=== PATIENT | male | born 1940 | race Caucasian/White ===

== ENCOUNTER 2019-08-03 12:27 | Inpatient (IN) | payer MEDICARE ==
[2019-08-03] MEDS ORDERED: NITROGLYCERIN OINT 1 INCH/GM PACKET TOPICAL STA (12:57)
[2019-08-03] MEDS ORDERED: ASPIRIN 81 MG PO STA (12:57)
--- NOTE | 2019-08-03 13:02 | ED ---
General Adult HPI - General Chief complaint: Chest Pain Stated complaint: Chest pain, SOB Time Seen by Provider: 08/03/19 12:35 Source: patient, RN notes reviewed Mode of arrival: ambulatory Limitations: no limitations - History of Present Illness Initial comments: This is a 79-year-old male who presents emergency Department complaining of on and off chest pain for about 2 weeks patient states she exerts himself he becomes very short of breath and starts having chest pain. Patient states when he relaxes the pain does seem to subside. Patient states she has had multiple stents in the past does have high blood pressure high cholesterol. Patient s owen currently is not having chest pain but anytime he exerts himself he has chest pain shortness of breath. Patient denies any fever chills. Patient denies any radiation of the pain. Patient denies any diaphoretic episodes. Patient denies nausea. Patient denies abdominal pain. Patient denies headache patient denies numbness weakness. Patient denies any lightheadedness dizziness or near syncopal episode. Patient denies any calf pain. - Related Data Home Medications Medication Instructions Recorded Confirmed Isosorbide Mononitrate ER [Imdur] 30 mg PO DAILY 09/16/14 08/03/19 amLODIPine BESYLATE [Norvasc] 5 mg PO DAILY 09/16/14 08/03/19 Aspirin EC [Ecotrin Low Dose] 81 mg PO DAILY 08/03/19 08/03/19 Fluticasone Nasal [place] [Flonase 2 spr EA NOSTRIL TID 08/03/19 08/03/19 Nasal [place]] Ibuprofen [Motrin Ib] 400 mg PO TID 08/03/19 08/03/19 diphenhydrAMINE [Benadryl] 25 mg PO HS PRN 08/03/19 08/03/19 diphenhydrAMINE [Benadryl] 50 mg PO BID@0800,1200 08/03/19 08/03/19 Allergies Allergy/AdvReac Type Severity Reaction Status Date / Time Sulfa (Sulfonamide Allergy Unknown Verified 08/03/19 12:48 Antibiotics) Childhood Review of Systems ROS Statement: Those systems with pertinent positive or pertinent negative responses have been documented in the HPI. ROS Other: All systems not noted in ROS Statement are negative. Past Medical History Past Medical History: Coronary Artery Disease (CAD), Hypertension, Myocardial Infarction (NE), Renal Disease Additional Past Medical History / Comment(s): NE History of Any Multi-Drug Resistant Organisms: None Reported Past Surgical History: Appendectomy, Heart Catheterization With Stent, Hernia Repair Additional Past Surgical History / Comment(s): heart stents x2, left kidney removed, nasal, right finger, cataracts, Past Psychological History: No Psychological Hx Reported Smoking Status: Never smoker Past Alcohol Use History: Occasional Past Drug Use History: None Reported General Exam - General Exam Comments Initial Comments: GENERAL: Patient is well-developed and well-nourished. Patient is nontoxic and well- hydrated and is in mild distress. ENT: Neck is soft and supple. No significant lymphadenopathy is noted. Oropharynx is clear. Moist mucous membranes. Neck has full range of motion without eliciting any pain. EYES: The sclera were anicteric and conjunctiva were pink and moist. Extraocular movements were intact and pupils were equal round and reactive to light. Eyelids were unremarkable. PULMONARY: Unlabored respirations. Good breath sounds bilaterally. No audible rales rhonchi or wheezing was noted. CARDIOVASCULAR: There is a regular rate and rhythm without any murmurs gallops or rubs. ABDOMEN: Soft and nontender with normal bowel sounds. SKIN: Skin is clear with no lesions or rashes and otherwise unremarkable. NEUROLOGIC: Patient is alert and oriented x3. Cranial nerves II through XII are grossly intact. Motor and sensory are also intact. Normal speech, volume and content. Symmetrical smile. MUSCULOSKELETAL: Normal extremities with adequate strength and full range of motion. 1+ bilaterally LYMPHATICS: No significant lymphadenopathy is noted PSYCHIATRIC: Normal psychiatric evaluation. Limitations: no limitations Course Vital Signs 08/03/19 08/03/19 08/03/19 12:33 13:05 13:07 Temperature 97.6 F Pulse Rate 88 72 Pulse Rate [ 72 Bilateral Faith Doctor ] Respiratory 18 18 Rate Blood Pressure 139/70 136/72 O2 Sat by Pulse 95 Oximetry Medical Decision Making - Medical Decision Making EKG shows a sinus rhythm with many PVCs at a rate of 94 bpm CA interval is 214 QRS is 92 QT interval 396 QTC is 495. Patient's EKG does show some inverted T waves in precordial leads V5 and V6. Repeat EKG was done because the patient was experiencing some more chest pain. EKG shows a sinus rhythm with first-degree block at a rate of 84 bpm with a CA interval of 22 QRS is 94 QT interval 14 QTC is 493. Patient also has multiple PVCs. I started the patient on heparin. Patient more chest pains I gave him a nitroglycerin sublingual took the pain away but pain reoccurred shortly thereafter. Patient received another nitroglycerin and then I placed him on a nitroglycerin drip. I spoke with Dr. Kody Gates wanted the patient on heparin and nitroglycerin drip and I indicated to him I thought this patient was someone that needs to be seen as soon as possible. Chest x-ray shows pulmonary venous congestion. Started the patient on Lasix. Patient was feeling better with a nitro drip but still had slight pain. I spoke with Dr. Carrera agreed to admit the patient admitted the patient and formally consulted cardiology - Lab Data Result diagrams: 08/03/19 13:05 08/03/19 13:05 Lab Results 08/03/19 08/03/19 08/03/19 Range/Units 13:05 13:05 13:05 WBC 7.6 (3.8-10.6) k/uL RBC 4.06 L (4.30-5.90) m/uL Hgb 13.4 (13.0-17.5) gm/dL Hct 41.5 (39.0-53.0) % MCV 102.1 H (80.0-100.0) fL MCH 33.1 (25.0-35.0) pg MCHC 32.4 (31.0-37.0) g/dL RDW 12.4 (11.5-15.5) % Plt Count 262 (150-450) k/uL Neutrophils % 63 % Lymphocytes % 19 % Monocytes % 6 % Eosinophils % 8 % Basophils % 1 % Neutrophils # 4.8 (1.3-7.7) k/uL Lymphocytes # 1.5 (1.0-4.8) k/uL Monocytes # 0.4 (0-1.0) k/uL Eosinophils # 0.6 (0-0.7) k/uL Basophils # 0.1 (0-0.2) k/uL PT 9.8 (9.0-12.0) sec INR 0.9 (<1.2) APTT 23.5 (22.0-30.0) sec Sodium 137 (137-145) mmol/L Potassium 4.4 (3.5-5.1) mmol/L Chloride 105 (98-107) mmol/L Carbon Dioxide 22 (22-30) mmol/L Anion Gap 10 mmol/L BUN 30 H (9-20) mg/dL Creatinine 0.75 (0.66-1.25) mg/dL Est GFR (CKD-EPI)AfAm >90 (>60 ml/min/1.73 sqM) Est GFR (CKD-EPI)NonAf 88 (>60 ml/min/1.73 sqM) Glucose 114 H (74-99) mg/dL Calcium 9.2 (8.4-10.2) mg/dL Magnesium 1.8 (1.6-2.3) mg/dL Total Bilirubin 0.7 (0.2-1.3) mg/dL AST 31 (17-59) U/L ALT 33 (21-72) U/L Alkaline Phosphatase 76 (38-126) U/L Troponin I (0.000-0.034) ng/mL Total Protein 6.1 L (6.3-8.2) g/dL Albumin 3.4 L (3.5-5.0) g/dL 08/03/19 Range/Units 13:05 WBC (3.8-10.6) k/uL RBC (4.30-5.90) m/uL Hgb (13.0-17.5) gm/dL Hct (39.0-53.0) % MCV (80.0-100.0) fL MCH (25.0-35.0) pg MCHC (31.0-37.0) g/dL RDW (11.5-15.5) % Plt Count (150-450) k/uL Neutrophils % % Lymphocytes % % Monocytes % % Eosinophils % % Basophils % % Neutrophils # (1.3-7.7) k/uL Lymphocytes # (1.0-4.8) k/uL Monocytes # (0-1.0) k/uL Eosinophils # (0-0.7) k/uL Basophils # (0-0.2) k/uL PT (9.0-12.0) sec INR (<1.2) APTT (22.0-30.0) sec Sodium (137-145) mmol/L Potassium (3.5-5.1) mmol/L Chloride (98-107) mmol/L Carbon Dioxide (22-30) mmol/L Anion Gap mmol/L BUN (9-20) mg/dL Creatinine (0.66-1.25) mg/dL Est GFR (CKD-EPI)AfAm (>60 ml/min/1.73 sqM) Est GFR (CKD-EPI)NonAf (>60 ml/min/1.73 sqM) Glucose (74-99) mg/dL Calcium (8.4-10.2) mg/dL Magnesium (1.6-2.3) mg/dL Total Bilirubin (0.2-1.3) mg/dL AST (17-59) U/L ALT (21-72) U/L Alkaline Phosphatase (38-126) U/L Troponin I 0.048 H* (0.000-0.034) ng/mL Total Protein (6.3-8.2) g/dL Albumin (3.5-5.0) g/dL Critical Care Time Critical Care Time: Yes Total Critical Care Time: 35 Disposition Clinical Impression: Unstable angina pectoris, Acute pulmonary edema Disposition: ADMITTED IP TO THIS HOSP Referrals: Bruce Unger DO [Primary Care Provider] - 1-2 days Time of Disposition: 15:27
[2019-08-03 13:22] LABS: Basophils # (A) 0.1 k/uL (0-0.2); Basophils % (A) 1 %; Eosinophils # (A) 0.6 k/uL (0-0.7); Eosinophils % (A) 8 %; HCT 41.5 % (39.0-53.0); HGB 13.4 gm/dL (13.0-17.5); Lymphocytes # (A) 1.5 k/uL (1.0-4.8); Lymphocytes % (A) 19 %; MCH 33.1 pg (25.0-35.0); MCHC 32.4 g/dL (31.0-37.0); MCV 102.1 fL (80.0-100.0); Mean Platelet Volume 7.8; Monocytes # (A) 0.4 k/uL (0-1.0); Monocytes % (A) 6 %; Neutrophils # (A) 4.8 k/uL (1.3-7.7); Neutrophils % (A) 63 %; Platelet Count 262 k/uL (150-450); RBC 4.06 m/uL (4.30-5.90); RDW 12.4 % (11.5-15.5); WBC 7.6 k/uL (3.8-10.6)
[2019-08-03 13:23] LABS: ALT 33 U/L (21-72); AST 31 U/L (17-59); African American GFR (CKD) >90 (>60 ml/min/1.73 sqM); Albumin 3.4 g/dL (3.5-5.0); Alkaline Phosphatase 76 U/L (38-126); Anion Gap 10 mmol/L; Blood Urea Nitrogen 30 mg/dL (9-20); Calcium 9.2 mg/dL (8.4-10.2); Carbon Dioxide 22 mmol/L (22-30); Chloride 105 mmol/L (98-107); Glucose 114 mg/dL (74-99); Magnesium 1.8 mg/dL (1.6-2.3); Potassium 4.4 mmol/L (3.5-5.1); Sodium 137 mmol/L (137-145); Total Bilirubin 0.7 mg/dL (0.2-1.3); Total Protein 6.1 g/dL (6.3-8.2)
[2019-08-03 13:25] LABS: INR 0.9 (<1.2); Partial Thromboplastin Time 23.5 sec (22.0-30.0); Prothrombin Time 9.8 sec (9.0-12.0)
--- NOTE | 2019-08-03 13:37 | XR ---
EXAMINATION TYPE: XR chest 2V DATE OF EXAM: 08/03/2019 COMPARISON: NONE HISTORY: Shortness of breath TECHNIQUE: Frontal and lateral views of the chest are obtained. FINDINGS: Scattered senescent parenchymal changes noted. Hyperinflation compatible with COPD. Patchy basilar infiltrates with small effusions and pulmonary venous congestion as well as cardiomega ly may reflect atypical presentation of congestive failure. Correlate clinically Mediastinal structures are stable and grossly unremarkable. No evidence for hilar prominence. Degenerative changes dorsal spine. IMPRESSION: 1. Patchy basilar infiltrates with small effusions and pulmonary venous congestion as well as cardiom egaly may reflect atypical presentation of congestive failure. Correlate clinically
[2019-08-03] MEDS: NITROGLYCERIN SL TABS 0.4 MG TAB SUBLINGUAL PRN ×2 (14:01→14:20)
[2019-08-03] MEDS ORDERED: HEPARIN SODIUM,PORCINE 5,000 UNIT/ML 1 ML VIAL IV ONE (14:19)
[2019-08-03] MEDS ORDERED: NITROGLYCERIN-D5W PMX 50 MG in DEXTROSE/WATER 1 250ML.BAG IV ONE (14:23)
[2019-08-03] MEDS ORDERED: HEPARIN SOD,PORK IN 0.45% NACL 25,000 UNIT in 0.45% NACL 1 250ML.BAG IV SCH (14:30)
[2019-08-03] MEDS ORDERED: HYDROmorphone 0.5 MG/0.5 ML SYRINGE IVP STA (14:52)
[2019-08-03] MEDS ORDERED: NITROGLYCERIN SL TABS 0.4 MG TAB SUBLINGUAL PRN (15:28)
[2019-08-03] MEDS ORDERED: FUROSEMIDE 10 MG/ML 2 ML VIAL IV STA (15:29)
[2019-08-03] MEDS ORDERED: MAGNESIUM SULFATE-D5W PMX 1 GM in DEXTROSE/WATER 1 100ML.BAG IVPB ONE (16:54)
[2019-08-03] MEDS ORDERED: NITROGLYCERIN OINT 1 INCH/GM PACKET TOPICAL SCH (18:00)
[2019-08-03] MEDS: FUROSEMIDE 10 MG/ML 2 ML VIAL IV SCH (20:02)
[2019-08-03] MEDS: METOPROLOL TARTRATE 12.5 MG TAB PO SCH (20:52)
[2019-08-03] MEDS: ATORVASTATIN 40 MG TAB PO SCH (20:52)
--- NOTE | 2019-08-03 23:03 | CONS ---
CONSULTATION DATE OF SERVICE: 08/03/2019 Grey Rendon is a 79-year-old gentleman who was brought into the emergency room by his sister and his niece. This gentleman has history of known CAD, hypertension and hypercholesterolemia. He underwent stenting performed of one of his coronary arteries several years ago, probably more than 10 years, but has not followed up with his equipment validation specialist. He sees his primary care physician, Dr. Quintanilla. He came in because of about one week's history of chest tightness, pressure and shortness of breath. He describes his chest tightness on the right side of the chest that sometimes radiates across to the left side. It happens randomly, sometimes with activity, but there is a progressive increase in frequency of these episodes. He also has shortness of breath with activity. At the time of my evaluation he is pain-free. Apparently he received some sublingual nitroglycerin and obtained relief. I advised that we heparinize him and also place him on a nitroglycerin drip, and with this he seems quite comfortable. EKG revealed sinus mechanism with isolated PVCs and some of them in the form of repeated beats up to 3 beats in a row of PVCs. There are no acute changes on the EKG, but troponin initial value is 0.048, in the borderline range. At the time of my evaluation he is virtually asymptomatic, resting without any symptoms. PAST MEDICAL HISTORY: 1. CAD with stenting. Details unavailable. More than 10 years ago per patient and his sister. 2. He also underwent left nephrectomy performed when he was 14 years of age for a nonfunctioning kidney. Details are unclear. 3. He also had a previous appendectomy and hernia repair. ALLERGIES: SULFA. MEDICATIONS: Medications at home include: 1. Benadryl. 2. Imdur 30 mg daily. 3. Amlodipine 5 mg daily. 4. Aspirin 81 mg daily. 5. Nasal spray. 6. Motrin p.r.n. PHYSICAL EXAMINATION: Blood pressure is 128/70. Pulse rate is about 70 per minute, regular. HEENT unremarkable. Fundus was not examined by me. Neck is supple. There is no JVD. I do not hear a carotid bruit. Heart exam reveals S1, S2 heard normally. There are no significant murmurs. Lungs reveal decent air entry in bilateral lung mcclure. Abdomen is soft, nontender. Lower extremities reveal palpable pulses. No edema. Central nervous system is normal. EKG revealed sinus mechanism with isolated PVCs, LVH by voltage criteria, nonspecific ST and T-wave changes. Laboratory data reveal that his hemoglobin is normal. Platelet count is normal. Renal function is normal. Troponin is 0.048, and this is the first value. IMPRESSION: 1. Probable unstable angina. 2. Hypertension. 3. Hyperlipidemia. 4. History of previous percutaneous coronary intervention more than 10 years ago per patient; details unavailable at this time. RECOMMENDATIONS: This patient is not a smoker but has history of known coronary artery disease, hypertension, hyperlipidemia; has not seen a equipment validation specialist. His symptoms raise the possibility of angina. He is pain-free now on heparin and nitroglycerin drips. I am recommending that we place him on a small dose of metoprolol, supplement magnesium, which is at the low end of normal, obtain serial troponins and echocardiogram in the morning and continue his heparin and nitroglycerin drip. If he has more symptoms, I will perform coronary angiography first thing tomorrow morning. The rationale, risks, benefits and options were explained to the patient's sister and niece. They understand all details and wish to proceed. MMODL / IJN: [id number] /
[2019-08-04] MEDS: IBUPROFEN 400 MG TAB PO SCH ×2 (00:42→08:09)
[2019-08-04] MEDS: FLUTICASONE 50MCG/SPRAY NASAL 16GM EA NOSTRIL SCH ×4 (00:42→20:12)
[2019-08-04] MEDS: FUROSEMIDE 10 MG/ML 2 ML VIAL IV SCH ×2 (01:07→12:36)
[2019-08-04] MEDS: amLODIPine 5 MG TAB PO SCH (05:41)
[2019-08-04] MEDS: METOPROLOL TARTRATE 12.5 MG TAB PO SCH (05:41)
[2019-08-04] MEDS: ASPIRIN 81 MG PO SCH (05:42)
[2019-08-04] MEDS: ISOSORBIDE MONONITRATE ER 30 MG TAB.ER.24H PO SCH (05:42)
[2019-08-04 07:01] LABS: Cholesterol 151 mg/dL (<200); HDL Cholesterol 41 mg/dL (40-60); LDL Cholesterol,Calculated 97 mg/dL (0-99); Triglycerides 65 mg/dL (<150)
[2019-08-04] MEDS ORDERED: ATORVASTATIN 80 MG TAB PO STA (08:03)
[2019-08-04 08:49] LABS: Basophils # (A) 0.1 k/uL (0-0.2); Basophils % (A) 1 %; Eosinophils # (A) 0.5 k/uL (0-0.7); Eosinophils % (A) 7 %; HCT 40.7 % (39.0-53.0); HGB 13.4 gm/dL (13.0-17.5); Lymphocytes # (A) 1.3 k/uL (1.0-4.8); Lymphocytes % (A) 18 %; MCH 34.1 pg (25.0-35.0); MCHC 32.9 g/dL (31.0-37.0); MCV 103.6 fL (80.0-100.0); Macrocytosis Slight; Mean Platelet Volume 9.2; Monocytes # (A) 0.5 k/uL (0-1.0); Monocytes % (A) 7 %; Neutrophils # (A) 4.8 k/uL (1.3-7.7); Neutrophils % (A) 65 %; Platelet Count 263 k/uL (150-450); RBC 3.93 m/uL (4.30-5.90); RDW 12.4 % (11.5-15.5); WBC 7.4 k/uL (3.8-10.6)
[2019-08-04 08:55] LABS: African American GFR (CKD) >90 (>60 ml/min/1.73 sqM); Anion Gap 9 mmol/L; Blood Urea Nitrogen 22 mg/dL (9-20); Calcium 8.7 mg/dL (8.4-10.2); Carbon Dioxide 23 mmol/L (22-30); Chloride 104 mmol/L (98-107); Glucose 109 mg/dL (74-99); Potassium 4.3 mmol/L (3.5-5.1); Sodium 136 mmol/L (137-145)
[2019-08-04] MEDS ORDERED: NON FORMULARY DRUG (Aspirin Ec 81 MG) PO SCH (09:00)
[2019-08-04] MEDS ORDERED: ASPIRIN 325 MG TAB PO SCH (09:00)
--- NOTE | 2019-08-04 09:23 | US ---
EXAMINATION TYPE: US abdomen complete DATE OF EXAM: 08/04/2019 COMPARISON: US 09/06/2014 of the gallbladder CLINICAL HISTORY: abdominal pain. shortness of breath EXAM MEASUREMENTS: Liver Length: 10.8 cm Gallbladder Wall: 0.2 cm CBD: 0.2 cm Spleen: 6.2 cm Right Kidney: 11.0 x 4.9 x 6.3 cm Left Kidney: Surgically absent Patient states left kidney surgically absent. Technically difficult study due to being performed port ably and patient being very short of breath. Pancreas: not well seen due to overlying bowel gas Liver: wnl Gallbladder: No stones seen Evidence for sonographic Soares's sign: No CBD: wnl Spleen: wnl Right Kidney: wnl Left Kidney: Surgically absent per patient Upper IVC: wnl Abd Aorta: calcified Incidental note is made of bilateral pleural effusion. The liver is homogenous. The intrahepatic portion of the IVC and proximal abdominal aorta are within normal limits. There is no evidence of cholelithiasis. Common bile duct is unremarkable. The visu alized portions of the pancreas are homogenous. The spleen is unremarkable. Right kidney is free of hydronephrosis. Left kidney is surgically absent. IMPRESSION: 1. Incidentally noted partially visualized pleural effusions, visualized portions appear small. 2. The previously seen borderline gallbladder wall thickening and 2014 does not persist on today's ex am. No sonographic evidence of acute cholecystitis nor cholelithiasis. 3. Limited views of the left renal fossa in the nephrectomy bed. There is also limited evaluation of the pancreas. 4. Incidentally noted atherosclerosis of the abdominal aorta.
[2019-08-04] MEDS ORDERED: VERAPAMIL 2.5 MG/ML 2 ML AMP ONE (09:55)
[2019-08-04] MEDS ORDERED: LIDOCAINE 1% INJ 10MG/ML (20 ML MDV) ONE (09:56)
[2019-08-04] MEDS ORDERED: IV FLUID CONTINUATION 400 ML IV ONE (10:47)
[2019-08-04] MEDS ORDERED: MIDAZOLAM PF (FBP) 2 MG/2 ML VIAL IV ONE (10:47)
[2019-08-04] MEDS ORDERED: LIDOCAINE 1% INJ 10MG/ML (20 ML MDV) SQ ONE (10:50)
[2019-08-04] MEDS ORDERED: FUROSEMIDE 10 MG/ML 4 ML VIAL ONE (10:53)
[2019-08-04] MEDS ORDERED: FUROSEMIDE 10 MG/ML 4 ML VIAL IV ONE (10:55)
[2019-08-04] MEDS ORDERED: IOPAMIDOL-370 100ML BTL INJ ONE (11:21)
--- NOTE | 2019-08-04 11:42 | ECHOF ---
Referral Reason:chest pain and elevated troponin MEASUREMENTS -------- HEIGHT: 157.5 cm WEIGHT: 69.4 kg BP: 120/76 RVIDd: 3.6 cm (< 3.3) IVSd: 0.9 cm (0.6 - 1.1) LVIDd: 4.8 cm (3.9 - 5.3) LVPWd: 1.5 cm (0.6 - 1.1) IVSs: 1.3 cm LVIDs: 3.6 cm LVPWs: 1.1 cm LA Diam: 4.5 cm (2.7 - 3.8) LAESV Index (A-L): 35.97 ml/m Ao Diam: 3.1 cm (2.0 - 3.7) AV Cusp: 1.2 cm (1.5 - 2.6) LA Diam: 4.1 cm (2.7 - 3.8) MV EXCURSION: 22.213 mm (> 18.000) MV EF SLOPE: 171 mm/s (70 - 150) EPSS: 0.8 cm MV E Rubin: 0.53 m/s MV DecT: 167 ms MV A Rubin: 0.43 m/s MV E/A Ratio: 1.22 AR PHT: 571 ms RAP: 5.00 mmHg RVSP: 55.96 mmHg TAPSE: 20.39 mm FINDINGS -------- Sinus rhythm. This was a techncally difficult study with suboptimal views, , Lumason utilized for enhancement of im ages. There is moderate concentric left ventricular hypertrophy. Overall left ventricular systolic functi on is moderate-severely impaired with, an EF between 30 - 35 %. Increased Lap Grade II Diastolic Dy sfunction. Apical anterior LV wall motion is hypokinetic. Apical inferior LV wall motion is hypo kinetic. Lateral hypokinesis [place] Hypokinesis. The right ventricle is normal in size. The left atrium is moderately dilated. LA is severely dilated >40 ml/m2 The right atrial size is normal. 5.0mg OF Lumason UTLIZED: 2 OR MORE WALL SEGMENTS NOT VISUALIZED. There is mild aortic valve sclerosis. There is mild aortic regurgitation. Mild mitral annular calcification present. Mild mitral regurgitation is present. Moderate tricuspid regurgitation present. There is moderate pulmonary hypertension. The right halina tricular systolic pressure, as measured by Doppler, is 55.96mmHg. Trace/mild (physiologic) pulmonic regurgitation. The aortic root size is normal. There is no pericardial effusion. CONCLUSIONS -------- 1. Sinus rhythm. 2. This was a techncally difficult study with suboptimal views, , Lumason utilized for enhancement of images. 3. There is moderate concentric left ventricular hypertrophy. 4. Overall left ventricular systolic function is moderate-severely impaired with, an EF between 30 - 35 %. 5. Increased Lap Grade II Diastolic Dysfunction. 6. Apical anterior LV wall motion is hypokinetic. 7. Apical inferior LV wall motion is hypokinetic. 8. Lateral hypokinesis 9. [place] Hypokinesis. 10. The right ventricle is normal in size. 11. The left atrium is moderately dilated. 12. LA is severely dilated >40 ml/m2 13. The right atrial size is normal. 14. 5.0mg OF Lumason UTLIZED: 2 OR MORE WALL SEGMENTS NOT VISUALIZED. 15. There is mild aortic valve sclerosis. 16. There is mild aortic regurgitation. 17. Mild mitral annular calcification present. 18. Mild mitral regurgitation is present. 19. Moderate tricuspid regurgitation present. 20. There is moderate pulmonary hypertension. 21. The right ventricular systolic pressure, as measured by Doppler, is 55.96mmHg. 22. Trace/mild (physiologic) pulmonic regurgitation. 23. The aortic root size is normal. 24. There is no pericardial effusion. CLAIMS ATTORNEY: Claudia Garcia RDCS
[2019-08-04] MEDS ORDERED: SODIUM CHLORIDE 0.9% 1,000 ML IV SCH (11:45)
--- NOTE | 2019-08-04 12:02 | CC ---
CARDIAC CATHETERIZATION REPORT DATE OF SERVICE: 08/04/2019 PROCEDURE: Left heart catheterization and coronary angiography. PERFORMED BY: Dr. Shashank Gates. SEDATION: Moderate conscious sedation time was 29 minutes. Patient was administered Versed. His oxygen saturation, hemodynamics and EKG were monitored closely. CLINICAL INFORMATION: Mr. Grey Rendon is 79-year-old gentleman with a history of hypertension who came to the hospital yesterday with 1 week's worth of chest pain on and off and had a mild troponin elevation without clear-cut EKG changes other than PVCs. He was advised cardiac catheterization given his presentation. In October 2005, he underwent stenting of proximal LAD and in November 2005 he underwent stenting of mid LAD. In view of his known previous PCI and with his presentation, he was advised cardiac cath after due discussion. Risks, benefits, options and rationale were explained to the patient and family members. PROCEDURE NOTE: Under local anesthesia and strict aseptic precautions, a 6-[place] introducer was placed in the right femoral artery. Using standard Ramon catheters. I performed coronary angiography and a pigtail catheter was used to check LV pressure but LV gram was not performed. The sheath was taken out and Angio-Seal device used to secure hemostasis. He was sent to the room in stable condition. CARDIAC CATHETERIZATION FINDINGS: Left vent end-diastolic pressure was about 20 mmHg without any gradient across the aortic valve. CORONARY ANGIOGRAPHY FINDINGS: RIGHT CORONARY ARTERY: This is a very dominant vessel, is heavily calcified. Has no significant CAD and distally it divides into 3 different branches and supplies a fair amount of myocardium. There is a moderate to heavy calcification but no significant obstructive disease in the dominant RCA. LEFT MAIN CORONARY ARTERY: Short, patent, disease-free vessel that bifurcates into LAD and circumflex. LEFT ANTERIOR DESCENDING CORONARY ARTERY: Good caliber vessel, extends along the anterior wall at the site of previous stenting. There is no significant disease. From the stented segment, there is a small jailed diagonal branch that seems to fill slowly. The stent itself is widely patent with no more than 30% narrowing. The mid LAD stent is also widely patent and the diagonal branch that comes off at the edges sent to the stent is widely patent with good flow with about 30% narrowing. The entire LAD has no significant disease. There is a small jailed diagonal branch that seems to fill slowly coming from the proximal LAD stent. There is another proximal diagonal branch that is free of significant disease, supplies a fair amount of myocardium. LEFT POSTERIOR CIRCUMFLEX CORONARY ARTERY: A nondominant vessel, gives off 2 small obtuse marginal branches and then runs in the AV groove. The second obtuse marginal is of good caliber and distribution. There is no significant disease involving the circumflex system. LEFT VENTRICULOGRAM: This was not performed. FINAL IMPRESSION: This patient has a widely patent mid LAD stent as well as proximal LAD stent. There is a small subtotal diagonal that is jailed coming off from the stent. He has no significant disease in the circumflex or the dominant RCA, but RCA is heavily calcified. Filling pressures are elevated. There is no obstructive CAD of significance on this patient. However, echo picture suggests takotsubo-type picture. RECOMMENDATION: Findings were discussed with the patient and his sister. I will recommend that we continue current medications and because of ventricular ectopy and decreased LV function, I will add amiodarone to his regimen. Discussed my thoughts in detail with the patient and family and he was sent to the room in a stable condition. MMODL / IJN: [id number] /
[2019-08-04] MEDS ORDERED: AMIODARONE 200 MG TAB PO STA (13:09)
[2019-08-04] MEDS ORDERED: METOPROLOL TARTRATE 12.5 MG TAB PO STA (13:09)
[2019-08-04] MEDS ORDERED: CALCIUM CARBONATE 500 MG CHEWABLE PO PRN (14:58)
[2019-08-04] MEDS: CALCIUM CARBONATE 500 MG CHEWABLE PO SCH (17:00)
[2019-08-04] MEDS: ATORVASTATIN 40 MG TAB PO SCH (20:11)
[2019-08-04] MEDS: FUROSEMIDE 10 MG/ML 4 ML VIAL IV SCH (20:11)
[2019-08-04] MEDS: AMIODARONE 200 MG TAB PO SCH (20:11)
[2019-08-04] MEDS: METOPROLOL TARTRATE 25 MG TAB PO SCH (20:12)
[2019-08-04] MEDS ORDERED: LOSARTAN 25 MG TAB PO SCH (21:00)
--- NOTE | 2019-08-04 22:06 | P.HPIM ---
History of Present Illness H&P Date: 08/04/19 Chief Complaint: Chest pain History of presenting complaint: This is a pleasant 79-year-old patient of Dr. Bruce Quintanilla. Chronic stable medical conditions include hypertension, left nephrectomy, arthritis. Patient presents with left-sided chest pressure also be across the chest present for several hours and every over the night. No perspiration. Mild shortness of breath. No dizziness no lightheadedness. Patient has known coronary artery disease with prior stent. Patient admitted with diagnosis of unstable angina. Patient never troponin of 0.048 and 0.057. 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 JOSE JUAN Gates. More details and's notes. It was decided to manage the patient medically. Earlier patient 2-D echocardiogram showing EF of 30-35% and he had wall motion abnormalities. Postprocedure patient symptom-free. Review of systems: GEN.: Tired EYES: None HEENT: None NECK: None RESPIRATORY: None CARDIOVASCULAR: 's above GASTROINTESTINAL: None GENITOURINARY: None MUSCULOSKELETAL: Joint pain LYMPHATICS: None HEMATOLOGICAL: None PSYCHIATRY: None NEUROLOGICAL: None Past medical history: Coronary artery disease with stent, hypertension, left nephrectomy, Social history: Does not smoke. Alcohol occasionally. Lives alone. 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 Family history: Reviewed, noncontributory to presentation Physical examination: VITAL SIGNS: 97.6, 88, 18, 139/70, 95% room air GENERAL: BMI 20.6, laying in bed awake. EYES: Pupils equal. Conjunctiva normal. HEENT: External appearance of nose and ears normal, oral cavity grossly normal. NECK: JVD not raised; masses not palpable. HEART: First and second heart sounds are normal; no edema. LUNGS: Respiratory rate normal; clear to auscultation. ABDOMEN: Soft, nontender, liver spleen not palpable, no masses palpable. PSYCH: Alert and oriented x3; mood and affect normal. NEUROLOGICAL: Cranial nerves grossly intact; no facial asymmetry, power and sensation grossly intact. LYMPHATICS: No lymph nodes palpable in the axilla and neck INVESTIGATIONS, reviewed in the clinical context: Chest x-ray film personally reviewed by me-shows venous prominence and possible right pleural effusion EKG tracing personally reviewed by me-multiple PVCs some T-wave changes, sinus rhythm 2-D echo-moderate concentric left medical hypertrophy, EF 30-35%, multiple wall motion abnormality, Cardiac cath results and Dr. 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 Current medications include amiodarone, Norvasc, aspirin, Lipitor, IV Lasix, Imdur, Cozaar, beta redd. Care was discussed with the patient. Questions were answered. Seen by Dr. JOSE JUAN Gates from cardiology. Past Medical History Past Medical History: Coronary Artery Disease (CAD), Hypertension, Renal Disease Additional Past Medical History / Comment(s): PR History of Any Multi-Drug Resistant Organisms: None Reported Past Surgical History: Appendectomy, Heart Catheterization With Stent, Hernia Repair Additional Past Surgical History / Comment(s): heart stents x2, left kidney removed, nasal, right finger, cataracts, Date of Last Stent Placement:: unknown Past Psychological History: No Psychological Hx Reported Smoking Status: Never smoker Past Alcohol Use History: Occasional Past Drug Use History: None Reported - Past Family History Father History Unknown: Yes Mother History Unknown: Yes Medications and Allergies Home Medications Medication Instructions Recorded Confirmed Type Isosorbide Mononitrate ER [Imdur] 30 mg PO DAILY 09/16/14 08/03/19 History amLODIPine BESYLATE [Norvasc] 5 mg PO DAILY 09/16/14 08/03/19 History Aspirin EC [Ecotrin Low Dose] 81 mg PO DAILY 08/03/19 08/03/19 History Fluticasone Nasal [place] [Flonase 2 spr EA NOSTRIL TID 08/03/19 08/03/19 History Nasal [place]] Ibuprofen [Motrin Ib] 400 mg PO TID 08/03/19 08/03/19 History diphenhydrAMINE [Benadryl] 25 mg PO HS PRN 08/03/19 08/03/19 History diphenhydrAMINE [Benadryl] 50 mg PO BID@0800,1200 08/03/19 08/03/19 History Allergies Allergy/AdvReac Type Severity Reaction Status Date / Time Sulfa (Sulfonamide Allergy Unknown Verified 08/03/19 12:48 Antibiotics) Childhood Physical Exam Vitals: Vital Signs Temp Pulse Pulse Pulse Pulse Resp BP 08/04/19 08:00 97.5 F L 78 14 08/04/19 03:00 98 F 60 18 08/04/19 00:16 97.9 F 57 L 16 08/03/19 21:46 97.7 F 52 L 18 08/03/19 21:32 97.9 F 52 L 18 08/03/19 17:58 08/03/19 17:48 73 77 18 08/03/19 16:44 84 18 122/96 08/03/19 16:10 126/73 08/03/19 16:00 83 125/77 08/03/19 15:50 76 125/77 08/03/19 15:40 76 107/89 08/03/19 15:30 79 116/70 08/03/19 15:20 84 116/70 08/03/19 15:10 89 79/69 08/03/19 15:00 85 147/65 08/03/19 14:50 118/93 08/03/19 14:40 76 118/93 08/03/19 14:30 82 118/93 08/03/19 14:20 100 118/86 08/03/19 14:10 90 118/86 08/03/19 14:00 80 118/86 08/03/19 13:50 87 118/86 08/03/19 13:40 87 136/72 08/03/19 13:30 136/72 08/03/19 13:20 136/72 08/03/19 13:10 136/72 08/03/19 13:07 72 18 136/72 08/03/19 13:05 72 08/03/19 13:01 136/72 08/03/19 12:33 97.6 F 88 18 139/70 BP Pulse Ox 08/04/19 08:00 116/61 94 L 08/04/19 03:00 120/76 95 08/04/19 00:16 122/78 94 L 08/03/19 21:46 121/76 08/03/19 21:32 121/76 92 L 08/03/19 17:58 92 L 08/03/19 17:48 113/61 94 L 08/03/19 16:44 95 08/03/19 16:10 08/03/19 16:00 08/03/19 15:50 08/03/19 15:40 08/03/19 15:30 08/03/19 15:20 08/03/19 15:10 08/03/19 15:00 08/03/19 14:50 08/03/19 14:40 08/03/19 14:30 08/03/19 14:20 08/03/19 14:10 08/03/19 14:00 08/03/19 13:50 08/03/19 13:40 08/03/19 13:30 08/03/19 13:20 08/03/19 13:10 08/03/19 13:07 08/03/19 13:05 08/03/19 13:01 08/03/19 12:33 95 Intake and Output 08/03/19 08/04/19 08/04/19 22:59 06:59 14:59 Intake Total 546.88 83.331 Output Total 450 1000 Balance 96.88 -916.669 Intake: IV 546.88 0.9NS @50 mls/hour 400 Heparin Sod,Pork in 0.45% 66.88 NaCl 25,000 unit In 0.45 % NaCl 1 250ml.bag @ 12 UNITS/KG/HR 8.361 mls/hr IV .Q24H [facility] Rx#: [id number] Nitroglycerin-D5w Pmx 50 80 mg In Dextrose/Water 1 250ml.bag @ 10 MCG/MIN 3 mls/hr IV .Q24H ONE Rx#: [id number] Intake, IV Titration 83.331 Amount Heparin Sod,Pork in 0.45% 83.331 NaCl 25,000 unit In 0.45 % NaCl 1 250ml.bag @ 12 UNITS/KG/HR 8.361 mls/hr IV .Q24H [facility] Rx#: [id number] Output: Urine 450 1000 Other: Voiding Method Urinal Urinal # Voids 2 Weight 66.9 kg Results CBC & Chem 7: 08/04/19 06:20 08/04/19 06:20 Labs: Abnormal Lab Results - Last 24 Hours (Table) 08/03/19 08/03/19 08/03/19 Range/Units 13:05 13:05 13:05 RBC 4.06 L (4.30-5.90) m/uL MCV 102.1 H (80.0-100.0) fL APTT (22.0-30.0) sec Sodium (137-145) mmol/L BUN 30 H (9-20) mg/dL Glucose 114 H (74-99) mg/dL Troponin I 0.048 H* (0.000-0.034) ng/mL Total Protein 6.1 L (6.3-8.2) g/dL Albumin 3.4 L (3.5-5.0) g/dL 08/03/19 08/03/19 08/04/19 Range/Units 19:49 23:07 06:20 RBC 3.93 L (4.30-5.90) m/uL MCV 103.6 H (80.0-100.0) fL APTT 40.1 H (22.0-30.0) sec Sodium (137-145) mmol/L BUN (9-20) mg/dL Glucose (74-99) mg/dL Troponin I 0.057 H* (0.000-0.034) ng/mL Total Protein (6.3-8.2) g/dL Albumin (3.5-5.0) g/dL 08/04/19 08/04/19 08/04/19 Range/Units 06:20 06:22 06:22 RBC (4.30-5.90) m/uL MCV (80.0-100.0) fL APTT 52.8 H (22.0-30.0) sec Sodium 136 L (137-145) mmol/L BUN 22 H (9-20) mg/dL Glucose 109 H (74-99) mg/dL Troponin I 0.044 H* (0.000-0.034) ng/mL Total Protein (6.3-8.2) g/dL Albumin (3.5-5.0) g/dL Thrombosis Risk Factor Assmnt - Choose All That Apply Each Risk Factor Represents 3 Points: Age 75 years or older Thrombosis Risk Factor Assessment Total Risk Factor Score: 3 Thrombosis Risk Factor Assessment Level: Moderate Risk
[2019-08-04] MEDS: NITROGLYCERIN SL TABS 0.4 MG TAB SUBLINGUAL PRN (23:40)
[2019-08-05 01:04] LABS: Magnesium 1.7 mg/dL (1.6-2.3)
[2019-08-05] MEDS: CALCIUM CARBONATE 500 MG CHEWABLE PO SCH ×3 (06:14→16:30)
[2019-08-05 07:36] LABS: HCT 44.1 % (39.0-53.0); HGB 14.8 gm/dL (13.0-17.5); MCH 34.1 pg (25.0-35.0); MCHC 33.5 g/dL (31.0-37.0); MCV 101.5 fL (80.0-100.0); Mean Platelet Volume 7.4; Platelet Count 295 k/uL (150-450); RBC 4.34 m/uL (4.30-5.90); RDW 12.1 % (11.5-15.5); WBC 9.5 k/uL (3.8-10.6)
[2019-08-05 07:54] LABS: African American GFR (CKD) >90 (>60 ml/min/1.73 sqM); Anion Gap 9 mmol/L; Blood Urea Nitrogen 20 mg/dL (9-20); Calcium 9.1 mg/dL (8.4-10.2); Carbon Dioxide 24 mmol/L (22-30); Chloride 100 mmol/L (98-107); Glucose 101 mg/dL (74-99); Potassium 4.3 mmol/L (3.5-5.1); Sodium 133 mmol/L (137-145)
[2019-08-05] MEDS: FLUTICASONE 50MCG/SPRAY NASAL 16GM EA NOSTRIL SCH ×3 (09:05→22:19)
[2019-08-05] MEDS: amLODIPine 5 MG TAB PO SCH (09:05)
[2019-08-05] MEDS: ASPIRIN 81 MG PO SCH (09:05)
[2019-08-05] MEDS: AMIODARONE 200 MG TAB PO SCH ×2 (09:05→20:03)
[2019-08-05] MEDS: METOPROLOL TARTRATE 25 MG TAB PO SCH ×2 (09:06→20:03)
[2019-08-05] MEDS: ISOSORBIDE MONONITRATE ER 30 MG TAB.ER.24H PO SCH (09:06)
[2019-08-05] MEDS: FUROSEMIDE 10 MG/ML 4 ML VIAL IV SCH ×2 (09:06→20:03)
[2019-08-05 15:20] VITALS: BMI 19.8
[2019-08-05] MEDS: ATORVASTATIN 40 MG TAB PO SCH (20:03)
[2019-08-05 21:31] LABS: Magnesium 1.7 mg/dL (1.6-2.3); Potassium 4.2 mmol/L (3.5-5.1)
--- NOTE | 2019-08-05 22:20 | CONS ---
CONSULTATION Mr. Rendon is a gentleman who I saw yesterday with elevated troponin, has a Takotsubo type picture. He is doing well. His blood pressure control is optimal. I am recommending we discontinue amlodipine and losartan and increase it to 50 mg daily. Vital signs stable. No JVD. S1-S2 heard normally. Short systolic murmur noted. Lungs are clear. Abdomen and lower extremity exam unchanged. Right groin is clean and dry with a good pulse. MMODL / IJN: [id number] /
--- NOTE | 2019-08-05 22:29 | P.PN ---
Progress Note - Text Progress Note Date: 08/05/19 Interval history: This is a pleasant 79-year-old patient of Dr. Bruce Quintanilla. Chronic stable me dical conditions include hypertension, left nephrectomy, arthritis. Patient presents with left-sided chest pressure also be across the chest present for several hours and every over the night. No perspiration. Mild shortness of breath. No dizziness no lightheadedness. Patient has known coronary artery disease with prior stent. Patient admitted with diagnosis of unstable angina. Patient never troponin of 0.048 and 0.057. 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 JOSE JUAN Gates. More details and's notes. It was decided to manage the patient medically. Earlier patient 2-D echocardiogram showing EF of 30-35% and he had wall motion abnormalities. Postprocedure patient symptom-free. Today-laying in bed. No chest pain. Breathing stable. Up to the bathroom. Review of systems: Was done for constitutional, cardiovascular, GI, pulmonary. relevant finding as above Active Medications Amiodarone HCl (Cordarone) 200 mg PO BID [facility] Last Admin: 08/05/19 20:03 Dose: 200 mg Documented by: Aspirin (Aspirin) 81 mg PO DAILY [facility] Last Admin: 08/05/19 09:05 Dose: 81 mg Documented by: Atorvastatin Calcium (Lipitor) 40 mg PO HS [facility] Last Admin: 08/05/19 20:03 Dose: 40 mg Documented by: Calcium Carbonate/Glycine (Tums) 500 mg PO 0630,1200,1730 [facility] Last Admin: 08/05/19 16:30 Dose: 500 mg Documented by: Fluticasone Propionate (Flonase Nasal [place]) 2 spray EA NOSTRIL TID [facility] Last Admin: 08/05/19 22:19 Dose: Not Given Documented by: Furosemide (Lasix) 40 mg IV Q12HR [facility] Last Admin: 08/05/19 20:03 Dose: 40 mg Documented by: Magnesium Sulfate/Dextrose 1 (gm/ IV Solution) 100 mls @ 100 mls/hr IVPB ONCE ONE Stop: 08/05/19 23:29 Isosorbide Mononitrate (Imdur) 30 mg PO DAILY [facility] Last Admin: 08/05/19 09:06 Dose: 30 mg Documented by: Losartan Potassium (Cozaar) 50 mg PO DAILY [facility] Metoprolol Tartrate (Lopressor) 25 mg PO BID [facility] Last Admin: 08/05/19 20:03 Dose: 25 mg Documented by: Nitroglycerin (Nitrostat) 0.4 mg SUBLINGUAL ONCE PRN PRN Reason: Chest Pain Last Admin: 08/04/19 23:40 Dose: 0.4 mg Documented by: Nitroglycerin (Nitrostat) 0.4 mg SUBLINGUAL Q5M PRN PRN Reason: Chest Pain Physical examination: VITAL SIGNS: 97.9, 90, 16, 151/79, 96% 4 L, GENERAL: Laying in bed comfortable EYES: Pupils equal. Conjunctiva normal. HEENT: External appearance of nose and ears normal, oral cavity grossly normal. NECK: JVD not raised; masses not palpable. HEART: First and second heart sounds are normal; no edema. LUNGS: Respiratory rate normal; clear to auscultation. ABDOMEN: Soft, nontender, liver spleen not palpable, no masses palpable. PSYCH: Alert and oriented x3; mood and affect normal. INVESTIGATIONS, reviewed in the clinical context: White count 9.5 hemoglobin 14.8 potassium 4.3 creatinine 0.75 Previous testing: Chest x-ray film personally reviewed by me-shows venous prominence and possible right pleural effusion EKG tracing personally reviewed by me-multiple PVCs some T-wave changes, sinus rhythm 2-D echo-moderate concentric left medical hypertrophy, EF 30-35%, multiple wall motion abnormality, Cardiac cath results and Dr. 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 Remains on IV Lasix. Electrolytes in the a.m. Check labs in the morning.
[2019-08-05] MEDS ORDERED: MAGNESIUM SULFATE-D5W PMX 1 GM in DEXTROSE/WATER 1 100ML.BAG IVPB ONE (22:30)
[2019-08-06 06:30] LABS: African American GFR (CKD) >90 (>60 ml/min/1.73 sqM); Anion Gap 8 mmol/L; Blood Urea Nitrogen 26 mg/dL (9-20); Calcium 9.3 mg/dL (8.4-10.2); Carbon Dioxide 28 mmol/L (22-30); Chloride 99 mmol/L (98-107); Glucose 106 mg/dL (74-99); Potassium 4.2 mmol/L (3.5-5.1); Sodium 135 mmol/L (137-145)
[2019-08-06] MEDS: CALCIUM CARBONATE 500 MG CHEWABLE PO SCH ×3 (06:39→18:21)
[2019-08-06] MEDS: ISOSORBIDE MONONITRATE ER 30 MG TAB.ER.24H PO SCH (08:19)
[2019-08-06] MEDS: METOPROLOL TARTRATE 25 MG TAB PO SCH ×2 (08:19→21:21)
[2019-08-06] MEDS: LOSARTAN 50 MG TAB PO SCH (08:19)
[2019-08-06] MEDS: FUROSEMIDE 10 MG/ML 4 ML VIAL IV SCH (08:19)
[2019-08-06] MEDS: ASPIRIN 81 MG PO SCH (08:19)
[2019-08-06] MEDS: AMIODARONE 200 MG TAB PO SCH ×2 (08:20→21:21)
[2019-08-06] MEDS: FLUTICASONE 50MCG/SPRAY NASAL 16GM EA NOSTRIL SCH ×3 (08:20→21:22)
--- NOTE | 2019-08-06 13:23 | PN ---
PROGRESS NOTE Grey Rendon is a gentleman who I felt came into the hospital with chest pain had a troponin elevation. Clinical picture was that of takotsubo. Cardiac cath did not reveal any significant obstructive CAD. Possibility of recanalized LAD cannot be excluded. However, he is comfortable, resting. No further chest pain and heart failure symptoms have also resolved. He is on a good combination of medications. He had some hypomagnesemia. This was addressed yesterday. I am recommending that we continue current medications, increase activity, perform a repeat echo on Thursday and possibly discharge him at that time. We will increase activity, same medical regimen. Vitals are stable. JVD is 1 cm. No carotid bruit. S1, S2 heard normally. No significant murmurs. Lungs are clear. Abdomen and lower extremity exam unchanged. Plan is to continue current medications, increase activity. Echo and discharge on Thursday. Hopefully, there will be improvement in LV function since I am suspecting this may be a takotsubo, although it will be too early to expect improvement. Discussed my thoughts in detail with the patient. MMODL / IJN: [id number] /
--- NOTE | 2019-08-06 16:42 | P.PN ---
Progress Note - Text Progress Note Date: 08/06/19 Interval history: This is a pleasant 79-year-old patient of Dr. Bruce Quintanilla. Chronic stable me dical conditions include hypertension, left nephrectomy, arthritis. Patient presents with left-sided chest pressure also be across the chest present for several hours and every over the night. No perspiration. Mild shortness of breath. No dizziness no lightheadedness. Patient has known coronary artery disease with prior stent. Patient admitted with diagnosis of unstable angina. Patient never troponin of 0.048 and 0.057. 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 JOSE JUAN Gates. More details and's notes. It was decided to manage the patient medically. Earlier patient 2-D echocardiogram showing EF of 30-35% and he had wall motion abnormalities. Postprocedure patient symptom-free. Today-laying in bed. Awake. Did tolerate his diet. No chest pain no shortness of breath. Review of systems: Was done for constitutional, cardiovascular, GI, pulmonary. relevant finding as above Active Medications Amiodarone HCl (Cordarone) 200 mg PO BID [facility] Last Admin: 08/06/19 08:20 Dose: 200 mg Documented by: Aspirin (Aspirin) 81 mg PO DAILY [facility] Last Admin: 08/06/19 08:19 Dose: 81 mg Documented by: Atorvastatin Calcium (Lipitor) 40 mg PO HS [facility] Last Admin: 08/05/19 20:03 Dose: 40 mg Documented by: Calcium Carbonate/Glycine (Tums) 500 mg PO 0630,1200,1730 [facility] Last Admin: 08/06/19 12:22 Dose: 500 mg Documented by: Fluticasone Propionate (Flonase Nasal [place]) 2 spray EA NOSTRIL TID [facility] Last Admin: 08/06/19 08:20 Dose: Not Given Documented by: Furosemide (Lasix) 40 mg IV Q12HR [facility] Last Admin: 08/06/19 08:19 Dose: 40 mg Documented by: Isosorbide Mononitrate (Imdur) 30 mg PO DAILY [facility] Last Admin: 08/06/19 08:19 Dose: 30 mg Documented by: Losartan Potassium (Cozaar) 50 mg PO DAILY [facility] Last Admin: 08/06/19 08:19 Dose: 50 mg Documented by: Metoprolol Tartrate (Lopressor) 25 mg PO BID [facility] Last Admin: 08/06/19 08:19 Dose: 25 mg Documented by: Nitroglycerin (Nitrostat) 0.4 mg SUBLINGUAL ONCE PRN PRN Reason: Chest Pain Last Admin: 08/04/19 23:40 Dose: 0.4 mg Documented by: Nitroglycerin (Nitrostat) 0.4 mg SUBLINGUAL Q5M PRN PRN Reason: Chest Pain Physical examination: VITAL SIGNS: 97.8, 84, 16, 11 3/53, 97% room air GENERAL: Laying in bed comfortable EYES: Pupils equal. Conjunctiva normal. HEENT: External appearance of nose and ears normal, oral cavity grossly normal. NECK: JVD not raised; masses not palpable. HEART: First and second heart sounds are normal; no edema. LUNGS: Respiratory rate normal; clear to auscultation. ABDOMEN: Soft, nontender, liver spleen not palpable, no masses palpable. PSYCH: Alert and oriented x3; mood and affect normal. INVESTIGATIONS, reviewed in the clinical context: Potassium 4.2 creatinine 0.85 Previous testing: Chest x-ray film personally reviewed by me-shows venous prominence and possible right pleural effusion EKG tracing personally reviewed by me-multiple PVCs some T-wave changes, sinus rhythm 2-D echo-moderate concentric left medical hypertrophy, EF 30-35%, multiple wall motion abnormality, Cardiac cath results and Dr. 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 JOSE JUAN Gates from cardiogenic. Will be switched from IV Lasix to by mouth Lasix. He wishes to the patient through the weekend and see how he does. Patient encouraged to ambulate..
[2019-08-06] MEDS: ATORVASTATIN 40 MG TAB PO SCH (21:21)
[2019-08-07 05:55] LABS: African American GFR (CKD) >90 (>60 ml/min/1.73 sqM); Anion Gap 7 mmol/L; Blood Urea Nitrogen 40 mg/dL (9-20); Calcium 9.4 mg/dL (8.4-10.2); Carbon Dioxide 29 mmol/L (22-30); Chloride 100 mmol/L (98-107); Glucose 95 mg/dL (74-99); Potassium 4.5 mmol/L (3.5-5.1); Sodium 136 mmol/L (137-145)
[2019-08-07] MEDS: CALCIUM CARBONATE 500 MG CHEWABLE PO SCH ×3 (06:15→17:10)
[2019-08-07] MEDS: ISOSORBIDE MONONITRATE ER 30 MG TAB.ER.24H PO SCH (08:35)
[2019-08-07] MEDS: LOSARTAN 50 MG TAB PO SCH (08:35)
[2019-08-07] MEDS: AMIODARONE 200 MG TAB PO SCH ×2 (08:36→20:10)
[2019-08-07] MEDS: FLUTICASONE 50MCG/SPRAY NASAL 16GM EA NOSTRIL SCH ×3 (08:36→20:17)
[2019-08-07] MEDS: METOPROLOL TARTRATE 25 MG TAB PO SCH ×2 (08:36→20:10)
[2019-08-07] MEDS: FUROSEMIDE 40 MG TAB PO SCH (08:36)
[2019-08-07] MEDS: ASPIRIN 81 MG PO SCH (08:36)
[2019-08-07] MEDS: LORATADINE-PSEUDOEPH 5-120 MG 1 EACH TAB.ER.12H PO SCH ×2 (17:10→20:10)
[2019-08-07] MEDS: ATORVASTATIN 40 MG TAB PO SCH (20:10)
--- NOTE | 2019-08-07 20:17 | P.PN ---
Progress Note - Text Progress Note Date: 08/07/19 Interval history: This is a pleasant 79-year-old patient of Dr. Bruce Quintanilla. Chronic stable me dical conditions include hypertension, left nephrectomy, arthritis. Patient presents with left-sided chest pressure also be across the chest present for several hours and every over the night. No perspiration. Mild shortness of breath. No dizziness no lightheadedness. Patient has known coronary artery disease with prior stent. Patient admitted with diagnosis of unstable angina. Patient never troponin of 0.048 and 0.057. 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 JOSE JUAN Gates. More details and his notes. It was decided to manage patient medically. Earlier patient 2-D echocardiogram showing EF of 30-35% and he had wall motion abnormalities. Postprocedure patient symptom-free. Today-sitting up in a chair. Breathing stable. No chest pain. Has a runny nose for last few days.. . Review of systems: Was done for constitutional, cardiovascular, GI, pulmonary. relevant finding as above Active Medications Amiodarone HCl (Cordarone) 200 mg PO BID [facility] Last Admin: 08/07/19 20:10 Dose: 200 mg Documented by: Aspirin (Aspirin) 81 mg PO DAILY [facility] Last Admin: 08/07/19 08:36 Dose: 81 mg Documented by: Atorvastatin Calcium (Lipitor) 40 mg PO HS [facility] Last Admin: 08/07/19 20:10 Dose: 40 mg Documented by: Calcium Carbonate/Glycine (Tums) 500 mg PO 0630,1200,1730 [facility] Last Admin: 08/07/19 17:10 Dose: 500 mg Documented by: Fluticasone Propionate (Flonase Nasal [place]) 2 spray EA NOSTRIL TID [facility] Last Admin: 08/07/19 17:12 Dose: Not Given Documented by: Furosemide (Lasix) 40 mg PO DAILY [facility] Last Admin: 08/07/19 08:36 Dose: 40 mg Documented by: Isosorbide Mononitrate (Imdur) 30 mg PO DAILY [facility] Last Admin: 08/07/19 08:35 Dose: 30 mg Documented by: Loratadine/Pseudoephedrine Sulfate (Claritin-D 12 Hr) 1 each PO Q12HR [facility] Last Admin: 08/07/19 20:10 Dose: 1 each Documented by: Losartan Potassium (Cozaar) 50 mg PO DAILY [facility] Last Admin: 10/06/19 08:35 Dose: 50 mg Documented by: Metoprolol Tartrate (Lopressor) 25 mg PO BID [facility] Last Admin: 08/07/19 20:10 Dose: 25 mg Documented by: Nitroglycerin (Nitrostat) 0.4 mg SUBLINGUAL ONCE PRN PRN Reason: Chest Pain Last Admin: 08/04/19 23:40 Dose: 0.4 mg Documented by: Nitroglycerin (Nitrostat) 0.4 mg SUBLINGUAL Q5M PRN PRN Reason: Chest Pain Physical examination: VITAL SIGNS: 98.2, 64, 16, 109/58, 98% room air GENERAL: Sitting over a chair comfortable EYES: Pupils equal. Conjunctiva normal. HEENT: External appearance of nose and ears normal, oral cavity grossly normal. NECK: JVD not raised; masses not palpable. HEART: First and second heart sounds are normal; no edema. LUNGS: Respiratory rate normal; clear to auscultation. ABDOMEN: Soft, nontender, liver spleen not palpable, no masses palpable. PSYCH: Alert and oriented x3; mood and affect normal. INVESTIGATIONS, reviewed in the clinical context: Potassium 4.5 creatinine 0.93 Previous testing: Chest x-ray film personally reviewed by me-shows venous prominence and possible right pleural effusion EKG tracing personally reviewed by me-multiple PVCs some T-wave changes, sinus rhythm 2-D echo-moderate concentric left medical hypertrophy, EF 30-35%, multiple wall motion abnormality, Cardiac cath results and Dr. 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 Feeling better. Had some antihistaminic. We'll repeat 2-D echocardiogram tomorrow.
[2019-08-08] MEDS: CALCIUM CARBONATE 500 MG CHEWABLE PO SCH ×3 (06:32→17:24)
[2019-08-08 06:44] LABS: Calcium 9.5 mg/dL (8.4-10.2); Potassium 4.4 mmol/L (3.5-5.1)
[2019-08-08] MEDS: ISOSORBIDE MONONITRATE ER 30 MG TAB.ER.24H PO SCH (08:57)
[2019-08-08] MEDS: ASPIRIN 81 MG PO SCH (08:57)
[2019-08-08] MEDS: AMIODARONE 200 MG TAB PO SCH ×2 (08:57→22:18)
[2019-08-08] MEDS: LORATADINE-PSEUDOEPH 5-120 MG 1 EACH TAB.ER.12H PO SCH ×2 (08:57→22:19)
[2019-08-08] MEDS: LOSARTAN 50 MG TAB PO SCH (08:57)
[2019-08-08] MEDS: FUROSEMIDE 40 MG TAB PO SCH (08:57)
[2019-08-08] MEDS: METOPROLOL TARTRATE 25 MG TAB PO SCH ×2 (08:57→22:18)
[2019-08-08] MEDS: FLUTICASONE 50MCG/SPRAY NASAL 16GM EA NOSTRIL SCH ×3 (10:17→22:18)
[2019-08-08] MEDS: NITROGLYCERIN SL TABS 0.4 MG TAB SUBLINGUAL PRN (10:18)
--- NOTE | 2019-08-08 10:32 | ECHOF ---
Referral Reason:LV function MEASUREMENTS -------- HEIGHT: 182.9 cm WEIGHT: 65.8 kg BP: IVSd: 1.3 cm (0.6 - 1.1) LVIDd: 3.7 cm (3.9 - 5.3) LVPWd: 1.6 cm (0.6 - 1.1) IVSs: 1.6 cm LVIDs: 3.3 cm LVPWs: 1.5 cm MV E Rubin: 0.79 m/s MV DecT: 218 ms MV A Rubin: 0.77 m/s MV E/A Ratio: 1.03 AR PHT: 699 ms RAP: 5.00 mmHg RVSP: 11.66 mmHg TAPSE: 20.48 mm FINDINGS -------- Sinus rhythm with extra systolic beats. Limited Study There is moderate concentric left ventricular hypertrophy. Overall left ventricular systolic functi on is moderately impaired with, an EF between 35 - 40 %. Basal Segment Dany only. The thrombus is located in the apical portion of the left ventricle. CONCLUSIONS -------- 1. Sinus rhythm with extra systolic beats. 2. Limited Study 3. There is moderate concentric left ventricular hypertrophy. 4. Basal Segment Dany only. 5. The thrombus is located in the apical portion of the left ventricle. TRANSMISSION AND PROTECTION ENGINEER: Zoë Lieberman RDCS
[2019-08-08] MEDS ORDERED: ACETAMINOPHEN TAB 500 MG TAB PO PRN (10:47)
[2019-08-08] MEDS ORDERED: DICYCLOMINE 10 MG CAP PO STA (10:47)
[2019-08-08] MEDS ORDERED: HEPARIN SODIUM,PORCINE 5,000 UNIT/ML 1 ML VIAL IV ONE (11:15)
[2019-08-08] MEDS ORDERED: HEPARIN SODIUM,PORCINE 5,000 UNIT/ML 1 ML VIAL IV PRN (11:15)
[2019-08-08] MEDS ORDERED: HEPARIN SOD,PORK IN 0.45% NACL 25,000 UNIT in 0.45% NACL 1 250ML.BAG IV SCH (11:15)
[2019-08-08 12:01] LABS: INR 0.9 (<1.2); Partial Thromboplastin Time 22.7 sec (22.0-30.0); Prothrombin Time 10.2 sec (9.0-12.0)
--- NOTE | 2019-08-08 12:15 | P.PN ---
Subjective Progress Note Date: 08/08/19 This is a 79-year-old gentleman who presented to the hospital with symptoms of chest discomfort, he has a known history of coronary artery disease, hypertension, prior history of left nephrectomy, hyperlipidemia, he underwent stenting several years ago. Patient was taken to the cardiac catheterization lab which revealed a patent mid LAD stent as well as proximal LAD stent. There is a small subtotal diagonal that is jailed coming off the stent, no significant disease in the circumflex or dominant RCA but the RCA is heavily calcified. Echo was felt to suggest a stress cardiomyopathy and patient has been treated with medical therapy. Patient had a repeat echocardiogram with Doppler study performed today which continued to reveal a poor LV function with evidence of a thrombus located in the apical portion of the left ventricle. The patient did complain of an episode of chest discomfort this morning, he states that the pain was worse with taking a deep breath. Because of the new thrombus noted in the apex, patient has been advised to stay in the hospital for 24 more hours and to be initiated on IV heparin. We will check to see if he has coverage for Eliquis if so this will be initiated on 5 mg twice a day. If the patient does not have coverage we will start him on Coumadin tomorrow. Objective - Vital Signs Vital signs: Vital Signs Temp 97.4 F L 08/08/19 08:30 Pulse 67 08/08/19 08:30 Resp 18 08/08/19 08:30 BP 128/82 08/08/19 08:30 Pulse Ox 98 08/08/19 08:30 Intake & Output 08/07/19 08/08/19 08/08/19 18:59 06:59 18:59 Intake Total 1680 30 370 Output Total 100 650 Balance 1680 -70 -280 Weight 64.6 kg 65.9 kg Intake: IV 30 10 Invasive Line 1 30 10 Oral 1680 360 Output: Urine 100 650 Other: Voiding Method Urinal Urinal # Voids 2 1 # Bowel Movements 1 - Exam PHYSICAL EXAMINATION: GENERAL: 79-year-old gentleman in no acute distress at the time of my examination HEENT: Head is atraumatic, normocephalic. Pupils equal, round. Sclera anicteric. Conjunctiva are clear. Mucous membranes of the mouth are moist. Neck is supple. There is no elevated jugular venous pressure. No carotid bruit is heard. HEART EXAMINATION: Heart S1, S2 normal. No murmur or gallop heard. CHEST EXAMINATION: Lungs are clear to auscultation and precussion. No chest wall tenderness is noted on palpation or with deep breathing. ABDOMEN: Soft, nontender. Bowel sounds are heard. No organomegaly noted. EXTREMITIES: 2+ peripheral pulses with no evidence of peripheral edema and no calf tenderness noted. NEUROLOGIC patient is awake, alert and oriented 3 . . - Labs CBC & Chem 7: 08/05/19 06:20 08/08/19 06:04 Labs: Abnormal Lab Results - Last 24 Hours (Table) 08/08/19 Range/Units 06:04 Sodium 136 L (137-145) mmol/L BUN 43 H (9-20) mg/dL Glucose 100 H (74-99) mg/dL Assessment and Plan Plan: Assessment and plan #1 chest pain with abnormality in troponin, cardiac catheterization revealed a patent prior stented segment in the LAD, clinical picture suggestive of possible stress cardiomyopathy. Echo cardiac gram with Doppler study was repeated today, continues to show reduced LV function, also shows evidence of a thrombus in the apex. Patient has been initiated on IV heparin. #2 known history of coronary artery disease with prior stent placement #3 hypertension #4 hyperlipidemia #5 history of prior nephrectomy Plan Patient will be initiated on IV heparin today, we will check to see if he has coverage for Eliquis, if the patient has coverage we will initiate Eliquis 5 mg one tablet by mouth twice a day from tomorrow. If he does not of coverage we will start the patient on Coumadin from tomorrow. DNP note has been reviewed, I agree with a documented findings and plan of care. Patient was seen and examined.
[2019-08-08] MEDS: HEPARIN SOD,PORK IN 0.45% NACL 25,000 UNIT in 0.45% NACL 1 250ML.BAG IV SCH (12:47)
--- NOTE | 2019-08-08 19:54 | P.PN ---
Progress Note - Text Progress Note Date: 08/08/19 Interval history: This is a pleasant 79-year-old patient of Dr. Bruce Quintanilla. Chronic stable me dical conditions include hypertension, left nephrectomy, arthritis. Patient presents with left-sided chest pressure also be across the chest present for several hours and every over the night. No perspiration. Mild shortness of breath. No dizziness no lightheadedness. Patient has known coronary artery disease with prior stent. Patient admitted with diagnosis of unstable angina. Patient never troponin of 0.048 and 0.057. Patient had cardiac laboratory associate by Dr. JOSE JUAN Gates. More details and his notes. It was decided to manage patient medically. Earlier patient 2-D echocardiogram showing EF of 30-35% and he had wall motion abnormalities. Postprocedure patient symptom-free. Today- . Repeat 2-D echo shows apical thrombus. EF 35-40%. Started on IV heparin. Looking for coverage for eliquis. No new symptoms. Review of systems: Was done for constitutional, cardiovascular, GI, pulmonary. relevant finding as above Active Medications Acetaminophen (Tylenol Tab) 1,000 mg PO Q6HR PRN PRN Reason: Fever and/ or Pain Last Admin: 08/08/19 11:37 Dose: 1,000 mg Documented by: Amiodarone HCl (Cordarone) 200 mg PO BID [facility] Last Admin: 08/08/19 08:57 Dose: 200 mg Documented by: Aspirin (Aspirin) 81 mg PO DAILY [facility] Last Admin: 08/08/19 08:57 Dose: 81 mg Documented by: Atorvastatin Calcium (Lipitor) 40 mg PO HS [facility] Last Admin: 08/07/19 20:10 Dose: 40 mg Documented by: Calcium Carbonate/Glycine (Tums) 500 mg PO 0630,1200,1730 [facility] Last Admin: 08/08/19 17:24 Dose: 500 mg Documented by: Fluticasone Propionate (Flonase Nasal [place]) 2 spray EA NOSTRIL TID [facility] Last Admin: 08/08/19 15:27 Dose: 2 spray Documented by: Furosemide (Lasix) 40 mg PO DAILY [facility] Last Admin: 08/08/19 08:57 Dose: 40 mg Documented by: Heparin Sodium (Porcine) (Heparin) 0 unit IV PER PROTOCOL PRN; Protocol PRN Reason: Low PTT Heparin Sodium/Sodium Chloride (25,000 unit/ Sodium Chloride) 250 mls @ 7.908 mls/hr IV .Q24H [facility]; Protocol Last Admin: 08/08/19 12:47 Dose: 12 units/kg/hr, 7.908 mls/hr Documented by: Isosorbide Mononitrate (Imdur) 30 mg PO DAILY [facility] Last Admin: 08/08/19 08:57 Dose: 30 mg Documented by: Loratadine/Pseudoephedrine Sulfate (Claritin-D 12 Hr) 1 each PO Q12HR [facility] Last Admin: 08/08/19 08:57 Dose: 1 each Documented by: Losartan Potassium (Cozaar) 50 mg PO DAILY [facility] Last Admin: 08/08/19 08:57 Dose: 50 mg Documented by: Metoprolol Tartrate (Lopressor) 25 mg PO BID [facility] Last Admin: 08/08/19 08:57 Dose: 25 mg Documented by: Nitroglycerin (Nitrostat) 0.4 mg SUBLINGUAL ONCE PRN PRN Reason: Chest Pain Last Admin: 08/08/19 10:18 Dose: 0.4 mg Documented by: Nitroglycerin (Nitrostat) 0.4 mg SUBLINGUAL Q5M PRN PRN Reason: Chest Pain Physical examination: VITAL SIGNS: 97.4, 61, 18, 88/51, 97% room air GENERAL: Sitting up, comfortable EYES: Pupils equal. Conjunctiva normal. HEENT: External appearance of nose and ears normal, oral cavity grossly normal. NECK: JVD not raised; masses not palpable. HEART: First and second heart sounds are normal; no edema. LUNGS: Respiratory rate normal; clear to auscultation. ABDOMEN: Soft, nontender, liver spleen not palpable, no masses palpable. PSYCH: Alert and oriented x3; mood and affect normal. INVESTIGATIONS, reviewed in the clinical context: Potassium 4.5 creatinine 0.93 Limited 2-D echo shows EF of 30-35% and apical thrombus Previous testing: Chest x-ray film personally reviewed by me-shows venous prominence and possible right pleural effusion EKG tracing personally reviewed by me-multiple PVCs some T-wave changes, sinus rhythm 2-D echo-moderate concentric left medical hypertrophy, EF 30-35%, multiple wall motion abnormality, Cardiac cath results and Dr. 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 Eliquis coverages be looked into. Other medications to continue.
[2019-08-08] MEDS: ATORVASTATIN 40 MG TAB PO SCH (22:18)
[2019-08-09 03:28] LABS: HCT 39.6 % (39.0-53.0); HGB 12.7 gm/dL (13.0-17.5); MCH 33.7 pg (25.0-35.0); MCHC 32.1 g/dL (31.0-37.0); MCV 105.1 fL (80.0-100.0); Macrocytosis Slight; Mean Platelet Volume 8.2; Platelet Count 229 k/uL (150-450); RBC 3.76 m/uL (4.30-5.90); WBC 7.6 k/uL (3.8-10.6)
[2019-08-09 04:46] LABS: Band Neutrophils % 5 %; Eosinophils # (M) 0.76 k/uL (0-0.7); Lymphocytes # (M) 1.44 k/uL (1.0-4.8); Monocytes # (M) 0.76 k/uL (0-1.0); Neutrophils % (M) 56 %; Nucleated Red Blood Cells 0 /100 WBC (0-0); Total Cells Counted 100
[2019-08-09 04:47] LABS: Anisocytosis (M) Present; Large Platelets Present
[2019-08-09 04:48] LABS: Poikilocytosis (M) Present
[2019-08-09 06:00] VITALS: TEMP 97.4
[2019-08-09] MEDS: CALCIUM CARBONATE 500 MG CHEWABLE PO SCH ×2 (06:57→11:26)
[2019-08-09] MEDS: LORATADINE-PSEUDOEPH 5-120 MG 1 EACH TAB.ER.12H PO SCH (08:48)
[2019-08-09] MEDS: LOSARTAN 50 MG TAB PO SCH (08:48)
[2019-08-09] MEDS: ASPIRIN 81 MG PO SCH (08:48)
[2019-08-09] MEDS: ISOSORBIDE MONONITRATE ER 30 MG TAB.ER.24H PO SCH (08:48)
[2019-08-09] MEDS: METOPROLOL TARTRATE 25 MG TAB PO SCH (08:48)
[2019-08-09] MEDS: FUROSEMIDE 40 MG TAB PO SCH (08:49)
[2019-08-09] MEDS: FLUTICASONE 50MCG/SPRAY NASAL 16GM EA NOSTRIL SCH (08:49)
[2019-08-09] MEDS: AMIODARONE 200 MG TAB PO SCH (08:49)
[2019-08-09] MEDS: HEPARIN SOD,PORK IN 0.45% NACL 25,000 UNIT in 0.45% NACL 1 250ML.BAG IV SCH (11:20)
[2019-08-09 11:21] VITALS: BP 106/57; PULSE 56; RESP 17
[2019-08-09] MEDS ORDERED: APIXABAN 5 MG TAB PO SCH (11:30)
--- NOTE | 2019-08-09 12:35 | PN ---
PROGRESS NOTE This gentleman was found to have a left ventricular thrombus. He is on heparin now. I am recommending anticoagulation as soon as we get the insurance approval. Once he is anticoagulated, he can be discharged and I will see him in the office in 2 weeks. Vitals are stable. No JVD. S1, S2 heard normally. Short systolic murmur noted. Lungs are clear. Abdomen and lower extremity exam otherwise are unchanged. MMODL / IJN: [id number] /
--- NOTE | 2019-08-09 13:09 | CDI ---
Documentation Clarification Form Date: 08/09/2019 12:23:09 PM From: Ines Toney RN, CCDS Admit Date: 08/03/2019 3:28:00 PM Patient Name: Grey Rendon Visit Number: [id number] Discharge Date: ATTENTION: The Clinical Documentation Specialists (CDI) and [facility] Coding Staff appreciate your assistance in clarifying documentation. Please respond to the clarification below the line at the bottom and electronically sign. The CDI & [facility] Coding staff will review the response and follow-up if needed. Please note: Queries are made part of the Legal Health Record. If you have any questions, please contact the author of this message via ITS. Dr. Radames Gates Evidence of a thrombus in the apex is documented in the progress note on 08/08/19 and further clarification is needed. Patients Admitting Diagnosis: Unstable angina in a patient with CAD, possible tako-pseubo syndrome Post-Operative Diagnosis: Same Procedure performed: Left Heart Catherization History/Risk Factors: Coronary artery disease with prior stent, Hypertension Clinical Indicators: 79-year-old male who present with left-sided chest pressure. Mild shortness of breath. His troponin 0.048, 0.057 08/04/19 ECHO: Overall left ventricular systolic function is moderate-severely impaired with, an EF between 30-35 % Apical anterior LV wall motion is hypokinetic, Apical inferior LV wall motion is hypokinetic 08/04/19 Cardiac Catherization Impression: widely patent mid LAD stent as well as proximal LAD stent. There is a small subtotal diagonal that is jailed coming off from the stent. He has no significant disease in the circumflex or the dominant RCA, but RCA is heavily calcified. There is no obstructive CAD. However, echo picture suggests tako-pseubo--type picture. ECHO; Overall left ventricuilar systolic function is moderately impaired with, an EF between 35-40 % Basal segment christopher only. The thrombus is located in the apical portion of the left ventricle. The patient did complain of an episode of chest discomfort, worse with taking deep breath. Treatment: Heparin drip (now Eliquis PO BID) Amiodarone PO Lopressor PO BID Cozaar PO In order to accurately reflect this patients severity of illness, please clarify if the post-operative diagnosis Apical Thrombus is: An expected post-procedural or post-surgical condition (please further specify) An unexpected post-procedural or post-surgical condition, related to the patients underlying medical comorbidities Other, please specify cause if known Unable to determine (Last Revision: January 2019) Pt has an apical probable thrombus related to underlying Cardiac condition of Apiacal akinesia probable Takasubo in light of no significant obstructive CAD.This is in no way procedure related. JAMIED
--- NOTE | 2019-08-10 22:51 | P.DS ---
Providers Date of admission: 08/03/19 15:28 Expected date of discharge: 08/09/19 Attending physician: Carlos Enrique Carrera Consults: 08/03/19 15:28 Consult Physician Urgent Consulting Provider: [facility] Consult Reason/Comments: Unstable angina Do you want consulting provider notified?: Already Contacted Primary care physician: Bruce Unger [place] [facility] Course: Hospital course: This is a pleasant 79-year-old patient of Dr. Bruce Quintanilla. Chronic stable medical conditions include hypertension, left nephrectomy, arthritis. Patient presents with left-sided chest pressure also be across the chest present for several hours and every over the night. No perspiration. Mild shortness of breath. No dizziness no lightheadedness. Patient has known coronary artery disease with prior stent. Patient admitted with diagnosis of unstable angina. troponin of 0.048 and 0.057. Patient had cardiac lab[facility] by Dr. JOSE JUAN Gates. Significant disease was found. But nothing was amenable to stenting. It was decided to manage patient medically. Earlier patient 2-D echocardiogram showing EF of 30-35% and he had wall motion abnormalities. Postprocedure patient symptom-free. Repeat 2-D echo shows apical thrombus. EF 35-40%. Started on IV heparin. Eliquis added. Patient doing well by the time of discharge. Asymptomatic. Cleared by cardiology Consultation: Dr. JOSE JUAN Gates from cardiology Physical examination: VITAL SIGNS: 97.4, 62, 17, 11 1/66, 97% room air GENERAL: Sitting up, comfortable EYES: Pupils equal. Conjunctiva normal. HEENT: External appearance of nose and ears normal, oral cavity grossly normal. NECK: JVD not raised; masses not palpable. HEART: First and second heart sounds are normal; no edema. LUNGS: Respiratory rate normal; clear to auscultation. ABDOMEN: Soft, nontender, liver spleen not palpable, no masses palpable. PSYCH: Alert and oriented x3; mood and affect normal. INVESTIGATIONS, reviewed in the clinical context: Potassium 4.5 creatinine 0.93 Limited 2-D echo shows EF of 30-35% and apical thrombus Previous testing: Chest x-ray film personally reviewed by me-shows venous prominence and possible right pleural effusion EKG tracing personally reviewed by me-multiple PVCs some T-wave changes, sinus rhythm 2-D echo-moderate concentric left medical hypertrophy, EF 30-35%, multiple wall motion abnormality, Cardiac cath results and Dr. JOSE JUAN Gates's notes ProBNP 9060 Creatinine 0.75 potassium 4.4 Troponin I 0.048, 0.057, 0.044 LDL 97 Discharge diagnosis: -Unstable angina in a patient known coronary artery disease -Cardiac left ventricle apical thrombus -Coronary artery disease with prior stent -Essential hypertension -Left nephrectomy -acute congestive heart failure exacerbation from systolic dysfunction EF 30- 35%, from ischemic cardiomyopathy improved -IV heparin monitoring Disposition: Home Patient Condition at Discharge: Stable Plan - Discharge Summary Discharge Rx Participant: No New Discharge Prescriptions: New Amiodarone [Cordarone] 200 mg PO BID #60 tab Losartan [Cozaar] 50 mg PO DAILY #30 tab Apixaban [Eliquis] 5 mg PO BID #60 tab Furosemide [Lasix] 40 mg PO DAILY #30 tab Atorvastatin [Lipitor] 40 mg PO HS #30 tab Metoprolol Tartrate [Lopressor] 25 mg PO BID #60 tab Melatonin 3 mg PO HS PRN #30 tablet PRN Reason: Insomnia Nitroglycerin Sl Tabs [Nitrostat] 0.4 mg SUBLINGUAL Q5M PRN #25 tab PRN Reason: Chest Pain Acetaminophen Tab [Tylenol] 500 mg PO Q6HR PRN tab PRN Reason: Fever And/ Or Pain Continue Isosorbide Mononitrate ER [Imdur] 30 mg PO DAILY Fluticasone Nasal [place] [Flonase Nasal [place]] 2 spr EA NOSTRIL TID Aspirin EC [Ecotrin Low Dose] 81 mg PO DAILY Discontinued amLODIPine BESYLATE [Norvasc] 5 mg PO DAILY diphenhydrAMINE [Benadryl] 25 mg PO HS PRN PRN Reason: Allergy Symptoms diphenhydrAMINE [Benadryl] 50 mg PO BID@0800,1200 Ibuprofen [Motrin Ib] 400 mg PO TID Discharge Medication List Isosorbide Mononitrate ER [Imdur] 30 mg PO DAILY 09/16/14 [History] Aspirin EC [Ecotrin Low Dose] 81 mg PO DAILY 08/03/19 [History] Fluticasone Nasal [place] [Flonase Nasal [place]] 2 spr EA NOSTRIL TID 08/03/19 [History] Acetaminophen Tab [Tylenol] 500 mg PO Q6HR PRN tab 08/09/19 [Rx] Amiodarone [Cordarone] 200 mg PO BID #60 tab 08/09/19 [Rx] Apixaban [Eliquis] 5 mg PO BID #60 tab 08/09/19 [Rx] Atorvastatin [Lipitor] 40 mg PO HS #30 tab 08/09/19 [Rx] Furosemide [Lasix] 40 mg PO DAILY #30 tab 08/09/19 [Rx] Losartan [Cozaar] 50 mg PO DAILY #30 tab 08/09/19 [Rx] Melatonin 3 mg PO HS PRN #30 tablet 08/09/19 [Rx] Metoprolol Tartrate [Lopressor] 25 mg PO BID #60 tab 08/09/19 [Rx] Nitroglycerin Sl Tabs [Nitrostat] 0.4 mg SUBLINGUAL Q5M PRN #25 tab 08/09/19 [Rx] Follow up Appointment(s)/Referral(s): Radames Gates MD [STAFF PHYSICIAN] - 1 Week ([employer]. Office will call with a follow up appointment.) Bruce Unger DO [Primary Care Provider] - 08/16/19 10:30 am Patient Instructions/Handouts: *Sur[facility] - After Heart Catheterization - Participant Administrator Instructions, Chest Pain (DC), Heart Healthy Diet (DC), Safe Use of Anticoagulants (DC) Activity/Diet/Wound Care/Special Instructions: Eliquis filled at [facility] with free coupon - you hae $150 left on your drug deductible, after you pay this amount next month ($197) your copay will be $47/month. If this is not affordable call to see if you qualify for patient assistance program, if you do not qualify, speak with your belting inspector. Discharge Disposition: HOME SELF-CARE
== END 2019-08-09 15:24 | disposition home or self-care (01) | DRG 287 ==
LOC: EC 12:27 → 3SCARD 15:28
PROVIDERS: ADMIT Hospitalist; ATTEND Hospitalist
PROC: 4A023N7 Measurement of Cardiac Sampling and Pressure, Left Heart, Percutaneous Approach (ICD-10-PCS; principal; 2019-08-04 10:25)
PROC: B2111ZZ Fluoroscopy of Multiple Coronary Arteries using Low Osmolar Contrast (ICD-10-PCS; principal; 2019-08-04 10:25)
DX: I51.81 Takotsubo syndrome (principal); I25.110 Atherosclerotic heart disease of native coronary artery with unstable angina pectoris; E78.00 Pure hypercholesterolemia, unspecified; E78.5 Hyperlipidemia, unspecified; E83.42 Hypomagnesemia; I25.2 Old myocardial infarction; I25.5 Ischemic cardiomyopathy; I49.3 Ventricular premature depolarization; Z95.5 Presence of coronary angioplasty implant and graft; I25.84 Coronary atherosclerosis due to calcified coronary lesion; M19.90 Unspecified osteoarthritis, unspecified site; Z79.82 Long term (current) use of aspirin; Z79.899 Other long term (current) drug therapy; Z90.49 Acquired absence of other specified parts of digestive tract; Z90.5 Acquired absence of kidney; I51.3 Intracardiac thrombosis, not elsewhere classified
CPT/HCPCS: 36415; 71046; 76700; 80048; 80053; 80061; 82150; 83690; 83735; 83880; 84132; 84484; 85025; 85027; 85610; 85730; 93005; 93306; 93308; 93458; 94760; 96365; 96366; 96368; 96375; 96376; 99291

== ENCOUNTER 2020-11-27 18:38 | Inpatient (IN) | payer MEDICARE ==
--- NOTE | 2020-11-27 19:02 | ED ---
General Adult HPI - General Chief complaint: Neuro Symptoms/Deficit Stated complaint: confusion Time Seen by Provider: 11/27/20 18:50 Source: patient Mode of arrival: wheelchair Limitations: no limitations - History of Present Illness Initial comments: Dictation was produced using [employer] dictation software. please excuse any grammatical, word or spelling errors. This patient was cared for during a federal and state declared state of emergency secondary to Covid 19 Chief Complaint: 80-year-old male presents with altered mental status and possible carbon monoxide poisoning. History of Present Illness: 40-year-old male he was brought in by his sister. Patient allegedly has been acting confused for the last 1-2 days. Family member reports that patient's furnace went out. He's been trying to stay warm at home with electric heater is however is not enough instead he decided to turn on a gas heater indoors. His last seen normal 2 days ago. Patient has no complaints at this time. Family reports the patient has been acting strange asking about where his car is and he is late for work when he hasn't worked approximately 1 year. The ROS documented in this emergency department record has been reviewed and confirmed by me. Those systems with pertinent positive or negative responses have been documented in the HPI. All other systems are other negative and/or noncontributory. PHYSICAL EXAM: General Impression: Alert and oriented x3, not in acute distress HEENT: Normocephalic atraumatic, extra-ocular movements intact, pupils equal and reactive to light bilaterally, mucous membranes moist. Cardiovascular: Heart regular rate and rhythm Chest: Able to complete full sentences, no retractions, no tachypnea Abdomen: abdomen soft, non-tender, non-distended, no organomegaly Musculoskeletal: Pulses present and equal in all extremities, no peripheral edema Motor: no focal deficits noted Neurological: CN II-XII grossly intact, no focal motor or sensory deficits noted, NIH of 0 Skin: Intact with no visualized rashes Psych: Normal affect and mood ED course: 80-year-old male presents with altered mental status. Physical examination is benign. As upon arrival shows findings within acceptable limits. Patient is alert and oriented 3 to me. Computed tomography scan of the brain is unremarkable. Chest x-ray is unremarkable. Laboratory evaluation obtained showing no acute processes. CBC is positive for some mild macrocytosis. Venous blood gases negative. Carbon monoxide level is 3.3. Metabolic panel is unremarkable. Patient observed in emergency department for approximately 2 hours stable medical condition. EKG interpretation: Ventricular rate 64, sinus rhythm with frequent PVCs,. Interval to 24, QRS 74, QTC 453. No KS prolongation, no QTC prolongation, no ST or T-wave changes noted. EKG compared to to 2019 showing no changes. Overall, this EKG is unremarkable Disposition options were discussed with patient and patient's sister was at bedside. Patient's sister fears that he lives by himself and is afraid that because of his confusion he might try to leave the house and might benefit trouble. He has not been worked up for altered mental status. Patient will be admitted with consultation to neurology. he'll be admitted to Dr. Carrera. - Related Data Home Medications Medication Instructions Recorded Confirmed Isosorbide Mononitrate ER [Imdur] 30 mg PO DAILY 09/16/14 11/27/20 Aspirin EC [Ecotrin Low Dose] 81 mg PO DAILY 08/03/19 11/27/20 Fluticasone Nasal [place] [Flonase 1 spr EA NOSTRIL DAILY PRN 08/03/19 11/27/20 Nasal [place]] Acetaminophen Tab [Tylenol] 1,000 mg PO Q6HR PRN 11/27/20 11/27/20 Famotidine [Pepcid] 20 mg PO BID 11/27/20 11/27/20 Metoprolol Tartrate [Lopressor] 25 mg PO DAILY 11/27/20 11/27/20 Previous Rx's Medication Instructions Recorded Atorvastatin [Lipitor] 40 mg PO HS #30 tab 08/09/19 Furosemide [Lasix] 40 mg PO DAILY #30 tab 08/09/19 Losartan [Cozaar] 50 mg PO DAILY #30 tab 08/09/19 Melatonin 3 mg PO HS PRN #30 tablet 08/09/19 Nitroglycerin Sl Tabs [Nitrostat] 0.4 mg SUBLINGUAL Q5M PRN #25 tab 08/09/19 Allergies Allergy/AdvReac Type Severity Reaction Status Date / Time Sulfa (Sulfonamide Allergy Unknown Verified 11/27/20 19:10 Antibiotics) Childhood Review of Systems ROS Statement: Those systems with pertinent positive or pertinent negative responses have been documented in the HPI. ROS Other: All systems not noted in ROS Statement are negative. Past Medical History Past Medical History: Coronary Artery Disease (CAD), Hypertension, Renal Disease Additional Past Medical History / Comment(s): [place], cardiomyopathy History of Any Multi-Drug Resistant Organisms: None Reported Past Surgical History: Appendectomy, Heart Catheterization With Stent, Hernia Repair Additional Past Surgical History / Comment(s): heart stents x2, left kidney removed, nasal, right finger, cataracts, Date of Last Stent Placement:: unknown Past Psychological History: No Psychological Hx Reported Smoking Status: Never smoker Past Alcohol Use History: Occasional Past Drug Use History: None Reported - Past Family History Father History Unknown: Yes Mother History Unknown: Yes General Exam Limitations: no limitations Course Vital Signs 11/27/20 18:43 Temperature 99.1 F Pulse Rate 68 Respiratory 18 Rate Blood Pressure 145/70 O2 Sat by Pulse 98 Oximetry Medical Decision Making - Lab Data Result diagrams: 11/27/20 19:16 11/27/20 19:16 Lab Results 11/27/20 11/27/20 11/27/20 Range/Units 19:16 19:16 19:16 WBC 7.5 (3.8-10.6) k/uL RBC 4.21 L (4.30-5.90) m/uL Hgb 14.6 (13.0-17.5) gm/dL Hct 43.1 (39.0-53.0) % MCV 102.4 H (80.0-100.0) fL MCH 34.7 (25.0-35.0) pg MCHC 33.9 (31.0-37.0) g/dL RDW 11.9 (11.5-15.5) % Plt Count 170 (150-450) k/uL MPV 8.0 Neutrophils % 73 % Lymphocytes % 18 % Monocytes % 6 % Eosinophils % 1 % Basophils % 1 % Neutrophils # 5.5 (1.3-7.7) k/uL Lymphocytes # 1.3 (1.0-4.8) k/uL Monocytes # 0.5 (0-1.0) k/uL Eosinophils # 0.0 (0-0.7) k/uL Basophils # 0.0 (0-0.2) k/uL VBG pH (7.31-7.41) VBG pCO2 (37-51) mmHg VBG HCO3 (24-28) mmol/L Carbon Monoxide, Quant 3.3 (<10.0) % Sodium 140 (137-145) mmol/L Potassium 4.4 (3.5-5.1) mmol/L Chloride 103 (98-107) mmol/L Carbon Dioxide 29 (22-30) mmol/L Anion Gap 8 mmol/L BUN 24 H (9-20) mg/dL Creatinine 0.82 (0.66-1.25) mg/dL Est GFR (CKD-EPI)AfAm >90 (>60 ml/min/1.73 sqM) Est GFR (CKD-EPI)NonAf 84 (>60 ml/min/1.73 sqM) Glucose 134 H (74-99) mg/dL Calcium 9.5 (8.4-10.2) mg/dL Total Bilirubin 0.8 (0.2-1.3) mg/dL AST 74 H (17-59) U/L ALT 84 H (4-49) U/L Alkaline Phosphatase 269 H (38-126) U/L Total Protein 6.7 (6.3-8.2) g/dL Albumin 3.9 (3.5-5.0) g/dL 11/27/20 Range/Units 19:16 WBC (3.8-10.6) k/uL RBC (4.30-5.90) m/uL Hgb (13.0-17.5) gm/dL Hct (39.0-53.0) % MCV (80.0-100.0) fL MCH (25.0-35.0) pg MCHC (31.0-37.0) g/dL RDW (11.5-15.5) % Plt Count (150-450) k/uL MPV Neutrophils % % Lymphocytes % % Monocytes % % Eosinophils % % Basophils % % Neutrophils # (1.3-7.7) k/uL Lymphocytes # (1.0-4.8) k/uL Monocytes # (0-1.0) k/uL Eosinophils # (0-0.7) k/uL Basophils # (0-0.2) k/uL VBG pH 7.36 (7.31-7.41) VBG pCO2 51 (37-51) mmHg VBG HCO3 28 (24-28) mmol/L Carbon Monoxide, Quant (<10.0) % Sodium (137-145) mmol/L Potassium (3.5-5.1) mmol/L Chloride (98-107) mmol/L Carbon Dioxide (22-30) mmol/L Anion Gap mmol/L BUN (9-20) mg/dL Creatinine (0.66-1.25) mg/dL Est GFR (CKD-EPI)AfAm (>60 ml/min/1.73 sqM) Est GFR (CKD-EPI)NonAf (>60 ml/min/1.73 sqM) Glucose (74-99) mg/dL Calcium (8.4-10.2) mg/dL Total Bilirubin (0.2-1.3) mg/dL AST (17-59) U/L ALT (4-49) U/L Alkaline Phosphatase (38-126) U/L Total Protein (6.3-8.2) g/dL Albumin (3.5-5.0) g/dL Disposition Clinical Impression: Altered mental status Disposition: ADMITTED IP TO THIS HOSP Condition: Fair Referrals: Bruce Unger DO [Primary Care Provider] - 1-2 days Decision Time: 20:19
[2020-11-27 19:33] LABS: Basophils % (A) 1 %; Eosinophils % (A) 1 %; HCT 43.1 % (39.0-53.0); HGB 14.6 gm/dL (13.0-17.5); Lymphocytes # (A) 1.3 k/uL (1.0-4.8); Lymphocytes % (A) 18 %; MCH 34.7 pg (25.0-35.0); MCHC 33.9 g/dL (31.0-37.0); MCV 102.4 fL (80.0-100.0); Monocytes # (A) 0.5 k/uL (0-1.0); Monocytes % (A) 6 %; Neutrophils # (A) 5.5 k/uL (1.3-7.7); Neutrophils % (A) 73 %; Platelet Count 170 k/uL (150-450); RBC 4.21 m/uL (4.30-5.90); RDW 11.9 % (11.5-15.5); WBC 7.5 k/uL (3.8-10.6)
[2020-11-27 19:39] LABS: VBG PH 7.36 (7.31-7.41)
[2020-11-27 19:46] LABS: ALT 84 U/L (4-49); AST 74 U/L (17-59); African American GFR (CKD) >90 (>60 ml/min/1.73 sqM); Albumin 3.9 g/dL (3.5-5.0); Alkaline Phosphatase 269 U/L (38-126); Anion Gap 8 mmol/L; Blood Urea Nitrogen 24 mg/dL (9-20); Calcium 9.5 mg/dL (8.4-10.2); Carbon Dioxide 29 mmol/L (22-30); Chloride 103 mmol/L (98-107); Glucose 134 mg/dL (74-99); Non-African American GFR(CKD) 84 (>60 ml/min/1.73 sqM); Potassium 4.4 mmol/L (3.5-5.1); Sodium 140 mmol/L (137-145); Total Bilirubin 0.8 mg/dL (0.2-1.3); Total Protein 6.7 g/dL (6.3-8.2)
--- NOTE | 2020-11-27 19:59 | CT ---
EXAMINATION TYPE: CT brain wo con DATE OF EXAM: 11/27/2020 COMPARISON: None HISTORY: ams, possible carbon monoxide exposure CT DLP: 1084.4 mGycm Automated exposure control for dose reduction was used. There is mild cerebral atrophy. There is no mass effect nor midline shift. There is no sign of intrac ranial hemorrhage. The calvarium is intact. There is normal aeration of the mastoid sinuses. IMPRESSION: Negative unenhanced head CT scan.
--- NOTE | 2020-11-27 20:01 | XR ---
EXAMINATION TYPE: XR chest 1V portable DATE OF EXAM: 11/27/2020 COMPARISON: August 03, 2019 HISTORY: Altered mental status TECHNIQUE: Single view FINDINGS: There is no heart failure nor confluent pneumonic infiltrate. Costophrenic angles are clear . There are chest leads. IMPRESSION: No active cardiopulmonary disease. There is clearing of the pulmonary edema and pleural f luid compared to old exam.
[2020-11-27] MEDS ORDERED: NALOXONE 0.4 MG/ML 1 ML VIAL IV PRN (20:20)
[2020-11-28] MEDS ORDERED: NITROGLYCERIN SL TABS 0.4 MG TAB SUBLINGUAL PRN (10:07)
[2020-11-28] MEDS ORDERED: ACETAMINOPHEN TAB 500 MG TAB PO PRN (10:07)
[2020-11-28] MEDS ORDERED: FLUTICASONE 50MCG/SPRAY NASAL 16GM EA NOSTRIL PRN (10:07)
[2020-11-28] MEDS: ISOSORBIDE MONONITRATE ER 30 MG TAB.ER.24H PO SCH (12:25)
[2020-11-28] MEDS: LOSARTAN 50 MG TAB PO SCH (12:25)
[2020-11-28] MEDS: ASPIRIN 81 MG PO SCH (12:26)
[2020-11-28] MEDS: FUROSEMIDE 40 MG TAB PO SCH (12:26)
[2020-11-28] MEDS: METOPROLOL TARTRATE 25 MG TAB PO SCH (12:26)
--- NOTE | 2020-11-28 13:51 | P.CRDCN ---
History of Present Illness Consult date: 11/28/20 History of present illness: CHIEF COMPLAINT: Chest pain HISTORY OF PRESENT ILLNESS: This is a 80-year-old male with a past medical history significant for hypertension, hyperlipidemia, kidney disease with left nephrectomy, LV apical thrombus, and coronary artery disease with previous PCI. Patient follows in the office with Dr. Gates. We have been asked to see the patient in consultation for chest pain. According to the ER physician note, patients furnace broke at home and the patient has been using a gas heater inside his home to heat his house. He apparently has been confused over the past 2-3 days prompting his visit to the emergency room. patient examined this afternoon at the bedside. Patient is currently alert and oriented during examination. Patient states he does not remember coming to the hospital and the last thing he remembered was waking up this morning the hospital bed. Patient reports having an episode of chest discomfort earlier today that he described as being "stuck with a hundred needles to the chest". He states this episode did not last very long and he has not felt that same type of pain since. He currently denies having any pain during examination. However he does report having some chest discomfort with deep inspiration and also upon palpation of chest wall. Patient has a history of coronary artery disease and has had previous stents placed to the proximal LAD and mid LAD. Mid LAD stent was placed in 2005. Patient underwent cardiac cath with Dr. Gates in August 2019 revealing patent stents to the LAD, heavily calcified RCA, with no other significant obstructive coronary artery disease. Medical management was recommended. Echocardiogram at that time revealed ejection fraction 30-35% with a Takotsubo type picture. Patient was also found to have a LV apical thrombus and was placed on Eliquis. Repeat echocardiogram completed in September 2019 revealed resolution of apical thrombus and ejection fraction of 55%. Patient also underwent a nuclear stress test in August 2020 which was negative for ischemia. DIAGNOSTICS: EKG reveals sinus rhythm with no signs of acute ischemia Chest xray negative for acute process Laboratory data: WBC 7.5. Hemoglobin 14.6. Platelet count 170. Carbon monoxide 2.3. Sodium 140. Potassium 4.4. BUN 24. Creatinine 0.82. AST 74. ALT 84. Troponin negative 1. Current home cardiac medications include metoprolol 25 mg daily, Cozaar 59 g daily, Imdur 30 mg daily, Lasix 40 mg daily, Lipitor 40 mg daily, and aspirin 81 mg daily REVIEW OF SYSTEMS: At the time of my exam: CONSTITUTIONAL: Denies fever or chills. HEENT: Denies blurred vision, vision changes, or eye pain. Denies hemoptysis CARDIOVASCULAR: Denies chest pain, orthopnea, PND or palpitations RESPIRATORY: No shortness of breath. GASTROINTESTINAL: Denies abdominal pain. Denies nausea or vomiting. HEMATOLOGIC: Denies bleeding disorders. GENITOURINARY: Denies any blood in urine. SKIN: Denies pruitis. Denies rash. PHYSICAL EXAM: VITAL SIGNS: Reviewed. GENERAL: Well-developed in no acute distress. HEENT: Head is normocephalic. Pupils are equal, round. Sclerae anicteric. Mucous membranes of the mouth are moist. Neck supple. No JVD or thyromegaly LUNGS: Respirations even and unlabored. Lungs essentially clear to auscultation bilaterally. HEART: Regular rate and rhythm. S1 and S2 heard. ABDOMEN: Soft. Nondistended. Nontender. EXTREMITIES: Normal range of motion. No clubbing or cyanosis. Peripheral pulses intact. No lower extremity edema NEUROLOGIC: Awake and alert. Oriented x 3. ASSESSMENT: Altered mental status Chest pain, atypical for angina, reproducible with palpation and deep inspiration Coronary artery disease with previous stent placement to proximal LAD and mid LAD History of Takotsubo cardiomyopathy with ejection fraction of 30-35%, since resolved, EF 55% in 2019 History of LV apical thrombus, 2019 Hypertension Hyperlipidemia History of left nephrectomy PLAN: Obtain 2 additional troponin levels Obtain 2-D echo to assess cardiac structure and function Further workup of altered mental status per neurology and internal medicine Further recommendations pending patient's course Nurse practitioner note has been reviewed by physician. Signing provider agrees with the documented findings, assessment, and plan of care. Past Medical History Past Medical History: Coronary Artery Disease (CAD), Hypertension, Renal Disease Additional Past Medical History / Comment(s): [place], cardiomyopathy History of Any Multi-Drug Resistant Organisms: None Reported Past Surgical History: Appendectomy, Heart Catheterization With Stent, Hernia Repair Additional Past Surgical History / Comment(s): heart stents x2, left kidney removed, nasal, right finger, cataracts, Date of Last Stent Placement:: unknown Past Psychological History: No Psychological Hx Reported Smoking Status: Never smoker Past Alcohol Use History: Occasional Past Drug Use History: None Reported - Past Family History Father History Unknown: Yes Mother History Unknown: Yes Medications and Allergies Home Medications Medication Instructions Recorded Confirmed Type Isosorbide Mononitrate ER [Imdur] 30 mg PO DAILY 09/16/14 11/27/20 History Aspirin EC [Ecotrin Low Dose] 81 mg PO DAILY 08/03/19 11/27/20 History Fluticasone Nasal [place] [Flonase 1 spr EA NOSTRIL DAILY PRN 08/03/19 11/27/20 History Nasal [place]] Atorvastatin [Lipitor] 40 mg PO HS #30 tab 08/09/19 11/27/20 Rx Furosemide [Lasix] 40 mg PO DAILY #30 tab 08/09/19 11/27/20 Rx Losartan [Cozaar] 50 mg PO DAILY #30 tab 08/09/19 11/27/20 Rx Melatonin 3 mg PO HS PRN #30 tablet 08/09/19 11/27/20 Rx Nitroglycerin Sl Tabs [Nitrostat] 0.4 mg SUBLINGUAL Q5M PRN #25 tab 08/09/19 11/27/20 Rx Acetaminophen Tab [Tylenol] 1,000 mg PO Q6HR PRN 11/27/20 11/27/20 History Famotidine [Pepcid] 20 mg PO BID 11/27/20 11/27/20 History Metoprolol Tartrate [Lopressor] 25 mg PO DAILY 11/27/20 11/27/20 History Allergies Allergy/AdvReac Type Severity Reaction Status Date / Time Sulfa (Sulfonamide Allergy Unknown Verified 11/27/20 19:10 Antibiotics) Childhood Physical Exam Vitals: Vital Signs Temp Pulse Pulse Resp BP BP Pulse Ox 11/28/20 08:00 16 11/28/20 07:46 99.1 F 80 16 147/67 96 11/28/20 01:07 97.9 F 86 17 162/73 96 11/27/20 20:21 98.8 F 69 16 148/85 98 11/27/20 18:43 99.1 F 68 18 145/70 98 Intake and Output 11/27/20 11/28/20 11/28/20 22:59 06:59 14:59 Intake Total 240 236 Balance 240 236 Intake: Oral 240 236 Other: Voiding Method Toilet # Voids 1 Weight 76.204 kg Results 11/27/20 19:16 01/26/21 19:16 Cardiac Enzymes 11/27/20 11/27/20 Range/Units 19:16 20:41 AST 74 H (17-59) U/L Troponin I <0.012 (0.000-0.034) ng/mL CBC 11/27/20 Range/Units 19:16 WBC 7.5 (3.8-10.6) k/uL RBC 4.21 L (4.30-5.90) m/uL Hgb 14.6 (13.0-17.5) gm/dL Hct 43.1 (39.0-53.0) % Plt Count 170 (150-450) k/uL Comprehensive Metabolic Panel 11/27/20 Range/Units 19:16 Sodium 140 (137-145) mmol/L Potassium 4.4 (3.5-5.1) mmol/L Chloride 103 (98-107) mmol/L Carbon Dioxide 29 (22-30) mmol/L BUN 24 H (9-20) mg/dL Creatinine 0.82 (0.66-1.25) mg/dL Glucose 134 H (74-99) mg/dL Calcium 9.5 (8.4-10.2) mg/dL AST 74 H (17-59) U/L ALT 84 H (4-49) U/L Alkaline Phosphatase 269 H (38-126) U/L Total Protein 6.7 (6.3-8.2) g/dL Albumin 3.9 (3.5-5.0) g/dL Current Medications Generic Name Dose Route Start Last Admin Trade Name Freq PRN Reason Stop Dose Admin Acetaminophen 1,000 mg 11/28/20 10:07 Acetaminophen Tab 500 Mg Tab PO Q6HR PRN Fever and/ or Pain Aspirin 81 mg 11/28/20 10:15 11/28/20 12:26 Aspirin 81 Mg PO 81 mg DAILY STEPHEN Administration Atorvastatin Calcium 40 mg 11/28/20 21:00 Atorvastatin 40 Mg Tab PO HS STEPHEN Famotidine 20 mg 11/28/20 21:00 Famotidine 20 Mg Tab PO BID STEPHEN Fluticasone Propionate 1 spray 11/28/20 10:07 Fluticasone 50mcg/[place] Nasal 16gm EA NOSTRIL DAILY PRN Allergy Symptoms Furosemide 40 mg 11/28/20 10:15 11/28/20 12:26 Furosemide 40 Mg Tab PO 40 mg DAILY STEPHEN Administration Isosorbide Mononitrate 30 mg 11/28/20 10:15 11/28/20 12:25 Isosorbide Mononitrate Er 30 Mg Tab.Er.24h PO 30 mg DAILY STEPHEN Administration Losartan Potassium 50 mg 11/28/20 10:15 11/28/20 12:25 Losartan 50 Mg Tab PO 50 mg DAILY STEPHEN Administration Melatonin 3 mg 11/28/20 21:00 Melatonin 1 Mg Tab PO HS PRN Insomnia Metoprolol Tartrate 25 mg 11/28/20 10:15 11/28/20 12:26 Metoprolol Tartrate 25 Mg Tab PO 25 mg DAILY STEPHEN Administration Naloxone HCl 0.2 mg 11/27/20 20:20 Naloxone 0.4 Mg/Ml 1 Ml Vial IV Q2M PRN Opioid Reversal Nitroglycerin 0.4 mg 11/28/20 10:07 Nitroglycerin Sl Tabs 0.4 Mg Tab SUBLINGUAL Q5M PRN Chest Pain Intake and Output 11/27/20 11/28/20 11/28/20 22:59 06:59 14:59 Intake Total 240 236 Balance 240 236 Intake: Oral 240 236 Other: Voiding Method Toilet # Voids 1 Weight 76.204 kg 11/27/20 19:16 11/27/20 19:16
--- NOTE | 2020-11-28 13:54 | US ---
EXAMINATION TYPE: US carotid duplex BILAT DATE OF EXAM: 11/28/2020 COMPARISON: NONE CLINICAL HISTORY: forgetful. Confused EXAM MEASUREMENTS: RIGHT: Peak Systolic Velocity (PSV) cm/sec ----- Right CCA: 97.8 ----- Right ICA: 94.0 ----- Right ECA: 89.9 ICA/CCA ratio: 1.0 RIGHT: End Diastole cm/sec ----- Right CCA: 0 ----- Right ICA: 18.9 ----- Right ECA: 0 LEFT: Peak Systolic Velocity (PSV) cm/sec ----- Left CCA: 70.1 ----- Left ICA: 78.4 ----- Left ECA: 91.4 ICA/CCA ratio: 1.1 LEFT: End Diastole cm/sec ----- Left CCA: 13.0 ----- Left ICA: 17.6 ----- Left ECA: 0 VERTEBRALS (direction of flow): Right Vertebral: Antegrade Left Vertebral: Antegrade Rhythm: Underlying arrhythmia not excluded Grayscale, color Doppler, spectral Doppler imaging performed the carotid arteries. Waveform analysis does not show significant stenosis of the proximal internal carotid arteries. No significant stenosis seen. Some atheromatous changes are present at the carotid bulbs. IMPRESSION: Dynamic significant stenosis of the proximal internal carotid arteries by Doppler criter ia, an indirect measurement of carotid stenosis. Possible arrhythmia. Criteria for Assigning % of Stenosis / Diameter reduction (Estimation based on the indirect measurements of the internal carotid artery velocities (ICA PSV). 1. Normal (no stenosis)=ICA PSV < 125 cm/s: ratio < 2.0: ICA EDV<40 cm/s. 2. Less than 50% stenosis=ICA PSV < 125 cm/s: ratio < 2.0: ICA EDV<40 cm/s. 3. 50 to 69% stenosis=ICA PSV of 125 to 230 cm/s: ration 2.0 ? 4.0: ICA EDV 40-100 cm/s. 4. Greater than 70% stenosis to near occlusion= ICA PSV > 230 cm/s: ratio > 4.0: ICA EDV > 100 cm/s. 5. Near occlusion= ICA PSV velocities may be low or undetectable: variable ratio and ICA EDV. 6. Total occlusion=unable to detect flow.
--- NOTE | 2020-11-28 14:11 | P.CN ---
Psychiatric Consult - . Consult date: 11/28/20 Consult:: 11/28/20 11:28 IDENTIFYING DATA: This patient is a 80 y/o male who currently lives alone [place] has 4 kids. REASON FOR REFERRAL: Psychiatry was consulted for delirium HISTORY OF PRESENT ILLNESS: The patient presented to the hospital yesterday with altered mental status and possible carbon monoxide poisoning. According to ER report patient was brought in by his sister who claims that she was acting confused for the past 2 days. She had stated in the ER that he has been using both a gas and electric heater indoors after his furnace went out recently. Patient apparently was disoriented and asking where his car is and that he was also late for work which she has not been to work in several years. Patient's computed tomography scan of his brain was negative and carbon monoxide level was 3.3. Patient's MCV was 102.4 and AST/ALTs were elevated. Nurse taking care patient states that patient is scheduled for MRI and EEG today and that patient has been fairly cooperative today. Patient was seen at the bedside and was for the most part cooperative with remote mortgage underwriter. He states that he does not know how he got to the hospital however she was able to answer questions appropriately and has a fair attention span. He claims that she was trying to heat his house with the stove and oven and claims that his furnace was broken. He states that it was a "bad idea". He states that it is currently getting fixed. He denied any problems with his mood or depression. He denied any anxiety. He states that his sleep has been fair. He denied any manic symptoms. She was alert and oriented 3 and stated that Roderick is the current president. He was able to recall 1 out of 3 words after 5 minutes. Patient had a fair abstraction and fair judgment. At this time patient denies any suicidal or homical ideations, i ntent or plan. Patient denies any auditory, visual hallucinations and denies any paranoia or delusions. Patients admits to using no recreational drugs or cigarettes. Gale (sister of patient) [phone] spoke over the phone who stated that patient was trying to heat his house with his oven as his furnace was broken. She states that for the past 2 days he has been acting strange and confused and talking about going to work and going to [place] which she claims that he has not been to in quite some time. His baseline is able to function and live on his own, can cook and clean except with meds and finances which she helps him with. She also claimed that his furnace was being fixed and repaired today and that she will be able to keep a close eye on him as they are next door neighbors. She also states that she will be able to take him to his follow up appointments. PAST PSYCHIATRIC HISTORY: Patient has no known psychiatric hx. Patient denies being on any psychiatric medications. Patient denies any previous psychiatric hospitalizations. Patient denies any psychiatric outpatient follow-up. Patient denies any history of suicide attempts in the past. PAST MEDICAL HISTORY: htn, hlp, cad, hx of stents placed. ALLERGIES: as per EMR. CHEMICAL DEPENDENCY HISTORY: as per HPI. FAMILY PSYCHIATRIC/SUBSTANCE USE HISTORY: denies SOCIAL HISTORY: Patient was born and raised in [place], [place] 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 He denied any history or any legal history. He states that he has 4 kids and currently lives alone in a log cabin beside his sister. MENTAL STATUS EXAM: General Appearance: Patient appears to be stated age is alert, pleasant, and attempts to be cooperative. Patient appears to have fair hygiene and grooming wearing hospital gown with fair eye contact. Behavior: Patient is calmly lying in bed without any agitated behavior. Attempts to be cooperative. Speech: Patient's speech is fluent and nonpressured. Mood/Affect: Patient reports their mood is "ok", affect is congruent Suicidality/Homicidality: Patient denies having any suicidal or homicidal id eation intent or plan. Perceptions: Patient denies any visual hallucinations and denies any auditory hallucinations Though content/process: There is no evidence of any delusional thought content a nd thought process is linear. Logical. Not endorsing any delusions. Appropriate to conversation. Memory and concentration: AOX3, knows who the current president is. recalls 1/3 words after 5 mins. fair abstraction and fair judgment. Cannot spell "WORLD" backwards Judgment and insight: Limited IMPRESSIONS: Delirium likely etiology toxic/metabolic possibly underlying dementia PLAN: -At this time patient DOES NOT meet criteria for inpatient psychiatric admission. -Delirium precautions recommended with patient including - avoiding use of narcotics and INVERTED BLOCK OPERATOR sedatives, limit anticholinergic medications when possible, frequent re-orientation, minimize use of restraints, open window shades during the day and close them at night -Would recommend the following medication changes/additions: At this time would not recommend any medication changes. can continue with melatonin as needed for sleep. -Plate Filler spoke with patients sister Gale as noted above. She claims that he does not have any access to guns or weapons and will be able to keep a closer eye on him. -awaiting results of MOCA -SW to arrange for home care. -awaiting further imaging and recommendations from neurology -Communicated plan to patient's nurse -Patient has a follow up PCP appointment next week. -Psychiatry will sign off at this time -Please contact with any questions.
--- NOTE | 2020-11-28 16:46 | P.CNNES ---
History of Present Illness Consult date: 11/28/20 Requesting physician: Guillermo Wetzel Reason for Consult: Altered mental status History of Present Illness: Patient is a 80-year-old male came to the hospital yesterday at 6:38 PM for altered mental status. Patient states that he lives himself, and his sister lives next door. Apparently his furnace went out and he was using the gas oven to warm the house. Patient states that the only thing he remembers is talking to his sister at home and then he woke up this morning in the hospital bed in his room. He does not remember how he was brought to the hospital, his transit in the ER, woke up in the floor this morning. At present patient feels fine, denies any headache any pain, chest pain or any focal symptoms. Patient denies any slurred speech problem with the vision, diplopia, headache. Vital signs on arrival blood pressure 145/70, pulse is 68 computed 99.1. Computed tomography scan of the head is normal. EKG shows sinus rhythm with first-degree AV block with frequent premature ventricular complexes. Carotid Doppler showed no hemodynamic significant stenosis of the proximal ICAs. Antegrade flow in both vertebral arteries. Blood test shows normal CBC, with elevated MCV 102.4. Patient denies drinking. Electrolytes are normal. Renal functions normal. AST is mildly elevated 74, ALT 84. Troponins negative. Patient denies history of tobacco use. I spoke to patient's sister on the phone, who provided additional history. She states that patient actually came to her house very confused, couldn't name his children, could not remember one of the son, who committed suicide a year ago. Patient was talking about some stories of driving to [employer] or to [employer] which was not real. She went into house, and the stool was on with a foul smell. She did turn off the stove, opened all of windows, and let him sit outside of his house, and his mentation slightly improved but he was still confused. Therefore she brought him to the hospital. She did not notice any strokelike symptoms like facial droop, slurred speech, focal weakness numbness or balance issues. Everything was working well, except for confusion. She also mentions that patient suffered from Takotsubo cardiomyopathy with low ejection fraction in September 2019. Since then he has been having episodes of some mental confusion, in which he make statement that makes no sense and then later corrects it by himself. Sometimes he becomes argumentative, and emotional. Then he realizes, starts crying about his behavior. She concurs that he has not drank any alcohol for many many many years. He never was a heavy drinker. Review of Systems Completely unremarkable. Patient has no concerns at all. All 14 point review of systems unremarkable. Past Medical History Past Medical History: Coronary Artery Disease (CAD), Hypertension, Renal Disease Additional Past Medical History / Comment(s): [place], cardiomyopathy History of Any Multi-Drug Resistant Organisms: None Reported Past Surgical History: Appendectomy, Heart Catheterization With Stent, Hernia Repair Additional Past Surgical History / Comment(s): heart stents x2, left kidney removed, nasal, right finger, cataracts, Date of Last Stent Placement:: unknown Past Psychological History: No Psychological Hx Reported Smoking Status: Never smoker Past Alcohol Use History: Occasional Past Drug Use History: None Reported - Past Family History Father History Unknown: Yes Mother History Unknown: Yes Medications and Allergies Home Medications Medication Instructions Recorded Confirmed Type Isosorbide Mononitrate ER [Imdur] 30 mg PO DAILY 09/16/14 11/27/20 History Aspirin EC [Ecotrin Low Dose] 81 mg PO DAILY 08/03/19 11/27/20 History Fluticasone Nasal [place] [Flonase 1 spr EA NOSTRIL DAILY PRN 08/03/19 11/27/20 History Nasal [place]] Atorvastatin [Lipitor] 40 mg PO HS #30 tab 08/09/19 11/27/20 Rx Furosemide [Lasix] 40 mg PO DAILY #30 tab 08/09/19 11/27/20 Rx Losartan [Cozaar] 50 mg PO DAILY #30 tab 08/09/19 11/27/20 Rx Melatonin 3 mg PO HS PRN #30 tablet 08/09/19 11/27/20 Rx Nitroglycerin Sl Tabs [Nitrostat] 0.4 mg SUBLINGUAL Q5M PRN #25 tab 08/09/19 11/27/20 Rx Acetaminophen Tab [Tylenol] 1,000 mg PO Q6HR PRN 11/27/20 11/27/20 History Famotidine [Pepcid] 20 mg PO BID 11/27/20 11/27/20 History Metoprolol Tartrate [Lopressor] 25 mg PO DAILY 11/27/20 11/27/20 History Allergies Allergy/AdvReac Type Severity Reaction Status Date / Time Sulfa (Sulfonamide Allergy Unknown Verified 11/27/20 19:10 Antibiotics) Childhood Physical Examination - Vital Signs Vital Signs: Vital Signs Temp Pulse Pulse Resp BP BP Pulse Ox 11/28/20 08:00 16 11/28/20 07:46 99.1 F 80 16 147/67 96 11/28/20 01:07 97.9 F 86 17 162/73 96 11/27/20 20:21 98.8 F 69 16 148/85 98 11/27/20 18:43 99.1 F 68 18 145/70 98 Intake and Output 11/27/20 11/28/20 11/28/20 22:59 06:59 14:59 Intake Total 240 236 Balance 240 236 Intake: Oral 240 236 Other: Voiding Method Toilet # Voids 1 Weight 76.204 kg On examination patient is an elderly male, in no acute distress. He is alert and awake. Patient states it is December and the year is 2020 but then later changed the month to November. He knows that he is in [facility] and name of the current president and his date of . Speech and language functions are normal. Patient can name and repeat very well. A ttention span, concentration is intact, fund of knowledge is slightly limited. Detail cognitive function testing deferred. On cranial nerve examination pupils are round and reactive to light, both pupils are surgical from previous cataract surgery. Visual mcclure are full on confrontation with no neglect. Extraocular muscles are intact with no nystagmus. Face is symmetric, tongue protrudes to the midline. Palatal elevation and sensation normal. Hearing and shoulder shrug normal. Facial sensations normal. On muscle strength testing there is no pronator drift and the strength is normal in arms and legs distally and proximally. Reflexes are diminished and plantars are downgoing. Sensory to touch is equal. No ataxia for [id number] testing on the right, although left is slightly dysmetric, which she claims is chronic issue. Tone and bulk of muscles normal. Gait normal. No obvious bruit, S1 and S2 audible, abdomen soft nontender, chest is clear, peripheral pulses present. No edema. Results - Laboratory Findings CBC and BMP: 11/27/20 19:16 11/27/20 19:16 Abnormal Lab Findings: Abnormal Labs 11/27/20 11/27/20 19:16 19:16 RBC 4.21 L MCV 102.4 H BUN 24 H Glucose 134 H AST 74 H ALT 84 H Alkaline Phosphatase 269 H Assessment and Plan Assessment: * Altered mental status, with mental confusion, disorientation with loss of memory. Possible delirium from ?Carbon monoxide poisoning, although his c arboxyhemoglobin was normal. Rule out transient global amnesia. CVA less likely. * Possible mild cognitive impairment. * Macrocytosis, unclear etiology. Patient denies alcoholism. Rule out B12 or folate deficiency. Plan: * Patient is undergoing MRI of the brain and an EEG. * Agree with checking B12 level. We will also check B1, folate and RPR. * As patient recently was admitted with delirium, therefore I would avoid detailed cognitive function testing during this hospitalization. Patient's sister was suggested to follow-up with a neurologist as outpatient to rule out mild cognitive impairment versus early dementia. She was informed that cognitive enhancing medication does slow down the progression of disease. * We will follow.
--- NOTE | 2020-11-28 18:00 | MR ---
EXAMINATION TYPE: MR brain wo/w con DATE OF EXAM: 11/28/2020 COMPARISON: CT brain 11/27/2020 HISTORY: AMS, encephalopathy CONTRAST: Performed utilizing 7.5 mL intravenous Gadavist gadolinium contrast. TECHNIQUE: Multiplanar, multiecho imaging on a 3.0 [place] magnet is performed through the brain. Stud y is performed within 24 hours of arrival to the hospital. The craniovertebral junction is normal. The pituitary is normal. Diffusion-weighted imaging is performed. No abnormal hyperintensity is present to suggest an acute i ntracranial infarct or acute ischemic change. There are scattered periventricular and deep white matter hyperintensities on T2 and inversion recove ry weighted sequences. These are nonspecific. Differential diagnosis could include but is not limited to microvascular ischemic change, vasculitis, migraine headaches, Lyme disease, multiple sclerosis. Ventricles and sulci are prominent for the patient age. No abnormal enhancement is evident. IMPRESSIONS: 1. Atrophy with chronic appearing deep white matter ischemic type changes.
[2020-11-28] MEDS: ATORVASTATIN 40 MG TAB PO SCH (20:22)
[2020-11-28] MEDS: FAMOTIDINE 20 MG TAB PO SCH (20:22)
[2020-11-28] MEDS ORDERED: MELATONIN 1 MG TAB PO PRN (21:00)
--- NOTE | 2020-11-28 23:59 | P.HPIM ---
History of Present Illness H&P Date: 11/28/20 Chief Complaint: Acting confused History of presenting complaint: This is a pleasant 80-year-old patient who follows with Dr. Bruce Quintanilla. Patient is brought in by his sister to the ER. Initially patient had been acting a bit different for last one or 2 days. Patient's fundus had gone out. He tried to use electric heater as this was not enough he decided to turn on the gas heater in dose. He was reported to be normal 2 days ago. He has been asking strain questions regarding for example bed eschar is given that he has not smoked for 1 year. This morning when I asked him patient denies any hallucinations or hearing voices on any visual hallucinations. His other comfortable. He has no recollection of why he was brought in. Does not remember the events. Review of systems: GEN.: None EYES: None HEENT: None NECK: None RESPIRATORY: None CARDIOVASCULAR: None GASTROINTESTINAL: None GENITOURINARY: None MUSCULOSKELETAL: None LYMPHATICS: None HEMATOLOGICAL: None PSYCHIATRY: As above NEUROLOGICAL: No focal neurological symptoms Past medical history to include: Coronary artery disease with stent, hypertension, kidney disease, cardiac left ventricular apical thrombus, left nephrectomy, CHF EF 30-35% Social history: Lives alone. 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 But according to the ER notes patient's sister said patient not work for year. Denies any uses cigarettes alcohol or any recreational drugs. Family history: Patient doesn't remember Physical examination: VITAL SIGNS: 99.1, 68, 18, 145/70, 98% room air-upon presentation GENERAL: BMI 23.4, laying in bed, awake. EYES: Pupils equal. Conjunctiva normal. HEENT: External appearance of nose and ears normal, oral cavity grossly normal. NECK: JVD not raised; masses not palpable. HEART: First and second heart sounds are normal; no edema. LUNGS: Respiratory rate normal; clear to auscultation. ABDOMEN: Soft, nontender, liver spleen not palpable, no masses palpable. PSYCH: [Patient knows that he has at the [facility]. He thinks it is October. It is Dorris is coming up that he rememberscrisp is only past. He knows the president is Abimaelmarvin NEUROLOGICAL: Cranial nerves grossly intact; no facial asymmetry, power and sensation grossly intact. LYMPHATICS: No lymph nodes palpable in the axilla and neck INVESTIGATIONS, reviewed in the clinical context: White count 7.5 hemoglobin 14.6 platelets 170 potassium 4.4 creatinine 0.82 AST 74 ALT 84 alk phos 269 TSH 0.7 Troponin I 3 negative EKG tracing personally reviewed by me-sinus rhythm, PVC Chest x-ray film personally reviewed by me-cardiomegaly Computed tomography scan of the brain without contrast-negative Assessment: -This is a patient has been reported to be more confused. His sensorium is not altered. But he is having problem with time placement. His otherwise other cheerful. Consent was about underlying dementia which may be unmasking. He has macrocytosis, in the absence of anemia. Slightly elevated liver enzymes. That could be underlying B12 deficiency. We'll also check MMA level. We'll also do a Montral assessment test. For which will be consulted. We'll also run free T4 TSH. 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 In the meantime MRI of the brain, carotid Doppler be ordered. Consultation to neurology and psychiatry. Montral assessment testing will be done. Discussed with the patient. Follow Past Medical History Past Medical History: Coronary Artery Disease (CAD), Hypertension, Renal Disease Additional Past Medical History / Comment(s): [place], cardiomyopathy History of Any Multi-Drug Resistant Organisms: None Reported Past Surgical History: Appendectomy, Heart Catheterization With Stent, Hernia Repair Additional Past Surgical History / Comment(s): heart stents x2, left kidney removed, nasal, right finger, cataracts, Date of Last Stent Placement:: unknown Past Psychological History: No Psychological Hx Reported Smoking Status: Never smoker Past Alcohol Use History: Occasional Past Drug Use History: None Reported - Past Family History Father History Unknown: Yes Mother History Unknown: Yes Medications and Allergies Home Medications Medication Instructions Recorded Confirmed Type Isosorbide Mononitrate ER [Imdur] 30 mg PO DAILY 09/16/14 11/27/20 History Aspirin EC [Ecotrin Low Dose] 81 mg PO DAILY 08/03/19 11/27/20 History Fluticasone Nasal [place] [Flonase 1 spr EA NOSTRIL DAILY PRN 08/03/19 11/27/20 History Nasal [place]] Atorvastatin [Lipitor] 40 mg PO HS #30 tab 08/09/19 11/27/20 Rx Furosemide [Lasix] 40 mg PO DAILY #30 tab 08/09/19 11/27/20 Rx Losartan [Cozaar] 50 mg PO DAILY #30 tab 08/09/19 11/27/20 Rx Melatonin 3 mg PO HS PRN #30 tablet 08/09/19 11/27/20 Rx Nitroglycerin Sl Tabs [Nitrostat] 0.4 mg SUBLINGUAL Q5M PRN #25 tab 08/09/19 11/27/20 Rx Acetaminophen Tab [Tylenol] 1,000 mg PO Q6HR PRN 11/27/20 11/27/20 History Famotidine [Pepcid] 20 mg PO BID 11/27/20 11/27/20 History Metoprolol Tartrate [Lopressor] 25 mg PO DAILY 11/27/20 11/27/20 History Allergies Allergy/AdvReac Type Severity Reaction Status Date / Time Sulfa (Sulfonamide Allergy Unknown Verified 11/27/20 19:10 Antibiotics) Childhood Physical Exam Vitals: Vital Signs Temp Pulse Pulse Resp BP BP Pulse Ox 11/28/20 08:00 16 11/28/20 07:46 99.1 F 80 16 147/67 96 11/28/20 01:07 97.9 F 86 17 162/73 96 11/27/20 20:21 98.8 F 69 16 148/85 98 11/27/20 18:43 99.1 F 68 18 145/70 98 Intake and Output 11/27/20 11/28/20 11/28/20 22:59 06:59 14:59 Intake Total 240 236 Balance 240 236 Intake: Oral 240 236 Other: Voiding Method Toilet # Voids 1 Weight 76.204 kg Results CBC & Chem 7: 11/27/20 19:16 11/27/20 19:16 Labs: Abnormal Lab Results - Last 24 Hours (Table) 11/27/20 11/27/20 Range/Units 19:16 19:16 RBC 4.21 L (4.30-5.90) m/uL MCV 102.4 H (80.0-100.0) fL BUN 24 H (9-20) mg/dL Glucose 134 H (74-99) mg/dL AST 74 H (17-59) U/L ALT 84 H (4-49) U/L Alkaline Phosphatase 269 H (38-126) U/L Thrombosis Risk Factor Assmnt - Choose All That Apply Each Risk Factor Represents 3 Points: Age 75 years or older Thrombosis Risk Factor Assessment Total Risk Factor Score: 3 Thrombosis Risk Factor Assessment Level: Moderate Risk
[2020-11-29] MEDS: FUROSEMIDE 40 MG TAB PO SCH (08:08)
[2020-11-29] MEDS: ISOSORBIDE MONONITRATE ER 30 MG TAB.ER.24H PO SCH (08:08)
[2020-11-29] MEDS: ASPIRIN 81 MG PO SCH (08:08)
[2020-11-29] MEDS: FAMOTIDINE 20 MG TAB PO SCH ×2 (08:08→21:29)
[2020-11-29] MEDS: LOSARTAN 50 MG TAB PO SCH (08:09)
[2020-11-29] MEDS: METOPROLOL TARTRATE 25 MG TAB PO SCH (08:09)
--- NOTE | 2020-11-29 09:57 | US ---
EXAMINATION TYPE: US abdomen limited DATE OF EXAM: 11/29/2020 COMPARISON: NONE CLINICAL HISTORY: elevated LFT. Elevated LFT EXAM MEASUREMENTS: Liver Length: 12.3 cm Gallbladder Wall: .4 cm CBD: .5 cm Right Kidney: 12.4 x 5.2 x 5.6 cm Pancreas: Obscured by bowel gas Liver: Increased attenuation Gallbladder: Thickened wall no stones seen. Evidence for sonographic Soares's sign: No CBD: wnl Right Kidney: wnl IMPRESSION: Findings could represent hepatocellular disease, hepatic steatosis. Exam is limited. Ther e is a thickened gallbladder wall which is nonspecific. No evident cholelithiasis.
--- NOTE | 2020-11-29 12:22 | P.PN ---
Subjective Progress Note Date: 11/29/20 Patient was seen for follow-up. Patient is laying comfortably in the bed. Offers no complaints. Patient is wondering who gave him hair cut, as he used to have longer hair. He believes it was done in the ER, which I doubt. Patient denies any history of tobacco or alcohol. Objective - Vital Signs Vital signs: Vital Signs Temp 97.9 F 11/29/20 08:00 Pulse 68 11/29/20 08:00 Resp 18 11/29/20 08:00 BP 138/69 11/29/20 08:00 Pulse Ox 97 11/29/20 08:00 Intake & Output 11/28/20 11/29/20 11/29/20 18:59 06:59 18:59 Intake Total 526 236 Balance 526 236 Intake: Oral 526 236 Other: Voiding Method Toilet Toilet Urinal # Voids 1 2 2 # Bowel Movements 1 - Exam Patient's mental status appears intact. He states he is in [facility] in [facility]. He knows it is 11/29/2020. He knows name of the current president. Patient language functions are normal. Cranial nerves are normal muscle strength normal. No ataxia. No nystagmus. Sensations are equal. - Labs CBC & Chem 7: 11/27/20 19:16 11/27/20 19:16 Assessment and Plan Assessment: * Altered mental status, with mental confusion, disorientation with loss of memory. Possible delirium from ?Carbon monoxide poisoning, although his carboxyhemoglobin was normal. Rule out transient global amnesia. CVA less likely. * Possible mild cognitive impairment. * Macrocytosis, unclear etiology. Patient denies alcoholism. Rule out B12 or folate deficiency. Plan: * MRI of the brain with and without contrast revealed atrophy with chronic appearing deep white matter ischemic changes. * EEG still outstanding. * B12 level, B1, folate still pending. RPR nonreactive. * Start thiamine 100 mg daily empirically. * Aricept 5 mg daily, as patient's sister has raised concerns about significant memory issues for the last year or 2. * 2-D echo pending. * Abdominal ultrasound revealed hepatocellular disease, hepatic steatosis. We will check ammonia level. We will follow. * Discussed with Dr. Carrera
[2020-11-29] MEDS: THIAMINE 100 MG TAB PO SCH (12:56)
--- NOTE | 2020-11-29 13:53 | ECHOF ---
Referral Reason:forgetful MEASUREMENTS -------- HEIGHT: 180.3 cm WEIGHT: 76.2 kg BP: 118/59 RVIDd: 2.9 cm (< 3.3) IVSd: 1.4 cm (0.6 - 1.1) LVIDd: 3.7 cm (3.9 - 5.3) LVPWd: 1.4 cm (0.6 - 1.1) IVSs: 1.8 cm LVIDs: 2.7 cm LVPWs: 2.0 cm LA Diam: 3.6 cm (2.7 - 3.8) LAESV Index (A-L): 25.70 ml/m Ao Diam: 3.6 cm (2.0 - 3.7) AV Cusp: 1.7 cm (1.5 - 2.6) MV EXCURSION: 13.991 mm (> 18.000) MV EF SLOPE: 98 mm/s (70 - 150) EPSS: 1.2 cm AV maxP.37 mmHg AV meanP.10 mmHg AR PHT: 756 ms RAP: 5.00 mmHg RVSP: 35.26 mmHg FINDINGS -------- Sinus rhythm with extra systolic beats. This was a technically adequate study. The left ventricular size is normal. There is moderate concentric left ventricular hypertrophy. O verall left ventricular systolic function is low-normal with, an EF between 50 - 55 %. The right ventricle is normal in size. Normal LA size by volume 22+/-6 ml/m2. The right atrial size is normal. Interatrial and interventricular septum intact. There is mild aortic valve sclerosis. There is mild aortic regurgitation. The mitral valve leaflets are mildly thickened. Mild mitral regurgitation is present. The tricuspid valve appears structurally normal. Mild tricuspid regurgitation present. There is m ild pulmonary hypertension. The right ventricular systolic pressure, as measured by Doppler, is 35. 26mmHg. Trace/mild (physiologic) pulmonic regurgitation. The aortic root size is normal. Normal inferior vena cava with normal inspiratory collapse consistent with estimated right atrial pre ssure of 5 mmHg. There is no pericardial effusion. CONCLUSIONS -------- 1. There is moderate concentric left ventricular hypertrophy. 2. Overall left ventricular systolic function is low-normal with, an EF between 50 - 55 %. 3. Normal LA size by volume 22+/-6 ml/m2. 4. There is mild aortic valve sclerosis. 5. There is mild aortic regurgitation. 6. Mild mitral regurgitation is present. 7. Mild tricuspid regurgitation present. 8. There is mild pulmonary hypertension. 9. Trace/mild (physiologic) pulmonic regurgitation. 10. There is no pericardial effusion. HOME APPLIANCE INSTALLER: Inga Key RDCS
--- NOTE | 2020-11-29 14:18 | P.PN ---
Subjective Progress Note Date: 11/29/20 CHIEF COMPLAINT: Chest pain HISTORY OF PRESENT ILLNESS: 11/28/2020 This is a 80-year-old male with a past medical history significant for hypertension, hyperlipidemia, kidney disease with left nephrectomy, LV apical thrombus, and coronary artery disease with previous PCI. Patient follows in the office with Dr. Gates. We have been asked to see the patient in consultation for chest pain. According to the ER physician note, patients furnace broke at home and the patient has been using a gas heater inside his home to heat his house. He apparently has been confused over the past 2-3 days prompting his visit to the emergency room. patient examined this afternoon at the bedside. Patient is currently alert and oriented during examination. Patient states he does not remember coming to the hospital and the last thing he remembered was waking up this morning the hospital bed. Patient reports having an episode of chest discomfort earlier today that he described as being "stuck with a hundred needles to the chest". He states this episode did not last very long and he has not felt that same type of pain since. He currently denies having any pain dur ing examination. However he does report having some chest discomfort with deep inspiration and also upon palpation of chest wall. Patient has a history of coronary artery disease and has had previous stents placed to the proximal LAD and mid LAD. Mid LAD stent was placed in 2005. Patient underwent cardiac cath with Dr. Gates in August 2019 revealing patent stents to the LAD, heavily calcified RCA, with no other significant obstructive coronary artery disease. Medical management was recommended. Echocardiogram at that time revealed ejection fraction 30-35% with a Takotsubo type picture. Patient was also found to have a LV apical thrombus and was placed on Eliquis. Repeat echocardiogram completed in September 2019 revealed resolution of apical thrombus and ejection fraction of 55%. Patient also underwent a nuclear stress test in August 2020 which was negative for ischemia. 11/29/2020 Patient examined this morning at the bedside. Patient reports abdominal pain this morning. He denies any chest wall tenderness with palpation this morning. He states the chest pain he had yesterday has resolved and he has no further episodes of feeling like he is "being poked with needles in the chest". Blood pressure stable 138/69. Heart rate in the 60s. Patient is on room air with oxygen saturations greater than 92%. He is afebrile. Troponin negative 3. Echocardiogram completed revealed ejection fraction 50-55%, mild aortic regurgitation, mild mitral regurgitation, and mild tricuspid regurgitation. PHYSICAL EXAM: VITAL SIGNS: Reviewed. GENERAL: Well-developed in no acute distress. HEENT: Head is normocephalic. Pupils are equal, round. Sclerae anicteric. Mucous membranes of the mouth are moist. Neck supple. No JVD or thyromegaly LUNGS: Respirations even and unlabored. Lungs essentially clear to auscultation bilaterally. HEART: Regular rate and rhythm. S1 and S2 heard. EXTREMITIES: Normal range of motion. No clubbing or cyanosis. Peripheral pul ses intact. No lower extremity edema ASSESSMENT: Altered mental status Chest pain, atypical for angina, reproducible with palpation and deep inspiration Coronary artery disease with previous stent placement to proximal LAD and mid LAD History of Takotsubo cardiomyopathy with ejection fraction of 30-35%, since resolved, EF 50-55% History of LV apical thrombus, 2019 Hypertension Hyperlipidemia History of left nephrectomy PLAN: Patient is currently stable from a cardiac perspective. We will follow on an as-needed basis. Please call with questions or concerns. Nurse practitioner note has been reviewed by physician. Signing provider agrees with the documented findings, assessment, and plan of care. Objective - Vital Signs Vital signs: Vital Signs Temp 97.9 F 11/29/20 08:00 Pulse 68 11/29/20 08:00 Resp 18 11/29/20 08:00 BP 138/69 11/29/20 08:00 Pulse Ox 97 11/29/20 08:00 Intake & Output 11/28/20 11/29/20 11/29/20 18:59 06:59 18:59 Intake Total 526 236 Balance 526 236 Intake: Oral 526 236 Other: Voiding Method Toilet Toilet Urinal # Voids 1 2 - Labs CBC & Chem 7: 11/27/20 19:16 11/27/20 19:16
[2020-11-29 16:55] LABS: Folate, Serum 18.2 ng/mL
[2020-11-29] MEDS ORDERED: DONEPEZIL 5 MG TAB PO SCH (21:00)
[2020-11-29] MEDS: ATORVASTATIN 40 MG TAB PO SCH (21:29)
[2020-11-29] MEDS ORDERED: levETIRAcetam IV 1,000 MG in SALINE 1 100ML.BAG IVPB STA (21:49)
--- NOTE | 2020-11-29 22:08 | EEG ---
ELECTROENCEPHALOGRAM REPORT DATE OF SERVICE: 11/29/2020 PREAMBLE: This is a 80-year-old male with episodes of altered mental status. Rule out partial seizures. EEG FINDINGS: This is a 21 channel routine EEG recording in a patient utilizing 10/20 international system with referential and bipolar montages. Background consists of well developed, well regulated, moderate voltage activity in 9 hertz alpha. Background is posterior dominant and reactive to eye opening and closing. Photic driving response was not clearly seen. There is presence of an epileptic focus involving the right temporal region with frequent focals spikes or sharp and slow waves involving the right temporal region. No electrographic seizure however was recorded. Some drowsiness was seen but deeper stages of sleep were not attained. EKG channel revealed significant arrhythmia. IMPRESSION: This is an abnormal EEG due to presence of epileptic focus involving the right temporal region. This is suggestive of focal cortical neuronal dysfunction with underlying cortical irritability and tendency for focal onset seizures. This EEG could be considered an interictal expression of localization-related epilepsy. The EKG channel revealed significant arrhythmia. Clinical correlation also recommended. THOMAS / MINNIEN: [id number] / MTDValerie
--- NOTE | 2020-11-30 00:51 | P.PN ---
Progress Note - Text Progress Note Date: 11/29/20 Chief Complaint: Acting confused History of presenting complaint: This is a pleasant 80-year-old patient who follows with Dr. Bruce Quintanilla. Patient is brought in by his sister to the ER. Initially patient had been acting a bit different for last one or 2 days. Patient's fundus had gone out. He tried to use electric heater as this was not enough he decided to turn on the gas heater in dose. He was reported to be normal 2 days ago. He has been asking strain questions regarding for example bed eschar is given that he has not smoked for 1 year. This morning when I asked him patient denies any hallucinations or hearing voices on any visual hallucinations. His other comfortable. He has no recollection of why he was brought in. Does not remember the events. Patient's EKG was sinus rhythm. Computed tomography scan of the brain without contrast was negative PE. MRI of the brain showed atrophy chronic-appearing D but chronic changes. Patient is B12 TSH folate unremarkable. Treponema pallidum antibody nonreactive. Montral assessment this gave a score of 21/30. Indicating remote recall diminished Today-patient still a bit forgetful. Had a lengthy discussion with Dr. Castro from neurology. They day in the evening EGD at confirm frontotemporal lobe epilepsy activity. Patient again complaining of some chest pain. Cardiology with the case. Review of systems: Was done for constitutional, cardiovascular, GI, pulmonary. relevant finding as above Active Medications Acetaminophen (Acetaminophen Tab 500 Mg Tab) 1,000 mg PO Q6HR PRN PRN Reason: Fever and/ or Pain Aspirin (Aspirin 81 Mg) 81 mg PO DAILY [facility] Last Admin: 11/29/20 08:08 Dose: 81 mg Documented by: Atorvastatin Calcium (Atorvastatin 40 Mg Tab) 40 mg PO HS [facility] Last Admin: 11/29/20 21:29 Dose: 40 mg Documented by: Famotidine (Famotidine 20 Mg Tab) 20 mg PO BID [facility] Last Admin: 11/29/20 21:29 Dose: 20 mg Documented by: Fluticasone Propionate (Fluticasone 50mcg/Drewsey Nasal 16gm) 1 spray EA NOSTRIL DAILY PRN PRN Reason: Allergy Symptoms Furosemide (Furosemide 40 Mg Tab) 40 mg PO DAILY [facility] Last Admin: 11/29/20 08:08 Dose: 40 mg Documented by: Isosorbide Mononitrate (Isosorbide Mononitrate Er 30 Mg Tab.Er.24h) 30 mg PO DAILY [facility] Last Admin: 11/29/20 08:08 Dose: 30 mg Documented by: Levetiracetam (Levetiracetam 500 Mg Tab) 500 mg PO Q12HR [facility] Losartan Potassium (Losartan 50 Mg Tab) 50 mg PO DAILY [facility] Last Admin: 11/29/20 08:09 Dose: 50 mg Documented by: Melatonin (Melatonin 1 Mg Tab) 3 mg PO HS PRN PRN Reason: Insomnia Metoprolol Tartrate (Metoprolol Tartrate 25 Mg Tab) 12.5 mg PO BID [facility] Naloxone HCl (Naloxone 0.4 Mg/Ml 1 Ml Vial) 0.2 mg IV Q2M PRN PRN Reason: Opioid Reversal Nitroglycerin (Nitroglycerin Sl Tabs 0.4 Mg Tab) 0.4 mg SUBLINGUAL Q5M PRN PRN Reason: Chest Pain Last Admin: 11/29/20 21:31 Dose: 0.4 mg Documented by: Thiamine HCl (Thiamine 100 Mg Tab) 100 mg PO DAILY [facility] Last Admin: 11/29/20 12:56 Dose: 100 mg Documented by: Past medical history to include: Coronary artery disease with stent, hypertension, kidney disease, cardiac left ventricular apical thrombus, left nephrectomy, CHF EF 30-35% Social history: Lives alone. 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 But according to the ER notes patient's sister said patient not work for year. Denies any uses cigarettes alcohol or any recreational drugs. Family history: Patient doesn't remember Physical examination: VITAL SIGNS: 97.9, 68, 18, 138/69, 97% room air GENERAL: BMI 23.4, laying in bed, awake. EYES: Pupils equal. Conjunctiva normal. HEENT: External appearance of nose and ears normal, oral cavity grossly normal. NECK: JVD not raised; masses not palpable. HEART: First and second heart sounds are normal; no edema. LUNGS: Respiratory rate normal; clear to auscultation. ABDOMEN: Soft, nontender, liver spleen not palpable, no masses palpable. PSYCH: [Patient knows that he has at the [facility]. He thinks it is October. It is [employer] is coming up that he rememberscrisp is only past. He knows the president is Roderick INVESTIGATIONS, reviewed in the clinical context: White count 7.5 hemoglobin 14.6 platelets 170 potassium 4.4 creatinine 0.82 AST 74 ALT 84 alk phos 269 TSH 0.7 Troponin I 3 negative EKG tracing personally reviewed by me-sinus rhythm, PVC Chest x-ray film personally reviewed by me-cardiomegaly Computed tomography scan of the brain without contrast-negative MRI of the brain-cerebral atrophy and white matter changes ischemic Abdominal ultrasound-hepatitis and liver disease. Thickened gallbladder wall nonspecific. 2-D echocardiogram-EF 50-55%. Moderate concentric LVH. Cover monoxide corticated 1.9 Vitamin B12 961 folate 18.2 TSH 1.4 Treponema pallidum antibody-nonreactive EEG-right temporal lobe epileptic form focus. Assessment: -Right temporal lobe epileptiform. Activity-new diagnosis -Mild cognitive impairment -Coronary artery with stent -Intermittent chest pain. -Essential hypertension -Left ventricular cardiac apical thrombus -Left nephrectomy -Chronic congestive heart failure from systolic dysfunction EF 30-35% Plan: Care was discussed with Dr. Castro extensively today. We will start the patient on Keppra 5 mg twice a day. Patient is having intermittent chest pains today. Cardiology being informed./Reconsulted total time spent today was about 50 minutes with over 30 minutes of discussion
[2020-11-30] MEDS: METOPROLOL TARTRATE 25 MG TAB PO SCH ×2 (08:44→20:30)
[2020-11-30] MEDS: ASPIRIN 81 MG PO SCH (08:44)
[2020-11-30] MEDS: THIAMINE 100 MG TAB PO SCH (08:44)
[2020-11-30] MEDS: FAMOTIDINE 20 MG TAB PO SCH ×2 (08:44→20:07)
[2020-11-30] MEDS: LOSARTAN 50 MG TAB PO SCH (08:45)
[2020-11-30] MEDS: FUROSEMIDE 40 MG TAB PO SCH (08:45)
[2020-11-30] MEDS: levETIRAcetam 500 MG TAB PO SCH ×2 (08:45→20:07)
[2020-11-30] MEDS: ISOSORBIDE MONONITRATE ER 30 MG TAB.ER.24H PO SCH (08:45)
[2020-11-30] MEDS ORDERED: DOBUTamine DRIP for NUC MED 500 MG in DEXTROSE/WATER 1 250ML.BAG IV PRN (08:54)
--- NOTE | 2020-11-30 09:57 | P.PN ---
Subjective Progress Note Date: 11/30/20 CHIEF COMPLAINT: Chest pain HISTORY OF PRESENT ILLNESS: 11/28/2020 This is a 80-year-old male with a past medical history significant for hypertension, hyperlipidemia, kidney disease with left nephrectomy, LV apical thrombus, and coronary artery disease with previous PCI. Patient follows in the office with Dr. Gates. We have been asked to see the patient in consultation for chest pain. According to the ER physician note, patients furnace broke at home and the patient has been using a gas heater inside his home to heat his house. He apparently has been confused over the past 2-3 days prompting his visit to the emergency room. patient examined this afternoon at the bedside. Patient is currently alert and oriented during examination. Patient states he does not remember coming to the hospital and the last thing he remembered was waking up this morning the hospital bed. Patient reports having an episode of chest discomfort earlier today that he described as being "stuck with a hundred needles to the chest". He states this episode did not last very long and he has not felt that same type of pain since. He currently denies having any pain dur ing examination. However he does report having some chest discomfort with deep inspiration and also upon palpation of chest wall. Patient has a history of coronary artery disease and has had previous stents placed to the proximal LAD and mid LAD. Mid LAD stent was placed in 2005. Patient underwent cardiac cath with Dr. Gates in August 2019 revealing patent stents to the LAD, heavily calcified RCA, with no other significant obstructive coronary artery disease. Medical management was recommended. Echocardiogram at that time revealed ejection fraction 30-35% with a Takotsubo type picture. Patient was also found to have a LV apical thrombus and was placed on Eliquis. Repeat echocardiogram completed in September 2019 revealed resolution of apical thrombus and ejection fraction of 55%. Patient also underwent a nuclear stress test in August 2020 which was negative for ischemia. 11/29/2020 Patient examined this morning at the bedside. Patient reports abdominal pain this morning. He denies any chest wall tenderness with palpation this morning. He states the chest pain he had yesterday has resolved and he has no further episodes of feeling like he is "being poked with needles in the chest". Blood pressure stable 138/69. Heart rate in the 60s. Patient is on room air with oxygen saturations greater than 92%. He is afebrile. Troponin negative 3. Echocardiogram completed revealed ejection fraction 50-55%, mild aortic regurgitation, mild mitral regurgitation, and mild tricuspid regurgitation. 11/30/2020 Patient examined this morning at the bedside. Patient reports yesterday around 1999 he began having chest pain while laying in the bed. He states it felt like someone punched him in the chest 5 times. He states the pain then went again and then a few minutes later, he felt like someone was punching him in the chest again but not as hard. He reports mild chest pressure this morning. Chest wall is tender with palpation. He reports increased chest pain with deep inspiration. Repeat EKGs from last night reviewed. Vital signs stable this morning. PHYSICAL EXAM: VITAL SIGNS: Reviewed. GENERAL: Well-developed in no acute distress. HEENT: Head is normocephalic. Pupils are equal, round. Sclerae anicteric. Mucous membranes of the mouth are moist. Neck supple. No JVD or thyromegaly LUNGS: Respirations even and unlabored. Lungs essentially clear to auscultation bilaterally. HEART: Regular rate and rhythm. S1 and S2 heard. EXTREMITIES: Normal range of motion. No clubbing or cyanosis. Peripheral pulses intact. No lower extremity edema ASSESSMENT: Altered mental status Abnormal EEG showing epileptic focus of right temporal region Chest pain, atypical for angina, reproducible with palpation and deep inspiration Coronary artery disease with previous stent placement to proximal LAD and mid LAD History of Takotsubo cardiomyopathy with ejection fraction of 30-35%, since resolved, EF 50-55% History of LV apical thrombus, 2019 Hypertension Hyperlipidemia History of left nephrectomy PLAN: Patient will undergo Dobutamine stress test today Further recommendations pending Nurse practitioner note has been reviewed by physician. Signing provider agrees with the documented findings, assessment, and plan of care. Objective - Vital Signs Vital signs: Vital Signs Temp 97.6 F 11/30/20 08:00 Pulse 67 11/30/20 08:00 Resp 18 11/30/20 08:00 BP 138/69 11/30/20 08:00 Pulse Ox 99 11/30/20 08:00 Intake & Output 11/29/20 11/30/20 11/30/20 18:59 06:59 18:59 Intake Total 532 400 Output Total 350 Balance 532 50 Intake: Intake, IV Titration 400 Amount levETIRAcetam IV 1,000 mg 400 In Saline 1 100ml.bag @ 400 mls/hr IVPB ONCE STA Rx#:[id number] Oral 532 Output: Urine 350 Other: Voiding Method Urinal Urinal # Voids 1 # Bowel Movements 1 - Labs CBC & Chem 7: 11/27/20 19:16 11/27/20 19:16 Labs: Abnormal Lab Results - Last 24 Hours (Table) 11/29/20 Range/Units 01:45 Vitamin B12 961.0 H (200.0-944.0) pg/mL
[2020-11-30] MEDS ORDERED: ATROPINE SULFATE 0.1 MG/ML 10ML SYRINGE ONE (11:52)
--- NOTE | 2020-11-30 14:35 | P.PN ---
Subjective Progress Note Date: 11/30/20 Patient was seen for follow-up earlier at 10 AM. Patient is laying comfortably in the bed. Patient complaining of sternal chest pain. Apparently patient had chest pain last night as well. EKG shows very frequent PVCs. Telemetry monitoring was started, and it shows sinus rhythm with frequent ectopy, PVCs, PACs trigeminy is in bigeminy beats. Objective - Vital Signs Vital signs: Vital Signs Temp 97.6 F 11/30/20 08:00 Pulse 67 11/30/20 08:00 Resp 18 11/30/20 08:00 BP 138/69 11/30/20 08:00 Pulse Ox 99 11/30/20 08:00 Intake & Output 11/29/20 11/30/20 11/30/20 18:59 06:59 18:59 Intake Total 532 400 240 Output Total 350 Balance 532 50 240 Weight 76.2 kg Intake: Intake, IV Titration 400 Amount levETIRAcetam IV 1,000 mg 400 In Saline 1 100ml.bag @ 400 mls/hr IVPB ONCE STA Rx#:[id number] Oral 532 240 Output: Urine 350 Other: Voiding Method Urinal Urinal # Voids 1 # Bowel Movements 1 - Exam Patient's mental status appears intact. Cranial nerves are normal muscle st rength normal. No ataxia. No nystagmus. Sensations are equal. 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 * Possible mild cognitive impairment. * Macrocytosis, unclear etiology. Patient denies alcoholism. No evidence of B12 or folate deficiency.. Plan: * Patient underwent EEG yesterday, which was abnormal due to presence of e pileptic focus involving the right temporal region. This is suggestive of focal cortical neuronal dysfunction with underlying cortical irritability and tendency for focal onset seizures. This EEG could be considered as an interictal expression of localization related epilepsy. The EKG channel also revealed significant arrhythmia. Clinical correlation recommended. * Patient was given a loading dose of Keppra 1000 mg IV, and now started on Keppra 500 mg by mouth twice a day. Patient recommended to follow up with neurologist locally. * MRI of the brain with and without contrast revealed atrophy with chronic appearing deep white matter ischemic changes. * B12 961, B1 pending, folate 18.2, TSH 1.44. RPR nonreactive. Ammonia normal <0 * Continue thiamine 100 mg daily empirically. * Discontinue Aricept, as patient could be having focal seizures manifesting with memory loss. * 2-D echo revealed moderate concentric LVH. EF is 50-55%. Normal left atrial size. Mild aortic regurgitation. * Abdominal ultrasound revealed hepatocellular disease, hepatic steatosis. * Patient has a dobutamine stress echo, which is reportedly normal. * Patient informed of [place] state law for no driving, unless seizure free for 6 months, climbing ladders, operating dangerous machinery or unsupervised swim kayce. * Neurologically clear for discharge.
--- NOTE | 2020-11-30 15:00 | PN ---
PROGRESS NOTE DATE OF SERVICE: 11/30/2020 HISTORY OF PRESENT ILLNESS: This is a 80-year-old gentleman with chest pain also has found to have a temporal lobe epileptic discharges. Cardiology is planning a stress test today. Patient closely monitored at this time. Keppra has been initiated. The lab values showed elevated vitamin B12 and elevated MCV also. LFTs are also elevated. There is no history of any fever, rigor or chills. Treponema pallidum antibody was negative. TSH was normal. PAST MEDICAL HISTORY: Reviewed. REVIEW OF SYSTEMS: ENT: As mentioned earlier. CARDIOVASCULAR SYSTEM: No angina. RESPIRATORY SYSTEM: No chest pain or palpitation, otherwise. NERVOUS SYSTEM: As mentioned earlier. CURRENT MEDICATIONS: Current medications are reviewed and include Tylenol, aspirin, Lipitor, Pepcid, Lasix, Imdur, Keppra, Cozaar, melatonin, Narcan, Nitrostat, Vitamin B1. Doses are reviewed. PHYSICAL EXAMINATION: Patient is alert and oriented x3. Pulse 75, blood pressure 149/83, respiration 18, temperature 98 degrees, pulse ox 96% on 2 L. HEENT: Conjunctivae normal. NECK: No jugular venous distention. CARDIOVASCULAR: S1, S2 muffled. RESPIRATORY: Breath sounds diminished at the bases. No rhonchi. No crackles. ABDOMEN: Soft, nontender. LEGS: No edema. No swelling. NERVOUS SYSTEM: No focal deficits. LABS: WBC 7.5, hemoglobin 14.6. Carbon monoxide 3.3 and 1.9. TSH is 1.44, AST, ALT noted. ASSESSMENT: 1. Chest pain, possible unstable angina. 2. Possible acute seizure disorder with generalized foci with foci in the right temporal epileptiform foci. 3. Mild cognitive impairment. 4. History of coronary artery disease, stent. 5. Elevated AST, ALT. 6. History of intermittent chest pain. 7. Hypertension. 8. History of left ventricular cardiac apical thrombus. 9. History of left nephrectomy. 10.Chronic congestive heart failure with chronic systolic dysfunction ejection fraction 30% to 35%. RECOMMENDATIONS AND DISCUSSION: Recommend to continue current medications, continue symptomatic treatment. Otherwise, a stress test. Follow closely with Neurology. Brain MRI has been reviewed. A 2D echo with Doppler also has been done and showed ejection fraction about 50% to 55%, LA was normal size, minimal valvular abnormalities are noted. Continue to monitor. Prognosis extremely guarded because of multiple complex medical issues. Further recommendations to follow. MMODL / IJN: [id number] /
[2020-11-30] MEDS: ATORVASTATIN 40 MG TAB PO SCH (20:07)
[2020-12-01] MEDS: levETIRAcetam 500 MG TAB PO SCH (07:30)
[2020-12-01] MEDS: FAMOTIDINE 20 MG TAB PO SCH (07:30)
[2020-12-01] MEDS: FUROSEMIDE 40 MG TAB PO SCH (07:30)
[2020-12-01] MEDS: ASPIRIN 81 MG PO SCH (07:30)
[2020-12-01] MEDS: METOPROLOL TARTRATE 25 MG TAB PO SCH (07:30)
[2020-12-01] MEDS: THIAMINE 100 MG TAB PO SCH (07:30)
[2020-12-01] MEDS: LOSARTAN 50 MG TAB PO SCH (07:30)
[2020-12-01] MEDS: ISOSORBIDE MONONITRATE ER 30 MG TAB.ER.24H PO SCH (07:30)
--- NOTE | 2020-12-01 07:46 | P.PN ---
Subjective Progress Note Date: 12/01/20 Principal diagnosis: Chest pain This is a 80-year-old gentleman with coronary artery disease and prior stenting of the LAD as well as history of cardiomyopathy who was admitted to the hospital with a change in mental status and also atypical chest discomfort. He underwent to be maribell S echocardiogram yesterday and that came in to be unremarkable. The patient was seen today. He continues to have a chest discomfort but is very reproducible on examination. Otherwise he remains stable from a cardiovascular standpoint overview. Objective - Vital Signs Vital signs: Vital Signs Temp 97.5 F L 12/01/20 02:00 Pulse 52 L 12/01/20 02:00 Resp 17 12/01/20 02:00 BP 128/67 12/01/20 02:00 Pulse Ox 96 12/01/20 02:00 Intake & Output 11/30/20 12/01/20 12/01/20 18:59 06:59 18:59 Intake Total 720 Balance 720 Weight 76.2 kg Intake: Oral 720 Other: Voiding Method Urinal # Voids 1 - Constitutional General appearance: Present: no acute distress - Respiratory Respiratory: bilateral: CTA - Cardiovascular Rhythm: regular Heart sounds: normal: S1, S2 Abnormal Heart Sounds: Present: systolic murmur - Labs CBC & Chem 7: 11/27/20 19:16 11/27/20 19:16 Assessment and Plan Assessment: Assessment #1 change in mental status #2 atypical chest pain #3 coronary artery disease #4 multiple comorbid conditions Plan #1 acute coronary event was ruled out #2 stress test was performed and came in to be unremarkable #3 the patient remains stable from a cardiovascular standpoint
[2020-12-01 09:39] VITALS: BP 134/64; PULSE 65; RESP 16; TEMP 97.6
--- NOTE | 2020-12-01 15:40 | DS ---
DISCHARGE SUMMARY DATE OF SERVICE: 12/01/2020 FINAL DIAGNOSES: 1. Chest pain, possible musculoskeletal pain, negative stress test. 2. Possible acute seizure disorder with right temporal epileptiform foci. 3. Mild cognitive impairment. 4. History of coronary artery disease/stent. 5. Elevated AST/ALT. 6. History of intermittent chest pain. 7. Hypertension. 8. History of left ventricular cardiac apical thrombus. 9. History of left nephrectomy. 10.Congestive heart failure with chronic systolic dysfunction ejection fraction 30 to 35%. DISCHARGE DISPOSITION: The patient will be discharged in stable condition with guarded prognosis. Total time taken: 35 minutes. HISTORY OF PRESENT ILLNESS: This 80-year-old gentleman with a past medical history of multiple medical problems was admitted with chest pain. The patient was also found to have focal seizures in the right temporal epileptic foci on EEG. Patient was started on Keppra. Neurology and Cardiology saw the patient. Cardiology performed a stress test and 2D echo was also reviewed. The patient also had brain MRI. The patient improved significantly. On exam vitals signs stable. Cardiovascular: S1, S2. Abdomen soft. Nervous system: No focal deficits. Ejection fraction improved to 50 to 55%. The patient discharged in stable condition. Guarded prognosis. DISCHARGE ADVICE AND MEDICATIONS: 1. Diet is cardiac diet. 2. Activity limited until followup. 3. Follow up with Dr. Quintanilla in 1-2 days. 4. Follow up with Neurology in 1 week. 5. Follow with Cardiology as recommended. DISCHARGE MEDICATIONS: 1. Ecotrin 81 mg daily. 2. Flonase nasal spray. 3. Imdur ER 30 mg p.o. daily. 4. Pepcid 20 mg p.o. b.i.d. 5. Cozaar 50 mg p.o. daily. 6. Folic acid 1 mg p.o. daily. 7. Keppra 500 mg p.o. b.i.d. 8. Lasix 40 mg p.o. daily. 9. Lipitor 40 mg q.h.s. 10.Lopressor 12.5 mg p.o. b.i.d. 11.Melatonin 3 mg at bedtime p.r.n. 12.Nitrostat p.r.n. 13.Tylenol p.r.n. 14.Vitamin B1 100 mg p.o. daily. Once again the patient will be discharged in stable condition with guarded prognosis. MMODL / IJN: [id number] /
--- NOTE | 2020-12-01 17:07 | ECHOS ---
STRESS ECHOCARDIOGRAM LUMASON: N/A Vial INDICATIONS: Chest pain MEDICATIONS: BASELINE HEART RATE: 62 BASELINE BLOOD PRESSURE: 102/55 MAXIMUM HEART RATE: 120 MAXIMUM BLOOD PRESSURE: 113/68 85% MPHR: 120 100% MPHR: 141 METS: N/A MAXIMUM STAGE REACHED: 4 TOTAL EXERCISE TIME: 11:09 CLINICAL INFORMATION: Baseline rhythm is sinus mechanism, rate 62, normal axis and intervals, occasional PVCs. Baseline blood pressure 102/55 mmHg. Patient received infusion of dobutamine per protocol as well as 1 mg of intravenous atropine. Peak rate 120 beats per minute which is equal to 85% maximum predicted heart rate. Peak blood pressure 113/68 mmHg. Electrocardiograph monitoring revealed frequent single PVCs, occasional couplets. There was no evidence of diagnostic ischemic ST deviation. Baseline echocardiogram revealed normal wall motion. At peak infusion, there was normal wall motion augmentation with no hypokinesis or dyskinesis. CONCLUSION: 1. Nondiagnostic electrocardiograph dobutamine stress testing with frequent PVCs and occasional couplets and rare triplets. 2. Normal stress echocardiogram with no evidence of stress-induced ischemia. MMODL / IJN: [id number] /
== END 2020-12-01 13:53 | disposition home or self-care (01) | DRG 101 ==
LOC: EC 18:38 → 6NMEDSUR 20:21 → OBSVTOIN 11-30 08:00
PROVIDERS: ADMIT Hospitalist; ATTEND Hospitalist
DX: G40.209 Localization-related (focal) (partial) symptomatic epilepsy and epileptic syndromes with complex partial seizures, not intractable, without status epilepticus (principal); I51.81 Takotsubo syndrome; I50.22 Chronic systolic (congestive) heart failure; F05 Delirium due to known physiological condition; R07.89 Other chest pain; E78.5 Hyperlipidemia, unspecified; F03.90 Unspecified dementia, unspecified severity, without behavioral disturbance, psychotic disturbance, mood disturbance, and anxiety; I11.0 Hypertensive heart disease with heart failure; I51.3 Intracardiac thrombosis, not elsewhere classified; Z60.2 Problems related to living alone; D75.89 Other specified diseases of blood and blood-forming organs; I25.84 Coronary atherosclerosis due to calcified coronary lesion; I25.10 Atherosclerotic heart disease of native coronary artery without angina pectoris; I44.0 Atrioventricular block, first degree; Z95.5 Presence of coronary angioplasty implant and graft; Z90.5 Acquired absence of kidney; Z87.891 Personal history of nicotine dependence; Z79.899 Other long term (current) drug therapy; Z79.82 Long term (current) use of aspirin; Z88.2 Allergy status to sulfonamides
CPT/HCPCS: 36415; 70450; 70553; 71045; 76705; 80053; 82140; 82375; 82607; 82746; 82803; 83921; 84425; 84443; 84484; 85025; 86780; 93005; 93306; 93351; 93880; 95816; 99285

== ENCOUNTER → 2020-12-20 | Outpatient (CLI) | payer MEDICARE ==
[2020-12-20 17:01] LABS: African American GFR (CKD) 82.6 (60.0-200.0); Albumin 4.1 g/dL (3.80-4.90); Albumin/Globulin Ratio 2.05 (1.60-3.17); Anion Gap 9.9 mmol/L (4.00-12.00); Calcium 9.7 mg/dL (8.7-10.3); Carbon Dioxide 24.1 mmol/L (21.6-31.8); Non-African American GFR(CKD) 71.3 (60.0-200.0); Potassium 4.6 mmol/L (3.5-5.5); Total Bilirubin 0.9 mg/dL (0.2-1.2); Total Protein 6.1 g/dL (6.2-8.2)
[2020-12-20 17:08] LABS: Basophils # (A) 0.03 X 10*3/uL (0.00-0.10); Basophils % (A) 0.4 %; Eosinophils # (A) 0.34 X 10*3/uL (0.04-0.35); Eosinophils % (A) 4.1 %; HCT 42.7 % (39.6-50.0); HGB 14.2 g/dL (13.0-17.0); Lymphocytes # (A) 2.76 X 10*3/uL (0.90-5.00); Lymphocytes % (A) 33.7 %; MCH 34.6 pg (27.0-32.0); MCHC 33.3 g/dL (32.0-37.0); MCV 104.1 fL (80.0-97.0); Mean Platelet Volume 11.4 fL (9.5-12.2); Monocytes # (A) 0.75 X 10*3/uL (0.20-1.00); Monocytes % (A) 9.1 %; Neutrophils # (A) 4.28 X 10*3/uL (1.80-7.70); Neutrophils % (A) 52.2 %; Platelet Count 214 X 10*3/uL (140-440); RDW 11.9 % (11.5-14.5)
== END | disposition home or self-care (01) ==
LOC: LABWHC1 08:59
PROVIDERS: ATTEND Hospitalist
DX: R56.9 Unspecified convulsions (principal)
CPT/HCPCS: 36415; 80053; 80177; 85025

== ENCOUNTER 2021-05-02 08:50 | Day surgery (SDC) | payer MEDICARE ==
[2021-04-30 10:50] VITALS: BMI 25.0
[~2021-05-02 08:50] MED LIST: LACTATED RINGERS 1,000 ML IV SCH; LIDOCAINE 1% (10MG/ML) FOR IV START INTRADERMA PRN
[2021-05-02 09:36] VITALS: TEMP 98.3
[2021-05-02] MEDS ORDERED: GLYCOPYRROLATE 0.2 MG/ML 2 ML VIAL ONE (09:52)
[2021-05-02] MEDS ORDERED: PROPOFOL 10 MG/ML 20 ML VIAL IV ONE (09:52)
--- NOTE | 2021-05-02 10:29 | P.PCN ---
Date of Procedure: 05/02/21 Description of Procedure: Brief history: Patient is a 81-year-old male presenting for outpatient eso phagogastroduodenoscopy and colonoscopy for evaluation of symptoms of epigastric abdominal pain and family history of colon cancer. Patient reports intermittent epigastric pain and discomfort. He is on Pepcid therapy. No prior EGD. No prior colonoscopy. He does report intermittent bright red blood per rectum and difficulty with constipation. Family history of colon cancer in his grandfather. Procedure performed: Esophagogastroduodenoscopy with biopsy Colonoscopy with polypectomy Estimated blood loss: Minimal. Preoperative diagnosis: Epigastric abdominal pain, family history of colon cancer, no prior colonoscopy, grandfather with colon cancer Anesthesia: MAC Procedure: After informed consent was obtained from the patient was brought into the endoscopy unit and IV sedation was administered by anesthesia under continuous monitoring. Initially upper endoscopy was done. The Olympus GF 190 video endoscope was inserted into the mouth and esophagus intubated without any difficulty and was gradually advanced into the stomach and duodenum and carefully examined. The bulb and second part of the duodenum appeared normal, with biopsies taken. The scope was then withdrawn into the stomach adequately insufflated with air and upon careful examination the antrum and body, cardia and fundus appeared normal, except for some mild scattered erythema in the antrum and body suggestive of mild gastritis with biopsies taken. The scope was then withdrawn into the esophagus. The GE junction was located at 40 cm to the incisors, with a small 1 cm hiatal hernia noted. The lower esophagus was biopsied. It appeared regular with no erythema erosions or ulcerations. Rest of the esophagus appeared normal. Patient tolerated the procedure well. At this time the patient continued to remain sedation. Initial digital rectal examination was normal. Olympus CF 190 video colonoscope was then inserted into the rectum and gradually advanced to the cecum without any difficulty. Careful examination was performed as the scope was gradually being withdrawn. The prep was excellent. The cecum, ascending colon, transverse colon, descending colon, sigmoid colon and rectum appeared normal, with diverticula noted throughout the colon. Diminutive polyps measuring 1-2 mm in size removed from the descending colon, ascending colon, hepatic flexure and transverse colon. Retroflexion was performed in the rectum and no lesions were noted, moderate internal hemorrhoids were seen. Patient tolerated the procedure well. Impression: 1. Mild gastritis. Small hiatal hernia. Biopsies of the duodenum, antrum and body and lower esophagus. 2. Diminutive polyps removed from the descending colon, ascending colon, hepatic flexure and transverse colon with cold forcep polypectomy. Mild pandiverticulosis. Moderate internal hemorrhoids. Recommendations: Findings of this examination were discussed with the patient as well as and his family. Okay to resume diet. Okay to resume medications. Await pathology from polypectomies. Continue current medical management. Recommend bowel regimen for constipation, okay for MiraLAX daily OTC.
[2021-05-02 10:34] VITALS: RESP 16
[2021-05-02 10:50] VITALS: BP 118/74; PULSE 54
== END 2021-05-02 11:18 | disposition home or self-care (01) ==
LOC: ORWHC2ENDO 08:50
PROVIDERS: ATTEND Internal Medicine
DX: K29.50 Unspecified chronic gastritis without bleeding (principal); D12.4 Benign neoplasm of descending colon; D12.2 Benign neoplasm of ascending colon; D12.3 Benign neoplasm of transverse colon; Z80.0 Family history of malignant neoplasm of digestive organs; K44.9 Diaphragmatic hernia without obstruction or gangrene; K64.8 Other hemorrhoids; Z88.2 Allergy status to sulfonamides; Z79.82 Long term (current) use of aspirin; Z79.899 Other long term (current) drug therapy; Z95.5 Presence of coronary angioplasty implant and graft; Z98.890 Other specified postprocedural states; I25.10 Atherosclerotic heart disease of native coronary artery without angina pectoris; I10 Essential (primary) hypertension; I25.2 Old myocardial infarction; M19.90 Unspecified osteoarthritis, unspecified site
CPT/HCPCS: 88305; 45380; 43239; J2704

== ENCOUNTER 2021-07-17 14:02 | Emergency (ER) | payer MEDICARE ==
[2021-07-17 14:13] VITALS: RESP 18
--- NOTE | 2021-07-17 14:57 | ED ---
General Adult HPI - General Chief complaint: Recheck/Abnormal Lab/Rx Stated complaint: Testicular Swelling/Pain Time Seen by Provider: 07/17/21 14:15 Source: patient, RN notes reviewed, old records reviewed Mode of arrival: ambulatory Limitations: no limitations - History of Present Illness Initial comments: This is an 81-year-old male who presents emergency Department complaining of right testicular swelling which occurred this morning. Patient states it was also very painful. Patient states swelling went down over time and the pain also decreased her patient states she also has right sided abdominal pain particularly lower right quadrant. Patient states that pain in the lower right quadrant started about a week ago. Patient denies nausea vomiting or diarrhea. Patient states having normal bowel movements in fact he had 2 bowel movements today. Patient denies any fever chills or cough. Patient denies any dysuria hematuria urinary frequency. Patient states she's had intermittent abdominal pain problems in the past and occasionally swelling as testicle and some pain in his testicles on both sides but that usually does not get his largest did today. Patient states the swelling appeared to be about the size of his fist. Patient denies any injury or trauma. - Related Data Home Medications Medication Instructions Recorded Confirmed Isosorbide Mononitrate ER [Imdur] 30 mg PO DAILY 09/16/14 04/30/21 Aspirin EC [Ecotrin Low Dose] 81 mg PO DAILY 08/03/19 04/30/21 Fluticasone Nasal [place] [Flonase 1 spr EA NOSTRIL TID 08/03/19 04/30/21 Nasal [place]] Famotidine [Pepcid] 20 mg PO BID 11/27/20 04/30/21 Donepezil [Aricept] 10 mg PO HS 04/30/21 04/30/21 Melatonin 5 mg PO HS PRN 04/30/21 04/30/21 Multivit-Min/Folic/Vit K/Lycop 1 each PO DAILY 04/30/21 04/30/21 [Men's Multivitamin Tablet] [place] 1 dose PO DAILY 04/30/21 levETIRAcetam [Keppra] 500 mg PO HS 04/30/21 04/30/21 Previous Rx's Medication Instructions Recorded Atorvastatin [Lipitor] 40 mg PO HS #30 tab 08/09/19 Furosemide [Lasix] 40 mg PO DAILY #30 tab 08/09/19 Losartan [Cozaar] 50 mg PO DAILY #30 tab 08/09/19 Nitroglycerin Sl Tabs [Nitrostat] 0.4 mg SUBLINGUAL Q5M PRN #25 tab 08/09/19 Acetaminophen Tab [Tylenol] 500 mg PO Q6HR PRN #0 11/29/20 Thiamine [Vitamin B-1] 100 mg PO DAILY #30 tab 11/29/20 Folic Acid 1 mg PO DAILY #30 tablet 12/01/20 Metoprolol Tartrate [Lopressor] 12.5 mg PO BID #60 tab 12/01/20 Allergies Allergy/AdvReac Type Severity Reaction Status Date / Time Sulfa (Sulfonamide Allergy Unknown Verified 07/17/21 14:10 Antibiotics) Childhood Review of Systems ROS Statement: Those systems with pertinent positive or pertinent negative responses have been documented in the HPI. ROS Other: All systems not noted in ROS Statement are negative. Past Medical History Past Medical History: Coronary Artery Disease (CAD), Chest Pain / Angina, GERD/Reflux, Hearing Disorder / Deafness, Hypertension, Memory Impairment, Myocardial Infarction (ME), Osteoarthritis (OA) Additional Past Medical History / Comment(s): cardiomyopathy, hepatitis (child), chronic constipation, hemorrhoids, abd pain, elevated liver enzymes., has one kidney ., pt was hospitalized nov 2020 for carbon monoxide poisoning & possible hx of seizure seen on eeg . , early alzheimers. 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 Past Anesthesia/Blood Transfusion Reactions: No Reported Reaction Date of Last Stent Placement:: unknown Past Psychological History: Depression Smoking Status: Never smoker Past Alcohol Use History: None Reported Past Drug Use History: None Reported - Past Family History Father History Unknown: Yes Family Medical History: Cancer Additional Family Medical History / Comment(s): colon cancer Mother History Unknown: Yes Family Medical History: Cancer Additional Family Medical History / Comment(s): oral cancer General Exam - General Exam Comments Initial Comments: GENERAL: Patient is well-developed and well-nourished. Patient is nontoxic and well- hydrated and is in mild distress. ENT: Neck is soft and supple. No significant lymphadenopathy is noted. Oropharynx is clear. Moist mucous membranes. Neck has full range of motion without eliciting any pain. EYES: The sclera were anicteric and conjunctiva were pink and moist. Extraocular movements were intact and pupils were equal round and reactive to light. Eyelids were unremarkable. PULMONARY: Unlabored respirations. Good breath sounds bilaterally. No audible rales rhonchi or wheezing was noted. CARDIOVASCULAR: There is a regular rate and rhythm without any murmurs gallops or rubs. ABDOMEN: Patient has right lower quadrant tenderness. GENITALIA: Patient's scrotum is not red or swollen. The right testicle is mildly tender but there is no masses felt there is no tenderness at all to the left testicle. Patient does not have any inguinal hernia. SKIN: Skin is clear with no lesions or rashes and otherwise unremarkable. NEUROLOGIC: Patient is alert and oriented x3. Cranial nerves II through XII are grossly intact. Motor and sensory are also intact. Normal speech, volume and content. Symmetrical smile. MUSCULOSKELETAL: Normal extremities with adequate strength and full range of motion. LYMPHATICS: No significant lymphadenopathy is noted PSYCHIATRIC: Normal psychiatric evaluation. Limitations: no limitations Course Vital Signs 07/17/21 14:11 Temperature 98.4 F Pulse Rate 75 Respiratory 18 Rate Blood Pressure 122/72 O2 Sat by Pulse 97 Oximetry Medical Decision Making - Medical Decision Making Ultrasound of scrotum shows no acute abnormality. CT of the abdomen and pelvis shows no acute normalities. I will back into the room to reevaluate the patient patient was having no pain and felt back to his baseline. Patient will follow-up with urology. - Lab Data Result diagrams: 07/17/21 15:49 07/17/21 15:49 Lab Results 07/17/21 07/17/21 07/17/21 Range/Units 15:49 15:49 15:49 WBC 7.4 (3.8-10.6) k/uL RBC 3.95 L (4.30-5.90) m/uL Hgb 14.6 (13.0-17.5) gm/dL Hct 41.8 (39.0-53.0) % MCV 105.9 H (80.0-100.0) fL MCH 36.9 H (25.0-35.0) pg MCHC 34.9 (31.0-37.0) g/dL RDW 11.4 L (11.5-15.5) % Plt Count 176 (150-450) k/uL MPV 8.1 Neutrophils % 56 % Lymphocytes % 26 % Monocytes % 9 % Eosinophils % 5 % Basophils % 1 % Neutrophils # 4.1 (1.3-7.7) k/uL Lymphocytes # 1.9 (1.0-4.8) k/uL Monocytes # 0.6 (0-1.0) k/uL Eosinophils # 0.4 (0-0.7) k/uL Basophils # 0.1 (0-0.2) k/uL Macrocytosis Slight Sodium 136 L (137-145) mmol/L Potassium 4.6 (3.5-5.1) mmol/L Chloride 102 (98-107) mmol/L Carbon Dioxide 29 (22-30) mmol/L Anion Gap 5 mmol/L BUN 25 H (9-20) mg/dL Creatinine 0.92 (0.66-1.25) mg/dL Est GFR (CKD-EPI)AfAm >90 (>60 ml/min/1.73 sqM) Est GFR (CKD-EPI)NonAf 78 (>60 ml/min/1.73 sqM) Glucose 97 (74-99) mg/dL Plasma Lactic Acid Donald 0.9 (0.7-2.0) mmol/L Calcium 9.2 (8.4-10.2) mg/dL Total Bilirubin 0.6 (0.2-1.3) mg/dL AST 45 (17-59) U/L ALT 40 (4-49) U/L Alkaline Phosphatase 129 H (38-126) U/L Total Protein 5.9 L (6.3-8.2) g/dL Albumin 3.3 L (3.5-5.0) g/dL Amylase 84 (30-110) U/L Lipase 141 (23-300) U/L Urine Color Urine Appearance (Clear) Urine pH (5.0-8.0) Ur Specific [place] (1.001-1.035) Urine Protein (Negative) Urine Glucose (UA) (Negative) Urine Ketones (Negative) Urine Blood (Negative) Urine Nitrite (Negative) Urine Bilirubin (Negative) Urine Urobilinogen (<2.0) mg/dL Ur Leukocyte Esterase (Negative) 07/17/21 Range/Units 15:54 WBC (3.8-10.6) k/uL RBC (4.30-5.90) m/uL Hgb (13.0-17.5) gm/dL Hct (39.0-53.0) % MCV (80.0-100.0) fL MCH (25.0-35.0) pg MCHC (31.0-37.0) g/dL RDW (11.5-15.5) % Plt Count (150-450) k/uL MPV Neutrophils % % Lymphocytes % % Monocytes % % Eosinophils % % Basophils % % Neutrophils # (1.3-7.7) k/uL Lymphocytes # (1.0-4.8) k/uL Monocytes # (0-1.0) k/uL Eosinophils # (0-0.7) k/uL Basophils # (0-0.2) k/uL Macrocytosis Sodium (137-145) mmol/L Potassium (3.5-5.1) mmol/L Chloride (98-107) mmol/L Carbon Dioxide (22-30) mmol/L Anion Gap mmol/L BUN (9-20) mg/dL Creatinine (0.66-1.25) mg/dL Est GFR (CKD-EPI)AfAm (>60 ml/min/1.73 sqM) Est GFR (CKD-EPI)NonAf (>60 ml/min/1.73 sqM) Glucose (74-99) mg/dL Plasma Lactic Acid [place] (0.7-2.0) mmol/L Calcium (8.4-10.2) mg/dL Total Bilirubin (0.2-1.3) mg/dL AST (17-59) U/L ALT (4-49) U/L Alkaline Phosphatase (38-126) U/L Total Protein (6.3-8.2) g/dL Albumin (3.5-5.0) g/dL Amylase (30-110) U/L Lipase (23-300) U/L Urine Color Yellow Urine Appearance Clear (Clear) Urine pH 5.0 (5.0-8.0) Ur Specific [place] 1.015 (1.001-1.035) Urine Protein Negative (Negative) Urine Glucose (UA) Negative (Negative) Urine Ketones Negative (Negative) Urine Blood Negative (Negative) Urine Nitrite Negative (Negative) Urine Bilirubin Negative (Negative) Urine Urobilinogen <2.0 (<2.0) mg/dL Ur Leukocyte Esterase Negative (Negative) Disposition Clinical Impression: Scrotal swelling, Abdominal pain Disposition: HOME SELF-CARE Instructions (If sedation given, give patient instructions): Abdominal Pain (ED) Is patient prescribed a controlled substance at d/c from ED?: No Referrals: Bruce Unger DO [Primary Care Provider] - 1-2 days Anil Starr MD [STAFF PHYSICIAN] - 1-2 days Time of Disposition: 17:35
[2021-07-17 15:58] LABS: Basophils # (A) 0.1 k/uL (0-0.2); Basophils % (A) 1 %; Eosinophils # (A) 0.4 k/uL (0-0.7); Eosinophils % (A) 5 %; HCT 41.8 % (39.0-53.0); HGB 14.6 gm/dL (13.0-17.5); Lymphocytes # (A) 1.9 k/uL (1.0-4.8); Lymphocytes % (A) 26 %; MCH 36.9 pg (25.0-35.0); MCHC 34.9 g/dL (31.0-37.0); MCV 105.9 fL (80.0-100.0); Macrocytosis Slight; Mean Platelet Volume 8.1; Monocytes # (A) 0.6 k/uL (0-1.0); Monocytes % (A) 9 %; Neutrophils # (A) 4.1 k/uL (1.3-7.7); Neutrophils % (A) 56 %; Platelet Count 176 k/uL (150-450); RBC 3.95 m/uL (4.30-5.90); RDW 11.4 % (11.5-15.5); WBC 7.4 k/uL (3.8-10.6)
[2021-07-17 16:08] LABS: Appearance,Urine Clear (Clear); Bilirubin,Urine Negative (Negative); Blood,Urine Negative (Negative); Color,Urine Yellow; Glucose,Urine (UA) Negative (Negative); Ketones,Urine Negative (Negative); Leukocyte Esterase,Urine Negative (Negative); Nitrite,Urine Negative (Negative); Protein,Urine Negative (Negative); Specific Gravity,Urine 1.015 (1.001-1.035); Urobilinogen,Urine <2.0 mg/dL (<2.0)
[2021-07-17 16:10] LABS: ALT 40 U/L (4-49); AST 45 U/L (17-59); African American GFR (CKD) >90 (>60 ml/min/1.73 sqM); Albumin 3.3 g/dL (3.5-5.0); Alkaline Phosphatase 129 U/L (38-126); Amylase 84 U/L (30-110); Anion Gap 5 mmol/L; Blood Urea Nitrogen 25 mg/dL (9-20); Calcium 9.2 mg/dL (8.4-10.2); Carbon Dioxide 29 mmol/L (22-30); Chloride 102 mmol/L (98-107); Glucose 97 mg/dL (74-99); Lipase 141 U/L (23-300); Non-African American GFR(CKD) 78 (>60 ml/min/1.73 sqM); Potassium 4.6 mmol/L (3.5-5.1); Sodium 136 mmol/L (137-145); Total Bilirubin 0.6 mg/dL (0.2-1.3); Total Protein 5.9 g/dL (6.3-8.2)
--- NOTE | 2021-07-17 16:42 | US ---
EXAMINATION TYPE: US scrotum with doppler. Grayscale and color Doppler Duplex imaging performed of trey cortes scrotum. DATE OF EXAM: 07/17/2021 COMPARISON: NONE CLINICAL HISTORY: Swollen tender right testicle. Right testicular swelling x 1 day EXAM MEASUREMENTS: TESTICLES: Right Testicle: 3.2 x 1.6 x 2.1 cm, heterogeneous Left Testicle: 2.1 x 1.4 x 1.9 cm, heterogeneous EPIDIDYMIS HEAD: Right Epididymis: 0.8 cm Left Epididymis: 1.2 cm Doppler performed to assess for testicular vascularity; good bilateral color flow and waveforms are s een. There is no evidence of testicular torsion. Presence of hydroceles: no Presence of varicoceles: prominent vessels lateral to right testicle Right epididymis: 0.7cm cyst Left epididymis: 0.7cm cyst IMPRESSION: No evidence of testicular torsion or mass. Bilateral epididymal cysts. There is a minimal right side varicocele.
--- NOTE | 2021-07-17 17:13 | CT ---
EXAMINATION TYPE: CT abdomen pelvis w con DATE OF EXAM: 07/17/2021 COMPARISON: None HISTORY: right flank pain CT DLP: 911.5 mGycm Automated exposure control for dose reduction was used. CONTRAST: Performed with IV Contrast, patient injected with 80 mL of Isovue 300. Images obtained from the diaphragm to the floor the pelvis with IV contrast. Lung bases are clear. There is no pleural effusion. Heart size is normal. There is no pericardial eff usion. Liver spleen stomach pancreas gallbladder appear intact. Bile ducts are not dilated. There is no adrenal mass. Left kidney is absent. Right kidney shows normal size and contour. There is no hydronephrosis. There is no retroperitoneal adenopathy. Abdominal aorta is atheromatous. Bladder distends smoothly. There is some prostatic calcification. There are numerous diverticula in the sigmoid colon. Appendix is not seen. There is no sign of thicke adeel appendix. There is no mesenteric edema. There is no ascites or free air. There is no bowel obstruction. Lumbar vertebra have fairly normal alignment. There is degenerative disc space narrowing throughout the lumb ar spine with spurring and vacuum disc. There is no compression fracture. There is some spurring at t he hip joints. Bony pelvis is intact. There is no evidence of a hip fracture. Delayed images show nor mal right renal excretion. IMPRESSION: Appendix not seen. No sign of thickened appendix. Absent left kidney. Right kidney shows no evidence of mass or obstruction. There is sigmoid diverticulosis without diverticulitis.
[2021-07-17 17:43] VITALS: BP 124/78; PULSE 64; TEMP 97.8
== END 2021-07-17 17:44 | disposition home or self-care (01) ==
LOC: EC 14:02
DX: I86.1 Scrotal varices (principal); K57.30 Diverticulosis of large intestine without perforation or abscess without bleeding; I10 Essential (primary) hypertension; I25.2 Old myocardial infarction; K21.9 Gastro-esophageal reflux disease without esophagitis; Z88.2 Allergy status to sulfonamides; Z79.899 Other long term (current) drug therapy; Z79.82 Long term (current) use of aspirin
CPT/HCPCS: 36415; 80053; 82150; 83605; 83690; 85025; 81003; 93975; 76870; 74177; 99284; Q9967

== ENCOUNTER 2021-10-25 13:04 | Observation (INO) | payer MEDICARE ==
[2021-10-25] MEDS ORDERED: ASPIRIN 81 MG PO STA (13:24)
[2021-10-25] MEDS ORDERED: NITROGLYCERIN OINT 1 INCH/GM PACKET TOPICAL STA (13:24)
--- NOTE | 2021-10-25 13:44 | XR ---
EXAMINATION TYPE: XR chest 2V DATE OF EXAM: 10/25/2021 COMPARISON: November 27, 2020. HISTORY: Chest pain TECHNIQUE: Frontal and lateral views of the chest are obtained. FINDINGS: There is no suspicious peripheral focal air space opacity, pleural effusion, or pneumothor ax seen. The cardiac silhouette size is stable and within normal limits. Multilevel spurring in the spine. Overlying EKG leads. IMPRESSION: No acute process.
--- NOTE | 2021-10-25 13:47 | ED ---
General Adult HPI - General Chief complaint: Chest Pain Stated complaint: chest pain Time Seen by Provider: 10/25/21 13:05 Source: patient, family, RN notes reviewed, old records reviewed Mode of arrival: wheelchair Limitations: no limitations - History of Present Illness Initial comments: This is an 81-year-old male presents emergency department with past medical history significant for stents in the past. Patient also has high blood pressure high cholesterol. Patient comes in today because he started having chest pain 1158. Patient states she was also mildly short of breath and had pain radiating down his left arm. Patient states he still has pain currently. Patient states it is better. Patient denies any abdominal pain patient denies nausea vomiting diarrhea. Patient denies any recent fever chills or cough. Patient denies headache patient denies lightheadedness dizziness or near syncopal episode. Patient denies any numbness weakness. Patient denies any swelling to the legs. Sister states that the patient does have early stages of dementia - Related Data Home Medications Medication Instructions Recorded Confirmed Isosorbide Mononitrate ER [Imdur] 30 mg PO DAILY 09/16/14 04/30/21 Aspirin EC [Ecotrin Low Dose] 81 mg PO DAILY 08/03/19 04/30/21 Fluticasone Nasal [place] [Flonase 1 spr EA NOSTRIL TID 08/03/19 04/30/21 Nasal [place]] Famotidine [Pepcid] 20 mg PO BID 11/27/20 04/30/21 Donepezil [Aricept] 10 mg PO HS 04/30/21 04/30/21 Melatonin 5 mg PO HS PRN 04/30/21 04/30/21 Multivit-Min/Folic/Vit K/Lycop 1 each PO DAILY 04/30/21 04/30/21 [Men's Multivitamin Tablet] Saw [place] 1 dose PO DAILY 04/30/21 levETIRAcetam [Keppra] 500 mg PO HS 04/30/21 04/30/21 Previous Rx's Medication Instructions Recorded Atorvastatin [Lipitor] 40 mg PO HS #30 tab 08/09/19 Furosemide [Lasix] 40 mg PO DAILY #30 tab 08/09/19 Losartan [Cozaar] 50 mg PO DAILY #30 tab 08/09/19 Nitroglycerin Sl Tabs [Nitrostat] 0.4 mg SUBLINGUAL Q5M PRN #25 tab 08/09/19 Acetaminophen Tab [Tylenol] 500 mg PO Q6HR PRN #0 11/29/20 Thiamine [Vitamin B-1] 100 mg PO DAILY #30 tab 11/29/20 Folic Acid 1 mg PO DAILY #30 tablet 12/01/20 Metoprolol Tartrate [Lopressor] 12.5 mg PO BID #60 tab 12/01/20 Allergies Allergy/AdvReac Type Severity Reaction Status Date / Time Sulfa (Sulfonamide Allergy Unknown Verified 10/25/21 13:10 Antibiotics) Childhood Review of Systems ROS Statement: Those systems with pertinent positive or pertinent negative responses have been documented in the HPI. ROS Other: All systems not noted in ROS Statement are negative. Past Medical History Past Medical History: Coronary Artery Disease (CAD), Chest Pain / Angina, GERD/Reflux, Hearing Disorder / Deafness, Hypertension, Memory Impairment, Myocardial Infarction ([place]), Osteoarthritis (OA) Additional Past Medical History / Comment(s): cardiomyopathy, hepatitis (child), chronic constipation, hemorrhoids, abd pain, elevated liver enzymes., has one kidney ., pt was hospitalized nov 2020 for carbon monoxide poisoning & possible hx of seizure seen on eeg . , early alzheimers. 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 Past Anesthesia/Blood Transfusion Reactions: No Reported Reaction Date of Last Stent Placement:: unknown Past Psychological History: Depression Smoking Status: Never smoker Past Alcohol Use History: None Reported Past Drug Use History: None Reported - Past Family History Father History Unknown: Yes Family Medical History: Cancer Additional Family Medical History / Comment(s): colon cancer Mother History Unknown: Yes Family Medical History: Cancer Additional Family Medical History / Comment(s): oral cancer General Exam - General Exam Comments Initial Comments: GENERAL: Patient is well-developed and well-nourished. Patient is nontoxic and well- hydrated and is in mild distress. ENT: Neck is soft and supple. No significant lymphadenopathy is noted. Oropharynx is clear. Moist mucous membranes. Neck has full range of motion without eliciting any pain. EYES: The sclera were anicteric and conjunctiva were pink and moist. Extraocular movements were intact and pupils were equal round and reactive to light. Eyelids were unremarkable. PULMONARY: Unlabored respirations. Good breath sounds bilaterally. No audible rales rhonchi or wheezing was noted. CARDIOVASCULAR: There is a regular rate and rhythm without any murmurs gallops or rubs. ABDOMEN: Soft and nontender with normal bowel sounds. SKIN: Skin is clear with no lesions or rashes and otherwise unremarkable. NEUROLOGIC: Patient is alert and oriented x3. Cranial nerves II through XII are grossly intact. Motor and sensory are also intact. Normal speech, volume and content. Symmetrical smile. MUSCULOSKELETAL: Normal extremities with adequate strength and full range of motion. LYMPHATICS: No significant lymphadenopathy is noted PSYCHIATRIC: Normal psychiatric evaluation. Limitations: no limitations Course Vital Signs 10/25/21 10/25/21 13:06 13:18 Temperature 97.6 F Pulse Rate 57 L Pulse Rate [ 50 L Filtrose Crusher ] Respiratory 18 Rate Blood Pressure 106/59 O2 Sat by Pulse 97 Oximetry Medical Decision Making - Medical Decision Making EKG shows sinus bradycardia at 40 bpm MS interval is 242 QRS is 102 QT interval is 466 QTC is 416. Patient has an occasional PVC. Chest x-ray shows no acute abnormality Patient was started on heparin for unstable angina. Patient was admitted to telemetry. I spoke with Dr. Carrera he agreed to the admission. I wrote admitting orders and consult cardiology continued heparin and aspirin and Nitropaste on the floor. - Lab Data Result diagrams: 10/25/21 13:27 10/25/21 13:27 Lab Results 10/25/21 10/25/21 10/25/21 Range/Units 13:27 13:27 13:27 WBC 8.7 (3.8-10.6) k/uL RBC 4.41 (4.30-5.90) m/uL Hgb 15.6 (13.0-17.5) gm/dL Hct 46.7 (39.0-53.0) % MCV 105.9 H (80.0-100.0) fL MCH 35.4 H (25.0-35.0) pg MCHC 33.5 (31.0-37.0) g/dL RDW 11.0 L (11.5-15.5) % Plt Count 206 (150-450) k/uL MPV 8.9 Neutrophils % 45 % Lymphocytes % 40 % Monocytes % 7 % Eosinophils % 3 % Basophils % 1 % Neutrophils # 3.9 (1.3-7.7) k/uL Lymphocytes # 3.5 (1.0-4.8) k/uL Monocytes # 0.6 (0-1.0) k/uL Eosinophils # 0.3 (0-0.7) k/uL Basophils # 0.1 (0-0.2) k/uL Macrocytosis Slight PT 10.0 (9.0-12.0) sec INR 0.9 (<1.2) APTT 22.4 (22.0-30.0) sec Sodium 134 L (137-145) mmol/L Potassium 4.5 (3.5-5.1) mmol/L Chloride 97 L (98-107) mmol/L Carbon Dioxide 28 (22-30) mmol/L Anion Gap 9 mmol/L BUN 23 H (9-20) mg/dL Creatinine 0.94 (0.66-1.25) mg/dL Est GFR (CKD-EPI)AfAm 89 (>60 ml/min/1.73 sqM) Est GFR (CKD-EPI)NonAf 77 (>60 ml/min/1.73 sqM) Glucose 130 H (74-99) mg/dL Calcium 9.4 (8.4-10.2) mg/dL Magnesium 2.1 (1.6-2.3) mg/dL Total Bilirubin 0.8 (0.2-1.3) mg/dL AST 51 (17-59) U/L ALT 45 (4-49) U/L Alkaline Phosphatase 129 H (38-126) U/L Total Protein 7.0 (6.3-8.2) g/dL Albumin 3.9 (3.5-5.0) g/dL Critical Care Time Critical Care Time: Yes Total Critical Care Time: 35 Disposition Clinical Impression: Bradycardia, Unstable angina Disposition: ADMITTED IP TO THIS HOSP Referrals: Bruce Unger DO [Primary Care Provider] - 1-2 days Time of Disposition: 14:24
[2021-10-25 13:54] LABS: Basophils # (A) 0.1 k/uL (0-0.2); Basophils % (A) 1 %; Eosinophils # (A) 0.3 k/uL (0-0.7); Eosinophils % (A) 3 %; HCT 46.7 % (39.0-53.0); HGB 15.6 gm/dL (13.0-17.5); Lymphocytes # (A) 3.5 k/uL (1.0-4.8); Lymphocytes % (A) 40 %; MCH 35.4 pg (25.0-35.0); MCHC 33.5 g/dL (31.0-37.0); MCV 105.9 fL (80.0-100.0); Macrocytosis Slight; Mean Platelet Volume 8.9; Monocytes # (A) 0.6 k/uL (0-1.0); Monocytes % (A) 7 %; Neutrophils # (A) 3.9 k/uL (1.3-7.7); Neutrophils % (A) 45 %; Platelet Count 206 k/uL (150-450); RBC 4.41 m/uL (4.30-5.90); WBC 8.7 k/uL (3.8-10.6)
[2021-10-25 14:15] LABS: INR 0.9 (<1.2); Partial Thromboplastin Time 22.4 sec (22.0-30.0)
[2021-10-25] MEDS ORDERED: HEPARIN SODIUM 1,000 UN/ML (10ML VL) IV ONE (14:25)
[2021-10-25 14:29] LABS: Albumin 3.9 g/dL (3.5-5.0); Calcium 9.4 mg/dL (8.4-10.2); Magnesium 2.1 mg/dL (1.6-2.3); Potassium 4.5 mmol/L (3.5-5.1); Total Bilirubin 0.8 mg/dL (0.2-1.3)
[2021-10-25] MEDS ORDERED: HEPARIN SOD,PORK IN 0.45% NACL 25,000 UNIT in 0.45% NACL 1 250ML.BAG IV SCH (14:30)
[2021-10-25] MEDS ORDERED: NITROGLYCERIN SL TABS 0.4 MG TAB SUBLINGUAL PRN ×2 (14:31→16:42)
[2021-10-25] MEDS ORDERED: LACTULOSE 20 GM/30 ML CUP PO PRN (16:43)
[2021-10-25] MEDS ORDERED: ONDANSETRON 4 MG/2 ML VIAL IVP PRN (16:43)
[2021-10-25] MEDS ORDERED: ACETAMINOPHEN TAB 325 MG TAB PO PRN (16:43)
[2021-10-25] MEDS ORDERED: CALCIUM CARBONATE 500 MG CHEWABLE PO PRN (16:43)
[2021-10-25] MEDS ORDERED: LORazepam 0.5 MG TAB PO PRN (16:43)
[2021-10-25] MEDS ORDERED: NALOXONE 0.4 MG/ML 1 ML VIAL IV PRN (16:43)
--- NOTE | 2021-10-25 16:46 | P.HPIM ---
History of Present Illness H&P Date: 10/25/21 Chief Complaint: Chest pain History of presenting complaint: This is a pleasant 81-year-old patient who follows with Dr. Bruce Quintanilla. Chronic stable medical conditions include right temporal lobe epilepsy, mild cognitive impairment, CAD with stent, essential hypertension, left ventricular apical thrombus, left nephrectomy, chronic congestive heart failure from systolic dysfunction EF 30-35%. Accompanied by his sister to the ER. Patient also has been following with Dr. rod from neurology for hallucinations. About 11 AM today patient had a severe pressure across the chest. Been down to the right arm. Lasted for at least over 2 hours. She took 2 or 3 nitroglycerin with slight relief. We'll also perspiring. Admitted to the ER with a diagnosis of unstable angina. Patient does follow with mechanical manager Dr. JOSE JUAN Gates. The chest pain came on at rest. Review of systems: GEN.: None EYES: None HEENT: None NECK: None RESPIRATORY: None CARDIOVASCULAR: As above GASTROINTESTINAL: None GENITOURINARY: None MUSCULOSKELETAL: None LYMPHATICS: None HEMATOLOGICAL: None PSYCHIATRY: As above NEUROLOGICAL: No focal neurological symptoms Past medical history to include: Coronary artery disease with stent, hypertension, kidney disease, cardiac left ventricular apical thrombus, left nephrectomy, CHF EF 30-35%, cognitive impairment Social history: Lives alone. Not employed. Denies any uses cigarettes alcohol or any recreational drugs. Family history: Patient doesn't remember Physical examination: VITAL SIGNS: 97.6, 57, 18, 106/59, 97% on room air GENERAL: BMI 25.1, laying in bed, awake. EYES: Pupils equal. Conjunctiva normal. HEENT: External appearance of nose and ears normal, oral cavity grossly normal. NECK: JVD not raised; masses not palpable. HEART: First and second heart sounds are normal; no edema. LUNGS: Respiratory rate normal; clear to auscultation. ABDOMEN: Soft, nontender, liver spleen not palpable, no masses palpable. PSYCH: Able to answer simple questions NEUROLOGICAL: Cranial nerves grossly intact; no facial asymmetry, power and sensation grossly intact. LYMPHATICS: No lymph nodes palpable in the axilla and neck INVESTIGATIONS, reviewed in the clinical context: White count 8.7 hemoglobin 13.6 platelets 206 potassium 4.5 BUN 23 creatinine 0.94 sodium 134 Troponin I less than 0.012 EKG tracing personally reviewed by me-sinus bradycardia. Heart rate 48. PVC Chest x-ray film personally reviewed by me-no infiltrates Assessment and plan: -Unstable angina in a patient with known coronary artery disease. Initial troponin negative. IV heparin. Aspirin. Beta redd cardiology consultation -IV heparin monitoring Follow PTT -Right temporal lobe epileptiform. Currently not on any antiseizure medications. Does follow with neurologist outpatient -Mild cognitive impairment -Coronary artery with stent On Imdur 30 mg, Lopressor 12.5 by mouth twice a day, Cozaar 50 mg at bedtime, aspirin -Essential hypertension Lopressor 12.5 by mouth twice a day, Cozaar 50 mg a day -Left ventricular cardiac apical thrombus, in the past. Patient not on any anticoagulation. Patient does follow with Dr. JOSE JUAN Gates from cardiology. Consult them -Left nephrectomy -Chronic congestive heart failure from systolic dysfunction EF 30-35% Order 2-D echocardiogram. Lasix 20 mg a day. Add Aldactone 12.5 daily IV heparin. Home medications resumed. Care was discussed with the patient's sister the bedside. Cardiology consulted. Telemetry. Serial cardiac enzymes Past Medical History Past Medical History: Coronary Artery Disease (CAD), Chest Pain / Angina, GERD/Reflux, Hearing Disorder / Deafness, Hypertension, Memory Impairment, Myocardial Infarction ([place]), Osteoarthritis (OA) Additional Past Medical History / Comment(s): cardiomyopathy, hepatitis (child), chronic constipation, hemorrhoids, abd pain, elevated liver enzymes., has one ki dney ., pt was hospitalized nov 2020 for carbon monoxide poisoning & possible hx of seizure seen on eeg . , early alzheimers. 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 Past Anesthesia/Blood Transfusion Reactions: No Reported Reaction Date of Last Stent Placement:: unknown Past Psychological History: Depression Smoking Status: Never smoker Past Alcohol Use History: None Reported Past Drug Use History: None Reported - Past Family History Father History Unknown: Yes Family Medical History: Cancer Additional Family Medical History / Comment(s): colon cancer Mother History Unknown: Yes Family Medical History: Cancer Additional Family Medical History / Comment(s): oral cancer Medications and Allergies Home Medications Medication Instructions Recorded Confirmed Type Isosorbide Mononitrate ER [Imdur] 30 mg PO DAILY 09/16/14 10/25/21 History Aspirin EC [Ecotrin Low Dose] 81 mg PO DAILY 08/03/19 10/25/21 History Fluticasone Nasal [place] [Flonase 1 spr EA NOSTRIL BID 08/03/19 10/25/21 History Nasal [place]] Furosemide [Lasix] 40 mg PO DAILY #30 tab 08/09/19 10/25/21 Rx Losartan [Cozaar] 50 mg PO DAILY #30 tab 08/09/19 10/25/21 Rx Nitroglycerin Sl Tabs [Nitrostat] 0.4 mg SUBLINGUAL Q5M PRN #25 tab 08/09/19 10/25/21 Rx Famotidine [Pepcid] 20 mg PO DAILY 11/27/20 10/25/21 History Thiamine [Vitamin B-1] 100 mg PO DAILY #30 tab 11/29/20 10/25/21 Rx Folic Acid 1 mg PO DAILY #30 tablet 12/01/20 10/25/21 Rx Metoprolol Tartrate [Lopressor] 12.5 mg PO BID #60 tab 12/01/20 10/25/21 Rx Donepezil [Aricept] 10 mg PO HS 04/30/21 10/25/21 History Atorvastatin [Lipitor] 20 mg PO HS 10/25/21 10/25/21 History Melatonin 5 mg PO HS 10/25/21 10/25/21 History Allergies Allergy/AdvReac Type Severity Reaction Status Date / Time Sulfa (Sulfonamide Allergy Unknown Verified 10/25/21 14:47 Antibiotics) Childhood Physical Exam Vitals: Vital Signs Temp Pulse Pulse Resp BP Pulse Ox 10/25/21 13:18 50 L 10/25/21 13:06 97.6 F 57 L 18 106/59 97 Intake and Output 10/25/21 10/25/21 10/25/21 06:59 14:59 22:59 Other: Weight 77.111 kg Results CBC & Chem 7: 10/25/21 13:27 10/25/21 13:27 Labs: Abnormal Lab Results - Last 24 Hours (Table) 10/25/21 10/25/21 Range/Units 13:27 13:27 MCV 105.9 H (80.0-100.0) fL MCH 35.4 H (25.0-35.0) pg RDW 11.0 L (11.5-15.5) % Sodium 134 L (137-145) mmol/L Chloride 97 L (98-107) mmol/L BUN 23 H (9-20) mg/dL Glucose 130 H (74-99) mg/dL Alkaline Phosphatase 129 H (38-126) U/L
[2021-10-25] MEDS ORDERED: NITROGLYCERIN OINT 1 INCH/GM PACKET TOPICAL SCH (18:00)
[2021-10-25 20:00] VITALS: RESP 16
[2021-10-25] MEDS ORDERED: MELATONIN 5 MG TABLET PO SCH (21:00)
[2021-10-25] MEDS ORDERED: LOSARTAN 50 MG TAB PO SCH (21:00)
[2021-10-25] MEDS ORDERED: ATORVASTATIN 20 MG TAB PO SCH (21:00)
[2021-10-25] MEDS ORDERED: DONEPEZIL 10 MG TAB PO SCH (21:00)
[2021-10-25] MEDS: METOPROLOL TARTRATE 12.5 MG TAB PO SCH (21:48)
[2021-10-26] MEDS ORDERED: HEPARIN SODIUM 1,000 UN/ML (10ML VL) IV PRN (05:33)
[2021-10-26 08:27] VITALS: BP 161/80; PULSE 50; TEMP 97.6
[2021-10-26] MEDS: METOPROLOL TARTRATE 12.5 MG TAB PO SCH (08:55)
[2021-10-26] MEDS ORDERED: FOLIC ACID 1 MG TAB PO SCH (09:00)
[2021-10-26] MEDS ORDERED: SPIRONOLACTONE 25 MG TAB PO SCH (09:00)
[2021-10-26] MEDS ORDERED: THIAMINE 100 MG TAB PO SCH (09:00)
[2021-10-26] MEDS ORDERED: FUROSEMIDE 40 MG TAB PO SCH (09:00)
[2021-10-26] MEDS ORDERED: ASPIRIN 325 MG TAB PO SCH (09:00)
[2021-10-26] MEDS ORDERED: FAMOTIDINE 20 MG TAB PO SCH (09:00)
[2021-10-26] MEDS ORDERED: ISOSORBIDE MONONITRATE ER 30 MG TAB.ER.24H PO SCH (09:00)
[2021-10-26] MEDS ORDERED: FUROSEMIDE 20 MG TAB PO SCH (09:00)
[2021-10-26 09:22] LABS: HDL Cholesterol 37.8 mg/dL (40.00-60.00); Triglycerides 36.4 mg/dL (0.00-149.00)
[2021-10-26 09:36] LABS: Chol/HDL Ratio 2.13 Ratio; LDL Cholesterol,Direct Reflex 40.9 mg/dL (0.00-129.00)
--- NOTE | 2021-10-26 11:24 | CONS ---
CONSULTATION Grey Rendon is an 81-year-old gentleman who sees me in the office. He has history of hypertension, hypercholesterolemia and CAD. Apparently in October 2005 he underwent stenting of proximal LAD, and in November 2005 he underwent stenting of mid LAD. I performed a cardiac cath in August 2019, and both of these areas were widely patent. He also has a small diagonal that comes off from the stented segment. However, he has a heavily calcified RCA without significant disease. He was doing well on medical therapy. In 2018 he had a takotsubo type picture. However, he comes in this time with episode of chest pain that seems very musculoskeletal. He is resting comfortably without symptoms. His troponins are unremarkable and he has no symptoms at the time of my evaluation other than a sharp pain that is elicitable on pressing over his chest wall area. He is resting comfortably without symptoms. EKG did not reveal any ST- segment changes other than some bradycardia noted. He has rare isolated PVCs. PAST MEDICAL HISTORY: 1. Remarkable for CAD with previous stenting of proximal and mid LAD. 2. Hypertension. 3. Hypercholesterolemia. 4. History of some memory impairment. He had a carbon monoxide poisoning type picture as well in November and he also has some early Alzheimer's type picture. ALLERGIES: SULFA. MEDICATIONS: Medications include metoprolol tartrate 12.5 mg b.i.d., Cozaar 50 mg daily, Lasix 40 mg daily, atorvastatin 40 mg daily, and Keppra 500 mg daily for seizure disorder. PHYSICAL EXAMINATION: On examination, blood pressure is 140/70, pulse rate is about 56 per minute, regular. HEENT unremarkable. Fundus was not examined by me. Neck is supple. There is no JVD. I do not hear a carotid bruit. Heart exam reveals S1, S2 with a short systolic murmur. Lungs are clear. Abdomen is soft, nontender. Lower extremities reveal palpable pulses. No edema. Central nervous system is normal. IMPRESSION: 1. Atypical chest pain. 2. Coronary artery disease with prior LAD stenting, patent in 2018. 3. History of hypertension. 4. Hyperlipidemia. 5. History of some dementia. 6. Unremarkable dobutamine stress test 10 months ago. RECOMMENDATIONS: I am recommending that we continue current medications, increase activity and discharge him on 12.5 mg of metoprolol tartrate in the a.m. only instead of b.i.d. Discussed my thoughts in detail with the patient as well as with his sister by phone. Patient can be discharged today. MMODL / IJN: [id number] /
[2021-10-26] MEDS ORDERED: amLODIPine 2.5 MG TAB PO SCH (11:45)
--- NOTE | 2021-10-26 16:14 | P.DS ---
Providers Date of admission: 10/25/21 14:32 Expected date of discharge: 10/26/21 Attending physician: Carlos Enrique Carrera Consults: 10/25/21 14:32 Consult Physician Urgent Consulting Provider: [facility] Consult Reason/Comments: Unstable angina Do you want consulting provider notified?: Yes Primary care physician: Bruce Unger [facility] Course: Chief Complaint: Chest pain History of presenting complaint: This is a pleasant 81-year-old patient who follows with Dr. Bruce Quintanilla. Chronic stable medical conditions include right temporal lobe epilepsy, mild cognitive impairment, CAD with stent, essential hypertension, left ventricular apical thrombus, left nephrectomy, chronic congestive heart failure from systolic dysfunction EF 30-35%. Accompanied by his sister to the ER. Patient also has been following with Dr. rod from neurology for hallucinations. About 11 AM today patient had a severe pressure across the chest. Been down to the right arm. Lasted for at least over 2 hours. She took 2 or 3 nitroglycerin with slight relief. We'll also perspiring. Admitted to the ER with a diagnosis of unstable angina. Patient does follow with assistant media planner Dr. JOSE JUAN Gates. The chest pain came on at rest. Today: Patient was seen by Dr. JOSE JUAN Gates from cardiology. Cleared for discharge. I'm adding 2.5 mg of Norvasc for blood pressure. Dose of Lopressor was cut back to 12.5 daily. Discussed with patient. Will follow with cardiology. Consultation: Dr. JOSE JUAN Gates from cardiology Past medical history to include: Coronary artery disease with stent, hypertension, kidney disease, cardiac left ventricular apical thrombus, left nephrectomy, CHF EF 30-35%, cognitive impairment Social history: Lives alone. Not employed. Denies any uses cigarettes alcohol or any recreational drugs. Family history: Patient doesn't remember Physical examination: VITAL SIGNS: 97.6, 50, 16, 1 6180, 97% room air GENERAL: BMI 25.1, laying in bed, awake. EYES: Pupils equal. Conjunctiva normal. HEENT: External appearance of nose and ears normal, oral cavity grossly normal. NECK: JVD not raised; masses not palpable. HEART: First and second heart sounds are normal; no edema. LUNGS: Respiratory rate normal; clear to auscultation. ABDOMEN: Soft, nontender, liver spleen not palpable, no masses palpable. PSYCH: Able to answer simple questions INVESTIGATIONS, reviewed in the clinical context: LDL 40 White count 8.7 hemoglobin 13.6 platelets 206 potassium 4.5 BUN 23 creatinine 0.94 sodium 134 Troponin I less than 0.012 EKG tracing personally reviewed by me-sinus bradycardia. Heart rate 48. PVC Chest x-ray film personally reviewed by me-no infiltrates Assessment and plan: -Unstable angina in a patient with known coronary artery disease. Norvasc 2.5 mg daily. Beta redd. -IV heparin monitoring Follow PTT -Right temporal lobe epileptiform. Currently not on any antiseizure medications. Does follow with neurologist outpatient -Mild cognitive impairment -Coronary artery with stent On Imdur 30 mg, Lopressor 12.5 by mouth twice a day, Cozaar 50 mg at bedtime, aspirin -Essential hypertension Lopressor 12.5 by mouth twice a day, Cozaar 50 mg a day -Left ventricular cardiac apical thrombus, in the past. Patient not on any anticoagulation. Patient does follow with Dr. JOSE JUAN Gates from cardiology. -Left nephrectomy -Chronic congestive heart failure from systolic dysfunction EF 30-35% Lasix 20 mg a day. Add Aldactone 12.5 daily Disposition: Home Plan - Discharge Summary New Discharge Prescriptions: New amLODIPine [Norvasc] 2.5 mg PO DAILY #30 tablet Spironolactone [Aldactone] 12.5 mg PO DAILY #30 tab Continue Isosorbide Mononitrate ER [Imdur] 30 mg PO DAILY Fluticasone Nasal [place] [Flonase Nasal [place]] 1 spr EA NOSTRIL BID Aspirin EC [Ecotrin Low Dose] 81 mg PO DAILY Losartan [Cozaar] 50 mg PO DAILY #30 tab Nitroglycerin Sl Tabs [Nitrostat] 0.4 mg SUBLINGUAL Q5M PRN #25 tab PRN Reason: Chest Pain Famotidine [Pepcid] 20 mg PO DAILY Thiamine [Vitamin B-1] 100 mg PO DAILY #30 tab Folic Acid 1 mg PO DAILY #30 tablet Donepezil [Aricept] 10 mg PO HS Atorvastatin [Lipitor] 20 mg PO HS Melatonin 5 mg PO HS Changed Metoprolol Tartrate [Lopressor] 12.5 mg PO DAILY #60 tab Furosemide [Lasix] 20 mg PO DAILY #30 tab Discharge Medication List Isosorbide Mononitrate ER [Imdur] 30 mg PO DAILY 09/16/14 [History] Aspirin EC [Ecotrin Low Dose] 81 mg PO DAILY 08/03/19 [History] Fluticasone Nasal [place] [Flonase Nasal [place]] 1 spr EA NOSTRIL BID 08/03/19 [History] Losartan [Cozaar] 50 mg PO DAILY #30 tab 08/09/19 [Rx] Nitroglycerin Sl Tabs [Nitrostat] 0.4 mg SUBLINGUAL Q5M PRN #25 tab 08/09/19 [Rx] Famotidine [Pepcid] 20 mg PO DAILY 11/27/20 [History] Thiamine [Vitamin B-1] 100 mg PO DAILY #30 tab 11/29/20 [Rx] Folic Acid 1 mg PO DAILY #30 tablet 12/01/20 [Rx] Donepezil [Aricept] 10 mg PO HS 04/30/21 [History] Atorvastatin [Lipitor] 20 mg PO HS 10/25/21 [History] Melatonin 5 mg PO HS 10/25/21 [History] Furosemide [Lasix] 20 mg PO DAILY #30 tab 10/26/21 [Rx] Metoprolol Tartrate [Lopressor] 12.5 mg PO DAILY #60 tab 10/26/21 [Rx] Spironolactone [Aldactone] 12.5 mg PO DAILY #30 tab 10/26/21 [Rx] amLODIPine [Norvasc] 2.5 mg PO DAILY #30 tablet 10/26/21 [Rx] Follow up Appointment(s)/Referral(s): Radames Gates MD [STAFF PHYSICIAN] - 2 Weeks (please call to make appointment) Bruce Unger DO [Primary Care Provider] - 1-2 days (Please call to make appointment) Patient Instructions/Handouts: Chest Pain (DC), Heart Healthy Diet (DC)
[2021-10-27] MEDS ORDERED: METOPROLOL TARTRATE 12.5 MG TAB PO SCH (09:00)
== END 2021-10-26 14:43 | disposition home or self-care (01) ==
LOC: EC 13:04 → 6NMEDSUR 14:32
PROVIDERS: ADMIT Hospitalist; ATTEND Hospitalist
DX: I25.110 Atherosclerotic heart disease of native coronary artery with unstable angina pectoris (principal); G40.909 Epilepsy, unspecified, not intractable, without status epilepticus; I13.0 Hypertensive heart and chronic kidney disease with heart failure and stage 1 through stage 4 chronic kidney disease, or unspecified chronic kidney disease; I50.22 Chronic systolic (congestive) heart failure; N18.9 Chronic kidney disease, unspecified; G30.0 Alzheimer's disease with early onset; F02.80 Dementia in other diseases classified elsewhere, unspecified severity, without behavioral disturbance, psychotic disturbance, mood disturbance, and anxiety; I51.3 Intracardiac thrombosis, not elsewhere classified; E78.00 Pure hypercholesterolemia, unspecified; K21.9 Gastro-esophageal reflux disease without esophagitis; H91.90 Unspecified hearing loss, unspecified ear; I25.2 Old myocardial infarction; M19.90 Unspecified osteoarthritis, unspecified site; I42.9 Cardiomyopathy, unspecified; E78.5 Hyperlipidemia, unspecified; K59.09 Other constipation; K64.9 Unspecified hemorrhoids; F32.A Depression, unspecified; R44.3 Hallucinations, unspecified; R00.1 Bradycardia, unspecified; Z20.822 Contact with and (suspected) exposure to COVID-19; Z86.19 Personal history of other infectious and parasitic diseases; Z95.5 Presence of coronary angioplasty implant and graft; Z90.5 Acquired absence of kidney; Z79.899 Other long term (current) drug therapy; Z79.82 Long term (current) use of aspirin; Z88.2 Allergy status to sulfonamides; Z80.0 Family history of malignant neoplasm of digestive organs; Z80.8 Family history of malignant neoplasm of other organs or systems
CPT/HCPCS: 96376 ×2; 96366 ×3; 96365; 99291; 36415; 93005; 80061; 80053; 83735; 84484; 85025; 85610; 85730 ×2; 83721; 87635; 71046; G0378 ×2; J1644 ×3

== ENCOUNTER 2022-08-04 20:56 | Inpatient (IN) | payer MEDICARE ==
[2022-08-04] MEDS ORDERED: SODIUM CHLORIDE 0.9% 1,000 ML IV ONE (21:56)
[2022-08-04 22:44] LABS: Basophils % (A) 0 %; Eosinophils # (A) 0.1 k/uL (0-0.7); Eosinophils % (A) 1 %; HCT 42.1 % (39.0-53.0); HGB 14.7 gm/dL (13.0-17.5); Lymphocytes # (A) 1.5 k/uL (1.0-4.8); Lymphocytes % (A) 10 %; MCH 35.5 pg (25.0-35.0); MCV 101.5 fL (80.0-100.0); Mean Platelet Volume 9.2; Monocytes % (A) 6 %; Neutrophils # (A) 12.5 k/uL (1.3-7.7); Neutrophils % (A) 82 %; Platelet Count 174 k/uL (150-450); RBC 4.15 m/uL (4.30-5.90); RDW 11.3 % (11.5-15.5); WBC 15.2 k/uL (3.8-10.6)
[2022-08-04 22:53] LABS: African American GFR (CKD) >90 (>60 ml/min/1.73 sqM); Anion Gap 11 mmol/L; Blood Urea Nitrogen 27 mg/dL (9-20); Carbon Dioxide 25 mmol/L (22-30); Chloride 102 mmol/L (98-107); Glucose 112 mg/dL (74-99); Non-African American GFR(CKD) 80 (>60 ml/min/1.73 sqM); Sodium 138 mmol/L (137-145)
[2022-08-04 22:54] LABS: ALT 35 U/L (4-49); AST 88 U/L (17-59); Alkaline Phosphatase 89 U/L (38-126); Calcium 9.4 mg/dL (8.4-10.2); Total Bilirubin 1.1 mg/dL (0.2-1.3); Total Protein 6.6 g/dL (6.3-8.2)
[2022-08-04 22:56] LABS: Creatine Kinase 1343 U/L (55-170)
[2022-08-04 22:57] LABS: Potassium 4.8 mmol/L (3.5-5.1)
[2022-08-04 23:16] LABS: Prothrombin Time 10.5 sec (9.0-12.0)
--- NOTE | 2022-08-04 23:17 | CT ---
EXAMINATION TYPE: CT brain santana baker DATE OF EXAM: 08/04/2022 COMPARISON: 11/27/2020 CT brain HISTORY: fall, found unconscious CT DLP: 1111.2 mGycm Automated exposure control for dose reduction was used. There is cerebral cortical atrophy. There is no mass effect nor midline shift. No sign of intracrania l hemorrhage. Calvarium is intact. There is normal aeration of the mastoid sinuses. Skull base is int act. The cervical vertebra have normal alignment. Posterior elements are intact. Disc spaces are narrowed from C3 to C7. There is spurring of the endplates. Facet joints are intact. IMPRESSION: There is cerebral atrophy typical for age. No acute intracranial abnormality. No change. Multilevel cervical spondylotic changes. No fracture. No acute bony abnormality.
--- NOTE | 2022-08-04 23:23 | CT ---
EXAMINATION TYPE: CT facial bones wo con DATE OF EXAM: 08/04/2022 COMPARISON: None HISTORY: fall, found unconscious CT DLP: 1111.2 mGycm Automated exposure control for dose reduction was used. Images obtained from the bottom of the mandible to the top of the frontal sinuses with no contrast. The mandibular ring is intact. The temporomandibular joints appear intact. There is normal aeration o f the mastoid sinuses. The maxilla is intact. No evidence of orbital blowout fracture. There is fairl y normal aeration of the paranasal sinuses. There appears to be bilateral comminuted nasal bone fract ure. The orbital margins are intact no evidence of retro-orbital mass. Zygomatic arches appear normal. Ext ernal auditory canals appear intact. There is normal aeration of the temporal bones. IMPRESSION: Bilateral nasal bone fracture. No displacement. Age of the fractures is not clear since there is no s ignificant soft tissue swelling.
--- NOTE | 2022-08-04 23:26 | XR ---
EXAMINATION TYPE: XR pelvis AP view DATE OF EXAM: 08/04/2022 COMPARISON: NONE HISTORY: Fall. Pain TECHNIQUE: Single view FINDINGS: Pelvic ring is intact. Proximal femurs and hip joints are intact. Sacroiliac joints are int act. IMPRESSION: Negative pelvis x-ray exam. No fracture.
--- NOTE | 2022-08-04 23:27 | XR ---
EXAMINATION TYPE: XR chest 1V portable DATE OF EXAM: 08/04/2022 COMPARISON: 10/25/2021 HISTORY: Chest pain TECHNIQUE: 2 views FINDINGS: Heart is normal. There is some blunting left costophrenic angle. There are no hilar masses. No pneumo thorax. Trachea is midline. IMPRESSION: There is some pleural reaction and fluid lateral left lung base which appears new compared to old exa m.. No heart failure.
--- NOTE | 2022-08-04 23:28 | XR ---
EXAMINATION TYPE: XR thoracic spine 2V DATE OF EXAM: 08/04/2022 COMPARISON: NONE HISTORY: Fall. Pain TECHNIQUE: 4 views FINDINGS: The thoracic vertebra have normal alignment. No compression fracture. There is hypertrophic anterior spur formation throughout the thoracic spine. There is no sign of paraspinal mass. IMPRESSION: Multilevel degenerative spur formation. No fracture seen.
--- NOTE | 2022-08-04 23:29 | XR ---
EXAMINATION TYPE: XR lumbar spine 2 or 3V DATE OF EXAM: 08/04/2022 COMPARISON: NONE HISTORY: Fall. Pain TECHNIQUE: 3 views FINDINGS: The lumbar vertebra have normal alignment. No compression fracture. There is degenerative d isc space narrowing at levels throughout the lumbar spine and more at L2-3. Posterior elements are in tact and sacroiliac joints are intact. Abdominal aorta is atheromatous. IMPRESSION: Spondylotic changes. No acute bony abnormality. Atheromatous aorta.
--- NOTE | 2022-08-04 23:30 | XR ---
EXAMINATION TYPE: XR shoulder complete RT DATE OF EXAM: 08/04/2022 COMPARISON: NONE HISTORY: Fall. Pain TECHNIQUE: 2 views FINDINGS: There is some mild spurring at the AC joint. I see no fracture nor dislocation. Scapula is intact. IMPRESSION: No acute abnormality of the right shoulder.
--- NOTE | 2022-08-04 23:32 | XR ---
EXAMINATION TYPE: XR elbow complete LT DATE OF EXAM: 08/04/2022 COMPARISON: NONE HISTORY: Fall. Pain TECHNIQUE: 3 views FINDINGS: There is some spurring on the olecranon process of the ulna. I see no fracture nor dislocat ion. No sign of joint effusion. IMPRESSION: There are some degenerative changes. No fracture seen.
[2022-08-04 23:44] LABS: Partial Thromboplastin Time 18.9 sec (22.0-30.0)
[2022-08-05] MEDS ORDERED: SODIUM CHLORIDE 0.9% 1,000 ML IV STA (00:19)
[2022-08-05] MEDS ORDERED: HEPARIN SODIUM 1,000 UN/ML (10ML VL) IV ONE (00:19)
[2022-08-05] MEDS ORDERED: ONDANSETRON 4 MG/2 ML VIAL IVP PRN (00:22)
[2022-08-05] MEDS ORDERED: HYDROcodone/APAP 5-325MG 1 EACH TAB PO PRN (00:22)
[2022-08-05] MEDS ORDERED: NALOXONE 0.4 MG/ML 1 ML VIAL IV PRN (00:22)
[2022-08-05] MEDS ORDERED: TEMAZEPAM 15 MG CAP PO PRN (00:22)
--- NOTE | 2022-08-05 00:22 | ED ---
Fall HPI - General Chief Complaint: Fall Stated Complaint: Fall,Head injury Time Seen by Provider: 08/04/22 21:53 Source: patient, family Mode of arrival: wheelchair - History of Present Illness Initial Comments: Patient presents after being found on the ground. He had a syncopal episode. He has injuries to the face and right shoulder. He has no chest or belly or back pain. He has no nausea or vomiting. He has no focal weakness. He has no paresthesias. He has no lightheadedness. He has no dizziness. He doesn't recall what was happening when this happened. He is not sure how long he was unconscious for. He is not sure how long he was on the ground for. - Related Data Home Medications Medication Instructions Recorded Confirmed Isosorbide Mononitrate ER [Imdur] 30 mg PO DAILY 09/16/14 10/25/21 Aspirin EC [Ecotrin Low Dose] 81 mg PO DAILY 08/03/19 10/25/21 Fluticasone Nasal [place] [Flonase 1 spr EA NOSTRIL BID 08/03/19 10/25/21 Nasal [place]] Famotidine [Pepcid] 20 mg PO DAILY 11/27/20 10/25/21 Donepezil [Aricept] 10 mg PO HS 04/30/21 10/25/21 Atorvastatin [Lipitor] 20 mg PO HS 10/25/21 10/25/21 Melatonin 5 mg PO HS 10/25/21 10/25/21 Previous Rx's Medication Instructions Recorded Losartan [Cozaar] 50 mg PO DAILY #30 tab 08/09/19 Nitroglycerin Sl Tabs [Nitrostat] 0.4 mg SUBLINGUAL Q5M PRN #25 tab 08/09/19 Thiamine [Vitamin B-1] 100 mg PO DAILY #30 tab 11/29/20 Folic Acid 1 mg PO DAILY #30 tablet 12/01/20 Furosemide [Lasix] 20 mg PO DAILY #30 tab 10/26/21 Metoprolol Tartrate [Lopressor] 12.5 mg PO DAILY #60 tab 10/26/21 Spironolactone [Aldactone] 12.5 mg PO DAILY #30 tab 10/26/21 amLODIPine [Norvasc] 2.5 mg PO DAILY #30 tablet 10/26/21 Allergies Allergy/AdvReac Type Severity Reaction Status Date / Time Sulfa (Sulfonamide Allergy Unknown Verified 08/04/22 21:25 Antibiotics) Childhood Review of Systems ROS Statement: Those systems with pertinent positive or pertinent negative responses have been documented in the HPI. ROS Other: All systems not noted in ROS Statement are negative. Past Medical History Past Medical History: Coronary Artery Disease (CAD), Chest Pain / Angina, GERD/Reflux, Hearing Disorder / Deafness, Hypertension, Memory Impairment, Myocardial Infarction ([place]), Osteoarthritis (OA) Additional Past Medical History / Comment(s): cardiomyopathy, hepatitis (child), chronic constipation, hemorrhoids, abd pain, elevated liver enzymes., has one kidney ., pt was hospitalized nov 2020 for carbon monoxide poisoning & possible hx of seizure seen on eeg . , early alzheimers. 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 Past Anesthesia/Blood Transfusion Reactions: No Reported Reaction Date of Last Stent Placement:: unknown Past Psychological History: Depression Smoking Status: Never smoker Past Alcohol Use History: None Reported Past Drug Use History: None Reported - Past Family History Father History Unknown: Yes Family Medical History: Cancer Additional Family Medical History / Comment(s): colon cancer Mother History Unknown: Yes Family Medical History: Cancer Additional Family Medical History / Comment(s): oral cancer General Exam Limitations: no limitations General appearance: alert, in no apparent distress Head exam: Present: atraumatic, normocephalic, normal inspection Eye exam: Present: normal appearance, PERRL, EOMI. Absent: scleral icterus, conjunctival injection, periorbital swelling ENT exam: Present: normal exam, mucous membranes moist Neck exam: Present: normal inspection. Absent: tenderness, meningismus, lymphadenopathy Respiratory exam: Present: normal lung sounds bilaterally. Absent: respiratory distress, wheezes, rales, rhonchi, stridor Cardiovascular Exam: Present: regular rate, normal rhythm, normal heart sounds. Absent: systolic murmur, diastolic murmur, rubs, gallop, clicks GI/Abdominal exam: Present: soft, normal bowel sounds. Absent: distended, tenderness, guarding, rebound, rigid Extremities exam: Present: normal inspection, full ROM, normal capillary refill. Absent: tenderness, pedal edema, joint swelling, calf tenderness Back exam: Present: normal inspection Neurological exam: Present: alert, oriented X3, CN II-XII intact Psychiatric exam: Present: normal affect, normal mood Skin exam: Present: warm, dry, intact, other (Positive for various bruising). Absent: rash Course Vital Signs 08/04/22 21:25 Temperature 98.1 F Pulse Rate 66 Respiratory 16 Rate Blood Pressure 124/68 O2 Sat by Pulse 98 Oximetry Procedures - [place] Protocol (Time Out) Nurse: Patrick Abdul Medical Decision Making - Medical Decision Making Patient presents with syncope, found on the ground. Imaging of the back, face, head, cervical spine is all negative per radiology. Radiology did mention possibility of a nasal bone fracture, but the patient has no tenderness there. Laboratory studies and history is significant only elevated troponin. Therefore I ordered IV heparin. His CKs also she'll be elevated and I have begun fluid resuscitation. Patient will be admitted to the hospital in [place] condition. - Lab Data Result diagrams: 08/04/22 22:39 08/04/22 22:39 Lab Results 08/04/22 08/04/22 08/04/22 Range/Units 22:39 22:39 22:39 WBC 15.2 H (3.8-10.6) k/uL RBC 4.15 L (4.30-5.90) m/uL Hgb 14.7 (13.0-17.5) gm/dL Hct 42.1 (39.0-53.0) % MCV 101.5 H (80.0-100.0) fL MCH 35.5 H (25.0-35.0) pg MCHC 35.0 (31.0-37.0) g/dL RDW 11.3 L (11.5-15.5) % Plt Count 174 (150-450) k/uL MPV 9.2 Neutrophils % 82 % Lymphocytes % 10 % Monocytes % 6 % Eosinophils % 1 % Basophils % 0 % Neutrophils # 12.5 H (1.3-7.7) k/uL Lymphocytes # 1.5 (1.0-4.8) k/uL Monocytes # 1.0 (0-1.0) k/uL Eosinophils # 0.1 (0-0.7) k/uL Basophils # 0.0 (0-0.2) k/uL PT 10.5 (9.0-12.0) sec INR 1.0 (<1.2) APTT 18.9 L (22.0-30.0) sec Sodium 138 (137-145) mmol/L Potassium 4.8 (3.5-5.1) mmol/L Chloride 102 (98-107) mmol/L Carbon Dioxide 25 (22-30) mmol/L Anion Gap 11 mmol/L BUN 27 H (9-20) mg/dL Creatinine 0.89 (0.66-1.25) mg/dL Est GFR (CKD-EPI)AfAm >90 (>60 ml/min/1.73 sqM) Est GFR (CKD-EPI)NonAf 80 (>60 ml/min/1.73 sqM) Glucose 112 H (74-99) mg/dL Calcium 9.4 (8.4-10.2) mg/dL Total Bilirubin 1.1 (0.2-1.3) mg/dL AST 88 H (17-59) U/L ALT 35 (4-49) U/L Alkaline Phosphatase 89 (38-126) U/L Creatine Kinase 1343 H* (55-170) U/L Troponin I (0.000-0.034) ng/mL Total Protein 6.6 (6.3-8.2) g/dL Albumin 4.0 (3.5-5.0) g/dL 08/04/22 Range/Units 22:39 WBC (3.8-10.6) k/uL RBC (4.30-5.90) m/uL Hgb (13.0-17.5) gm/dL Hct (39.0-53.0) % MCV (80.0-100.0) fL MCH (25.0-35.0) pg MCHC (31.0-37.0) g/dL RDW (11.5-15.5) % Plt Count (150-450) k/uL MPV Neutrophils % % Lymphocytes % % Monocytes % % Eosinophils % % Basophils % % Neutrophils # (1.3-7.7) k/uL Lymphocytes # (1.0-4.8) k/uL Monocytes # (0-1.0) k/uL Eosinophils # (0-0.7) k/uL Basophils # (0-0.2) k/uL PT (9.0-12.0) sec INR (<1.2) APTT (22.0-30.0) sec Sodium (137-145) mmol/L Potassium (3.5-5.1) mmol/L Chloride (98-107) mmol/L Carbon Dioxide (22-30) mmol/L Anion Gap mmol/L BUN (9-20) mg/dL Creatinine (0.66-1.25) mg/dL Est GFR (CKD-EPI)AfAm (>60 ml/min/1.73 sqM) Est GFR (CKD-EPI)NonAf (>60 ml/min/1.73 sqM) Glucose (74-99) mg/dL Calcium (8.4-10.2) mg/dL Total Bilirubin (0.2-1.3) mg/dL AST (17-59) U/L ALT (4-49) U/L Alkaline Phosphatase (38-126) U/L Creatine Kinase (55-170) U/L Troponin I 1.080 H* (0.000-0.034) ng/mL Total Protein (6.3-8.2) g/dL Albumin (3.5-5.0) g/dL Critical Care Time Critical Care Time: Yes (Initiation of IV heparin) Total Critical Care Time: 35 Disposition Clinical Impression: Syncope, NSTEMI (non-ST elevated myocardial infarction), Rhabdomyolysis Disposition: ADMITTED IP TO THIS [facility] Condition: Serious Is patient prescribed a controlled substance at d/c from ED?: No Referrals: Bruce Unger DO [Primary Care Provider] - 1-2 days
[2022-08-05] MEDS ORDERED: NITROGLYCERIN SL TABS 0.4 MG TAB SUBLINGUAL PRN (00:24)
[2022-08-05] MEDS ORDERED: HEPARIN SOD,PORK IN 0.45% NACL 25,000 UNIT in 0.45% NACL 1 250ML.BAG IV SCH (00:30)
[2022-08-05] MEDS: ALPRAZolam 0.25 MG TAB PO PRN ×2 (02:46→20:45)
[2022-08-05] MEDS: SODIUM CHLORIDE 0.9% 1,000 ML IV SCH ×2 (04:48→11:05)
[2022-08-05 07:30] LABS: Appearance,Urine Clear (Clear); Bilirubin,Urine Negative (Negative); Blood,Urine Negative (Negative); Color,Urine Yellow; Glucose,Urine (UA) Negative (Negative); Ketones,Urine Negative (Negative); Leukocyte Esterase,Urine Negative (Negative); Nitrite,Urine Negative (Negative); PH, Urine 6.5 (5.0-8.0); Protein,Urine Negative (Negative); Specific Gravity,Urine 1.015 (1.001-1.035); Urobilinogen,Urine <2.0 mg/dL (<2.0)
[2022-08-05] MEDS: ASPIRIN 81 MG PO SCH ×2 (08:54→11:03)
[2022-08-05] MEDS: FOLIC ACID 1 MG TAB PO SCH ×2 (08:54→11:04)
[2022-08-05] MEDS: SPIRONOLACTONE 25 MG TAB PO SCH ×2 (08:54→11:05)
[2022-08-05] MEDS: METOPROLOL TARTRATE 12.5 MG TAB PO SCH ×2 (08:54→11:04)
[2022-08-05] MEDS: LOSARTAN 50 MG TAB PO SCH ×2 (08:54→11:04)
[2022-08-05] MEDS: ISOSORBIDE MONONITRATE ER 30 MG TAB.ER.24H PO SCH ×2 (08:54→11:04)
[2022-08-05] MEDS: FUROSEMIDE 20 MG TAB PO SCH ×2 (08:54→11:04)
[2022-08-05] MEDS: THIAMINE 100 MG TAB PO SCH ×2 (08:55→11:05)
[2022-08-05] MEDS: FAMOTIDINE 20 MG TAB PO SCH ×2 (08:55→11:03)
[2022-08-05] MEDS: amLODIPine 2.5 MG TAB PO SCH ×2 (08:55→11:03)
[2022-08-05 10:31] VITALS: BMI 25.0
--- NOTE | 2022-08-05 12:00 | P.CRDCN ---
History of Present Illness Consult date: 08/05/22 History of present illness: HISTORY OF PRESENT ILLNESS: This is a 82-year-old male with a past medical history significant for coronary artery disease with previous PCI to the LAD, hypertension, hyperlipidemia, and dementia. Patient follows in the office with Dr. Gates. We have been asked to see the patient in consultation for abnormal troponins. Patient examined at the bedside. Patient was found down at home on the ground. He apparently was found to be incontinent of urine. The patient does not remember any of the events that occurred yesterday. He currently denies any chest pain or pressure. He denies any shortness of breath. He denies any dizziness or lightheadedness. Patient's vital signs are stable. * EKG reveals sinus mechanism with no signs of acute ischemia * Chest xray there is some pleural reaction and fluid lateral left lung base which appears new compared to old exam. No heart failure. * Laboratory data: WBC 15.2. Hemoglobin 14.7. Platelet count 174. Sodium 138. Potassium 4.8. BUN 27. Creatinine 0.89. Creatinine kinase 1343. Troponin 1.080. 1.160. 0.943. * Current home cardiac medications include aspirin 81 mg daily, Lipitor 20 mg at night, amlodipine 2.5 mg daily, Imdur 30 mg daily, losartan 50 mg daily, metoprolol tartrate 12.5 mg daily, Aldactone 12.5 mg daily, Lasix 20 mg daily * Most recent echocardiogram obtained in 2021 revealed ejection fraction 55%, [id number] aortic regurgitation, moderate mitral regurgitation, [id number] tricuspid regurgitation * Cardiac catheterization history: August 2018 revealing both the LAD stents are patent, mild irregularities and dominant RCA which is heavily calcified no obstructive CAD. Circumflex nondominant small to small marginal branch has no significant disease. REVIEW OF SYSTEMS: At the time of my exam: CONSTITUTIONAL: Denies fever or chills. HEENT: Denies blurred vision, vision changes, or eye pain. Denies hemoptysis CARDIOVASCULAR: Denies chest pain. Denies orthopnea. Denies PND. Denies palpitations RESPIRATORY: Denies shortness of breath. GASTROINTESTINAL: Denies abdominal pain. Denies nausea or vomiting. HEMATOLOGIC: Denies bleeding disorders. GENITOURINARY: Denies any blood in urine. SKIN: Denies pruitis. Denies rash. PHYSICAL EXAM: VITAL SIGNS: Reviewed. GENERAL: Well-developed in no acute distress. HEENT: Head is normocephalic. Pupils are equal, round. Sclerae anicteric. Mucous membranes of the mouth are moist. Neck supple. No JVD or thyromegaly LUNGS: Respirations even and unlabored. Lungs essentially clear to auscultation bilaterally. HEART: Regular rate and rhythm. S1 and S2 heard. ABDOMEN: Soft. Nondistended. Nontender. EXTREMITIES: Normal range of motion. No clubbing or cyanosis. Peripheral pulses intact. No lower extremity edema NEUROLOGIC: Awake and alert. Oriented x 1-2. ASSESSMENT: S/P found down at home, possible syncope Mild rhabdomyolysis Abnormal troponins, possibly related to rhabdomyolysis Coronary artery disease with previous PCI to the LAD Hypertension Hyperlipidemia Dementia PLAN: Obtain 2-D echo to assess cardiac structure and function Resume home cardiac medications Continue IV heparin until tonight and then transition to subcu heparin Repeat EKG tomorrow morning IVF at 75cc/hr Further recommendations pending patient course Nurse practitioner note has been reviewed by physician. Signing provider agrees with the documented findings, assessment, and plan of care. Past Medical History Past Medical History: Coronary Artery Disease (CAD), Chest Pain / Angina, GERD/Reflux, Hearing Disorder / Deafness, Hypertension, Memory Impairment, Myocardial Infarction ([place]), Osteoarthritis (OA) Additional Past Medical History / Comment(s): cardiomyopathy, hepatitis (child), chronic constipation, hemorrhoids, abd pain, elevated liver enzymes., has one kidney ., pt was hospitalized nov 2020 for carbon monoxide poisoning & possible hx of seizure seen on eeg . , early alzheimers. 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 Past Anesthesia/Blood Transfusion Reactions: No Reported Reaction Date of Last Stent Placement:: unknown Past Psychological History: Depression Additional Psychological History / Comment(s): sister thinks some depression Smoking Status: Never smoker Past Alcohol Use History: None Reported Past Drug Use History: None Reported - Past Family History Father History Unknown: Yes Family Medical History: Cancer Additional Family Medical History / Comment(s): colon cancer Mother History Unknown: Yes Family Medical History: Cancer Additional Family Medical History / Comment(s): oral cancer Medications and Allergies Home Medications Medication Instructions Recorded Confirmed Type Isosorbide Mononitrate ER [Imdur] 30 mg PO DAILY 09/16/14 08/05/22 History Aspirin EC [Ecotrin Low Dose] 81 mg PO DAILY 08/03/19 08/05/22 History Fluticasone Nasal [place] [Flonase 1 spr EA NOSTRIL BID 08/03/19 08/05/22 History Nasal [place]] Losartan [Cozaar] 50 mg PO DAILY #30 tab 08/09/19 08/05/22 Rx Nitroglycerin Sl Tabs [Nitrostat] 0.4 mg SUBLINGUAL Q5M PRN #25 tab 08/09/19 08/05/22 Rx Famotidine [Pepcid] 20 mg PO BID 11/27/20 08/05/22 History Thiamine [Vitamin B-1] 100 mg PO DAILY #30 tab 11/29/20 08/05/22 Rx Folic Acid 1 mg PO DAILY #30 tablet 12/01/20 08/05/22 Rx Donepezil [Aricept] 10 mg PO HS 04/30/21 08/05/22 History Melatonin 5 mg PO HS 10/25/21 08/05/22 History Metoprolol Tartrate [Lopressor] 12.5 mg PO DAILY #60 tab 10/26/21 08/05/22 Rx Spironolactone [Aldactone] 12.5 mg PO DAILY #30 tab 10/26/21 08/05/22 Rx amLODIPine [Norvasc] 2.5 mg PO DAILY #30 tablet 10/26/21 08/05/22 Rx Ascorbic Acid [Vitamin C] 1,000 mg PO DAILY 08/05/22 08/05/22 History Atorvastatin [Lipitor] 20 mg PO HS 08/05/22 08/05/22 History Cyanocobalamin (Vitamin B-12) 1,000 mcg PO DAILY 08/05/22 08/05/22 History [Vitamin B-12] Furosemide [Lasix] 20 mg PO DAILY 08/05/22 08/05/22 History Garlic 1,000 mg PO DAILY 08/05/22 08/05/22 History Montelukast [Singulair] 10 mg PO DAILY 08/05/22 08/05/22 History Pyridoxine [Vitamin B-6] 25 mg PO DAILY 08/05/22 08/05/22 History QUEtiapine [SEROquel] 25 mg PO BID PRN 08/05/22 08/05/22 History Thiamine [Vitamin B-1] 100 mg PO DAILY 08/05/22 08/05/22 History Allergies Allergy/AdvReac Type Severity Reaction Status Date / Time Sulfa (Sulfonamide Allergy Unknown Verified 08/05/22 10:52 Antibiotics) Childhood Physical Exam Vitals: Vital Signs Temp Pulse Pulse Resp BP BP Pulse Ox 08/05/22 08:59 18 08/05/22 08:55 66 08/05/22 08:47 98.1 F 66 18 143/75 93 L 08/05/22 04:00 97.8 F 60 18 130/62 99 08/05/22 02:15 98.3 F 61 17 127/58 100 08/05/22 02:00 16 08/05/22 01:54 81 15 131/71 97 08/04/22 21:25 98.1 F 66 16 124/68 98 Intake and Output 08/04/22 08/05/22 08/05/22 22:59 06:59 14:59 Intake Total 0 Output Total 300 100 Balance -300 -100 Intake: Oral 0 Output: Urine 300 100 Other: Voiding Method Urinal Urinal Diaper Diaper # Voids 3 # Bowel Movements 1 Weight 72.575 kg 72.575 kg 72.575 kg Results 08/04/22 22:39 08/04/22 22:39 Cardiac Enzymes 08/04/22 08/04/22 08/05/22 Range/Units 22:39 22:39 01:27 AST 88 H (17-59) U/L Troponin I 1.080 H* 1.160 H* (0.000-0.034) ng/mL 08/05/22 Range/Units 04:45 AST (17-59) U/L Troponin I 0.943 H* (0.000-0.034) ng/mL Coagulation 08/04/22 Range/Units 22:39 PT 10.5 (9.0-12.0) sec APTT 18.9 L (22.0-30.0) sec CBC 08/04/22 Range/Units 22:39 WBC 15.2 H (3.8-10.6) k/uL RBC 4.15 L (4.30-5.90) m/uL Hgb 14.7 (13.0-17.5) gm/dL Hct 42.1 (39.0-53.0) % Plt Count 174 (150-450) k/uL Comprehensive Metabolic Panel 08/04/22 Range/Units 22:39 Sodium 138 (137-145) mmol/L Potassium 4.8 (3.5-5.1) mmol/L Chloride 102 (98-107) mmol/L Carbon Dioxide 25 (22-30) mmol/L BUN 27 H (9-20) mg/dL Creatinine 0.89 (0.66-1.25) mg/dL Glucose 112 H (74-99) mg/dL Calcium 9.4 (8.4-10.2) mg/dL AST 88 H (17-59) U/L ALT 35 (4-49) U/L Alkaline Phosphatase 89 (38-126) U/L Total Protein 6.6 (6.3-8.2) g/dL Albumin 4.0 (3.5-5.0) g/dL Current Medications Generic Name Dose Route Start Last Admin Trade Name Freq PRN Reason Stop Dose Admin Alprazolam 0.25 mg 08/05/22 00:22 08/05/22 02:46 Alprazolam 0.25 Mg Tab PO 0.25 mg Q6HR PRN Administration Anxiety Amlodipine Besylate 2.5 mg 08/05/22 09:00 08/05/22 11:03 Amlodipine 2.5 Mg Tab PO Not Given DAILY STEPHEN Aspirin 81 mg 08/05/22 09:00 08/05/22 11:03 Aspirin 81 Mg PO Not Given DAILY STEPHEN Atorvastatin Calcium 20 mg 08/05/22 21:00 Atorvastatin 20 Mg Tab PO HS STEPHEN Donepezil HCl 10 mg 08/05/22 21:00 Donepezil 10 Mg Tab PO HS STEPHEN Famotidine 20 mg 08/05/22 09:00 08/05/22 11:03 Famotidine 20 Mg Tab PO Not Given DAILY STEPHEN Folic Acid 1 mg 08/05/22 09:00 08/05/22 11:04 Folic Acid 1 Mg Tab PO Not Given DAILY STEPHEN Furosemide 20 mg 08/05/22 09:00 08/05/22 11:04 Furosemide 20 Mg Tab PO Not Given DAILY [facility] Heparin Sodium/Sodium Chloride 250 mls @ 8.709 mls/hr 08/05/22 00:30 08/05/22 02:47 25,000 unit/ Sodium Chloride IV 12 units/kg/hr .Q24H STEPHEN 8.709 mls/hr Administration Protocol 12 UNITS/KG/HR Sodium Chloride 1,000 mls @ 20 mls/hr 08/05/22 00:30 08/05/22 04:48 Saline 0.9% IV Not Given .Q24H STEPHEN Sodium Chloride 1,000 mls @ 75 mls/hr 08/05/22 09:00 08/05/22 11:05 Saline 0.9% IV Not Given .[id number] STEPHEN Isosorbide Mononitrate 30 mg 08/05/22 09:00 08/05/22 11:04 Isosorbide Mononitrate Er 30 Mg Tab.Er.24h PO Not Given DAILY [facility] Losartan Potassium 50 mg 08/05/22 09:00 08/05/22 11:04 Losartan 50 Mg Tab PO Not Given DAILY [facility] Melatonin 5 mg 08/05/22 21:00 Melatonin 5 Mg Tablet PO HS [facility] Metoprolol Tartrate 12.5 mg 08/05/22 09:00 08/05/22 11:04 Metoprolol Tartrate 12.5 Mg Tab PO Not Given DAILY [facility] Naloxone HCl 0.2 mg 08/05/22 00:22 Naloxone 0.4 Mg/Ml 1 Ml Vial IV Q2M PRN Opioid Reversal Nitroglycerin 0.4 mg 08/05/22 00:24 Nitroglycerin Sl Tabs 0.4 Mg Tab SUBLINGUAL Q5M PRN Chest Pain Ondansetron HCl 4 mg 08/05/22 00:22 Ondansetron 4 Mg/2 Ml Vial IVP Q8HR PRN Nausea And Vomiting Spironolactone 12.5 mg 08/05/22 09:00 08/05/22 11:05 Spironolactone 25 Mg Tab PO Not Given DAILY [facility] Temazepam 15 mg 08/05/22 00:22 Temazepam 15 Mg Cap PO HS PRN Insomnia Thiamine HCl 100 mg 08/05/22 09:00 08/05/22 11:05 Thiamine 100 Mg Tab PO Not Given DAILY [facility] Intake and Output 08/04/22 08/05/22 08/05/22 22:59 06:59 14:59 Intake Total 0 Output Total 300 100 Balance -300 -100 Intake: Oral 0 Output: Urine 300 100 Other: Voiding Method Urinal Urinal Diaper Diaper # Voids 3 # Bowel Movements 1 Weight 72.575 kg 72.575 kg 72.575 kg Patient Weight 08/06/22 06:59 Weight 72.575 kg 08/04/22 22:39 08/04/22 22:39
--- NOTE | 2022-08-05 16:02 | P.HPIM ---
History of Present Illness H&P Date: 08/05/22 Chief Complaint: Unconscious This is a pleasant 82-year-old patient who follows with Dr. Bruce Quintanilla. Chronic stable medical conditions include right temporal lobe epilepsy, mild cognitive impairment, CAD with stent, essential hypertension, left ventricular apical thrombus, left nephrectomy, chronic congestive heart failure from systolic dysfunction EF 30-35%. also has been following with Dr. rod from neurology Patient is brought and I was found unconscious on the floor. Patient does not remember how long he was down the. Does not remember circumstances to that. He has bruising around the left eye. Some discomfort of the right shoulder. Does not remember any palpitation chest pain. Has not been dizzy. Only today nurse reported that patient was somewhat confused. Agitated. I came to see the patient actually he was oriented and able to give me history. No tongue biting. Patient's troponin peaked at 1.16 Review of systems: GEN.: Tired EYES: Bruising on the left eye HEENT: None NECK: None RESPIRATORY: None CARDIOVASCULAR: As above GASTROINTESTINAL: None GENITOURINARY: None MUSCULOSKELETAL: Joint pains LYMPHATICS: None HEMATOLOGICAL: None PSYCHIATRY: As above NEUROLOGICAL: No focal neurological symptoms Past medical history to include: Coronary artery disease with stent, hypertension, kidney disease, cardiac left ventricular apical thrombus, left nephrectomy, CHF EF 30-35%, cognitive impairment Social history: Lives alone. Not employed. Denies any uses cigarettes alcohol or any recreational drugs. Family history: Patient doesn't remember Physical examination: VITAL SIGNS: 98.1, 66, 18, 143.75, 93% room air GENERAL: BMI 25.1, laying in bed, awake. EYES: Pupils equal. Conjunctiva normal. Left periorbital bruising HEENT: External appearance of nose and ears normal, oral cavity grossly normal. NECK: JVD not raised; masses not palpable. HEART: First and second heart sounds are normal; no edema. LUNGS: Respiratory rate normal; clear to auscultation. ABDOMEN: Soft, nontender, liver spleen not palpable, no masses palpable. PSYCH: Answering questions appropriately. Mood affect normal NEUROLOGICAL: Cranial nerves grossly intact; no facial asymmetry, power and sensation grossly intact. LYMPHATICS: No lymph nodes palpable in the axilla and neck INVESTIGATIONS, reviewed in the clinical context: EKG tracing personally reviewed by me-normal sinus rhythm, PVC, bradycardia Chest x-ray film personally reviewed by me-some cardiomegaly. Venous prominence WBC 15.2 hemoglobin 14.7 platelets 134 potassium 4.8 creatinine 0.89 Troponin I is 1.08, 1.16, 0.9 Assessment and plan: -Episode of patient being found unconscious. Patient does not recollect any symptoms prior to that or becoming unconscious. He was confused earlier today. rule out arrhythmias. Seizure is in the differential. History of right temporal lobe epileptiform. Does follow with Dr. De Leon outpatient. As troponin is a positive may be silent MA Telemetry. EEG. Consult neurology. 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 Consult cardiology. 2-D echo. -Left periorbital bruising secondary to fall Ice pack as needed -Right temporal lobe epileptiform., History of Currently not on any antiseizure medications. Does follow with neurologist outpatient -Mild cognitive impairment -Coronary artery with stent Aspirin, Lopressor, Cozaar, Imdur, Norvasc -Essential hypertension Lopressor, Cozaar, Norvasc -Left ventricular cardiac apical thrombus, in the past. Patient not on any anticoagulation. Patient does follow with Dr. JOSE JUAN Gates from cardiology. -Left nephrectomy -Chronic congestive heart failure from systolic dysfunction EF 30-35% Lasix 20 mg a day. Aldactone 12.5 daily IV heparin, aspirin, beta redd. Telemetry. EEG. 2-D echo. Consultation to neurology and cardiology. Resume home medications. Discussed with patient. Past Medical History Past Medical History: Coronary Artery Disease (CAD), Chest Pain / Angina, GERD/Reflux, Hearing Disorder / Deafness, Hypertension, Memory Impairment, Myocardial Infarction ([place]), Osteoarthritis (OA) Additional Past Medical History / Comment(s): cardiomyopathy, hepatitis (child), chronic constipation, hemorrhoids, abd pain, elevated liver enzymes., has one ki dney ., pt was hospitalized nov 2020 for carbon monoxide poisoning & possible hx of seizure seen on eeg . , early alzheimers. 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 Past Anesthesia/Blood Transfusion Reactions: No Reported Reaction Date of Last Stent Placement:: unknown Past Psychological History: Depression Additional Psychological History / Comment(s): sister thinks some depression Smoking Status: Never smoker Past Alcohol Use History: None Reported Past Drug Use History: None Reported - Past Family History Father History Unknown: Yes Family Medical History: Cancer Additional Family Medical History / Comment(s): colon cancer Mother History Unknown: Yes Family Medical History: Cancer Additional Family Medical History / Comment(s): oral cancer Medications and Allergies Home Medications Medication Instructions Recorded Confirmed Type Isosorbide Mononitrate ER [Imdur] 30 mg PO DAILY 09/16/14 08/05/22 History Aspirin EC [Ecotrin Low Dose] 81 mg PO DAILY 08/03/19 08/05/22 History Fluticasone Nasal [place] [Flonase 1 spr EA NOSTRIL BID 08/03/19 08/05/22 History Nasal [place]] Losartan [Cozaar] 50 mg PO DAILY #30 tab 08/09/19 08/05/22 Rx Nitroglycerin Sl Tabs [Nitrostat] 0.4 mg SUBLINGUAL Q5M PRN #25 tab 08/09/19 08/05/22 Rx Famotidine [Pepcid] 20 mg PO BID 11/27/20 08/05/22 History Thiamine [Vitamin B-1] 100 mg PO DAILY #30 tab 11/29/20 08/05/22 Rx Folic Acid 1 mg PO DAILY #30 tablet 12/01/20 08/05/22 Rx Donepezil [Aricept] 10 mg PO HS 04/30/21 08/05/22 History Melatonin 5 mg PO HS 10/25/21 08/05/22 History Metoprolol Tartrate [Lopressor] 12.5 mg PO DAILY #60 tab 10/26/21 08/05/22 Rx Spironolactone [Aldactone] 12.5 mg PO DAILY #30 tab 10/26/21 08/05/22 Rx amLODIPine [Norvasc] 2.5 mg PO DAILY #30 tablet 10/26/21 08/05/22 Rx Ascorbic Acid [Vitamin C] 1,000 mg PO DAILY 08/05/22 08/05/22 History Atorvastatin [Lipitor] 20 mg PO HS 08/05/22 08/05/22 History Cyanocobalamin (Vitamin B-12) 1,000 mcg PO DAILY 08/05/22 08/05/22 History [Vitamin B-12] Furosemide [Lasix] 20 mg PO DAILY 08/05/22 08/05/22 History Garlic 1,000 mg PO DAILY 08/05/22 08/05/22 History Montelukast [Singulair] 10 mg PO DAILY 08/05/22 08/05/22 History Pyridoxine [Vitamin B-6] 25 mg PO DAILY 08/05/22 08/05/22 History QUEtiapine [SEROquel] 25 mg PO BID PRN 08/05/22 08/05/22 History Thiamine [Vitamin B-1] 100 mg PO DAILY 08/05/22 08/05/22 History Allergies Allergy/AdvReac Type Severity Reaction Status Date / Time Sulfa (Sulfonamide Allergy Unknown Verified 08/05/22 10:52 Antibiotics) Childhood Physical Exam Vitals: Vital Signs Temp Pulse Pulse Resp BP BP Pulse Ox 08/05/22 08:59 18 08/05/22 08:55 66 08/05/22 08:47 98.1 F 66 18 143/75 93 L 08/05/22 04:00 97.8 F 60 18 130/62 99 08/05/22 02:15 98.3 F 61 17 127/58 100 08/05/22 02:00 16 08/05/22 01:54 81 15 131/71 97 08/04/22 21:25 98.1 F 66 16 124/68 98 Intake and Output 08/04/22 08/05/22 08/05/22 22:59 06:59 14:59 Intake Total 0 Output Total 300 100 Balance -300 -100 Intake: Oral 0 Output: Urine 300 100 Other: Voiding Method Urinal Urinal Diaper Diaper # Voids 3 # Bowel Movements 1 Weight 72.575 kg 72.575 kg Results CBC & Chem 7: 08/04/22 22:39 08/04/22 22:39 Labs: Abnormal Lab Results - Last 24 Hours (Table) 08/04/22 08/04/22 08/04/22 Range/Units 22:39 22:39 22:39 WBC 15.2 H (3.8-10.6) k/uL RBC 4.15 L (4.30-5.90) m/uL MCV 101.5 H (80.0-100.0) fL MCH 35.5 H (25.0-35.0) pg RDW 11.3 L (11.5-15.5) % Neutrophils # 12.5 H (1.3-7.7) k/uL APTT 18.9 L (22.0-30.0) sec BUN 27 H (9-20) mg/dL Glucose 112 H (74-99) mg/dL AST 88 H (17-59) U/L Creatine Kinase 1343 H* (55-170) U/L Troponin I (0.000-0.034) ng/mL 08/04/22 08/05/22 08/05/22 Range/Units 22:39 01:27 04:45 WBC (3.8-10.6) k/uL RBC (4.30-5.90) m/uL MCV (80.0-100.0) fL MCH (25.0-35.0) pg RDW (11.5-15.5) % Neutrophils # (1.3-7.7) k/uL APTT (22.0-30.0) sec BUN (9-20) mg/dL Glucose (74-99) mg/dL AST (17-59) U/L Creatine Kinase (55-170) U/L Troponin I 1.080 H* 1.160 H* 0.943 H* (0.000-0.034) ng/mL Thrombosis Risk Factor Assmnt - Choose All That Apply Each Risk Factor Represents 3 Points: Age 75 years or older Thrombosis Risk Factor Assessment Total Risk Factor Score: 3 Thrombosis Risk Factor Assessment Level: Moderate Risk
[2022-08-05] MEDS: ACETAMINOPHEN TAB 325 MG TAB PO PRN (17:20)
[2022-08-05] MEDS: HEPARIN SODIUM,PORCINE/PF 5,000 UNIT/0.5 ML SYRINGE SQ SCH ×2 (20:45→20:47)
[2022-08-05] MEDS: MELATONIN 5 MG TABLET PO SCH (20:45)
[2022-08-05] MEDS: ATORVASTATIN 20 MG TAB PO SCH (20:45)
[2022-08-05] MEDS: DONEPEZIL 10 MG TAB PO SCH (20:45)
[2022-08-05] MEDS: QUEtiapine 25 MG TAB PO PRN (21:59)
[2022-08-06] MEDS: SODIUM CHLORIDE 0.9% 1,000 ML IV SCH ×3 (02:14→08:29)
--- NOTE | 2022-08-06 02:33 | EEG ---
ELECTROENCEPHALOGRAM REPORT PREAMBLE: This is an 82-year-old male with history of seizure disorder, was found on the floor at home. He had a syncopal episode. CURRENT MEDICATIONS: 1. Xanax. 2. Norvasc. 3. Aspirin. 4. Lipitor. 5. Aricept. 6. Pepcid. 7. Folic acid. 8. Lasix. 9. Imdur. 10.Cozaar. 11.Melatonin. 12.Lopressor. 13.Zofran. 14.Aldactone. 15.Restoril. 16.Vitamin B1. EEG FINDINGS: This is a 21-channel digital EEG recorded with video component, utilizing 10/20 international system with referential and bipolar montages. Background consists of well-developed and regulated mixed frequencies of low-voltage fast frequency beta intermixed with some alpha activity seen in bihemispheric region. Background seems to be reactive to eye opening and closing. Photic stimulation was not performed. Different stages of sleep were not seen. No definitive focal or generalized epileptiform activity was seen. IMPRESSION: This is a mildly abnormal EEG due to presence of excessive amount of low-voltage fast frequency beta activity seen in bihemispheric region. This is suggestive of medication effect. No epileptiform activity was seen in this study. MMODL / IJN: [id number] /
[2022-08-06] MEDS: SPIRONOLACTONE 25 MG TAB PO SCH (08:28)
[2022-08-06] MEDS: FUROSEMIDE 20 MG TAB PO SCH (08:28)
[2022-08-06] MEDS: FAMOTIDINE 20 MG TAB PO SCH (08:28)
[2022-08-06] MEDS: ASPIRIN 81 MG PO SCH (08:28)
[2022-08-06] MEDS: THIAMINE 100 MG TAB PO SCH (08:28)
[2022-08-06] MEDS: ISOSORBIDE MONONITRATE ER 30 MG TAB.ER.24H PO SCH (08:28)
[2022-08-06] MEDS: amLODIPine 2.5 MG TAB PO SCH (08:28)
[2022-08-06] MEDS: FOLIC ACID 1 MG TAB PO SCH (08:28)
[2022-08-06] MEDS: METOPROLOL TARTRATE 12.5 MG TAB PO SCH (08:28)
[2022-08-06] MEDS: LOSARTAN 50 MG TAB PO SCH (08:28)
[2022-08-06] MEDS: HEPARIN SODIUM,PORCINE/PF 5,000 UNIT/0.5 ML SYRINGE SQ SCH ×3 (08:29→20:41)
[2022-08-06 09:19] LABS: Appearance,Urine Clear (Clear); Bilirubin,Urine Negative (Negative); Blood,Urine Negative (Negative); Color,Urine Light Yellow; Glucose,Urine (UA) Negative (Negative); Ketones,Urine Negative (Negative); Leukocyte Esterase,Urine Negative (Negative); Nitrite,Urine Negative (Negative); PH, Urine 6.5 (5.0-8.0); Protein,Urine Negative (Negative); Specific Gravity,Urine 1.012 (1.001-1.035); Urobilinogen,Urine <2.0 mg/dL (<2.0)
--- NOTE | 2022-08-06 09:20 | P.CNNES ---
History of Present Illness Consult date: 08/05/22 Requesting physician: Carlos Enrique Carrera Reason for Consult: Unconscious History of Present Illness: Patient is a 82-year-old male with history of cognitive impairment, previous history of possible seizure in November 2020, with abnormal EEG came to the hospital yesterday at 8:56 PM for episode of fall. Patient stated that he passed out, doesn't know if he had a seizure. Patient is hard of hearing. I spoke to patient's sister on the phone, who states that patient had a fall, but does not know how it happened. He woke up on the floor. He was down for about 3 hours, as he could not get up from the floor. He suffered from injury to his back, right shoulder. Patient's sister mentions that he had carbon monoxide poisoning in 2019 (although per records that happened actually in November 2020). Since then he has been confused, but with some cognitive impairment. Patient was seen by myself on 11/28/2020, when he had presented with altered mental status. At that time his furnace went out and he was using the gas stove in the house. The next thing he remembers is waking up in the hospital. He had an EEG which was abnormal due to presence of epileptic focus involving the right temporal region. This is suggestive of focal cortical neuronal dysfunction with underlying cortical irritability and tendency for seizures. Patient was placed on Keppra 500 mg twice a day. Per patient's sister, he followed up with Dr. Sweeney, who ran a bunch of test and no seizures were found on the testing. Keppra was disc ontinued. He was doing well, living by himself, prepares his own meals, walks without any difficulty. He was fine until this event happened that led him to the hospital. Vital signs arrival blood pressure 124/68% 60 temperature 98.1. Blood test shows WC 15.2, hemoglobin 14.7 with elevated MCV 101.5. Platelets are 174. PT/PTT is normal. Electrolytes are normal. BUN 27 creatinine 0.89. Troponins are elevated 1.080. AST is elevated 88, normal ALT 35. UA negative. Patient started on heparin. Patient's last B12 is 961 on 11/29/2020 with vitamin B1 92 which is normal. Methylmalonic acid 0.29, folate 18.2. CT head showed cerebral atrophy typical for age. No acute intracranial abnormality. I personally reviewed CT head, agree with the findings. CT of the cervical spine reported as multilevel cervical spondylotic changes. No fracture, no acute bony abnormality. Patient had a negative pelvic x-ray, lumbar, thoracic, right shoulder, right elbow x-rays. Facial CT revealed bilateral nasal bone fracture. No displacement. Age of the fractures is not clear since there is no si gnificant soft tissue swelling. Patient was seen by myself on the previous admission 11/30/2020. Patient was diagnosed with seizure disorder, probable complex partial seizures. Patient has possible mild cognitive impairment. Patient had an EEG on 11/29/2020 which was abnormal due to presence of epileptiform involving the right temporal region. This suggestive of focal cortical neuronal dysfunction with underlying cortical irritability and tendency for focal onset seizures. This EEG could be considered an interictal expression of localization related epilepsy. EKG channel revealed arrhythmia. Patient was started on Keppra 500 mg twice a day. Patient apparently did not taking any antiseizure medication. Patient is on aspirin 81 mg thiamine, folic acid, donepezil 10 mg, Seroquel B12, B6, besides other cardiac medications. Review of Systems Constitutional: Denies chills, Denies fever Eyes: denies blurred vision, denies pain Ears: bilateral: decreased hearing, deny: ear discharge Ears, nose, mouth and throat: Denies headache, Denies sore throat Cardiovascular: Denies chest pain, Denies shortness of breath Respiratory: Denies cough Gastrointestinal: Denies abdominal pain, Denies diarrhea, Denies nausea, Denies vomiting Musculoskeletal: Denies myalgias Musculoskeletal: right: shoulder pain, shoulder stiffness Integumentary: Denies pruritus, Denies rash Neurological: Reports as per HPI Psychiatric: Reports memory loss, Denies anxiety, Denies depression Endocrine: Denies fatigue, Denies weight change Hematologic/Lymphatic: Denies easy bruising Allergic/Immunologic: Denies persistent infections Past Medical History Past Medical History: Coronary Artery Disease (CAD), Chest Pain / Angina, GERD/Reflux, Hearing Disorder / Deafness, Hypertension, Memory Impairment, Myocardial Infarction ([place]), Osteoarthritis (OA) Additional Past Medical History / Comment(s): cardiomyopathy, hepatitis (child), chronic constipation, hemorrhoids, abd pain, elevated liver enzymes., has one kidney ., pt was hospitalized nov 2020 for carbon monoxide poisoning & possible hx of seizure seen on eeg . , early alzheimers. 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 Past Anesthesia/Blood Transfusion Reactions: No Reported Reaction Date of Last Stent Placement:: unknown Past Psychological History: Depression Additional Psychological History / Comment(s): sister thinks some depression Smoking Status: Never smoker Past Alcohol Use History: None Reported Past Drug Use History: None Reported - Past Family History Father History Unknown: Yes Family Medical History: Cancer Additional Family Medical History / Comment(s): colon cancer Mother History Unknown: Yes Family Medical History: Cancer Additional Family Medical History / Comment(s): oral cancer Medications and Allergies Home Medications Medication Instructions Recorded Confirmed Type Isosorbide Mononitrate ER [Imdur] 30 mg PO DAILY 09/16/14 08/05/22 History Aspirin EC [Ecotrin Low Dose] 81 mg PO DAILY 08/03/19 08/05/22 History Fluticasone Nasal [place] [Flonase 1 spr EA NOSTRIL BID 08/03/19 08/05/22 History Nasal [place]] Losartan [Cozaar] 50 mg PO DAILY #30 tab 08/09/19 08/05/22 Rx Nitroglycerin Sl Tabs [Nitrostat] 0.4 mg SUBLINGUAL Q5M PRN #25 tab 08/09/19 08/05/22 Rx Famotidine [Pepcid] 20 mg PO BID 11/27/20 08/05/22 History Thiamine [Vitamin B-1] 100 mg PO DAILY #30 tab 11/29/20 08/05/22 Rx Folic Acid 1 mg PO DAILY #30 tablet 12/01/20 08/05/22 Rx Donepezil [Aricept] 10 mg PO HS 04/30/21 08/05/22 History Melatonin 5 mg PO HS 10/25/21 08/05/22 History Metoprolol Tartrate [Lopressor] 12.5 mg PO DAILY #60 tab 10/26/21 08/05/22 Rx Spironolactone [Aldactone] 12.5 mg PO DAILY #30 tab 10/26/21 08/05/22 Rx amLODIPine [Norvasc] 2.5 mg PO DAILY #30 tablet 10/26/21 08/05/22 Rx Ascorbic Acid [Vitamin C] 1,000 mg PO DAILY 08/05/22 08/05/22 History Atorvastatin [Lipitor] 20 mg PO HS 08/05/22 08/05/22 History Cyanocobalamin (Vitamin B-12) 1,000 mcg PO DAILY 08/05/22 08/05/22 History [Vitamin B-12] Furosemide [Lasix] 20 mg PO DAILY 08/05/22 08/05/22 History Garlic 1,000 mg PO DAILY 08/05/22 08/05/22 History Montelukast [Singulair] 10 mg PO DAILY 08/05/22 08/05/22 History Pyridoxine [Vitamin B-6] 25 mg PO DAILY 08/05/22 08/05/22 History QUEtiapine [SEROquel] 25 mg PO BID PRN 08/05/22 08/05/22 History Thiamine [Vitamin B-1] 100 mg PO DAILY 08/05/22 08/05/22 History Allergies Allergy/AdvReac Type Severity Reaction Status Date / Time Sulfa (Sulfonamide Allergy Unknown Verified 08/05/22 10:52 Antibiotics) Childhood Physical Examination - Vital Signs Vital Signs: Vital Signs Temp Pulse Pulse Resp BP BP Pulse Ox 08/05/22 12:29 98.5 F 63 19 128/62 97 08/05/22 08:59 18 08/05/22 08:55 66 08/05/22 08:47 98.1 F 66 18 143/75 93 L 08/05/22 04:00 97.8 F 60 18 130/62 99 08/05/22 02:15 98.3 F 61 17 127/58 100 08/05/22 02:00 16 08/05/22 01:54 81 15 131/71 97 08/04/22 21:25 98.1 F 66 16 124/68 98 Intake and Output 08/04/22 08/05/22 08/05/22 22:59 06:59 14:59 Intake Total 0 Output Total 300 100 Balance -300 -100 Intake: Oral 0 Output: Urine 300 100 Other: Voiding Method Urinal Urinal Diaper Diaper # Voids 3 # Bowel Movements 1 Weight 72.575 kg 72.575 kg 72.575 kg Patient is an elderly male, in no acute distress. Patient is alert awake, states it is 08/08/2022 and that he is in the hospital but does not know the name of the hospital. He knows he is in [facility] and name of the current president. Speech and language functions are normal. Patient can name and repeat very well. No aphasia or dysarthria. Attention, concentration and fund of knowledge is adequate. On cranial nerve examination, pupils are equal, round and reacting to light, visual mcclure are full on confrontation, with no neglect on double simultaneous depression. Extraocular muscles are intact with no nystagmus. Face is symmetric, tongue protrudes to the midline. Palatal elevation and sensation normal, hearing is at least moderately decreased and shoulder shrug normal (painful right), facial sensation normal. Patient has a left black eye. On muscle strength testing, his right arm is very tender, painful and weak proximally. I could not check his biceps deltoid and triceps on the right because of the pain. On the left side his deltoid is 5-4+, triceps 5-, biceps 5, liquor commissioner 5 bilaterally. Hip flexion is 5-right, 5 left. Ankle dorsiflexion 5 bilaterally. Deep tendon reflexes are symmetric 1 at the biceps, 1 brachioradialis, 2 at the knees, 1 at ankles and plantars downgoing bilaterally. Sensory to touch is equal with no neglect on double simultaneous stimulation. Cerebellar function showed no ataxia for [id number] testing on the left, cannot perform on the right because of pain. Tone and bulk of muscles normal. Gait deferred.. On general examination, there is no carotid bruit or murmur, S1-S2 audible. Chest is clear on consultation. Abdomen is soft nontender. No organomegaly, bowel sounds present. Peripheral pulses are present. No edema. Results - Laboratory Findings CBC and BMP: 08/04/22 22:39 08/04/22 22:39 Abnormal Lab Findings: Abnormal Labs 08/04/22 08/04/22 10 22:39 22:39 22:39 WBC 15.2 H RBC 4.15 L MCV 101.5 H MCH 35.5 H RDW 11.3 L Neutrophils # 12.5 H APTT 18.9 L BUN 27 H Glucose 112 H AST 88 H Creatine Kinase 1343 H* Troponin I 08/04/22 08/05/22 08/05/22 22:39 01:27 04:45 WBC RBC MCV MCH RDW Neutrophils # APTT BUN Glucose AST Creatine Kinase Troponin I 1.080 H* 1.160 H* 0.943 H* 08/05/22 13:49 WBC RBC MCV MCH RDW Neutrophils # APTT 91.5 H BUN Glucose AST Creatine Kinase Troponin I Assessment and Plan Assessment: * Status post fall, with some loss of memory, unclear cause. * Previous history of possible carbon monoxide poisoning in November 2020, with prolonged episode of amnesia. EEG was abnormal with epileptiform activity over the right temporal region at that time. Currently not on any AED. * Elevated cardiac enzymes, cardiology on board * Coronary artery disease, * Hypertension * Rhabdomyolysis * Mild cognitive impairment Plan: * EEG was performed today, which was mildly abnormal due to presence of excessive amount of low voltage fast frequency beta activity suggestive of medication effect. No epileptiform activity was seen. * I discussed with patient's sister on the phone. Patient had an abnormal EEG on 11/28/2020, with evidence of epileptiform activity on the right side. Aislinn ent was placed on Keppra at that time, but was subsequently discontinued by his neurologist Dr. Sweeney after outpatient testing performed in his office. His episode of amnesia in November 2020 was attributed to possible carbon monoxide poisoning. I discussed with patient's sister about empiric resuming AED, but she does not believe patient had a seizure. She wants to hold off on it. * Orthopedic surgical consultation for right shoulder pain, possible rotator cuff tear. * Patient's telemetry monitoring showing sinus rhythm, sinus bradycardia, with some PVCs, PACs. Patient's cardiac enzymes are also mildly elevated. Cardiology on board, rule out arrhythmia. * Carotid Doppler. * Neurology will follow. Thank you for the consult.
[2022-08-06 10:24] LABS: HCT 36.7 % (39.0-53.0); HGB 12.6 gm/dL (13.0-17.5); MCH 35.1 pg (25.0-35.0); MCHC 34.3 g/dL (31.0-37.0); MCV 102.3 fL (80.0-100.0); Platelet Count 150 k/uL (150-450); RBC 3.59 m/uL (4.30-5.90); RDW 11.7 % (11.5-15.5); WBC 9.8 k/uL (3.8-10.6)
--- NOTE | 2022-08-06 10:30 | US ---
EXAMINATION TYPE: US carotid duplex BILAT DATE OF EXAM: 08/06/2022 COMPARISON: 11/28/2020 CLINICAL HISTORY: Syncope vs seizure. Poor historian. TECHNIQUE: Carotid duplex ultrasound examination. Indirect Doppler criteria was utilized. FINDINGS: EXAM MEASUREMENTS: RIGHT: Peak Systolic Velocity (PSV) cm/sec ----- Right CCA: 51.9 ----- Right ICA: 60.7 ----- Right ECA: 82.3 ICA/CCA ratio: 1.2 RIGHT: End Diastole cm/sec ----- Right CCA: 0.0 ----- Right ICA: 17.8 ----- Right ECA: 0.0 LEFT: Peak Systolic Velocity (PSV) cm/sec ----- Left CCA: 57.0 ----- Left ICA: 74.6 ----- Left ECA: 73.5 ICA/CCA ratio: 1.3 LEFT: End Diastole cm/sec ----- Left CCA: 5.4 ----- Left ICA: 9.8 ----- Left ECA: 0.0 VERTEBRALS (direction of flow): Right Vertebral: Antegrade Left Vertebral: Antegrade Rhythm: Arrhythmia EMBROIDERY PATTERNMAKER NOTES: Plaque in bilateral bulbs. Wall thickening. No significant stenosis. Elevated r ight proximal CCA. IMPRESSION: Atherosclerotic plaque with no significant hemodynamic stenosis as visualized. Criteria for Assigning % of Stenosis / Diameter reduction (Estimation based on the indirect measurements of the internal carotid artery velocities (ICA PSV). 1. Normal (no stenosis)=ICA PSV < 125 cm/s: ratio < 2.0: ICA EDV<40 cm/s. 2. Less than 50% stenosis=ICA PSV < 125 cm/s: ratio < 2.0: ICA EDV<40 cm/s. 3. 50 to 69% stenosis=ICA PSV of 125 to 230 cm/s: ration 2.0 ? 4.0: ICA EDV 40-100 cm/s. 4. Greater than 70% stenosis to near occlusion= ICA PSV > 230 cm/s: ratio > 4.0: ICA EDV > 100 cm/s. 5. Near occlusion= ICA PSV velocities may be low or undetectable: variable ratio and ICA EDV. 6. Total occlusion=unable to detect flow.
[2022-08-06 10:42] LABS: ALT 45 U/L (4-49); AST 98 U/L (17-59); African American GFR (CKD) >90 (>60 ml/min/1.73 sqM); Albumin 3.2 g/dL (3.5-5.0); Alkaline Phosphatase 87 U/L (38-126); Anion Gap 10 mmol/L; Blood Urea Nitrogen 22 mg/dL (9-20); Calcium 8.4 mg/dL (8.4-10.2); Carbon Dioxide 21 mmol/L (22-30); Chloride 108 mmol/L (98-107); Glucose 93 mg/dL (74-99); Magnesium 1.9 mg/dL (1.6-2.3); Non-African American GFR(CKD) 82 (>60 ml/min/1.73 sqM); Potassium 4.1 mmol/L (3.5-5.1); Sodium 139 mmol/L (137-145); Total Bilirubin 1.1 mg/dL (0.2-1.3); Total Protein 5.6 g/dL (6.3-8.2)
[2022-08-06 10:45] LABS: Creatine Kinase 1401 U/L (55-170)
--- NOTE | 2022-08-06 10:47 | CA ---
Transthoracic Echo Report Name: Grey Rendon Age: 82 Gender: M : 1940 Exam Date: 08/06/2022 08:26 Exam Location: [facility] Ht (in): 67 Wt (lb): 170 Ordering Physician: Sharri Levin Attending/Referring Phys: [id number], Ollie Thread Winder Inga Key, [facility] Procedure CPT: Indications: LV function Cardiac Hx: Technical Quality: Good Contrast 1: Total Dose (mL): Contrast 2: Total Dose (mL): MEASUREMENTS (Male / Female) Normal Values 2D ECHO LV Diastolic Diameter PLAX 4.4 cm 4.2 - 5.9 / 3.9 - 5.3 cm LV Systolic Diameter PLAX 2.7 cm IVS Diastolic Thickness 1.2 cm 0.6 - 1.0 / 0.6 - 0.9 cm LVPW Diastolic Thickness 1.1 cm 0.6 - 1.0 / 0.6 - 0.9 cm LV Relative Wall Thickness 0.5 RV Internal Dim ED PLAX 3.2 cm LA Systolic Diameter LX 3.4 cm 3.0 - 4.0 / 2.7 - 3.8 cm M-MODE Aortic Root Diameter MM 3.7 cm MV E Point Septal Separation 0.7 cm AV Cusp Separation MM 1.7 cm DOPPLER AV Peak Velocity 168.0 cm/s AV Peak Gradient 11.3 mmHg AI Peak Velocity 318.4 cm/s AI Peak Gradient 40.5 mmHg AI Pressure Half Time 683.6 ms MV Area PHT 4.5 cm??? Mitral E Point Velocity 83.0 cm/s Mitral A Point Velocity 84.0 cm/s Mitral E to A Ratio 1.0 MV Deceleration Time 169.9 ms MV E' Velocity 8.5 cm/s Mitral E to MV E' Ratio 9.7 TR Peak Velocity 273.9 cm/s TR Peak Gradient 30.0 mmHg Right Ventricular Systolic Press 34.5 mmHg FINDINGS Left Ventricle Left ventricular ejection fraction is estimated at 55-60 %. Left ventricular cavity size normal. Borderline left ventricular hypertrophy. Right Ventricle Normal right ventricular size and function. Right Atrium Normal right atrial size. Left Atrium Normal left atrial size. No evidence for an atrial septal defect. Mitral Valve Mild mitral regurgitation.structurally normal mitral valve. Aortic Valve Focal thickening of the aortic valve cusps. Mild aortic regurgitation. Tricuspid Valve Mild tricuspid regurgitation.structurally normal tricuspid valve. Pulmonic Valve Trace pulmonic regurgitation. Pericardium Normal pericardium. No pericardial effusion. Aorta Normal size aortic root and proximal ascending aorta. CONCLUSIONS 1. Normal ventricle size and systolic function 2. Mild mitral, aortic and tricuspid regurgitation 3. No pericardial effusion Previewed by: Dr. Luke Frausto MD (Electronically Signed) Final Date: 06 August 2022 10:46
--- NOTE | 2022-08-06 14:40 | P.PN ---
Progress Note - Text Progress Note Date: 08/06/22 Chief Complaint: Unconscious This is a pleasant 82-year-old patient who follows with Dr. Bruce Quintanilla. Chronic stable medical conditions include right temporal lobe epilepsy, mild cognitive impairment, CAD with stent, essential hypertension, left ventricular apical thrombus, left nephrectomy, chronic congestive heart failure from systolic dysfunction EF 30-35%. also has been following with Dr. rod from neurology Patient is brought and I was found unconscious on the floor. Patient does not remember how long he was down the. Does not remember circumstances to that. He has bruising around the left eye. Some discomfort of the right shoulder. Does not remember any palpitation chest pain. Has not been dizzy. Only today nurse reported that patient was somewhat confused. Agitated. I came to see the patient actually he was oriented and able to give me history. No tongue biting. Patient's troponin peaked at 1.16 August 5: Laying in bed. Comfortable. Discussed with Dr. Castro from neurology. We do feel patient's episode of passing out and post-episode confusion is from seizure. This was discussed with the patient and the patient's sister. AGREEABLE TO PROCEED WITH ANTIEPILEPTIC DRUGS. Orthopedics consulted for right shoulder as he is finding it difficult to quit after his fall. Possibly rotator cuff injury. PTOT on the case. Active Medications Acetaminophen (Acetaminophen Tab 325 Mg Tab) 650 mg PO Q6HR PRN PRN Reason: Fever and/ or Pain Last Admin: 08/05/22 17:20 Dose: 650 mg Alprazolam (Alprazolam 0.25 Mg Tab) 0.25 mg PO Q6HR PRN PRN Reason: Anxiety Last Admin: 08/05/22 20:45 Dose: 0.25 mg Amlodipine Besylate (Amlodipine 2.5 Mg Tab) 2.5 mg PO DAILY [facility] Last Admin: 08/06/22 08:28 Dose: 2.5 mg Aspirin (Aspirin 81 Mg) 81 mg PO DAILY [facility] Last Admin: 08/06/22 08:28 Dose: 81 mg Atorvastatin Calcium (Atorvastatin 20 Mg Tab) 20 mg PO HS [facility] Last Admin: 08/05/22 20:45 Dose: 20 mg Donepezil HCl (Donepezil 10 Mg Tab) 10 mg PO HS [facility] Last Admin: 08/05/22 20:45 Dose: 10 mg Famotidine (Famotidine 20 Mg Tab) 20 mg PO DAILY [facility] Last Admin: 08/06/22 08:28 Dose: 20 mg Folic Acid (Folic Acid 1 Mg Tab) 1 mg PO DAILY [facility] Last Admin: 08/06/22 08:28 Dose: 1 mg Furosemide (Furosemide 20 Mg Tab) 20 mg PO DAILY [facility] Last Admin: 08/06/22 08:28 Dose: 20 mg Heparin Sodium (Porcine) (Heparin Sodium,Porcine/Pf 5,000 Unit/0.5 Ml Syringe) 5,000 unit SQ Q12HR [facility] Last Admin: 08/06/22 08:29 Dose: 5,000 unit Heparin Sodium (Porcine) (Heparin Sodium,Porcine/Pf 5,000 Unit/0.5 Ml Syringe) 5,000 unit SQ Q12HR [facility] Last Admin: 08/06/22 08:29 Dose: Not Given Sodium Chloride (Saline 0.9%) 1,000 mls @ 20 mls/hr IV .Q24H [facility] Last Admin: 08/06/22 06:22 Dose: Not Given Sodium Chloride (Saline 0.9%) 1,000 mls @ 75 mls/hr IV .[id number] [facility] Last Admin: 08/06/22 08:29 Dose: 75 mls/hr Isosorbide Mononitrate (Isosorbide Mononitrate Er 30 Mg Tab.Er.24h) 30 mg PO DAILY [facility] Last Admin: 08/06/22 08:28 Dose: 30 mg Losartan Potassium (Losartan 50 Mg Tab) 50 mg PO DAILY [facility] Last Admin: 08/06/22 08:28 Dose: 50 mg Melatonin (Melatonin 5 Mg Tablet) 5 mg PO HS [facility] Last Admin: 08/05/22 20:45 Dose: Not Given Metoprolol Tartrate (Metoprolol Tartrate 12.5 Mg Tab) 12.5 mg PO DAILY [facility] Last Admin: 08/06/22 08:28 Dose: 12.5 mg Naloxone HCl (Naloxone 0.4 Mg/Ml 1 Ml Vial) 0.2 mg IV Q2M PRN PRN Reason: Opioid Reversal Nitroglycerin (Nitroglycerin Sl Tabs 0.4 Mg Tab) 0.4 mg SUBLINGUAL Q5M PRN PRN Reason: Chest Pain Ondansetron HCl (Ondansetron 4 Mg/2 Ml Vial) 4 mg IVP Q8HR PRN PRN Reason: Nausea And Vomiting Quetiapine Fumarate (Quetiapine 25 Mg Tab) 25 mg PO BID PRN PRN Reason: HALLUCINATIONS/AGITATION Last Admin: 08/05/22 21:59 Dose: 25 mg Spironolactone (Spironolactone 25 Mg Tab) 12.5 mg PO DAILY [facility] Last Admin: 08/06/22 08:28 Dose: 12.5 mg Temazepam (Temazepam 15 Mg Cap) 15 mg PO HS PRN PRN Reason: Insomnia Last Admin: 08/05/22 20:45 Dose: 15 mg Thiamine HCl (Thiamine 100 Mg Tab) 100 mg PO DAILY [facility] Last Admin: 08/06/22 08:28 Dose: 100 mg Past medical history to include: Coronary artery disease with stent, hypertension, kidney disease, cardiac left ventricular apical thrombus, left nephrectomy, CHF EF 30-35%, cognitive impairment Social history: Lives alone. Not employed. Denies any uses cigarettes alcohol or any recreational drugs. Family history: Patient doesn't remember Physical examination: VITAL SIGNS: 98.1, 69, 18, 10 6 x 62, 98% room air GENERAL: Laying in bed, awake, comfortable EYES: Pupils equal. Conjunctiva normal. Left periorbital bruising HEENT: External appearance of nose and ears normal, oral cavity grossly normal. NECK: JVD not raised; masses not palpable. HEART: First and second heart sounds are normal; no edema. LUNGS: Respiratory rate normal; clear to auscultation. ABDOMEN: Soft, nontender, liver spleen not palpable, no masses palpable. PSYCH: Answering questions appropriately. Mood affect normal NEUROLOGICAL: Cranial nerves grossly intact; no facial asymmetry, power and sensation grossly intact. MUSCULAR skeletal: Limited range of motion right shoulder LYMPHATICS: No lymph nodes palpable in the axilla and neck INVESTIGATIONS, reviewed in the clinical context: August 06: White count 9.8 hemoglobin 12.6 platelets 150 sodium 139 potassium 4.1 creatinine 0.85 CPK 1401 EKG tracing personally reviewed by me-normal sinus rhythm, PVC, bradycardia Chest x-ray film personally reviewed by me-some cardiomegaly. Venous prominence WBC 15.2 hemoglobin 14.7 platelets 134 potassium 4.8 creatinine 0.89 Troponin I is 1.08, 1.16, 0.9 Assessment and plan: -Episode of unconsciousness felt to be possibly seizure. Followed by a postictal period where patient was confused. She had a positive EEG in the temporal lobe on the last admission here. Discussed with patient and his sister Jocelin. Agreeable to start AED. Follow outpatient with neurology. follow with neurologist outpatient -Acute right shoulder limited range of motion secondary to fall. Possibly rotator cuff injury. Consult orthopedics -Troponin positive from acute rhabdomyolysis Evaluated by cardiology -Acute rhabdomyolysis secondary to fall -Left periorbital bruising secondary to fall Ice pack as needed -Mild cognitive impairment Aricept -Coronary artery with stent Aspirin, Lopressor, Cozaar, Imdur, Norvasc -Essential hypertension Lopressor, Cozaar, Norvasc -Left ventricular cardiac apical thrombus, in the past. Patient not on any anticoagulation. Patient does follow with Dr. JOSE JUAN Gates from cardiology. -Left nephrectomy -Chronic congestive heart failure from systolic dysfunction EF 30-35% Lasix 20 mg a day. Aldactone 12.5 daily aspirin, beta redd. Follow with neurology and cardiology. Start AED. Consult orthopedics for right shoulder. Total time spent today about 45 minutes with over 25 minutes of discussion.
--- NOTE | 2022-08-06 17:48 | P.CNOR ---
History of Present Illness - [facility] Consult date: 08/06/22 Requesting physician: Carlos Enrique Carrera Consult reason: other (Right shoulder pain) History of present illness: Patient is an 82-year-old male with a history of epilepsy, CAD, hypertension, C HF who presented the hospital and [facility] on 08/04/2022 after being found on the ground at home after having apparent syncopal episode. Patient presented with injuries to right shoulder and face. Patient was seen at bedside this afternoon lying in semirecumbent position. Patient is unsure of when he fell. Orthopedics has been consult for right shoulder pain. Patient says he has had a history of right shoulder pain but he cannot recall when this right shoulder pain began. Patient says this right shoulder pain is only increased since she came to the hospital. Patient says he has pain mainly in his right shoulder although it does radiate down his right arm. Patient rates pain as 7/10 currently. Patient says the pain is worse when he tries to move any part of his right arm. Patient does not complain of pain anywhere else at this time. Patient denies any previous orthopedic surgical history. X-rays of the right shoulder and right elbow performed when patient came to the ER are negative for any fractures. There is some mild spurring in the acromioclavicular joint. Negative for any shoulder dislocation. Patient denies chest pain, fever, shortness of breath, nausea, vomiting, change in vision, loss of bowel/bladder control. Past Medical History Past Medical History: Coronary Artery Disease (CAD), Chest Pain / Angina, G ERD/Reflux, Hearing Disorder / Deafness, Hypertension, Memory Impairment, Myocardial Infarction ([place]), Osteoarthritis (OA) Additional Past Medical History / Comment(s): cardiomyopathy, hepatitis (child), chronic constipation, hemorrhoids, abd pain, elevated liver enzymes., has one kidney ., pt was hospitalized nov 2020 for carbon monoxide poisoning & possible hx of seizure seen on eeg . , early alzheimers. 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 Past Anesthesia/Blood Transfusion Reactions: No Reported Reaction Date of Last Stent Placement:: unknown Past Psychological History: Depression Additional Psychological History / Comment(s): sister thinks some depression Smoking Status: Never smoker Past Alcohol Use History: None Reported Past Drug Use History: None Reported - Past Family History Father History Unknown: Yes Family Medical History: Cancer Additional Family Medical History / Comment(s): colon cancer Mother History Unknown: Yes Family Medical History: Cancer Additional Family Medical History / Comment(s): oral cancer Medications and Allergies Home Medications Medication Instructions Recorded Confirmed Type Isosorbide Mononitrate ER [Imdur] 30 mg PO DAILY 09/16/14 08/05/22 History Aspirin EC [Ecotrin Low Dose] 81 mg PO DAILY 08/03/19 08/05/22 History Fluticasone Nasal Golden [Flonase 1 spr EA NOSTRIL BID 08/03/19 08/05/22 History Nasal Golden] Losartan [Cozaar] 50 mg PO DAILY #30 tab 08/09/19 08/05/22 Rx Nitroglycerin Sl Tabs [Nitrostat] 0.4 mg SUBLINGUAL Q5M PRN #25 tab 08/09/19 08/05/22 Rx Famotidine [Pepcid] 20 mg PO BID 11/27/20 08/05/22 History Thiamine [Vitamin B-1] 100 mg PO DAILY #30 tab 11/29/20 08/05/22 Rx Folic Acid 1 mg PO DAILY #30 tablet 12/01/20 08/05/22 Rx Donepezil [Aricept] 10 mg PO HS 04/30/21 08/05/22 History Melatonin 5 mg PO HS 10/25/21 08/05/22 History Metoprolol Tartrate [Lopressor] 12.5 mg PO DAILY #60 tab 10/26/21 08/05/22 Rx Spironolactone [Aldactone] 12.5 mg PO DAILY #30 tab 10/26/21 08/05/22 Rx amLODIPine [Norvasc] 2.5 mg PO DAILY #30 tablet 10/26/21 08/05/22 Rx Ascorbic Acid [Vitamin C] 1,000 mg PO DAILY 08/05/22 08/05/22 History Atorvastatin [Lipitor] 20 mg PO HS 08/05/22 08/05/22 History Cyanocobalamin (Vitamin B-12) 1,000 mcg PO DAILY 08/05/22 08/05/22 History [Vitamin B-12] Furosemide [Lasix] 20 mg PO DAILY 08/05/22 08/05/22 History Garlic 1,000 mg PO DAILY 08/05/22 08/05/22 History Montelukast [Singulair] 10 mg PO DAILY 08/05/22 08/05/22 History Pyridoxine [Vitamin B-6] 25 mg PO DAILY 08/05/22 08/05/22 History QUEtiapine [SEROquel] 25 mg PO BID PRN 08/05/22 08/05/22 History Thiamine [Vitamin B-1] 100 mg PO DAILY 08/05/22 08/05/22 History Allergies Allergy/AdvReac Type Severity Reaction Status Date / Time Sulfa (Sulfonamide Allergy Unknown Verified 08/05/22 10:52 Antibiotics) Childhood Physical Examination Osteopathic Statement: *. No significant issues noted on an osteopathic structural exam other than those noted in the History and Physical/Consult. Inspection: Negative for any open fractures, ulcers. Ecchymosis present around the left orbit and diffusely throughout the right shoulder. Sensation: Sensation is equal, symmetric, bilaterally intact throughout the upper and lower extremities. Palpation: moderate TTP over the right AC joint. Significant TTP along posterior and anterior glenohumeral region on RUE. Fair amount TTP along right elbow over olecranon. Some mild TTP diffusely throughout lumbar spine. NTTP throughout rest of exam Range of motion: Patient has full range of motion in bilateral lower extremities and left upper extremity on exam. Patient does have severely limited range of motion right upper extremity in right shoulder forward elevation, abduction, external and internal rotation and elbow flexion/extension due to pain Motor: 5/5 in all major motor groups in left upper extremity and bilateral lower extremities. 3/5 in right upper extremity in resisted wrist flexion/extension, elbow flexion/extension, shoulder abduction and forward elevation Special tests: Negative Homans bilaterally; negative Hoffmans bilaterally; negative clonus bilaterally. Neurovascular status: Radial pulses intact bilaterally. Capillary refill under 3 seconds in digits the upper extremities Results - Labs Labs: Abnormal Lab Results - Last 24 Hours (Table) 08/05/22 08/06/22 08/06/22 Range/Units 13:49 08:56 08:56 RBC 3.59 L (4.30-5.90) m/uL Hgb 12.6 L (13.0-17.5) gm/dL Hct 36.7 L (39.0-53.0) % MCV 102.3 H (80.0-100.0) fL MCH 35.1 H (25.0-35.0) pg APTT 91.5 H (22.0-30.0) sec Chloride 108 H (98-107) mmol/L Carbon Dioxide 21 L (22-30) mmol/L BUN 22 H (9-20) mg/dL AST 98 H (17-59) U/L Creatine Kinase 1401 H* (55-170) U/L Total Protein 5.6 L (6.3-8.2) g/dL Albumin 3.2 L (3.5-5.0) g/dL H & H 08/04/22 08/06/22 Range/Units 22:39 08:56 Hgb 14.7 12.6 L (13.0-17.5) gm/dL Hct 42.1 36.7 L (39.0-53.0) % Coagulation 08/04/22 Range/Units 22:39 INR 1.0 (<1.2) Result Diagrams: 08/06/22 08:56 08/06/22 08:56 Assessment and Plan Assessment: 1. Right shoulder pain 2. Status post fall from standing Patient seen and examined, I reviewed the note, discussed the case with the PA first hand and agree with the assessment and plan of ARLENE Benz. Please see my notes below for any additional recommendations. Plan: 1. Right shoulder pain - patient seen at bedside this afternoon. X-ray of right shoulder and right elbow show no fractures and negative for dislocations. There is some mild acromioclavicular joint spurring. At this time we are not recommending any emergent/urgent orthopedic surgical intervention. We are recom mending conservative treatment via the use of pain medication and ice applied to shoulder. We'll continue to follow patient while in the hospital. We do recommend patient to follow-up in the outpatient setting for further evaluation of his right shoulder. 2. Appreciate medical management 3. Pain management - Tylenol 4. DVT prophylaxis - heparin; aspirin 5. GI prophylaxis - Pepcid 6. PT/OT - WBAT; perform gentle ROM exercises to RUE 7. Appreciate consult Time with Patient: Less than 30
[2022-08-06] MEDS: ACETAMINOPHEN TAB 325 MG TAB PO PRN (20:40)
[2022-08-06] MEDS: LACOSAMIDE 50 MG TABLET PO SCH (20:41)
[2022-08-06] MEDS: DONEPEZIL 10 MG TAB PO SCH (20:41)
[2022-08-06] MEDS: QUEtiapine 25 MG TAB PO PRN (20:41)
[2022-08-06] MEDS: ATORVASTATIN 20 MG TAB PO SCH (20:41)
[2022-08-06] MEDS: MELATONIN 5 MG TABLET PO SCH (20:41)
[2022-08-07] MEDS: SODIUM CHLORIDE 0.9% 1,000 ML IV SCH ×2 (06:24→12:25)
--- NOTE | 2022-08-07 08:06 | PN ---
PROGRESS NOTE SUBJECTIVE: Mr. Rendon has CAD stable with previous intervention. He came in to the hospital with either a seizure or a neurological event, but he is doing well. No further issues. Cardiac-williamson, he is stable. His troponin elevation does not suggest myocardial injury. Echocardiogram reveals fairly well preserved LV systolic function. OBJECTIVE: VITALS: Stable. NECK: No JVD. HEART: S1-S2 heard normally. Short systolic murmur noted. LUNGS: Clear. ABDOMEN: Exam unchanged. LOWER EXTREMITIES: Exam unchanged. PLAN: To continue current medication and he can be discharged whenever okayed by the admitting doctor. I will see the patient as needed. MMODL / IJN: [id number] /
[2022-08-07] MEDS: METOPROLOL TARTRATE 12.5 MG TAB PO SCH (08:10)
[2022-08-07] MEDS: FOLIC ACID 1 MG TAB PO SCH (08:10)
[2022-08-07] MEDS: FAMOTIDINE 20 MG TAB PO SCH (08:11)
[2022-08-07] MEDS: THIAMINE 100 MG TAB PO SCH (08:11)
[2022-08-07] MEDS: ISOSORBIDE MONONITRATE ER 30 MG TAB.ER.24H PO SCH (08:11)
[2022-08-07] MEDS: amLODIPine 2.5 MG TAB PO SCH (08:11)
[2022-08-07] MEDS: FUROSEMIDE 20 MG TAB PO SCH (08:12)
[2022-08-07] MEDS: LACOSAMIDE 50 MG TABLET PO SCH (08:12)
[2022-08-07] MEDS: LOSARTAN 50 MG TAB PO SCH (08:13)
[2022-08-07] MEDS: ASPIRIN 81 MG PO SCH (08:13)
[2022-08-07] MEDS: SPIRONOLACTONE 25 MG TAB PO SCH (08:13)
[2022-08-07] MEDS: ACETAMINOPHEN TAB 325 MG TAB PO PRN ×2 (08:17→12:24)
[2022-08-07] MEDS: HEPARIN SODIUM,PORCINE/PF 5,000 UNIT/0.5 ML SYRINGE SQ SCH (08:20)
--- NOTE | 2022-08-07 10:25 | P.PN ---
Subjective Progress Note Date: 08/06/22 Patient was seen for follow-up. Patient tells me that he does not remember what happened with the episode of unresponsiveness. He states that he "woke up laying in his piss all over in his living room on the wooden floor". He has no idea whatsoever what happened, and how long was seen laying on the floor. He did not bite his tongue, as he is edentulous. He does remember that he in the morning prior to this event, he took his morning medications. Then he does not remember details for rest of the day. Objective - Vital Signs Vital signs: Vital Signs Temp 98.1 F 08/06/22 12:00 Pulse 69 08/06/22 12:00 Resp 18 08/06/22 12:00 BP 106/62 08/06/22 12:00 Pulse Ox 98 08/06/22 12:00 FiO2 Intake & Output 08/05/22 08/06/22 08/06/22 18:59 06:59 18:59 Intake Total 180 720 Output Total 100 300 775 Balance 80 -300 -55 Weight 72.575 kg Intake: Oral 180 720 Output: Urine 100 300 775 Other: Voiding Method Urinal Urinal Urinal Diaper Diaper Diaper # Voids 2 # Bowel Movements 1 - Exam Patient is alert and awake. Speech and language functions are normal. Examination remains unchanged. - Labs CBC & Chem 7: 08/06/22 08:56 08/06/22 08:56 Labs: Abnormal Lab Results - Last 24 Hours (Table) 08/06/22 08/06/22 Range/Units 08:56 08:56 RBC 3.59 L (4.30-5.90) m/uL Hgb 12.6 L (13.0-17.5) gm/dL Hct 36.7 L (39.0-53.0) % MCV 102.3 H (80.0-100.0) fL MCH 35.1 H (25.0-35.0) pg Chloride 108 H (98-107) mmol/L Carbon Dioxide 21 L (22-30) mmol/L BUN 22 H (9-20) mg/dL AST 98 H (17-59) U/L Creatine Kinase 1401 H* (55-170) U/L Total Protein 5.6 L (6.3-8.2) g/dL Albumin 3.2 L (3.5-5.0) g/dL Assessment and Plan Assessment: * Status post fall, with significant period of amnesia, exact cause remains uncertain. Unwitnessed seizure with postictal state is definitely a possibility. * Previous history of possible ?carbon monoxide poisoning in November 2020, with prolonged episode of amnesia. EEG in the previous admission was abnormal with epileptiform activity over the right temporal region at that time. His AED (Keppra) was discontinued by his primary physician after undergoing outpatient testing in the office. * Elevated cardiac enzymes, cardiology on board * Coronary artery disease, * Hypertension * Rhabdomyolysis * Mild cognitive impairment Plan: * EEG 08/05/2022 was mildly abnormal due to presence of excessive amount of low voltage fast frequency beta activity suggestive of medication effect. No epileptiform activity was seen. * It appears patient may had an unwitnessed seizure, as he had a clearcut abnormal EEG in the past. Discussed with primary physician in detail. We will resume AED. Instead of Keppra, we will start Vimpat 50 mg twice a day for 7 days and then increase to 100 mg twice a day and continue. * Orthopedic surgical consultation for right shoulder pain, possible rotator cuff tear. * Carotid Doppler revealed atherosclerotic plaque with no significant hemodynamic stenosis. Antegrade flow in both vertebral arteries. * 2-D echo revealed normal left ventricular size and systolic function with EF 55-60%, mild mitral, aortic and tricuspid regurgitation. Left atrial size is normal. * Neurologically clear otherwise.
--- NOTE | 2022-08-07 11:26 | P.DS ---
Providers Date of admission: 08/05/22 00:22 Expected date of discharge: 08/07/22 Attending physician: Carlos Enrique Carrera Consults: 08/05/22 00:23 Consult Physician Routine Consulting Provider: Radames Gates Consult Reason/Comments: NSTEMI Do you want consulting provider notified?: Yes, Notify in am 08/05/22 11:24 Consult Physician Routine Consulting Provider: Rosalina Rodriguez Consult Reason/Comments: unconscious Do you want consulting provider notified?: Yes 08/06/22 11:01 Consult Physician Routine Consulting Provider: Tam James Consult Reason/Comments: RIGHT SHOULDER PAIN Do you want consulting provider notified?: Yes Primary care physician: [facility] Course: Chief Complaint: Unconscious This is a pleasant 82-year-old patient who follows with Dr. Bruce Quintanilla. Chronic stable medical conditions include right temporal lobe epilepsy, mild cognitive impairment, CAD with stent, essential hypertension, left ventricular apical thrombus, left nephrectomy, chronic congestive heart failure from systolic dysfunction EF 30-35%. also has been following with Dr. rod from neurology Patient is brought and I was found unconscious on the floor. Patient does not remember how long he was down the. Does not remember circumstances to that. He has bruising around the left eye. Some discomfort of the right shoulder. Does not remember any palpitation chest pain. Has not been dizzy. Only today nurse reported that patient was somewhat confused. Agitated. I came to see the patient actually he was oriented and able to give me history. No tongue biting. Patient's troponin peaked at 1.16 August 06: Laying in bed. Comfortable. Discussed with Dr. Castro from neurology. We do feel patient's episode of passing out and post-episode confusion is from seizure. This was discussed with the patient and the patient's sister. AGREEABLE TO PROCEED WITH ANTIEPILEPTIC DRUGS. Orthopedics consulted for right shoulder as he is finding it difficult to quit after his fall. Possibly rotator cuff injury. PTOT on the case. August 07: Started on Vimpat yesterday. Eating good. Will be going to rehab at [facility]. 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 Seen by orthopedics Dr. James. To follow up outpatient. Outpatient follow-up with neurology Discussion and discharge planning more than 35 minutes Past medical history to include: Coronary artery disease with stent, hypertension, kidney disease, cardiac left ventricular apical thrombus, left nephrectomy, CHF EF 30-35%, cognitive impairment Social history: Lives alone. Not employed. Denies any uses cigarettes alcohol or any recreational drugs. Family history: Patient doesn't remember Physical examination: VITAL SIGNS: 97.9, 72, 14, 1 37 x 6 59, 95% room air GENERAL: Laying in bed, awake, comfortable EYES: Pupils equal. Conjunctiva normal. Left periorbital bruising HEENT: External appearance of nose and ears normal, oral cavity grossly normal. NECK: JVD not raised; masses not palpable. HEART: First and second heart sounds are normal; no edema. LUNGS: Respiratory rate normal; clear to auscultation. ABDOMEN: Soft, nontender, liver spleen not palpable, no masses palpable. PSYCH: Answering questions appropriately. Mood affect normal NEUROLOGICAL: Cranial nerves grossly intact; no facial asymmetry, power and sensation grossly intact. MUSCULAR skeletal: Limited range of motion right shoulder INVESTIGATIONS, reviewed in the clinical context: August 06: White count 9.8 hemoglobin 12.6 platelets 150 sodium 139 potassium 4.1 creatinine 0.85 CPK 1401 EKG tracing personally reviewed by me-normal sinus rhythm, PVC, bradycardia Chest x-ray film personally reviewed by me-some cardiomegaly. Venous prominence WBC 15.2 hemoglobin 14.7 platelets 134 potassium 4.8 creatinine 0.89 Troponin I is 1.08, 1.16, 0.9 Assessment and plan: -Episode of unconsciousness felt to be possibly seizure. Followed by a postictal period where patient was confused. had a positive EEG in the temporal lobe on the last admission here. Discussed with neurology, patient and his sister Jocelin. Agreeable to start AED. follow with neurologi outpatient Vimpat 50 mg twice a day -Acute right shoulder limited range of motion secondary to fall. Possibly rotator cuff injury. Seen by Dr. James. Ice pack. Follow up outpatient -Troponin positive from acute rhabdomyolysis Evaluated by cardiology -Acute rhabdomyolysis secondary to fall -Left periorbital bruising secondary to fall Ice pack as needed -Mild cognitive impairment Aricept -Coronary artery with stent Aspirin, Lopressor, Cozaar, Imdur, Norvasc -Essential hypertension Lopressor, Cozaar, Norvasc -Left ventricular cardiac apical thrombus, in the past. Patient not on any anticoagulation. Patient does follow with Dr. JOSE JUAN Gates from cardiology. -Left nephrectomy -Chronic congestive heart failure from systolic dysfunction EF 30-35% Lasix 20 mg a day. Aldactone 12.5 daily Disposition: [place] Plan - Discharge Summary New Discharge Prescriptions: New Lacosamide [Vimpat] 50 mg PO BID #6 tab Continue Isosorbide Mononitrate ER [Imdur] 30 mg PO DAILY Fluticasone Nasal [place] [Flonase Nasal [place]] 1 spr EA NOSTRIL BID Aspirin EC [Ecotrin Low Dose] 81 mg PO DAILY Losartan [Cozaar] 50 mg PO DAILY #30 tab Nitroglycerin Sl Tabs [Nitrostat] 0.4 mg SUBLINGUAL Q5M PRN #25 tab PRN Reason: Chest Pain Famotidine [Pepcid] 20 mg PO BID Thiamine [Vitamin B-1] 100 mg PO DAILY #30 tab Folic Acid 1 mg PO DAILY #30 tablet Donepezil [Aricept] 10 mg PO HS Metoprolol Tartrate [Lopressor] 12.5 mg PO DAILY #60 tab amLODIPine [Norvasc] 2.5 mg PO DAILY #30 tablet QUEtiapine [SEROquel] 25 mg PO BID PRN PRN Reason: HALLUCINATIONS/AGITATION Cyanocobalamin (Vitamin B-12) [Vitamin B-12] 1,000 mcg PO DAILY Furosemide [Lasix] 20 mg PO DAILY Pyridoxine [Vitamin B-6] 25 mg PO DAILY Ascorbic Acid [Vitamin C] 1,000 mg PO DAILY Melatonin 5 mg PO HS Spironolactone [Aldactone] 12.5 mg PO DAILY #30 tab Montelukast [Singulair] 10 mg PO DAILY Atorvastatin [Lipitor] 20 mg PO HS Thiamine [Vitamin B-1] 100 mg PO DAILY No Action Garlic 1,000 mg PO DAILY Discharge Medication List Isosorbide Mononitrate ER [Imdur] 30 mg PO DAILY 09/16/14 [History] Aspirin EC [Ecotrin Low Dose] 81 mg PO DAILY 08/03/19 [History] Fluticasone Nasal [place] [Flonase Nasal [place]] 1 spr EA NOSTRIL BID 08/03/19 [History] Losartan [Cozaar] 50 mg PO DAILY #30 tab 08/09/19 [Rx] Nitroglycerin Sl Tabs [Nitrostat] 0.4 mg SUBLINGUAL Q5M PRN #25 tab 08/09/19 [Rx] Famotidine [Pepcid] 20 mg PO BID 11/27/20 [History] Thiamine [Vitamin B-1] 100 mg PO DAILY #30 tab 11/29/20 [Rx] Folic Acid 1 mg PO DAILY #30 tablet 12/01/20 [Rx] Donepezil [Aricept] 10 mg PO HS 04/30/21 [History] Melatonin 5 mg PO HS 10/25/21 [History] Metoprolol Tartrate [Lopressor] 12.5 mg PO DAILY #60 tab 10/26/21 [Rx] Spironolactone [Aldactone] 12.5 mg PO DAILY #30 tab 10/26/21 [Rx] amLODIPine [Norvasc] 2.5 mg PO DAILY #30 tablet 10/26/21 [Rx] Ascorbic Acid [Vitamin C] 1,000 mg PO DAILY 08/05/22 [History] Atorvastatin [Lipitor] 20 mg PO HS 08/05/22 [History] Cyanocobalamin (Vitamin B-12) [Vitamin B-12] 1,000 mcg PO DAILY 08/05/22 [History] Furosemide [Lasix] 20 mg PO DAILY 08/05/22 [History] Garlic 1,000 mg PO DAILY 08/05/22 [History] Montelukast [Singulair] 10 mg PO DAILY 08/05/22 [History] Pyridoxine [Vitamin B-6] 25 mg PO DAILY 08/05/22 [History] QUEtiapine [SEROquel] 25 mg PO BID PRN 08/05/22 [History] Thiamine [Vitamin B-1] 100 mg PO DAILY 08/05/22 [History] Lacosamide [Vimpat] 50 mg PO BID #6 tab 08/07/22 [Rx] Follow up Appointment(s)/Referral(s): Bruce Unger DO [Primary Care Provider] - 1-2 days
[2022-08-07 12:05] VITALS: BP 118/56; PULSE 63; RESP 15; TEMP 98.3
== END 2022-08-07 15:35 | DRG 101 ==
LOC: EC 20:56 → 3SCARD 08-05 00:22
PROVIDERS: ADMIT Hospitalist; ATTEND Hospitalist
DX: G40.209 Localization-related (focal) (partial) symptomatic epilepsy and epileptic syndromes with complex partial seizures, not intractable, without status epilepticus (principal); F02.83 Dementia in other diseases classified elsewhere, unspecified severity, with mood disturbance; I42.9 Cardiomyopathy, unspecified; I50.22 Chronic systolic (congestive) heart failure; F02.84 Dementia in other diseases classified elsewhere, unspecified severity, with anxiety; G30.0 Alzheimer's disease with early onset; I51.3 Intracardiac thrombosis, not elsewhere classified; I11.0 Hypertensive heart disease with heart failure; S02.2XXA Fracture of nasal bones, initial encounter for closed fracture; T79.6XXA Traumatic ischemia of muscle, initial encounter; Z20.822 Contact with and (suspected) exposure to COVID-19; K75.9 Inflammatory liver disease, unspecified; E78.5 Hyperlipidemia, unspecified; F32.A Depression, unspecified; F41.9 Anxiety disorder, unspecified; I25.10 Atherosclerotic heart disease of native coronary artery without angina pectoris; K59.09 Other constipation; K21.9 Gastro-esophageal reflux disease without esophagitis; H91.90 Unspecified hearing loss, unspecified ear; G47.00 Insomnia, unspecified; R32 Unspecified urinary incontinence; I25.2 Old myocardial infarction; S00.12XA Contusion of left eyelid and periocular area, initial encounter; M25.511 Pain in right shoulder; R77.8 Other specified abnormalities of plasma proteins; M19.90 Unspecified osteoarthritis, unspecified site; Z79.82 Long term (current) use of aspirin; Z79.899 Other long term (current) drug therapy; Z95.5 Presence of coronary angioplasty implant and graft; Z90.5 Acquired absence of kidney; Z60.2 Problems related to living alone; Z88.2 Allergy status to sulfonamides; W19.XXXA Unspecified fall, initial encounter; Y92.009 Unspecified place in unspecified non-institutional (private) residence as the place of occurrence of the external cause
CPT/HCPCS: 36415; 70450; 70486; 71045; 72070; 72100; 72125; 72170; 80053; 81003; 82550; 83735; 84484; 85025; 85027; 85610; 85730; 87635; 93306; 93880; 95816; 99285; 99291

== ENCOUNTER 2022-08-18 11:17 | Inpatient (IN) | payer MEDICARE ==
[2022-08-18] MEDS ORDERED: SODIUM CHLORIDE 0.9% 1,000 ML IV STA (11:51)
[2022-08-18] MEDS ORDERED: DIPH,PERTUS(ACELL)TETVAC-LF 0.5 ML VIAL IM ONE (11:53)
--- NOTE | 2022-08-18 11:55 | ED ---
General Adult HPI - General Chief complaint: Fall Stated complaint: FALL Time Seen by Provider: 08/18/22 11:20 Source: patient, EMS, RN notes reviewed Mode of arrival: EMS Limitations: no limitations - History of Present Illness Initial comments: Patient is a pleasant 82-year-old male presenting to the emergency department for syncopal episode. Patient was at rehab for shoulder injury. Patient did have a syncopal episode within the past couple of weeks. Patient did fall and strike his head. Patient states only minimal discomfort of his forehead. Patient does complain of diffuse pain. Patient has been having shoulder pain that he relates to rotator cuff problem. No abdominal or chest pain. Patient does have some back pain. Patient does admit to having some neck pain. - Related Data Home Medications Medication Instructions Recorded Confirmed Isosorbide Mononitrate ER [Imdur] 30 mg PO DAILY@0800 09/16/14 08/18/22 Aspirin EC [Ecotrin Low Dose] 81 mg PO DAILY@1700 08/03/19 08/18/22 Fluticasone Nasal [place] [Flonase 1 spr EA NOSTRIL BID@0800,1700 08/03/19 08/18/22 Nasal [place]] Famotidine [Pepcid] 20 mg PO BID@0800,1700 11/27/20 08/18/22 Donepezil [Aricept] 10 mg PO HS 04/30/21 08/18/22 Melatonin 5 mg PO HS 10/25/21 08/18/22 Ascorbic Acid [Vitamin C] 1,000 mg PO DAILY@1200 08/05/22 08/18/22 Atorvastatin [Lipitor] 20 mg PO HS 08/05/22 08/18/22 Cyanocobalamin (Vitamin B-12) 1,000 mcg PO DAILY@1200 08/05/22 08/18/22 [Vitamin B-12] Furosemide [Lasix] 20 mg PO DAILY@0800 08/05/22 08/18/22 Montelukast [Singulair] 10 mg PO DAILY@0800 08/05/22 08/18/22 Pyridoxine [Vitamin B-6] 25 mg PO DAILY@1200 08/05/22 08/18/22 QUEtiapine [SEROquel] 25 mg PO DAILY@0800 08/05/22 08/18/22 Acetaminophen [Tylenol 8 Hour] 650 mg PO Q4H PRN 08/18/22 08/18/22 Folic Acid 1 mg PO DAILY@1200 08/18/22 08/18/22 Garlic 1,000 mg PO DAILY@1200 08/18/22 08/18/22 Lacosamide [Vimpat] 50 mg PO BID@0800,2100 08/18/22 08/18/22 Loratadine 10 mg PO DAILY PRN 08/18/22 08/18/22 Losartan [Cozaar] 50 mg PO HS 08/18/22 08/18/22 Magnesium Hydroxide [Milk of 7,200 mg PO Q48H PRN 08/18/22 08/18/22 Magnesia Concentrate] Metoprolol Tartrate [Lopressor] 12.5 mg PO DAILY@0800 08/18/22 08/18/22 Na Phos,M-B/Na Phos,Di-Ba [Fleet 133 ml RECTAL DAILY PRN 08/18/22 08/18/22 Adult] Nitroglycerin Sl Tabs [Nitrostat] 0.4 mg SL Q5M PRN 08/18/22 08/18/22 QUEtiapine [SEROquel] 25 mg PO DAILY PRN 08/18/22 08/18/22 Spironolactone [Aldactone] 12.5 mg PO DAILY@0800 08/18/22 08/18/22 Thiamine [Vitamin B-1] 100 mg PO DAILY@1200 08/18/22 08/18/22 amLODIPine [Norvasc] 2.5 mg PO DAILY@0800 08/18/22 08/18/22 bisacodyL [Dulcolax] 10 mg RECTAL DAILY PRN 08/18/22 08/18/22 Allergies Allergy/AdvReac Type Severity Reaction Status Date / Time Sulfa (Sulfonamide Allergy Unknown Verified 08/18/22 12:46 Antibiotics) Childhood Review of Systems ROS Statement: Those systems with pertinent positive or pertinent negative responses have been documented in the HPI. ROS Other: All systems not noted in ROS Statement are negative. Constitutional: Denies: fever Eyes: Denies: eye pain ENT: Denies: ear pain Respiratory: Denies: cough Cardiovascular: Denies: chest pain Endocrine: Denies: fatigue Gastrointestinal: Denies: abdominal pain Genitourinary: Denies: dysuria Musculoskeletal: Reports: as per HPI Skin: Denies: rash Neurological: Denies: headache Past Medical History Past Medical History: Coronary Artery Disease (CAD), Chest Pain / Angina, GERD/Reflux, Hearing Disorder / Deafness, Hypertension, Memory Impairment, Myocardial Infarction (RI), Osteoarthritis (OA) Additional Past Medical History / Comment(s): cardiomyopathy, hepatitis (child), chronic constipation, hemorrhoids, abd pain, elevated liver enzymes., has one kidney ., pt was hospitalized nov 2020 for carbon monoxide poisoning & possible hx of seizure seen on eeg . , early alzheimers. 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 Past Anesthesia/Blood Transfusion Reactions: No Reported Reaction Date of Last Stent Placement:: unknown Past Psychological History: Depression Smoking Status: Never smoker Past Alcohol Use History: None Reported Past Drug Use History: None Reported - Past Family History Father History Unknown: Yes Family Medical History: Cancer Additional Family Medical History / Comment(s): colon cancer Mother History Unknown: Yes Family Medical History: Cancer Additional Family Medical History / Comment(s): oral cancer General Exam Limitations: no limitations General appearance: alert, in no apparent distress Head exam: Present: other (Forehead and facial abrasion) Eye exam: Present: normal appearance, PERRL, EOMI ENT exam: Present: normal oropharynx Neck exam: Present: normal inspection, tenderness (Mild diffuse tenderness) Respiratory exam: Present: normal lung sounds bilaterally, chest wall tenderness (Right upper near the shoulder) Cardiovascular Exam: Present: bradycardia Expanded Peripheral pulses: 2+: Radial (R), Radial (L), Posterior Tibialis (R), Posterior Tibialis (L) GI/Abdominal exam: Present: soft, tenderness (Mild diffuse tenderness). Absent: pulsatile mass Extremities exam: Present: full ROM, tenderness (Right proximal humerus and shoulder). Absent: calf tenderness Back exam: Present: normal inspection, tenderness (Mild diffuse) Neurological exam: Present: alert, oriented X3, CN II-XII intact. Absent: motor sensory deficit Psychiatric exam: Present: normal affect, normal mood Skin exam: Present: abrasion Course Vital Signs 08/18/22 08/18/22 11:18 13:42 Temperature 97.8 F Pulse Rate 57 L 56 L Respiratory 18 18 Rate Blood Pressure 108/59 103/66 O2 Sat by Pulse 96 97 Oximetry EKG Findings - EKG Comments: EKG Findings:: A. fib with bradycardia rate 49. QRS 102. QT 452. QTC 423. Normal axis. Normal QRS. No acute ST change. PVC present. Medical Decision Making - Medical Decision Making Case discussed Dr. Carrera who is familiar with this patient does recommend full admission - Lab Data Result diagrams: 08/18/22 12:19 08/18/22 12:30 Lab Results 08/18/22 08/18/22 08/18/22 Range/Units 12:19 12:19 12:30 WBC 10.9 H (3.8-10.6) k/uL RBC 3.55 L (4.30-5.90) m/uL Hgb 12.8 L (13.0-17.5) gm/dL Hct 36.7 L (39.0-53.0) % MCV 103.5 H (80.0-100.0) fL MCH 36.0 H (25.0-35.0) pg MCHC 34.8 (31.0-37.0) g/dL RDW 11.9 (11.5-15.5) % Plt Count 245 (150-450) k/uL MPV 8.4 Neutrophils % 79 % Lymphocytes % 12 % Monocytes % 4 % Eosinophils % 2 % Basophils % 0 % Neutrophils # 8.6 H (1.3-7.7) k/uL Lymphocytes # 1.3 (1.0-4.8) k/uL Monocytes # 0.5 (0-1.0) k/uL Eosinophils # 0.3 (0-0.7) k/uL Basophils # 0.0 (0-0.2) k/uL Macrocytosis Slight PT 11.2 (9.0-12.0) sec INR 1.0 (<1.2) APTT 20.4 L (22.0-30.0) sec Sodium 138 (137-145) mmol/L Potassium 4.7 (3.5-5.1) mmol/L Chloride 107 (98-107) mmol/L Carbon Dioxide 22 (22-30) mmol/L Anion Gap 9 mmol/L BUN 20 (9-20) mg/dL Creatinine 1.01 (0.66-1.25) mg/dL Est GFR (CKD-EPI)AfAm 80 (>60 ml/min/1.73 sqM) Est GFR (CKD-EPI)NonAf 70 (>60 ml/min/1.73 sqM) Glucose 91 (74-99) mg/dL Calcium 8.4 (8.4-10.2) mg/dL Magnesium 2.0 (1.6-2.3) mg/dL Total Bilirubin 0.9 (0.2-1.3) mg/dL AST 38 (17-59) U/L ALT 31 (4-49) U/L Alkaline Phosphatase 119 (38-126) U/L Troponin I (0.000-0.034) ng/mL Total Protein 6.1 L (6.3-8.2) g/dL Albumin 3.6 (3.5-5.0) g/dL Urine Color Urine Appearance (Clear) Urine pH (5.0-8.0) Ur Specific Fletcher (1.001-1.035) Urine Protein (Negative) Urine Glucose (UA) (Negative) Urine Ketones (Negative) Urine Blood (Negative) Urine Nitrite (Negative) Urine Bilirubin (Negative) Urine Urobilinogen (<2.0) mg/dL Ur Leukocyte Esterase (Negative) 08/18/22 08/18/22 Range/Units 12:30 13:42 WBC (3.8-10.6) k/uL RBC (4.30-5.90) m/uL Hgb (13.0-17.5) gm/dL Hct (39.0-53.0) % MCV (80.0-100.0) fL MCH (25.0-35.0) pg MCHC (31.0-37.0) g/dL RDW (11.5-15.5) % Plt Count (150-450) k/uL MPV Neutrophils % % Lymphocytes % % Monocytes % % Eosinophils % % Basophils % % Neutrophils # (1.3-7.7) k/uL Lymphocytes # (1.0-4.8) k/uL Monocytes # (0-1.0) k/uL Eosinophils # (0-0.7) k/uL Basophils # (0-0.2) k/uL Macrocytosis PT (9.0-12.0) sec INR (<1.2) APTT (22.0-30.0) sec Sodium (137-145) mmol/L Potassium (3.5-5.1) mmol/L Chloride (98-107) mmol/L Carbon Dioxide (22-30) mmol/L Anion Gap mmol/L BUN (9-20) mg/dL Creatinine (0.66-1.25) mg/dL Est GFR (CKD-EPI)AfAm (>60 ml/min/1.73 sqM) Est GFR (CKD-EPI)NonAf (>60 ml/min/1.73 sqM) Glucose (74-99) mg/dL Calcium (8.4-10.2) mg/dL Magnesium (1.6-2.3) mg/dL Total Bilirubin (0.2-1.3) mg/dL AST (17-59) U/L ALT (4-49) U/L Alkaline Phosphatase (38-126) U/L Troponin I <0.012 (0.000-0.034) ng/mL Total Protein (6.3-8.2) g/dL Albumin (3.5-5.0) g/dL Urine Color Colorless Urine Appearance Clear (Clear) Urine pH 5.0 (5.0-8.0) Ur Specific [place] 1.006 (1.001-1.035) Urine Protein Negative (Negative) Urine Glucose (UA) Negative (Negative) Urine Ketones Negative (Negative) Urine Blood Negative (Negative) Urine Nitrite Negative (Negative) Urine Bilirubin Negative (Negative) Urine Urobilinogen <2.0 (<2.0) mg/dL Ur Leukocyte Esterase Negative (Negative) - Radiology Data Radiology results: report reviewed (Computed tomography scan of the chest shows no evidence of pulmonary embolism. Cardiomegaly and tiny effusions, correlate for CHF. Computed tomography scan abdomen and pelvis shows no traumatic sequelae. Computed tomography scan brain and C-spine shows small soft tissue h ematoma. No fracture. N), image reviewed (X-ray right humerus reveals no acute abnormality) Disposition Clinical Impression: Syncope Disposition: ADMITTED IP TO THIS HOSP Is patient prescribed a controlled substance at d/c from ED?: No Referrals: UngerBruce matos DO [Primary Care Provider] - 1-2 days Time of Disposition: 15:24
[2022-08-18] MEDS ORDERED: MORPHINE SULFATE 2 MG/ML SYRINGE IVP STA (11:56)
[2022-08-18 12:25] LABS: Basophils % (A) 0 %; Eosinophils # (A) 0.3 k/uL (0-0.7); Eosinophils % (A) 2 %; HCT 36.7 % (39.0-53.0); HGB 12.8 gm/dL (13.0-17.5); Lymphocytes # (A) 1.3 k/uL (1.0-4.8); Lymphocytes % (A) 12 %; MCHC 34.8 g/dL (31.0-37.0); MCV 103.5 fL (80.0-100.0); Macrocytosis Slight; Mean Platelet Volume 8.4; Monocytes # (A) 0.5 k/uL (0-1.0); Monocytes % (A) 4 %; Neutrophils # (A) 8.6 k/uL (1.3-7.7); Neutrophils % (A) 79 %; Platelet Count 245 k/uL (150-450); RBC 3.55 m/uL (4.30-5.90); RDW 11.9 % (11.5-15.5); WBC 10.9 k/uL (3.8-10.6)
[2022-08-18 12:44] LABS: Partial Thromboplastin Time 20.4 sec (22.0-30.0); Prothrombin Time 11.2 sec (9.0-12.0)
[2022-08-18 12:57] LABS: Albumin 3.6 g/dL (3.5-5.0); Calcium 8.4 mg/dL (8.4-10.2); Total Bilirubin 0.9 mg/dL (0.2-1.3); Total Protein 6.1 g/dL (6.3-8.2)
[2022-08-18 13:01] LABS: Potassium 4.7 mmol/L (3.5-5.1)
--- NOTE | 2022-08-18 13:49 | CT ---
EXAMINATION TYPE: CT brain cspine wo con CT DLP: 1326.2 mGycm, Automated exposure control for dose reduction was used. DATE OF EXAM: 08/18/2022 1:38 PM COMPARISON: CT brain C-spine 08/04/2022. CLINICAL INDICATION:Male, 82 years old with history of syncope; syncope TECHNIQUE: Brain: Multiple axial CT images of the brain were obtained without IV contrast. Cspine: Axial CT images from the skull base to the inferior aspect of T2 we obtained without intraven ous contrast. Coronal and sagittal reformatted images were also reviewed. FINDINGS: Brain: Extra-axial spaces: No abnormal extra-axial fluid collections. Ventricular system: Within normal limits Cerebral parenchyma: No acute intraparenchymal hemorrhage or mass effect. The cuevas-white junction is well differentiated. Cerebellum: Unremarkable. Mass effect: No evidence of midline shift. Intracranial vasculature: Atherosclerotic calcifications of the intracranial vessels. Soft tissues: Small right frontal soft tissue hematoma measuring up to 5 mm in thickness. Calvarium/osseous structures: No depressed skull fracture. Paranasal sinuses and mastoid air cells: Clear. Visualized orbits: Bilateral aphakia Cervical spine: Fracture: No acute fracture. Remote left clavicular fracture. Osseous structures: Multilevel degenerative disc disease changes with endplate spurring and disc oste ophyte complex's. Vertebral alignment: Within normal limits. Spinal canal/Neural Foramina: Disc osteophyte complexes at C3-C4, C4-C5, C5-C6, and C6-C7 with at janine st mild spinal canal stenosis. No evidence for significant neural foraminal stenosis. Neck soft tissues: Prevertebral soft tissues are within normal limits. Other: The airway is patent. Biapical pleural-parenchymal scarring. Please refer to dedicated CTA amado st the same day for findings. IMPRESSION: 1. No acute intracranial process. 2. Small right frontal soft tissue hematoma. 3. No evidence of cervical spine fracture. 4. Moderate multilevel degenerative disc disease.
--- NOTE | 2022-08-18 13:54 | CT ---
EXAMINATION TYPE: CT angio chest DATE OF EXAM: 08/18/2022 COMPARISON: CTA chest September 16, 2014 HISTORY: syncope and weakness. CT DLP: 1470.5 mGycm. Automated Exposure Control for Dose Reduction was Utilized. CONTRAST: CTA scan of the thorax is performed with IV Contrast, patient injected with 100 mL of Isovue 370, pul monary embolism protocol. MIP Images are created on CT scanner and reviewed. FINDINGS: LUNGS: A 1.4 x 0.6 cm medial right upper lung nodule axial image 32 is unchanged in size and appearan ce from prior CT. Tiny bilateral pleural effusions are now present. There is associated mild intersti tial edema bilaterally. No focal consolidation. No concerning masses. MEDIASTINUM: There is satisfactory enhancement of the pulmonary artery and its branches, there is no CT evidence for pulmonary embolism. Stable prominent but subcentimeter pericarinal lymph node axial i mage 63. Mild cardiomegaly redemonstrated. No pericardial effusion is seen. At least moderate coronar y artery calcification and/or stents are seen. OTHER: Bilateral flame-shaped subareolar gynecomastia is new from prior. Please see same-day CT abdom en report for complete details on the upper abdomen. Slight scoliotic curvature. Exaggerated thoracic kyphosis with multilevel spurring. IMPRESSION: 1. No CT evidence for acute pulmonary embolism. 2. Mild cardiomegaly with tiny bilateral pleural effusions and mild interstitial edema. Correlate for CHF exacerbation.
--- NOTE | 2022-08-18 13:56 | XR ---
EXAMINATION TYPE: XR humerus RT DATE OF EXAM: 08/18/2022 CLINICAL HISTORY: Pain from fall. TECHNIQUE: Two views of the right humerus are obtained. COMPARISON: None. FINDINGS: There is no acute fracture or dislocation seen in the right humerus. Spurring at acromiocl avicular joint. Elbow joint appears within normal limits. Overlying clothing or blanket material is p resent. IMPRESSION: No acute fracture or dislocation is evident in the right humerus.
[2022-08-18 13:58] LABS: Appearance,Urine Clear (Clear); Bilirubin,Urine Negative (Negative); Blood,Urine Negative (Negative); Color,Urine Colorless; Glucose,Urine (UA) Negative (Negative); Ketones,Urine Negative (Negative); Leukocyte Esterase,Urine Negative (Negative); Nitrite,Urine Negative (Negative); Protein,Urine Negative (Negative); Specific Gravity,Urine 1.006 (1.001-1.035); Urobilinogen,Urine <2.0 mg/dL (<2.0)
--- NOTE | 2022-08-18 14:05 | CT ---
EXAMINATION TYPE: CT abdomen pelvis w con DATE OF EXAM: 08/18/2022 COMPARISON: CT 07/17/2021 HISTORY: syncope pain CT DLP: 1470.5 mGycm Automated exposure control for dose reduction was used. TECHNIQUE: Helical acquisition of images from the lung bases through the pelvis have been completed. Automated exposure control for dose reduction. CONTRAST: Performed without Oral Contrast and with IV Contrast, patient injected with 100 mL of Isovue 370. FINDINGS: Coronary artery calcifications are present. There is calcification at the root of the aorta . LUNG BASES: Dependent atelectatic changes are present. AORTA: No significant abnormality is appreciated. LIVER/GB: Liver shows low attenuation. Gallbladder is unremarkable.. PANCREAS: No significant abnormality is seen. SPLEEN: No significant abnormality is seen. ADRENALS: No significant abnormality is seen. KIDNEYS: Left kidney is absent. REPRODUCTIVE ORGANS: No significant abnormality is seen BOWEL: Scattered diverticular change noted in the colon, sigmoid colon shows extensive diverticulosi s. Appendix is not seen. FREE AIR: No Free Air visible. ASCITES: None visible. PELVIC ADENOPATHY: None visualized. RETROPERITONEAL ADENOPATHY: No Retroperitoneal Adenopathy visible. URINARY BLADDER: No significant abnormality is seen. OSSEOUS STRUCTURES: Degenerative disc changes are noted in the visualized spine. Multilevel vacuum p henomenon.. Osteoarthritic changes are noted in the hips IMPRESSION: DIVERTICULOSIS. NO EVIDENT POSTTRAUMATIC CHANGE.
[2022-08-18] MEDS ORDERED: NALOXONE 0.4 MG/ML 1 ML VIAL IV PRN (15:24)
[2022-08-18] MEDS: SODIUM CHLORIDE 0.9% 1,000 ML IV SCH (15:55)
[2022-08-18] MEDS ORDERED: bisacodyL 10 MG SUPP RECTAL PRN (19:47)
[2022-08-18] MEDS ORDERED: NA PHOS,M-B/NA PHOS,DI-BA 133 ML ENEMA RECTAL PRN (19:47)
[2022-08-18] MEDS ORDERED: NITROGLYCERIN SL TABS 0.4 MG TAB SUBLINGUAL PRN (19:47)
[2022-08-18] MEDS: ACETAMINOPHEN TAB 325 MG TAB PO PRN (20:32)
[2022-08-18] MEDS: ATORVASTATIN 20 MG TAB PO SCH (20:32)
[2022-08-18] MEDS: DONEPEZIL 10 MG TAB PO SCH (20:33)
[2022-08-18] MEDS: LACOSAMIDE 50 MG TABLET PO SCH (20:33)
[2022-08-18] MEDS: MELATONIN 5 MG TABLET PO SCH (20:33)
[2022-08-18] MEDS: LOSARTAN 25 MG TAB PO SCH (20:33)
[2022-08-18] MEDS ORDERED: ONDANSETRON 4 MG/2 ML VIAL IVP PRN (22:03)
[2022-08-18] MEDS ORDERED: CALCIUM CARBONATE 500 MG CHEWABLE PO PRN (22:03)
--- NOTE | 2022-08-18 22:04 | P.HPIM ---
History of Present Illness H&P Date: 08/18/22 Chief Complaint: Unconscious This is a pleasant 82-year-old patient who follows with Dr. Bruce Quintanilla. Chronic stable medical conditions include right temporal lobe epilepsy, mild cognitive impairment, CAD with stent, essential hypertension, left ventricular apical thrombus, left nephrectomy, chronic congestive heart failure from systolic dysfunction EF 30-35%. also has been following with Dr. rod from neurology Patient recently in the hospital from August 05 through August 07. Seen by Dr. Castro for neurology. [place] to be seizure disorder. Previous admission had shown temporal lobe epilepsy. Patient was started on Vimpat. Patient also had right shoulder pain. Seen by Dr. James. Patient was to follow outpatient. Patient was discharged to rehab Patient is brought in by the EMS. Patient was found on the floor. Patient only remembers he was standing next thing he knows that looking at the door. Does not remember for how long he had passed out. There is some bruising on the forehead and cheek. Patient has been in rehab. Able to walk a fair distance with a walker. Has not been feeling dizzy or lightheaded. Denies any chest pain and palpitation. No tongue biting. No incontinence. Patient admitted near similar episode in the ER. Very short-lived the patient states. [place] that he is going to pass out. Review of systems: GEN.: Tired EYES: Bruising on forehead and cheek HEENT: None NECK: None RESPIRATORY: None CARDIOVASCULAR: As above GASTROINTESTINAL: None GENITOURINARY: None MUSCULOSKELETAL: Joint pains, right shoulder pain. In a sling LYMPHATICS: None HEMATOLOGICAL: None PSYCHIATRY: As above NEUROLOGICAL: As above Past medical history to include: Coronary artery disease with stent, hypertension, kidney disease, cardiac left ventricular apical thrombus, left nephrectomy, CHF EF 30-35%, cognitive impairment, temporal lobe epilepsy Social history: Getting rehab at [facility]. Denies any uses cigarettes alcohol or any recreational drugs. Family history: Patient doesn't remember Physical examination: VITAL SIGNS: 97.8, 57, 18, 108/59, 96% room air GENERAL: BMI 26.6, laying in bed, awake. EYES: Pupils equal. Conjunctiva normal. HEENT: External appearance of nose and ears normal, oral cavity grossly normal. Bruising on the right forehead, left cheek NECK: JVD not raised; masses not palpable. HEART: First and second heart sounds are normal; no edema. LUNGS: Respiratory rate normal; clear to auscultation. ABDOMEN: Soft, nontender, liver spleen not palpable, no masses palpable. PSYCH: Answering questions appropriately. Mood affect normal NEUROLOGICAL: Cranial nerves grossly intact; no facial asymmetry, power and sensation grossly intact. MUSCULAR skeletal: Right shoulder in a sling. Evidence of OA LYMPHATICS: No lymph nodes palpable in the axilla and neck Assessment and plan: -Episode of unconsciousness , possibly seizure.. Patient does not remember how long he was passed out. had a positive EEG in the temporal lobe in the past and on last admission was started on Vimpat as it was felt to be a seizure episode.. follow with neurologist outpatient Continue Vimpat 50 mg twice a day. Seizure precaution. Consult neurology. -Acute right shoulder limited range of motion secondary to fall. Possibly rotator cuff injury. Last admission Seen by Dr. James. Right arm in a sling -Mild cognitive impairment Aricept -Coronary artery with stent Aspirin, Lopressor, Cozaar, Imdur, Norvasc -Essential hypertension Lopressor, Cozaar, Norvasc -Left ventricular cardiac apical thrombus, in the past.- not on any anticoagulation. Patient does follow with Dr. JOSE JUAN Gates from cardiology. -Left nephrectomy, chronic -Chronic congestive heart failure from systolic dysfunction EF 30-35% Lasix 20 mg a day. Aldactone 12.5 daily Continue current medications. Seizure precautions. Neurology consult. Home medications renewed. Check orthostatic. Telemetry. Gentle hydration. Past Medical History Past Medical History: Coronary Artery Disease (CAD), Chest Pain / Angina, GERD/Reflux, Hearing Disorder / Deafness, Hypertension, Memory Impairment, Myocardial Infarction (MD), Osteoarthritis (OA) Additional Past Medical History / Comment(s): cardiomyopathy, hepatitis (child), chronic constipation, hemorrhoids, abd pain, elevated liver enzymes., has one kidney ., pt was hospitalized nov 2020 for carbon monoxide poisoning & possible hx of seizure seen on eeg . , early alzheimers. 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 Past Anesthesia/Blood Transfusion Reactions: No Reported Reaction Date of Last Stent Placement:: unknown Past Psychological History: Depression Smoking Status: Never smoker Past Alcohol Use History: None Reported Past Drug Use History: None Reported - Past Family History Father History Unknown: Yes Family Medical History: Cancer Additional Family Medical History / Comment(s): colon cancer Mother History Unknown: Yes Family Medical History: Cancer Additional Family Medical History / Comment(s): oral cancer Medications and Allergies Home Medications Medication Instructions Recorded Confirmed Type Isosorbide Mononitrate ER [Imdur] 30 mg PO DAILY@0800 09/16/14 08/18/22 History Aspirin EC [Ecotrin Low Dose] 81 mg PO DAILY@1700 08/03/19 08/18/22 History Fluticasone Nasal [place] [Flonase 1 spr EA NOSTRIL BID@0800,1700 08/03/19 08/18/22 History Nasal [place]] Famotidine [Pepcid] 20 mg PO BID@0800,1700 11/27/20 08/18/22 History Donepezil [Aricept] 10 mg PO HS 04/30/21 08/18/22 History Melatonin 5 mg PO HS 10/25/21 08/18/22 History Ascorbic Acid [Vitamin C] 1,000 mg PO DAILY@1200 08/05/22 08/18/22 History Atorvastatin [Lipitor] 20 mg PO HS 08/05/22 08/18/22 History Cyanocobalamin (Vitamin B-12) 1,000 mcg PO DAILY@1200 08/05/22 08/18/22 History [Vitamin B-12] Furosemide [Lasix] 20 mg PO DAILY@0800 08/05/22 08/18/22 History Montelukast [Singulair] 10 mg PO DAILY@0800 08/05/22 08/18/22 History Pyridoxine [Vitamin B-6] 25 mg PO DAILY@1200 08/05/22 08/18/22 History QUEtiapine [SEROquel] 25 mg PO DAILY@0800 08/05/22 08/18/22 History Acetaminophen [Tylenol 8 Hour] 650 mg PO Q4H PRN 08/18/22 08/18/22 History Folic Acid 1 mg PO DAILY@1200 08/18/22 08/18/22 History Garlic 1,000 mg PO DAILY@1200 08/18/22 08/18/22 History Lacosamide [Vimpat] 50 mg PO BID@0800,2100 08/18/22 08/18/22 History Loratadine 10 mg PO DAILY PRN 08/18/22 08/18/22 History Losartan [Cozaar] 50 mg PO HS 08/18/22 08/18/22 History Magnesium Hydroxide [Milk of 7,200 mg PO Q48H PRN 08/18/22 08/18/22 History Magnesia Concentrate] Metoprolol Tartrate [Lopressor] 12.5 mg PO DAILY@0800 08/18/22 08/18/22 History Na Phos,M-B/Na Phos,Di-Ba [Fleet 133 ml RECTAL DAILY PRN 08/18/22 08/18/22 History Adult] Nitroglycerin Sl Tabs [Nitrostat] 0.4 mg SL Q5M PRN 08/18/22 08/18/22 History QUEtiapine [SEROquel] 25 mg PO DAILY PRN 08/18/22 08/18/22 History Spironolactone [Aldactone] 12.5 mg PO DAILY@0800 08/18/22 08/18/22 History Thiamine [Vitamin B-1] 100 mg PO DAILY@1200 08/18/22 08/18/22 History amLODIPine [Norvasc] 2.5 mg PO DAILY@0800 08/18/22 08/18/22 History bisacodyL [Dulcolax] 10 mg RECTAL DAILY PRN 08/18/22 08/18/22 History Allergies Allergy/AdvReac Type Severity Reaction Status Date / Time Sulfa (Sulfonamide Allergy Unknown Verified 08/18/22 12:46 Antibiotics) Childhood Physical Exam Vitals: Vital Signs Temp Pulse Resp BP Pulse Ox 08/18/22 17:50 52 L 18 101/56 96 08/18/22 13:42 56 L 18 103/66 97 08/18/22 11:18 97.8 F 57 L 18 108/59 96 Intake and Output 08/18/22 08/18/22 08/18/22 06:59 14:59 22:59 Other: Weight 77.111 kg Results CBC & Chem 7: 08/18/22 12:19 08/18/22 12:30 Labs: Abnormal Lab Results - Last 24 Hours (Table) 08/18/22 08/18/22 08/18/22 Range/Units 12:19 12:19 12:30 WBC 10.9 H (3.8-10.6) k/uL RBC 3.55 L (4.30-5.90) m/uL Hgb 12.8 L (13.0-17.5) gm/dL Hct 36.7 L (39.0-53.0) % MCV 103.5 H (80.0-100.0) fL MCH 36.0 H (25.0-35.0) pg Neutrophils # 8.6 H (1.3-7.7) k/uL APTT 20.4 L (22.0-30.0) sec Total Protein 6.1 L (6.3-8.2) g/dL
[2022-08-18] MEDS: LORazepam 0.5 MG TAB PO PRN (23:23)
[2022-08-19] MEDS ORDERED: METOPROLOL TARTRATE 12.5 MG TAB PO SCH (08:00)
[2022-08-19 08:03] LABS: Basophils # (A) 0.1 k/uL (0-0.2); Basophils % (A) 1 %; Eosinophils # (A) 0.4 k/uL (0-0.7); Eosinophils % (A) 5 %; HCT 43.2 % (39.0-53.0); HGB 14.4 gm/dL (13.0-17.5); Lymphocytes # (A) 2.4 k/uL (1.0-4.8); Lymphocytes % (A) 32 %; MCH 35.7 pg (25.0-35.0); MCHC 33.2 g/dL (31.0-37.0); MCV 107.3 fL (80.0-100.0); Macrocytosis Moderate; Mean Platelet Volume 8.3; Monocytes # (A) 0.5 k/uL (0-1.0); Monocytes % (A) 6 %; Neutrophils % (A) 52 %; Platelet Count 248 k/uL (150-450); RBC 4.03 m/uL (4.30-5.90); RDW 11.4 % (11.5-15.5); WBC 7.7 k/uL (3.8-10.6)
[2022-08-19] MEDS: SPIRONOLACTONE 25 MG TAB PO SCH (08:07)
[2022-08-19] MEDS: FAMOTIDINE 20 MG TAB PO SCH ×2 (08:07→16:09)
[2022-08-19] MEDS: ISOSORBIDE MONONITRATE ER 30 MG TAB.ER.24H PO SCH (08:08)
[2022-08-19] MEDS: MONTELUKAST 10 MG TAB PO SCH (08:08)
[2022-08-19] MEDS: LACOSAMIDE 50 MG TABLET PO SCH ×2 (08:08→21:04)
[2022-08-19] MEDS: QUEtiapine 25 MG TAB PO SCH (08:08)
[2022-08-19] MEDS: ACETAMINOPHEN TAB 325 MG TAB PO PRN ×2 (08:09→21:05)
[2022-08-19 08:19] LABS: ALT 34 U/L (4-49); AST 57 U/L (17-59); African American GFR (CKD) >90 (>60 ml/min/1.73 sqM); Albumin 3.5 g/dL (3.5-5.0); Alkaline Phosphatase 122 U/L (38-126); Anion Gap 7 mmol/L; Blood Urea Nitrogen 16 mg/dL (9-20); Calcium 8.4 mg/dL (8.4-10.2); Carbon Dioxide 18 mmol/L (22-30); Chloride 111 mmol/L (98-107); Glucose 82 mg/dL (74-99); Non-African American GFR(CKD) 87 (>60 ml/min/1.73 sqM); Sodium 136 mmol/L (137-145); Total Bilirubin 1.2 mg/dL (0.2-1.3); Total Protein 6.3 g/dL (6.3-8.2)
[2022-08-19 08:25] LABS: Potassium 5.4 mmol/L (3.5-5.1)
[2022-08-19] MEDS: FLUTICASONE 50MCG/SPRAY NASAL 16GM EA NOSTRIL SCH ×2 (09:20→16:09)
[2022-08-19] MEDS: SODIUM CHLORIDE 0.9% 1,000 ML IV SCH (09:21)
--- NOTE | 2022-08-19 11:57 | P.PN ---
Progress Note - Text Progress Note Date: 08/19/22 Chief Complaint: Unconscious This is a pleasant 82-year-old patient who follows with Dr. Bruce Quintanilla. Chronic stable medical conditions include right temporal lobe epilepsy, mild cognitive impairment, CAD with stent, essential hypertension, left ventricular apical thrombus, left nephrectomy, chronic congestive heart failure from systolic dysfunction EF 30-35%. also has been following with Dr. rod from neurology Patient recently in the hospital from August 05 through August 07. Seen by Dr. Castro for neurology. [place] to be seizure disorder. Previous admission had shown temporal lobe epilepsy. Patient was started on Vimpat. Patient also had right shoulder pain. Seen by Dr. James. Patient was to follow outpatient. Patient was discharged to rehab Patient is brought in by the EMS. Patient was found on the floor. Patient only remembers he was standing next thing he knows that looking at the door. Does not remember for how long he had passed out. There is some bruising on the forehead and cheek. Patient has been in rehab. Able to walk a fair distance with a walker. Has not been feeling dizzy or lightheaded. Denies any chest pain and palpitation. No tongue biting. No incontinence. Patient admitted near similar episode in the ER. Very short-lived the patient states. [place] that he is going to pass out. 08/19/2022: Patient initial EKG showed a heart rate of 49. Consult cardiology. Patient today stated that he episode when he tried to turn his head to the right side he felt his to pass out. Ordered a CT angiogram of the head and neck. Rule out any vascular insufficiency in the neck. Oral intake fair. Has pain in the neck. Pending orthopedic evaluation. Active Medications Acetaminophen (Acetaminophen Tab 325 Mg Tab) 650 mg PO Q4H PRN PRN Reason: General Discomfort Last Admin: 08/19/22 08:09 Dose: 650 mg Ascorbic Acid (Ascorbic Acid 500 Mg Tab) 1,000 mg PO DAILY@1200 [facility] Atorvastatin Calcium (Atorvastatin 20 Mg Tab) 20 mg PO HS [facility] Last Admin: 08/18/22 20:32 Dose: 20 mg Bisacodyl (Bisacodyl 10 Mg Supp) 10 mg RECTAL DAILY PRN PRN Reason: Constipation Calcium Carbonate/Glycine (Calcium Carbonate 500 Mg Chewable) 1,000 mg PO Q4HR PRN PRN Reason: Dyspepsia Cyanocobalamin (Cyanocobalamin 500 Mcg Tab) 1,000 mcg PO DAILY@1200 [facility] Donepezil HCl (Donepezil 10 Mg Tab) 10 mg PO [facility] Last Admin: 08/18/22 20:33 Dose: 10 mg Famotidine (Famotidine 20 Mg Tab) 20 mg PO BID@0800,1700 [facility] Last Admin: 08/19/22 08:07 Dose: 20 mg Fluticasone Propionate (Fluticasone 50mcg/[place] Nasal 16gm) 1 spray EA NOSTRIL BID@0800,1700 [facility] Last Admin: 08/19/22 09:20 Dose: 1 spray Folic Acid (Folic Acid 1 Mg Tab) 1 mg PO DAILY@1200 [facility] Sodium Chloride (Saline 0.9%) 1,000 mls @ 50 mls/hr IV .Q20H [facility] Last Admin: 08/19/22 09:21 Dose: Not Given Isosorbide Mononitrate (Isosorbide Mononitrate Er 30 Mg Tab.Er.24h) 30 mg PO DAILY@0800 [facility] Last Admin: 08/19/22 08:08 Dose: 30 mg Lacosamide (Lacosamide 50 Mg Tablet) 50 mg PO BID@0800,2100 [facility] Last Admin: 08/19/22 08:08 Dose: 50 mg Lorazepam (Lorazepam 0.5 Mg Tab) 0.5 mg PO Q6HR PRN PRN Reason: Anxiety Last Admin: 08/18/22 23:23 Dose: 0.5 mg Losartan Potassium (Losartan 25 Mg Tab) 25 mg PO [facility] Last Admin: 08/18/22 20:33 Dose: 25 mg Melatonin (Melatonin 5 Mg Tablet) 5 mg PO [facility] Last Admin: 08/18/22 20:33 Dose: 5 mg Metoprolol Tartrate (Metoprolol Tartrate 12.5 Mg Tab) 12.5 mg PO DAILY@0800 [facility] Last Admin: 08/19/22 08:08 Dose: 12.5 mg Montelukast Sodium (Montelukast 10 Mg Tab) 10 mg PO DAILY@0800 [facility] Last Admin: 08/19/22 08:08 Dose: 10 mg Naloxone HCl (Naloxone 0.4 Mg/Ml 1 Ml Vial) 0.2 mg IV Q2M PRN PRN Reason: Opioid Reversal Nitroglycerin (Nitroglycerin Sl Tabs 0.4 Mg Tab) 0.4 mg SUBLINGUAL Q5M PRN PRN Reason: Chest Pain Ondansetron HCl (Ondansetron 4 Mg/2 Ml Vial) 4 mg IVP Q8HR PRN PRN Reason: Nausea And Vomiting Pyridoxine HCl (Pyridoxine 50 Mg Tab) 25 mg PO DAILY@1200 [facility] Quetiapine Fumarate (Quetiapine 25 Mg Tab) 25 mg PO DAILY@0800 [facility] Last Admin: 08/19/22 08:08 Dose: 25 mg Sodium Biphosphate/Sodium Phosphate (Na Phos,M-B/Na Phos,Di-Ba 133 Ml Enema) 133 ml RECTAL DAILY PRN PRN Reason: Constipation Spironolactone (Spironolactone 25 Mg Tab) 12.5 mg PO DAILY@0800 [facility] Last Admin: 08/19/22 08:07 Dose: 12.5 mg Thiamine HCl (Thiamine 100 Mg Tab) 100 mg PO DAILY@1200 [facility] Past medical history to include: Coronary artery disease with stent, hypertension, kidney disease, cardiac left ventricular apical thrombus, left nephrectomy, CHF EF 30-35%, cognitive impairment, temporal lobe epilepsy Social history: Getting rehab at [facility]. Denies any uses cigarettes alcohol or any recreational drugs. Family history: Patient doesn't remember Physical examination: VITAL SIGNS: 97.8, 76, 18, 134/83, 97% room air GENERAL: , laying in bed, awake. EYES: Pupils equal. Conjunctiva normal. HEENT: External appearance of nose and ears normal, oral cavity grossly normal. Bruising on the right forehead, left cheek NECK: JVD not raised; masses not palpable. HEART: First and second heart sounds are normal; no edema. LUNGS: Respiratory rate normal; clear to auscultation. ABDOMEN: Soft, nontender, liver spleen not palpable, no masses palpable. PSYCH: Answering questions appropriately. Mood affect normal NEUROLOGICAL: Cranial nerves grossly intact; no facial asymmetry, power and sensation grossly intact. MUSCULAR skeletal: Right arm in a sling. Evidence of OA INVESTIGATIONS, reviewed in the clinical context: August 19: WBC 7.7 hemoglobin 14.4 platelets 2485.4 bicarb 18 creatinine 0.74 EKG tracing personally reviewed by [facility] baseline. Chest CTA: Unremarkable Abdomen pelvis CT: Diverticulosis. humerus x-ray personally reviewed by me: No fracture seen. Assessment and plan: -Episode of unconsciousness , possibly seizure.. Patient does not remember how long he was passed out. had a positive EEG in the temporal lobe in the past and on last admission was started on Vimpat as it was felt to be a seizure episode.. follow with neurologist outpatient. Also an outpatient and a heart rate of 49 initial EKG. Continue Vimpat 50 mg twice a day. Seizure precaution. Consult neurology. Cardiology consultation. We'll order a CT angiogram of head and neck to look for any vascular compromise in the neck -Acute right shoulder limited range of motion secondary to fall. Possibly rotator cuff injury. Last admission Seen by Dr. James. Right arm in a sling -Neck pain. Negative for fracture. Likely muscular skeletal sprain. Orthopedic consulted -Mild cognitive impairment Aricept -Coronary artery with stent Aspirin, Lopressor, Cozaar, Imdur, Norvasc -Essential hypertension Lopressor, Cozaar, Norvasc -Left ventricular cardiac apical thrombus, in the past.- not on any anticoa gulation. Patient does follow with Dr. JOSE JUAN Gates from cardiology. -Left nephrectomy, chronic -Chronic congestive heart failure from systolic dysfunction EF 30-35% Lasix 20 mg a day. Aldactone 12.5 daily Continue current medications. CT angiogram head and neck. Consultation to cardiology because of initial bradycardia. Pending orthopedic input for the shoulder and neck pain.
[2022-08-19 12:44] LABS: African American GFR (CKD) >90 (>60 ml/min/1.73 sqM); Anion Gap 7 mmol/L; Blood Urea Nitrogen 16 mg/dL (9-20); Calcium 8.3 mg/dL (8.4-10.2); Carbon Dioxide 21 mmol/L (22-30); Chloride 108 mmol/L (98-107); Glucose 123 mg/dL (74-99); Non-African American GFR(CKD) 87 (>60 ml/min/1.73 sqM); Potassium 4.1 mmol/L (3.5-5.1); Sodium 136 mmol/L (137-145)
--- NOTE | 2022-08-19 12:44 | P.CRDCN ---
History of Present Illness Consult date: 08/19/22 History of present illness: HISTORY OF PRESENT ILLNESS: This is a 82-year-old male with a past medical history significant for coronary artery disease with previous PCI to the LAD, hypertension, hyperlipidemia, and dementia. Patient follows in the office with Dr. Gates. We have been asked to see the patient in consultation for bradycardia. Patient examined at the bedside. Patient was recently hospitalized here this month for a single episode . Patient was found to have seizure activity noted on his EEG. He was started on Vimpat and discharged to [facility] in stable condition. Patient presents back to the hospital with another episode of syncope. He states he was getting ready in the bathroom when the next thing he knew he was on the bathroom floor. He denied having any warning signs he was about to fall. He denied any dizziness or lighth eadness. He currently denies any chest pain or pressure. He denies any shortness of breath. He denies any dizziness or lightheadedness. Patient's vital signs are stable. Telemetry reveals sinus mechanism with a heart rate in the 40-50s. * EKG reveals sinus bradycardia with a heart rate of 49. * Laboratory data: WBC 7.7. Hemoglobin 14.4. Platelet count 248. Sodium 136. Potassium 5.4. BUN 16. Creatinine 0.74. Magnesium 2.0. Troponin negative 3 * Current home cardiac medications include aspirin 81 mg daily, Lipitor 20 mg at night, amlodipine 2.5 mg daily, Imdur 30 mg daily, losartan 50 mg daily, metoprolol tartrate 12.5 mg daily, Aldactone 12.5 mg daily, Lasix 20 mg daily * Most recent echocardiogram obtained in August 2022 revealed ejection fraction 55-60%, mild mitral regurgitation, mild aortic regurgitation, and mild tricuspid regurgitation * Cardiac catheterization history: August 2018 revealing both the LAD stents are patent, mild irregularities and dominant RCA which is heavily calcified no obstructive CAD. Circumflex nondominant small to small marginal branch has no significant disease. REVIEW OF SYSTEMS: At the time of my exam: CONSTITUTIONAL: Denies fever or chills. HEENT: Denies blurred vision, vision changes, or eye pain. Denies hemoptysis CARDIOVASCULAR: Denies chest pain. Denies orthopnea. Denies PND. Denies palpitations RESPIRATORY: Denies shortness of breath. GASTROINTESTINAL: Denies abdominal pain. Denies nausea or vomiting. HEMATOLOGIC: Denies bleeding disorders. GENITOURINARY: Denies any blood in urine. SKIN: Denies pruitis. Denies rash. PHYSICAL EXAM: VITAL SIGNS: Reviewed. GENERAL: Well-developed in no acute distress. HEENT: Head is normocephalic. Pupils are equal, round. Sclerae anicteric. Mucous membranes of the mouth are moist. Neck supple. No JVD or thyromegaly LUNGS: Respirations even and unlabored. Lungs essentially clear to auscultation bilaterally. HEART: Regular rate and rhythm. S1 and S2 heard. ABDOMEN: Soft. Nondistended. Nontender. EXTREMITIES: Normal range of motion. No clubbing or cyanosis. Peripheral pulses intact. No lower extremity edema NEUROLOGIC: Awake and alert. Oriented x 1-2. ASSESSMENT: Recurrent syncope versus seizure Recently diagnosed seizure disorder Sinus bradycardia Coronary artery disease with previous PCI to the LAD Hypertension Hyperlipidemia Dementia Right shoulder pain PLAN: Discontinue metoprolol secondary to bradycardia Continue additional cardiac medications Continue telemetry monitoring Check TSH Will consider event monitor at discharge. However, uncertain if patient able to properly manage device and follow device instructions (ie: daily charging of device) Further recommendations pending patient course Nurse practitioner note has been reviewed by physician. Signing provider agrees with the documented findings, assessment, and plan of care. Past Medical History Past Medical History: Coronary Artery Disease (CAD), Chest Pain / Angina, GERD/Reflux, Hearing Disorder / Deafness, Hypertension, Memory Impairment, Myocardial Infarction ([place]), Osteoarthritis (OA) Additional Past Medical History / Comment(s): cardiomyopathy, hepatitis (child), chronic constipation, hemorrhoids, abd pain, elevated liver enzymes., has one kidney ., pt was hospitalized nov 2020 for carbon monoxide poisoning & possible hx of seizure seen on eeg . , early alzheimers. 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 Past Anesthesia/Blood Transfusion Reactions: No Reported Reaction Date of Last Stent Placement:: unknown Past Psychological History: Depression Smoking Status: Never smoker Past Alcohol Use History: None Reported Past Drug Use History: None Reported - Past Family History Father History Unknown: Yes Family Medical History: Cancer Additional Family Medical History / Comment(s): colon cancer Mother History Unknown: Yes Family Medical History: Cancer Additional Family Medical History / Comment(s): oral cancer Medications and Allergies Home Medications Medication Instructions Recorded Confirmed Type Isosorbide Mononitrate ER [Imdur] 30 mg PO DAILY@0800 09/16/14 08/18/22 History Aspirin EC [Ecotrin Low Dose] 81 mg PO DAILY@1700 08/03/19 08/18/22 History Fluticasone Nasal [place] [Flonase 1 spr EA NOSTRIL BID@0800,1700 08/03/19 08/18/22 History Nasal [place]] Famotidine [Pepcid] 20 mg PO BID@0800,1700 11/27/20 08/18/22 History Donepezil [Aricept] 10 mg PO HS 04/30/21 08/18/22 History Melatonin 5 mg PO HS 10/25/21 08/18/22 History Ascorbic Acid [Vitamin C] 1,000 mg PO DAILY@1200 08/05/22 08/18/22 History Atorvastatin [Lipitor] 20 mg PO HS 08/05/22 08/18/22 History Cyanocobalamin (Vitamin B-12) 1,000 mcg PO DAILY@1200 08/05/22 08/18/22 History [Vitamin B-12] Furosemide [Lasix] 20 mg PO DAILY@0800 08/05/22 08/18/22 History Montelukast [Singulair] 10 mg PO DAILY@0800 08/05/22 08/18/22 History Pyridoxine [Vitamin B-6] 25 mg PO DAILY@1200 08/05/22 08/18/22 History QUEtiapine [SEROquel] 25 mg PO DAILY@0800 08/05/22 08/18/22 History Acetaminophen [Tylenol 8 Hour] 650 mg PO Q4H PRN 08/18/22 08/18/22 History Folic Acid 1 mg PO DAILY@1200 08/18/22 08/18/22 History Garlic 1,000 mg PO DAILY@1200 08/18/22 08/18/22 History Lacosamide [Vimpat] 50 mg PO BID@0800,2100 08/18/22 08/18/22 History Loratadine 10 mg PO DAILY PRN 08/18/22 08/18/22 History Losartan [Cozaar] 50 mg PO HS 08/18/22 08/18/22 History Magnesium Hydroxide [Milk of 7,200 mg PO Q48H PRN 08/18/22 08/18/22 History Magnesia Concentrate] Metoprolol Tartrate [Lopressor] 12.5 mg PO DAILY@0800 08/18/22 08/18/22 History Na Phos,M-B/Na Phos,Di-Ba [Fleet 133 ml RECTAL DAILY PRN 08/18/22 08/18/22 History Adult] Nitroglycerin Sl Tabs [Nitrostat] 0.4 mg SL Q5M PRN 08/18/22 08/18/22 History QUEtiapine [SEROquel] 25 mg PO DAILY PRN 08/18/22 08/18/22 History Spironolactone [Aldactone] 12.5 mg PO DAILY@0800 08/18/22 08/18/22 History Thiamine [Vitamin B-1] 100 mg PO DAILY@1200 08/18/22 08/18/22 History amLODIPine [Norvasc] 2.5 mg PO DAILY@0800 08/18/22 08/18/22 History bisacodyL [Dulcolax] 10 mg RECTAL DAILY PRN 08/18/22 08/18/22 History Allergies Allergy/AdvReac Type Severity Reaction Status Date / Time Sulfa (Sulfonamide Allergy Unknown Verified 08/18/22 12:46 Antibiotics) Childhood Physical Exam Vitals: Vital Signs Temp Pulse Pulse Resp BP BP Pulse Ox 08/19/22 11:11 76 18 08/19/22 07:59 97.8 F 76 18 134/83 97 08/19/22 04:00 98.1 F 60 18 138/82 95 08/19/22 02:00 56 L 18 08/19/22 00:00 56 L 18 147/87 96 08/18/22 20:00 98.4 F 62 18 158/90 95 08/18/22 17:50 52 L 18 101/56 96 08/18/22 13:42 56 L 18 103/66 97 Intake and Output 08/18/22 08/19/22 08/19/22 22:59 06:59 14:59 Intake Total 120 250 Output Total 150 400 Balance 120 100 -400 Intake: Intake, IV Titration 250 Amount Sodium Chloride 0.9% 1, 250 000 ml @ 50 mls/hr IV . Q20H [facility] Rx#:[id number] Oral 120 Output: Urine 150 400 Other: Voiding Method Urinal Urinal Urinal # Voids 2 Weight 77.111 kg Results 08/19/22 07:27 08/19/22 07:27 Cardiac Enzymes 08/18/22 08/18/22 08/18/22 Range/Units 12:30 12:30 17:55 AST 38 (17-59) U/L Troponin I <0.012 <0.012 (0.000-0.034) ng/mL 08/18/22 08/19/22 Range/Units 21:13 07:27 AST 57 (17-59) U/L Troponin I <0.012 (0.000-0.034) ng/mL Coagulation 08/18/22 Range/Units 12:19 PT 11.2 (9.0-12.0) sec APTT 20.4 L (22.0-30.0) sec CBC 08/19/22 Range/Units 07:27 WBC 7.7 (3.8-10.6) k/uL RBC 4.03 L (4.30-5.90) m/uL Hgb 14.4 (13.0-17.5) gm/dL Hct 43.2 (39.0-53.0) % Plt Count 248 (150-450) k/uL Comprehensive Metabolic Panel 08/18/22 08/19/22 Range/Units 12:30 07:27 Sodium 138 136 L (137-145) mmol/L Potassium 4.7 5.4 H (3.5-5.1) mmol/L Chloride 107 111 H (98-107) mmol/L Carbon Dioxide 22 18 L (22-30) mmol/L BUN 20 16 (9-20) mg/dL Creatinine 1.01 0.74 (0.66-1.25) mg/dL Glucose 91 82 (74-99) mg/dL Calcium 8.4 8.4 (8.4-10.2) mg/dL AST 38 57 (17-59) U/L ALT 31 34 (4-49) U/L Alkaline Phosphatase 119 122 (38-126) U/L Total Protein 6.1 L 6.3 (6.3-8.2) g/dL Albumin 3.6 3.5 (3.5-5.0) g/dL Current Medications Generic Name Dose Route Start Last Admin Trade Name Freq PRN Reason Stop Dose Admin Acetaminophen 650 mg 08/18/22 19:47 08/19/22 08:09 Acetaminophen Tab 325 Mg Tab PO 650 mg Q4H PRN Administration General Discomfort Ascorbic Acid 1,000 mg 08/19/22 12:00 Ascorbic Acid 500 Mg Tab PO DAILY@1200 [facility] Atorvastatin Calcium 20 mg 08/18/22 21:00 08/18/22 20:32 Atorvastatin 20 Mg Tab PO 20 mg HS [facility] Administration Bisacodyl 10 mg 08/18/22 19:47 Bisacodyl 10 Mg Supp RECTAL DAILY PRN Constipation Calcium Carbonate/Glycine 1,000 mg 08/18/22 22:03 Calcium Carbonate 500 Mg Chewable PO Q4HR PRN Dyspepsia Cyanocobalamin 1,000 mcg 08/19/22 12:00 Cyanocobalamin 500 Mcg Tab PO DAILY@1200 [facility] Donepezil HCl 10 mg 08/18/22 21:00 08/18/22 20:33 Donepezil 10 Mg Tab PO 10 mg HS [facility] Administration Famotidine 20 mg 08/19/22 08:00 08/19/22 08:07 Famotidine 20 Mg Tab PO 20 mg BID@0800,1700 [facility] Administration Fluticasone Propionate 1 spray 08/19/22 08:00 08/19/22 09:20 Fluticasone 50mcg/[place] Nasal 16gm EA NOSTRIL 1 spray BID@0800,1700 [facility] Administration Folic Acid 1 mg 08/19/22 12:00 Folic Acid 1 Mg Tab PO DAILY@1200 [facility] Sodium Chloride 1,000 mls @ 50 mls/hr 08/18/22 15:30 08/19/22 09:21 Saline 0.9% IV Not Given .Q20H [facility] Isosorbide Mononitrate 30 mg 08/19/22 08:00 08/19/22 08:08 Isosorbide Mononitrate Er 30 Mg Tab.Er.24h PO 30 mg DAILY@0800 [facility] Administration Lacosamide 50 mg 08/18/22 21:00 08/19/22 08:08 Lacosamide 50 Mg Tablet PO 50 mg BID@0800,2100 [facility] Administration Lorazepam 0.5 mg 08/18/22 22:03 08/18/22 23:23 Lorazepam 0.5 Mg Tab PO 0.5 mg Q6HR PRN Administration Anxiety Losartan Potassium 25 mg 08/18/22 21:00 08/18/22 20:33 Losartan 25 Mg Tab PO 25 mg HS [facility] Administration Melatonin 5 mg 08/18/22 21:00 08/18/22 20:33 Melatonin 5 Mg Tablet PO 5 mg HS [facility] Administration Montelukast Sodium 10 mg 08/19/22 08:00 08/19/22 08:08 Montelukast 10 Mg Tab PO 10 mg DAILY@0800 [facility] Administration Naloxone HCl 0.2 mg 08/18/22 15:24 Naloxone 0.4 Mg/Ml 1 Ml Vial IV Q2M PRN Opioid Reversal Nitroglycerin 0.4 mg 08/18/22 19:47 Nitroglycerin Sl Tabs 0.4 Mg Tab SUBLINGUAL Q5M PRN Chest Pain Ondansetron HCl 4 mg 08/18/22 22:03 Ondansetron 4 Mg/2 Ml Vial IVP Q8HR PRN Nausea And Vomiting Pyridoxine HCl 25 mg 08/19/22 12:00 Pyridoxine 50 Mg Tab PO DAILY@1200 [facility] Quetiapine Fumarate 25 mg 08/19/22 08:00 08/19/22 08:08 Quetiapine 25 Mg Tab PO 25 mg DAILY@0800 [facility] Administration Sodium Biphosphate/Sodium Phosphate 133 ml 08/18/22 19:47 Na Phos,M-B/Na Phos,Di-Ba 133 Ml Enema RECTAL DAILY PRN Constipation Spironolactone 12.5 mg 08/19/22 08:00 08/19/22 08:07 Spironolactone 25 Mg Tab PO 12.5 mg DAILY@0800 [facility] Administration Thiamine HCl 100 mg 08/19/22 12:00 Thiamine 100 Mg Tab PO DAILY@1200 [facility] Intake and Output 08/18/22 08/19/22 08/19/22 22:59 06:59 14:59 Intake Total 120 250 Output Total 150 400 Balance 120 100 -400 Intake: Intake, IV Titration 250 Amount Sodium Chloride 0.9% 1, 250 000 ml @ 50 mls/hr IV . Q20H [facility] Rx#:[id number] Oral 120 Output: Urine 150 400 Other: Voiding Method Urinal Urinal Urinal # Voids 2 Weight 77.111 kg 08/19/22 07:27 08/19/22 07:27
--- NOTE | 2022-08-19 12:54 | P.CNOR ---
History of Present Illness - [facility] Consult date: 08/19/22 Consult reason: joint pain (Right shoulder pain), neck pain History of present illness: Patient is an 82-year-old male who presented to [facility] for evaluation after a syncopal episode. Patient has been at rehab since his last hospital admission. At his last hospital admission which was about 2 weeks ago, he was evaluated by our orthopedic service, this was right shoulder pain. Patient was diagnosed with a shoulder strain along with exacerbation of his acromioclavicular joint osteoarthritis. He was placed in an arm sling. Patient had been doing rather well with regards to the right shoulder. Patient cannot remember the exact syncopal episode, but did fall at rehab and did strike his head. He is complaining of some vague neck pain also. Patient was evaluated today at bedside, he is resting in his hospital bed. He admits to some neck pain that is more on the left-hand side. He states the right shoulder is a little bit sore since the fall but nothing severe. He is utilizing the arm sling at this time. Patient denies any numbness or tingling in the bilateral upper extremities. He denies any rod weakness in the bilateral upper extremities. He states he is moving his head around with very minimal discomfort. He denies any numbness and tingling in the bilateral lower extremities. He denies any loss of bowel or bladder function. Review of Systems Constitutional: Reports as per HPI Past Medical History Past Medical History: Coronary Artery Disease (CAD), Chest Pain / Angina, GERD/Reflux, Hearing Disorder / Deafness, Hypertension, Memory Impairment, Myocardial Infarction ([place]), Osteoarthritis (OA) Additional Past Medical History / Comment(s): cardiomyopathy, hepatitis (child), chronic constipation, hemorrhoids, abd pain, elevated liver enzymes., has one kidney ., pt was hospitalized nov 2020 for carbon monoxide poisoning & possible hx of seizure seen on eeg . , early alzheimers. 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 Past Anesthesia/Blood Transfusion Reactions: No Reported Reaction Date of Last Stent Placement:: unknown Past Psychological History: Depression Smoking Status: Never smoker Past Alcohol Use History: None Reported Past Drug Use History: None Reported - Past Family History Father History Unknown: Yes Family Medical History: Cancer Additional Family Medical History / Comment(s): colon cancer Mother History Unknown: Yes Family Medical History: Cancer Additional Family Medical History / Comment(s): oral cancer Medications and Allergies Home Medications Medication Instructions Recorded Confirmed Type Isosorbide Mononitrate ER [Imdur] 30 mg PO DAILY@0800 09/16/14 08/18/22 History Aspirin EC [Ecotrin Low Dose] 81 mg PO DAILY@1700 08/03/19 08/18/22 History Fluticasone Nasal [place] [Flonase 1 spr EA NOSTRIL BID@0800,1700 08/03/1908/02 History Nasal [place]] Famotidine [Pepcid] 20 mg PO BID@0800,1700 11/27/20 08/18/22 History Donepezil [Aricept] 10 mg PO HS 04/30/21 08/18/22 History Melatonin 5 mg PO HS 10/25/21 08/18/22 History Ascorbic Acid [Vitamin C] 1,000 mg PO DAILY@1200 08/05/22 08/18/22 History Atorvastatin [Lipitor] 20 mg PO HS 08/05/22 08/18/22 History Cyanocobalamin (Vitamin B-12) 1,000 mcg PO DAILY@1200 08/05/22 08/18/22 History [Vitamin B-12] Furosemide [Lasix] 20 mg PO DAILY@0800 08/05/22 08/18/22 History Montelukast [Singulair] 10 mg PO DAILY@0800 08/05/22 08/18/22 History Pyridoxine [Vitamin B-6] 25 mg PO DAILY@1200 08/05/22 08/18/22 History QUEtiapine [SEROquel] 25 mg PO DAILY@0800 08/05/22 08/18/22 History Acetaminophen [Tylenol 8 Hour] 650 mg PO Q4H PRN 08/18/22 08/18/22 History Folic Acid 1 mg PO DAILY@1200 08/18/22 08/18/22 History Garlic 1,000 mg PO DAILY@1200 08/18/22 08/18/22 History Lacosamide [Vimpat] 50 mg PO BID@0800,2100 08/18/22 08/18/22 History Loratadine 10 mg PO DAILY PRN 08/18/22 08/18/22 History Losartan [Cozaar] 50 mg PO HS 08/18/22 08/18/22 History Magnesium Hydroxide [Milk of 7,200 mg PO Q48H PRN 08/18/22 08/18/22 History Magnesia Concentrate] Metoprolol Tartrate [Lopressor] 12.5 mg PO DAILY@0800 08/18/22 08/18/22 History Na Phos,M-B/Na Phos,Di-Ba [Fleet 133 ml RECTAL DAILY PRN 08/18/22 08/18/22 History Adult] Nitroglycerin Sl Tabs [Nitrostat] 0.4 mg SL Q5M PRN 08/18/22 08/18/22 History QUEtiapine [SEROquel] 25 mg PO DAILY PRN 08/18/22 08/18/22 History Spironolactone [Aldactone] 12.5 mg PO DAILY@0800 08/18/22 08/18/22 History Thiamine [Vitamin B-1] 100 mg PO DAILY@1200 08/18/22 08/18/22 History amLODIPine [Norvasc] 2.5 mg PO DAILY@0800 08/18/22 08/18/22 History bisacodyL [Dulcolax] 10 mg RECTAL DAILY PRN 08/18/22 08/18/22 History Allergies Allergy/AdvReac Type Severity Reaction Status Date / Time Sulfa (Sulfonamide Allergy Unknown Verified 08/18/22 12:46 Antibiotics) Childhood Physical Examination Gen: AOx3, NAD VSS stable at this time Integument: Is bruising throughout the patient's forehead and face. No obvious open lesions or sores visualized throughout the cervical spine posterior aspect of lesions or sores visualized throughout the right shoulder, there is some generalized bruising to the proximal humerus Palpation: Patient demonstrates minimal tenderness with palpation along the acromioclavicular joint right shoulder. He has generalized tenderness in the paraspinal regions cervical spine. ROM: Full range of motion the left upper extremity with all muscle groups Full range of motion in the right upper extremity with all major muscle groups, limited with shoulder elevation in abduction due to use of the sling Full range of motion of all major muscle groups of the bilateral lower extremities, no focal deficits Sensory Exam: Senory exam to light touch is intact C5-T1 [place] exam to light touch is intact L2-S1 Motor: 55 strength in the left upper extremity with shoulder elevation, shoulder abduction, elbow extension, elbow flexion, wrist extension, wrist , communications analyst 4 flexion+/5 strength appreciated the right upper extremity with shoulder elevation, shoulder abduction, elbow extension, elbow flexion, wrist extension, wrist flexion, communications analyst Reflexes: 2/4 in all UE and LE Negative Fili's, Babinski, clonus bilaterally Results - Labs Labs: Abnormal Lab Results - Last 24 Hours (Table) 08/18/22 08/18/22 08/19/22 Range/Units 12:19 12:30 07:27 RBC 4.03 L (4.30-5.90) m/uL MCV 107.3 H (80.0-100.0) fL MCH 35.7 H (25.0-35.0) pg RDW 11.4 L (11.5-15.5) % APTT 20.4 L (22.0-30.0) sec Sodium (137-145) mmol/L Potassium (3.5-5.1) mmol/L Chloride (98-107) mmol/L Carbon Dioxide (22-30) mmol/L Glucose (74-99) mg/dL Calcium (8.4-10.2) mg/dL Total Protein 6.1 L (6.3-8.2) g/dL 08/19/22 08/19/22 Range/Units 07:27 12:14 RBC (4.30-5.90) m/uL MCV (80.0-100.0) fL MCH (25.0-35.0) pg RDW (11.5-15.5) % APTT (22.0-30.0) sec Sodium 136 L 136 L (137-145) mmol/L Potassium 5.4 H (3.5-5.1) mmol/L Chloride 111 H 108 H (98-107) mmol/L Carbon Dioxide 18 L 21 L (22-30) mmol/L Glucose 123 H (74-99) mg/dL Calcium 8.3 L (8.4-10.2) mg/dL Total Protein (6.3-8.2) g/dL H & H 08/18/22 08/19/22 Range/Units 12:19 07:27 Hgb 12.8 L 14.4 (13.0-17.5) gm/dL Hct 36.7 L 43.2 (39.0-53.0) % Coagulation 08/18/22 Range/Units 12:19 INR 1.0 (<1.2) Result Diagrams: 08/19/22 07:27 08/19/22 12:14 - Diagnostic results Shoulder x-ray: report reviewed, image reviewed (Report and images reviewed of the humerus from today's visit, x-rays were reviewed from his previous hospital visit of the shoulder. No acute fractures or dislocations present) CT scan - cervical: report reviewed, image reviewed (Report reviewed, no acute acute fractures or dislocations. multilevel spondylosis with facet arthropathy noted ) Assessment and Plan Assessment: Right shoulder pain Right shoulder strain/exacerbation acromioclavicular joint osteoarthritis Neck pain Multilevel cervical spondylosis with facet arthropathy Syncopal episode Multiple medical comorbidities Plan: I was able to discuss the case, this including no physical exam findings and imaging studies my attending Dr. James. No emergent surgical intervention is recommended at this time Recommend use of the arm sling, patient may limit use of the arm sling as he c ontinues to feel better. Avoid heavy lifting with the shoulder, elbow and wrist exercises are fine Recommended conservative management of the neck pain at this time, a anti- inflammatory versus low-dose muscle relaxer. Patient is not demonstrating any acute neuropathic signs at this time. Patient may follow-up outpatient setting for further evaluation if he continues to bother him GI prophylaxis per primary medical service Other medical specialty recommendations Continue to follow during inpatient stay Time with Patient: Less than 30
[2022-08-19] MEDS: THIAMINE 100 MG TAB PO SCH (13:20)
[2022-08-19] MEDS: PYRIDOXINE 50 MG TAB PO SCH (13:20)
[2022-08-19] MEDS: ASCORBIC ACID 500 MG TAB PO SCH (13:20)
[2022-08-19] MEDS: FOLIC ACID 1 MG TAB PO SCH (13:20)
[2022-08-19] MEDS: CYANOCOBALAMIN 500 MCG TAB PO SCH (13:20)
--- NOTE | 2022-08-19 16:15 | CT ---
EXAMINATION TYPE: CT angio head neck DATE OF EXAM: 08/19/2022 HISTORY: syncope, dizziness COMPARISON: CT cervical spine 08/18/2022 CT DLP: 362.2 mGycm. Automated Exposure Control for Dose Reduction was Utilized. TECHNIQUE: CTA scan of the head and neck is performed with IV Contrast, patient injected with 65cc m L of Isovue 370, axial images are obtained, coronal and sagittal reformatted images are reviewed. 3D reconstructed images are created on an independent workstation and reviewed. FINDINGS: Carotid/Vascular Structures: The origins of the super aortic branch vessels not entirely included. Th e left subclavian, right subclavian, innominate, left and right common carotid arteries are patent. T he internal and extra carotid arteries are patent, no significant stenosis. The vertebral arteries ar e codominant and patent. Within the brain the anterior and posterior circulations are patent. There i s no evident aneurysm, dissection, embolus, or stenosis. Other: Degenerative disc changes are stable. Apical pleural thickening is again noted within the lung s. Nodularity present on axial image 14 medially in the right upper lobe is indeterminate, nodule on the left upper lobe on axial image 14 medially may be related to apical scarring. Calcifications urvashi g the tonsillar pillars consistent with chronic infection. IMPRESSION: No significant abnormality is seen with limitations as described. NASCET criteria was used in interpretation of this exam?
[2022-08-19] MEDS: LORazepam 0.5 MG TAB PO PRN (21:04)
[2022-08-19] MEDS: LOSARTAN 25 MG TAB PO SCH (21:04)
[2022-08-19] MEDS: ATORVASTATIN 20 MG TAB PO SCH (21:05)
[2022-08-19] MEDS: DONEPEZIL 10 MG TAB PO SCH (21:05)
[2022-08-19] MEDS: MELATONIN 5 MG TABLET PO SCH (21:05)
[2022-08-20] MEDS: SODIUM CHLORIDE 0.9% 1,000 ML IV SCH (05:31)
[2022-08-20] MEDS: ISOSORBIDE MONONITRATE ER 30 MG TAB.ER.24H PO SCH (09:05)
[2022-08-20] MEDS: SPIRONOLACTONE 25 MG TAB PO SCH (09:05)
[2022-08-20] MEDS: FAMOTIDINE 20 MG TAB PO SCH ×2 (09:06→16:03)
[2022-08-20] MEDS: LACOSAMIDE 50 MG TABLET PO SCH ×2 (09:06→20:20)
[2022-08-20] MEDS: MONTELUKAST 10 MG TAB PO SCH (09:06)
[2022-08-20] MEDS: FLUTICASONE 50MCG/SPRAY NASAL 16GM EA NOSTRIL SCH ×2 (09:06→16:03)
[2022-08-20] MEDS: QUEtiapine 25 MG TAB PO SCH (09:06)
[2022-08-20] MEDS: ACETAMINOPHEN TAB 325 MG TAB PO PRN (09:11)
--- NOTE | 2022-08-20 09:41 | P.PN ---
Subjective Progress Note Date: 08/20/22 Principal diagnosis: Right Shoulder pain Neck pain Patient seen and examined at bedside. Patient was resting in bed with his right upper extremity resting across his torso. Patient requested assistance with placing his sling. Patient does present with limited range of motion to right shoulder. He does state that his pain has subsided. Patient states he would like to get back to [facility] to finish his therapy so he can be released to go home. Patient denies any numbness tingling to bilateral upper extremities. Patient denies any f/c/sob/cp. Objective - Vital Signs Vital signs: Vital Signs Temp 98.5 F 08/20/22 08:08 Pulse 66 08/20/22 08:08 Resp 15 08/20/22 08:08 BP 123/70 08/20/22 08:08 Pulse Ox 95 08/20/22 08:08 FiO2 Intake & Output 08/19/22 08/20/22 08/20/22 18:59 06:59 18:59 Intake Total 590 118 Output Total 700 400 Balance -700 590 -282 Intake: Oral 590 118 Output: Urine 700 400 Other: Voiding Method Urinal Urinal # Bowel Movements 2 - Exam Physical Examination General: The patient is awake and alert, in no acute distress Skin: Skin is warm and dry with no obvious rashes or lesions. Hairy patches absent, no dorsal skin dimples, no cafe au lait spots, and no surgical incisions. Eye: Pupils are equal, round and reactive to light, extra-ocular movements are intact; there is normal conjunctiva bilaterally. Neck: The neck is supple, there is slight tenderness to palpation and ROM intact. Cardiovascular: There is a regular rate and rhythm. No murmur, rub or gallop is appreciated. Respiratory: Lungs are clear to auscultation, respirations are non-labored, breath sounds are equal. Gastrointestinal: Soft, non-distended, non-tender abdomen . Back: There is no tenderness to palpation in the midline, paralumbar, parathoracic or buttocks region. There is no obvious deformity . Musculoskeletal: ROM limited secondary to pain and stiffness. Muscle strength 5/5 in all major muscle groups of left upper extremity and bilateral lower extremities. 4/5 in right upper extremity. Neurological: CN 2-12 intact. There are no obvious motor or sensory deficits. Movement and coordination equal and intact. Sensory exam to light touch intact C5-T1 and intact from L2-S1. Reflexes 2/4 in bilateral upper and lower ext remities. Negative Hoffmans, babinski, and clonus signs. Psychiatric: Cooperative, appropriate mood & affect, normal judgment. - Labs CBC & Chem 7: 08/19/22 07:27 08/19/22 12:14 Labs: Abnormal Lab Results - Last 24 Hours (Table) 08/19/22 Range/Units 12:14 Sodium 136 L (137-145) mmol/L Chloride 108 H (98-107) mmol/L Carbon Dioxide 21 L (22-30) mmol/L Glucose 123 H (74-99) mg/dL Calcium 8.3 L (8.4-10.2) mg/dL Assessment and Plan Assessment: Right shoulder pain Right shoulder strain/exacerbation acromioclavicular joint osteoarthritis Neck pain Multilevel cervical spondylosis with facet arthropathy Syncopal episode Multiple medical comorbidities Plan: -Continue use of the arm sling, patient may limit use of the arm sling as he continues to feel better. -Avoid heavy lifting with the shoulder, continue with ROM exercises of wrist and elbow -Recommended conservative management of the neck pain at this time, a anti- inflammatory versus low-dose muscle relaxer. -GI prophylaxis per primary medical service -Other medical specialty recommendations -Patient may follow-up outpatient setting for further evaluation if he continues to bother him -Continue to follow during inpatient stay
--- NOTE | 2022-08-20 10:17 | P.PN ---
Subjective Progress Note Date: 08/20/22 HISTORY OF PRESENT ILLNESS: This is a 82-year-old male with a past medical history significant for coronary artery disease with previous PCI to the LAD, hypertension, hyperlipidemia, and dementia. Patient follows in the office with Dr. Gates. We have been asked to see the patient in consultation for bradycardia. Patient examined at the bedside. Patient was recently hospitalized here this month for a single episode. Patient was found to have seizure activity noted on his EEG. He was started on Vimpat and discharged to [facility] in stable condition. Patient presents back to the hospital with another episode of syncope. He states he was getting ready in the bathroom when the next thing he knew he was on the bathroom floor. He denied having any warning signs he was about to fall. He denied any dizziness or lightheadness. He currently denies any chest pain or pressure. He denies any shortness of breath. He denies any dizziness or lightheadedness. Patient's vital signs are stable. Telemetry reveals sinus mechanism with a heart rate in the 40-50s. * EKG reveals sinus bradycardia with a heart rate of 49. * Laboratory data: WBC 7.7. Hemoglobin 14.4. Platelet count 248. Sodium 136. Potassium 5.4. BUN 16. Creatinine 0.74. Magnesium 2.0. Troponin negative 3 * Current home cardiac medications include aspirin 81 mg daily, Lipitor 20 mg at night, amlodipine 2.5 mg daily, Imdur 30 mg daily, losartan 50 mg daily, metoprolol tartrate 12.5 mg daily, Aldactone 12.5 mg daily, Lasix 20 mg daily * Most recent echocardiogram obtained in August 2022 revealed ejection fraction 55-60%, mild mitral regurgitation, mild aortic regurgitation, and mild tricuspid regurgitation * Cardiac catheterization history: August 2018 revealing both the LAD stents are patent, mild irregularities and dominant RCA which is heavily calcified no obstructive CAD. Circumflex nondominant small to small marginal branch has no significant disease. 08/20/2022 Patient examined this morning at the bedside. Patient denies chest pain or pressure. He denies shortness of breath. Telemetry reveals sinus mechanism with a heart rate in the 60s and 70s. No significant bradycardias noted. Patient does report having some dizziness yesterday upon standing. Orthostatics were obtained and were unremarkable. TSH normal at 1.1. PHYSICAL EXAM: VITAL SIGNS: Reviewed. GENERAL: Well-developed in no acute distress. HEENT: Head is normocephalic. Pupils are equal, round. Sclerae anicteric. Mucous membranes of the mouth are moist. Neck supple. No JVD or thyromegaly LUNGS: Respirations even and unlabored. Lungs essentially clear to auscultation bilaterally. HEART: Regular rate and rhythm. S1 and S2 heard. ABDOMEN: Soft. Nondistended. Nontender. EXTREMITIES: Normal range of motion. No clubbing or cyanosis. Peripheral pulses intact. No lower extremity edema NEUROLOGIC: Awake and alert. Oriented x 1-2. ASSESSMENT: Recurrent syncope versus seizure Recently diagnosed seizure disorder Sinus bradycardia Coronary artery disease with previous PCI to the LAD Hypertension Hyperlipidemia Dementia Right shoulder pain PLAN: Continue to hold beta blockers at discharge Continue additional cardiac medications Obtain event monitor at discharge Stable for discharge today from a cardiac standpoint Nurse practitioner note has been reviewed by physician. Signing provider agrees with the documented findings, assessment, and plan of care. Objective - Vital Signs Vital signs: Vital Signs Temp 98.5 F 08/20/22 08:08 Pulse 66 08/20/22 08:08 Resp 15 08/20/22 08:08 BP 123/70 08/20/22 08:08 Pulse Ox 95 08/20/22 08:49 FiO2 Intake & Output 08/19/22 08/20/22 08/20/22 18:59 06:59 18:59 Intake Total 590 118 Output Total 700 500 Balance -700 590 -382 Intake: Oral 590 118 Output: Urine 700 500 Other: Voiding Method Urinal Urinal # Bowel Movements 2 1 - Labs CBC & Chem 7: 08/19/22 07:27 08/19/22 12:14 Labs: Abnormal Lab Results - Last 24 Hours (Table) 08/19/22 Range/Units 12:14 Sodium 136 L (137-145) mmol/L Chloride 108 H (98-107) mmol/L Carbon Dioxide 21 L (22-30) mmol/L Glucose 123 H (74-99) mg/dL Calcium 8.3 L (8.4-10.2) mg/dL
[2022-08-20] MEDS: ASCORBIC ACID 500 MG TAB PO SCH (11:16)
[2022-08-20] MEDS: THIAMINE 100 MG TAB PO SCH (11:16)
[2022-08-20] MEDS: CYANOCOBALAMIN 500 MCG TAB PO SCH (11:16)
[2022-08-20] MEDS: FOLIC ACID 1 MG TAB PO SCH (11:16)
--- NOTE | 2022-08-20 11:20 | P.CNNES ---
History of Present Illness Consult date: 08/19/22 Requesting physician: Moe Romero Reason for Consult: Syncope versus seizure History of Present Illness: Patient is a 82-year-old male known to neurology service from previous admissions to the hospital came to the hospital by ambulance yesterday at 11:17 AM for another syncopal spell. Patient's sister was also present at the time of this interview. Apparently patient passed out at [facility]. 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 He had gone to the bathroom, got done, was washing himself, when he woke up on the floor, looking at the door. Patient's roommate heard her thud. Staff was called and they called the ambulance. According to EMS flow sheet, when they arrived at [facility], where he is residing, found patient on the floor. Nurse mentioned that patient was found on the floor. He recently had a torn rotator cuff. Patient was laying on the shoulder that was just repaired. Patient was complaining of neck pain. Patient mentioned that he was standing and the next thing he knows, he was on the floor looking at the door. No neurological deficits were noted by the EMS. Patient w as alert and oriented. Patient had a contusion/hematoma on the forehead. Patient's vitals at the scene was blood pressure 99/55, pulse 56, respiration 10, saturation 97%. Repeat blood pressure was 98/46 and then 106/47. Vital signs on arrival blood pressure was 108/59. Blood test shows a CBC 10.9 hemoglobin 36.7 with elevated MCV 103.5. Platelets are normal. PT/PTT normal, CMP normal troponin negative. UA negative. Computed tomography scan head and cervical spine showed no acute intracranial process. Small right frontal soft tissue hematoma. I personally reviewed CT head, agree with the findings. No acute process. Visualized paranasal sinuses are clear. No evidence of cervical spine fracture. Moderate multilevel degenerative disc disease. CTA of the chest showed no acute pulmonary embolism. Mild cardiomegaly with tiny bilateral pleural effusions and mild interstitial edema. Correlate for CHF exacerbation. X-ray of the humerus is negative. EKG shows atrial fibrillation with slow ventricular response. CT of abdomen and pelvis revealed diverticulosis. No evident posttraumatic change. Patient's home medications include isosorbide 30 mg daily, aspirin 81 mg, Pepcid 20 mg, donepezil 10 mg, melatonin, Seroquel 25 mg daily, B12 1000 g orally daily, Lasix 20 mg, B6 25 mg, Singulair, Lipitor 20 mg, loratadine 10 mg, garlic, amlodipine 2.5 mg, metoprolol 12.5 mg Vimpat 50 mg twice a day, losartan 50 mg, Aldactone 12.5 mg and folic acid 1 mg daily. Patient was recently seen by myself on 08/06/2022 for a fall with significant period of amnesia, unwitnessed seizure was suspected. Patient had a previous abnormal EEG. Patient was started on Vimpat 50 mg twice a day and was recommended to increase dose to 100 mg twice a day after one week. patient currently still on Vimpat 50 mg twice a day. At present patient complains of feeling dizzy when he moves around in bed or when he sits up from a laying position. He does not use any assistive device for ambulation. Telemetry monitoring showing sinus rhythm, sinus bradycardia in the 50s, ectopic, PVCs, couplets, triplets, trigeminy, PACs. Review of Systems Constitutional: Denies chills, Denies fever Eyes: denies blurred vision, denies pain Ears: left: earache, deny: ear discharge Ears, nose, mouth and throat: Denies headache, Denies sore throat Cardiovascular: Denies chest pain, Denies shortness of breath Respiratory: Reports as per HPI Gastrointestinal: Denies abdominal pain, Denies diarrhea, Denies nausea, Denies vomiting Musculoskeletal: Denies muscle cramps, Denies myalgias Integumentary: Denies pruritus, Denies rash Neurological: Reports as per HPI Psychiatric: Denies anxiety, Denies depression Endocrine: Denies fatigue, Denies weight change Hematologic/Lymphatic: Denies lymphadenopathy Allergic/Immunologic: Denies persistent infections Past Medical History Past Medical History: Coronary Artery Disease (CAD), Chest Pain / Angina, GERD/Reflux, Hearing Disorder / Deafness, Hypertension, Memory Impairment, Myocardial Infarction (AR), Osteoarthritis (OA) Additional Past Medical History / Comment(s): cardiomyopathy, hepatitis (child), chronic constipation, hemorrhoids, abd pain, elevated liver enzymes., has one kidney ., pt was hospitalized nov 2020 for carbon monoxide poisoning & possible hx of seizure seen on eeg . , early alzheimers. 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 Past Anesthesia/Blood Transfusion Reactions: No Reported Reaction Date of Last Stent Placement:: unknown Past Psychological History: Depression Smoking Status: Never smoker Past Alcohol Use History: None Reported Past Drug Use History: None Reported - Past Family History Father History Unknown: Yes Family Medical History: Cancer Additional Family Medical History / Comment(s): colon cancer Mother History Unknown: Yes Family Medical History: Cancer Additional Family Medical History / Comment(s): oral cancer Medications and Allergies Home Medications Medication Instructions Recorded Confirmed Type Isosorbide Mononitrate ER [Imdur] 30 mg PO DAILY@0800 09/16/14 08/18/22 History Aspirin EC [Ecotrin Low Dose] 81 mg PO DAILY@1700 08/03/19 08/18/22 History Fluticasone Nasal [place] [Flonase 1 spr EA NOSTRIL BID@0800,1700 08/03/19 08/18/22 History Nasal [place]] Famotidine [Pepcid] 20 mg PO BID@0800,1700 11/27/20 08/18/22 History Donepezil [Aricept] 10 mg PO HS 04/30/21 08/18/22 History Melatonin 5 mg PO HS 10/25/21 08/18/22 History Ascorbic Acid [Vitamin C] 1,000 mg PO DAILY@1200 08/05/22 08/18/22 History Atorvastatin [Lipitor] 20 mg PO HS 08/05/22 08/18/22 History Cyanocobalamin (Vitamin B-12) 1,000 mcg PO DAILY@1200 08/05/22 08/18/22 History [Vitamin B-12] Furosemide [Lasix] 20 mg PO DAILY@0800 08/05/22 08/18/22 History Montelukast [Singulair] 10 mg PO DAILY@0800 08/05/22 08/18/22 History Pyridoxine [Vitamin B-6] 25 mg PO DAILY@1200 08/05/22 08/18/22 History QUEtiapine [SEROquel] 25 mg PO DAILY@0800 08/05/22 08/18/22 History Acetaminophen [Tylenol 8 Hour] 650 mg PO Q4H PRN 08/18/22 08/18/22 History Folic Acid 1 mg PO DAILY@1200 08/18/22 08/18/22 History Garlic 1,000 mg PO DAILY@1200 08/18/22 08/18/22 History Lacosamide [Vimpat] 50 mg PO BID@0800,2100 08/18/22 08/18/22 History Loratadine 10 mg PO DAILY PRN 08/18/22 08/18/22 History Losartan [Cozaar] 50 mg PO HS 08/18/22 08/18/22 History Magnesium Hydroxide [Milk of 7,200 mg PO Q48H PRN 08/18/22 08/18/22 History Magnesia Concentrate] Metoprolol Tartrate [Lopressor] 12.5 mg PO DAILY@0800 08/18/22 08/18/22 History Na Phos,M-B/Na Phos,Di-Ba [Fleet 133 ml RECTAL DAILY PRN 08/18/22 08/18/22 History Adult] Nitroglycerin Sl Tabs [Nitrostat] 0.4 mg SL Q5M PRN 08/18/22 08/18/22 History QUEtiapine [SEROquel] 25 mg PO DAILY PRN 08/18/22 08/18/22 History Spironolactone [Aldactone] 12.5 mg PO DAILY@0800 08/18/22 08/18/22 History Thiamine [Vitamin B-1] 100 mg PO DAILY@1200 08/18/22 08/18/22 History amLODIPine [Norvasc] 2.5 mg PO DAILY@0800 08/18/22 08/18/22 History bisacodyL [Dulcolax] 10 mg RECTAL DAILY PRN 08/18/22 08/18/22 History Allergies Allergy/AdvReac Type Severity Reaction Status Date / Time Sulfa (Sulfonamide Allergy Unknown Verified 08/18/22 12:46 Antibiotics) Childhood Physical Examination - Vital Signs Vital Signs: Vital Signs Temp Pulse Pulse Resp BP BP Pulse Ox 08/19/22 11:11 76 18 08/19/22 07:59 97.8 F 76 18 134/83 97 08/19/22 04:00 98.1 F 60 18 138/82 95 08/19/22 02:00 56 L 18 08/19/22 00:00 56 L 18 147/87 96 08/18/22 20:00 98.4 F 62 18 158/90 95 08/18/22 17:50 52 L 18 101/56 96 08/18/22 13:42 56 L 18 103/66 97 Intake and Output 08/18/22 08/19/22 08/19/22 22:59 06:59 14:59 Intake Total 120 250 Output Total 150 400 Balance 120 100 -400 Intake: Intake, IV Titration 250 Amount Sodium Chloride 0.9% 1, 250 000 ml @ 50 mls/hr IV . Q20H STEPHEN Rx#:[id number] Oral 120 Output: Urine 150 400 Other: Voiding Method Urinal Urinal Urinal # Voids 2 Weight 77.111 kg Patient is an elderly male, very pleasant, in no acute distress. Patient has significant bruises over his facial region. Patient is alert awake oriented to time place and person. Speech and language functions are normal. Patient can name and repeat very well. No aphasia or dysarthria. Attention, concentration and fund of knowledge is adequate. On cranial nerve examination, pupils are equal, round and reacting to light, visual mcclure are full on confrontation, with no neglect on double simultaneous stimulation. Extraocular muscles are intact with no nystagmus. Face is symmetric, tongue protrudes to the midline. Palatal elevation and sensation normal, hearing is slightly decreased and shoulder shrug normal, facial sensati on normal. On muscle strength testing, his right arm is in a sling. Muscle strength is normal in arms and legs, except right deltoid which was not checked because of recent surgery. Deep tendon reflexes are symmetric and trace in the upper limbs, 1+ at the knees, absent ankles and plantars downgoing bilaterally. Sensory to touch is equal with no neglect on double simultaneous stimulation. Cerebellar function showed no ataxia for [id number] testing on the left. No dysdiadochokinesia. No ataxia for [id number] testing on either side. Tone and bulk of muscles normal. Gait deferred.. On general examination, there is no carotid bruit or murmur, S1-S2 audible. Chest is clear on consultation. Abdomen is soft nontender. No organomegaly, bowel sounds present. Peripheral pulses are present. No edema. Results - Laboratory Findings CBC and BMP: 08/19/22 07:27 08/19/22 12:14 Abnormal Lab Findings: Abnormal Labs 08/18/22 08/18/22 08/18/22 12:19 12:19 12:30 WBC 10.9 H RBC 3.55 L Hgb 12.8 L Hct 36.7 L MCV 103.5 H MCH 36.0 H RDW Neutrophils # 8.6 H APTT 20.4 L Sodium Potassium Chloride Carbon Dioxide Total Protein 6.1 L 08/19/22 08/19/22 07:27 07:27 WBC RBC 4.03 L Hgb Hct MCV 107.3 H MCH 35.7 H RDW 11.4 L Neutrophils # APTT Sodium 136 L Potassium 5.4 H Chloride 111 H Carbon Dioxide 18 L Total Protein Assessment and Plan Assessment: * Syncopal spell, most likely due to arrhythmia. Doubt seizure, as there was no postictal state. * Atrial fibrillation * Previous history of carbon monoxide poisoning in November 2020, but prolonged episode of amnesia. EEG was abnormal with epileptiform activity over the right temporal region at that time. * Coronary artery disease * Hypertension * Mild cognitive impairment. Plan: * Orthostatics. * Suggest event monitor or loop recorder placement to evaluate for arrhythmia. * CTA of head and neck showed no significant abnormality. * Telemetry monitoring showing sinus rhythm, sinus bradycardia in the 50s, ectopic, PVCs, couplets, triplets, trigeminy, PACs. Cardiology on board. * Neurology will follow. Thank you for the consult. Addendum: * Orthostatics were checked and negative. Supine blood pressure 119/60 with pulse rate 64, sitting 147/73, pulse 71 and standing 132/84 with pulse of 69. Consider tilt table test. * Neurologically clear. No other neurological workup indicated.
--- NOTE | 2022-08-20 11:36 | P.PN ---
Progress Note - Text Progress Note Date: 08/20/22 Chief Complaint: Unconscious This is a pleasant 82-year-old patient who follows with Dr. Bruce Quintanilla. Chronic stable medical conditions include right temporal lobe epilepsy, mild cognitive impairment, CAD with stent, essential hypertension, left ventricular apical thrombus, left nephrectomy, chronic congestive heart failure from systolic dysfunction EF 30-35%. also has been following with Dr. rod from neurology Patient recently in the hospital from August 05 through August 07. Seen by Dr. Castro for neurology. Greer to be seizure disorder. Previous admission had shown temporal lobe epilepsy. Patient was started on Vimpat. Patient also had right shoulder pain. Seen by Dr. James. Patient was to follow outpatient. Patient was discharged to rehab Patient is brought in by the EMS. Patient was found on the floor. Patient only remembers he was standing next thing he knows that looking at the door. Does not remember for how long he had passed out. There is some bruising on the forehead and cheek. Patient has been in rehab. Able to walk a fair distance with a walker. Has not been feeling dizzy or lightheaded. Denies any chest pain and palpitation. No tongue biting. No incontinence. Patient admitted near similar episode in the ER. Very short-lived the patient states. Greer that he is going to pass out. 08/19/2022: Patient initial EKG showed a heart rate of 49. Consult cardiology. Patient today stated that he episode when he tried to turn his head to the right side he felt his to pass out. Ordered a CT angiogram of the head and neck. Rule out any vascular insufficiency in the neck. Oral intake fair. Has pain in the neck. Pending orthopedic evaluation. 08/20/2022: Patient's heart rate is up in the 70s. Lopressor was discontinued. Seen by cardiology. No further episode. Discussed with Dr. Castro from neurolo gy. Possibly the episode was from bradycardia. We will do a prolonged EEG to make sure. Cardiology has also documented sinus rhythm. Not A. fib. CT angiogram of the neck and brain unremarkable. Active Medications Acetaminophen (Acetaminophen Tab 325 Mg Tab) 650 mg PO Q4H PRN PRN Reason: General Discomfort Last Admin: 08/20/22 09:11 Dose: 650 mg Ascorbic Acid (Ascorbic Acid 500 Mg Tab) 1,000 mg PO DAILY@1200 [facility] Last Admin: 08/20/22 11:16 Dose: 1,000 mg Atorvastatin Calcium (Atorvastatin 20 Mg Tab) 20 mg PO [facility] Last Admin: 08/19/22 21:05 Dose: 20 mg Bisacodyl (Bisacodyl 10 Mg Supp) 10 mg RECTAL DAILY PRN PRN Reason: Constipation Calcium Carbonate/Glycine (Calcium Carbonate 500 Mg Chewable) 1,000 mg PO Q4HR PRN PRN Reason: Dyspepsia Cyanocobalamin (Cyanocobalamin 500 Mcg Tab) 1,000 mcg PO DAILY@1200 [facility] Last Admin: 08/20/22 11:16 Dose: 1,000 mcg Donepezil HCl (Donepezil 10 Mg Tab) 10 mg PO [facility] Last Admin: 08/19/22 21:05 Dose: 10 mg Famotidine (Famotidine 20 Mg Tab) 20 mg PO BID@0800,1700 [facility] Last Admin: 08/20/22 09:06 Dose: 20 mg Fluticasone Propionate (Fluticasone 50mcg/[place] Nasal 16gm) 1 spray EA NOSTRIL BID@0800,1700 [facility] Last Admin: 08/20/22 09:06 Dose: 1 spray Folic Acid (Folic Acid 1 Mg Tab) 1 mg PO DAILY@1200 [facility] Last Admin: 08/20/22 11:16 Dose: 1 mg Sodium Chloride (Saline 0.9%) 1,000 mls @ 50 mls/hr IV .Q20H [facility] Last Admin: 08/20/22 05:31 Dose: Not Given Isosorbide Mononitrate (Isosorbide Mononitrate Er 30 Mg Tab.Er.24h) 30 mg PO DAILY@0800 [facility] Last Admin: 08/20/22 09:05 Dose: 30 mg Lacosamide (Lacosamide 50 Mg Tablet) 50 mg PO BID@0800,2100 [facility] Last Admin: 08/20/22 09:06 Dose: 50 mg Lorazepam (Lorazepam 0.5 Mg Tab) 0.5 mg PO Q6HR PRN PRN Reason: Anxiety Last Admin: 08/19/22 21:04 Dose: 0.5 mg Losartan Potassium (Losartan 25 Mg Tab) 25 mg PO [facility] Last Admin: 08/19/22 21:04 Dose: 25 mg Melatonin (Melatonin 5 Mg Tablet) 5 mg PO [facility] Last Admin: 08/19/22 21:05 Dose: 5 mg Montelukast Sodium (Montelukast 10 Mg Tab) 10 mg PO DAILY@0800 [facility] Last Admin: 08/20/22 09:06 Dose: 10 mg Naloxone HCl (Naloxone 0.4 Mg/Ml 1 Ml Vial) 0.2 mg IV Q2M PRN PRN Reason: Opioid Reversal Nitroglycerin (Nitroglycerin Sl Tabs 0.4 Mg Tab) 0.4 mg SUBLINGUAL Q5M PRN PRN Reason: Chest Pain Ondansetron HCl (Ondansetron 4 Mg/2 Ml Vial) 4 mg IVP Q8HR PRN PRN Reason: Nausea And Vomiting Pyridoxine HCl (Pyridoxine 50 Mg Tab) 25 mg PO DAILY@1200 [facility] Last Admin: 08/19/22 13:20 Dose: 25 mg Quetiapine Fumarate (Quetiapine 25 Mg Tab) 25 mg PO DAILY@0800 [facility] Last Admin: 08/20/22 09:06 Dose: 25 mg Sodium Biphosphate/Sodium Phosphate (Na Phos,M-B/Na Phos,Di-Ba 133 Ml Enema) 133 ml RECTAL DAILY PRN PRN Reason: Constipation Spironolactone (Spironolactone 25 Mg Tab) 12.5 mg PO DAILY@0800 [facility] Last Admin: 08/20/22 09:05 Dose: 12.5 mg Thiamine HCl (Thiamine 100 Mg Tab) 100 mg PO DAILY@1200 [facility] Last Admin: 08/20/22 11:16 Dose: 100 mg Past medical history to include: Coronary artery disease with stent, hypertension, kidney disease, cardiac left ventricular apical thrombus, left nephrectomy, CHF EF 30-35%, cognitive impairment, temporal lobe epilepsy Social history: Getting rehab at [facility]. Denies any uses cigarettes alcohol or any recreational drugs. Family history: Patient doesn't remember Physical examination: VITAL SIGNS: 98.5, 66, 15, 1 23 x 70, 95% room air GENERAL: laying in bed, awake. EYES: Pupils equal. Conjunctiva normal. HEENT: External appearance of nose and ears normal, oral cavity grossly normal. Bruising on the right forehead, left cheek NECK: JVD not raised; masses not palpable. HEART: First and second heart sounds are normal; no edema. LUNGS: Respiratory rate normal; clear to auscultation. ABDOMEN: Soft, nontender, liver spleen not palpable, no masses palpable. PSYCH: Answering questions appropriately. Mood affect normal NEUROLOGICAL: Cranial nerves grossly intact; no facial asymmetry, power and sensation grossly intact. MUSCULAR skeletal: Right arm in a sling. Evidence of OA INVESTIGATIONS, reviewed in the clinical context: CT angiogram of the neck and brain: Unremarkable August 19: WBC 7.7 hemoglobin 14.4 platelets 2485.4 bicarb 18 creatinine 0.74 EKG tracing personally reviewed by me-poor baseline. Sinus rhythm heart rate 49 Chest CTA: Unremarkable Abdomen pelvis CT: Diverticulosis. humerus x-ray personally reviewed by me: No fracture seen. Assessment and plan: -Episode of unconsciousness had a positive EEG in the temporal lobe in the past and on last admission was started on Vimpat as it was felt to be a seizure episode.. follow with neurologist outpatient. Discussed with Dr. Castro from neurology. CT angiogram of the head and neck negative. This episode possibly from bradycardia. Lopressor discontinued. Continue Vimpat. Prolonged EEG will be ordered today. -Acute right shoulder limited range of motion secondary to fall. Possibly rotator cuff injury. Seen by Dr. James. Right arm in a sling. Conservative management. -Neck pain. Negative for fracture. Likely muscular skeletal sprain. Orthopedic -conservative management -Mild cognitive impairment Aricept -Coronary artery with stent Aspirin, Lopressor-discontinued, Cozaar, Imdur, -Essential hypertension , Cozaar, -Left ventricular cardiac apical thrombus, in the past.- not on any anticoagulation. Patient does follow with Dr. JOSE JUAN Gates from cardiology. -Left nephrectomy, chronic -Chronic congestive heart failure from systolic dysfunction EF 30-35% Lasix 20 mg a day. Aldactone 12.5 daily -Disposition: Pending [employer] authorization Patient off Lopressor. Continue telemetry. Discussed with Dr. Castro. Prolonged EEG to be done today. To make sure no seizure activity. Pending [employer] authorization
[2022-08-20] MEDS: PYRIDOXINE 50 MG TAB PO SCH (13:08)
[2022-08-20] MEDS: ATORVASTATIN 20 MG TAB PO SCH (20:20)
[2022-08-20] MEDS: MELATONIN 5 MG TABLET PO SCH (20:20)
[2022-08-20] MEDS: LOSARTAN 25 MG TAB PO SCH (20:20)
[2022-08-20] MEDS: DONEPEZIL 10 MG TAB PO SCH (20:20)
[2022-08-21] MEDS: SODIUM CHLORIDE 0.9% 1,000 ML IV SCH ×2 (06:28→21:59)
--- NOTE | 2022-08-21 08:29 | P.PN ---
Subjective Progress Note Date: 08/21/22 Principal diagnosis: Right Shoulder pain Neck pain Patient seen and examined at bedside. Patient was resting in bed with his right upper extremity in sling. He continues to state that his pain has subsided. Patient denies any numbness tingling to bilateral upper extremities. Patient denies any f/c/sob/cp. Objective - Vital Signs Vital signs: Vital Signs Temp 98.4 F 08/21/22 04:00 Pulse 67 08/21/22 04:00 Resp 17 08/21/22 04:00 BP 143/68 08/21/22 04:00 Pulse Ox 99 08/21/22 04:00 FiO2 Intake & Output 08/20/22 08/21/22 08/21/22 18:59 06:59 18:59 Intake Total 236 Output Total 770 200 Balance -534 -200 Intake: Oral 236 Output: Urine 770 200 Other: Voiding Method Urinal Urinal # Voids 1 # Bowel Movements 1 - Exam Physical Examination General: The patient is awake and alert, in no acute distress Skin: Skin is warm and dry with no obvious rashes or lesions. Hairy patches absent, no dorsal skin dimples, no cafe au lait spots, and no surgical incisions. Eye: Pupils are equal, round and reactive to light, extra-ocular movements are intact; there is normal conjunctiva bilaterally. Neck: The neck is supple, there is slight tenderness to palpation and ROM intact. Cardiovascular: There is a regular rate and rhythm. No murmur, rub or gallop is appreciated. Respiratory: Lungs are clear to auscultation, respirations are non-labored, breath sounds are equal. Gastrointestinal: Soft, non-distended, non-tender abdomen . Back: There is no tenderness to palpation in the midline, paralumbar, parathoracic or buttocks region. There is no obvious deformity . Musculoskeletal: ROM limited secondary to pain and stiffness. Muscle strength 5/5 in all major muscle groups of left upper extremity and bilateral lower extremities. 4/5 in right upper extremity. Neurological: CN 2-12 intact. There are no obvious motor or sensory deficits. Movement and coordination equal and intact. Sensory exam to light touch intact C5-T1 and intact from L2-S1. Reflexes 2/4 in bilateral upper and lower extremities. Negative Hoffmans, babinski, and clonus signs. Psychiatric: Cooperative, appropriate mood & affect, normal judgment. - Labs CBC & Chem 7: 08/19/22 07:27 08/19/22 12:14 Assessment and Plan Assessment: Right shoulder pain Right shoulder strain/exacerbation acromioclavicular joint osteoarthritis Neck pain Multilevel cervical spondylosis with facet arthropathy Syncopal episode Multiple medical comorbidities Plan: -Continue use of the arm sling, patient may limit use of the arm sling as he continues to feel better. -Avoid heavy lifting with the shoulder, continue with ROM exercises of wrist and elbow -Recommended conservative management of the neck pain at this time, a anti- inflammatory versus low-dose muscle relaxer. -GI prophylaxis per primary medical service -Other medical specialty recommendations -Patient is cleared from orthopedic standpoint for discharge. He may follow up in office if needed. Please feel free to reach out to our service for any questions.
[2022-08-21] MEDS: FLUTICASONE 50MCG/SPRAY NASAL 16GM EA NOSTRIL SCH ×2 (09:06→18:31)
[2022-08-21] MEDS: ISOSORBIDE MONONITRATE ER 30 MG TAB.ER.24H PO SCH (09:06)
[2022-08-21] MEDS: LACOSAMIDE 50 MG TABLET PO SCH ×2 (09:07→20:06)
[2022-08-21] MEDS: MONTELUKAST 10 MG TAB PO SCH (09:07)
[2022-08-21] MEDS: QUEtiapine 25 MG TAB PO SCH (09:07)
[2022-08-21] MEDS: SPIRONOLACTONE 25 MG TAB PO SCH (09:07)
[2022-08-21] MEDS: FAMOTIDINE 20 MG TAB PO SCH ×2 (09:07→18:31)
--- NOTE | 2022-08-21 10:52 | P.PN ---
Subjective Progress Note Date: 08/21/22 patient did not have any further episodes of syncope. did not have any documented tachycardia or bradycardia arrhythmias. Patient has an event monitor on. HISTORY OF PRESENT ILLNESS: This is a 82-year-old male with a past medical history significant for coronary artery disease with previous PCI to the LAD, hypertension, hyperlipidemia, and dementia. Patient follows in the office with Dr. Gates. We have been asked to see the patient in consultation for bradycardia. Patient examined at the bedside. Patient was recently hospitalized here this month for a single episode. Patient was found to have seizure activity noted on his EEG. He was started on Vimpat and discharged to [facility] in stable condition. Patient presents back to the hospital with another episode of syncope. He states he was getting ready in the bathroom when the next thing he knew he was on the bathroom floor. He denied having any warning signs he was about to fall. He denied any dizziness or lightheadness. He currently denies any chest pain or pressure. He denies any shortness of breath. He denies any dizziness or lightheadedness. Patient's vital signs are stable. Telemetry reveals sinus mechanism with a heart rate in the 40-50s. * EKG reveals sinus bradycardia with a heart rate of 49. * Laboratory data: WBC 7.7. Hemoglobin 14.4. Platelet count 248. Sodium 136. Potassium 5.4. BUN 16. Creatinine 0.74. Magnesium 2.0. Troponin negative 3 * Current home cardiac medications include aspirin 81 mg daily, Lipitor 20 mg at night, amlodipine 2.5 mg daily, Imdur 30 mg daily, losartan 50 mg daily, metoprolol tartrate 12.5 mg daily, Aldactone 12.5 mg daily, Lasix 20 mg daily * Most recent echocardiogram obtained in August 2022 revealed ejection fraction 55-60%, mild mitral regurgitation, mild aortic regurgitation, and mild tricuspid regurgitation * Cardiac catheterization history: August 2018 revealing both the LAD stents are patent, mild irregularities and dominant RCA which is heavily calcified no obstructive CAD. Circumflex nondominant small to small marginal branch has no significant disease. 08/20/2022 Patient examined this morning at the bedside. Patient denies chest pain or pressure. He denies shortness of breath. Telemetry reveals sinus mechanism wit h a heart rate in the 60s and 70s. No significant bradycardias noted. Patient does report having some dizziness yesterday upon standing. Orthostatics were obtained and were unremarkable. TSH normal at 1.1. 08/21/2022 Patient examined this morning at the bedside. Patient denies chest pain or pr essure. He denies shortness of breath. Telemetry reveals sinus mechanism. Patient does report having some dizziness yesterday. However no episodes of syncope were noted. Patient did receive his event monitor yesterday. PHYSICAL EXAM: VITAL SIGNS: Reviewed. GENERAL: Well-developed in no acute distress. HEENT: Head is normocephalic. Pupils are equal, round. Sclerae anicteric. Mucous membranes of the mouth are moist. Neck supple. No JVD or thyromegaly LUNGS: Respirations even and unlabored. Lungs essentially clear to auscultation bilaterally. HEART: Regular rate and rhythm. S1 and S2 heard. ABDOMEN: Soft. Nondistended. Nontender. EXTREMITIES: Normal range of motion. No clubbing or cyanosis. Peripheral pulses intact. No lower extremity edema NEUROLOGIC: Awake and alert. Oriented x 1-2. ASSESSMENT: Recurrent syncope versus seizure Recently diagnosed seizure disorder Sinus bradycardia Coronary artery disease with previous PCI to the LAD Hypertension Hyperlipidemia Dementia Right shoulder pain PLAN: Continue to hold beta blockers at discharge Continue additional cardiac medications Event monitor placed yesterday Stable for discharge today from a cardiac standpoint Nurse practitioner note has been reviewed by physician. Signing provider agrees with the documented findings, assessment, and plan of care. Objective - Vital Signs Vital signs: Vital Signs Temp 96.7 F L 08/21/22 08:00 Pulse 51 L 08/21/22 08:00 Resp 18 08/21/22 08:00 BP 171/74 08/21/22 08:00 Pulse Ox 99 08/21/22 08:00 FiO2 Intake & Output 08/20/22 08/21/22 08/21/22 18:59 06:59 18:59 Intake Total 236 180 Output Total 770 200 Balance -534 -200 180 Intake: Oral 236 180 Output: Urine 770 200 Other: Voiding Method Urinal Urinal Urinal # Voids 1 # Bowel Movements 1 - Labs CBC & Chem 7: 08/19/22 07:27 08/19/22 12:14
[2022-08-21] MEDS: CYANOCOBALAMIN 500 MCG TAB PO SCH (13:05)
[2022-08-21] MEDS: ASCORBIC ACID 500 MG TAB PO SCH (13:05)
[2022-08-21] MEDS: THIAMINE 100 MG TAB PO SCH (13:06)
[2022-08-21] MEDS: FOLIC ACID 1 MG TAB PO SCH (13:06)
[2022-08-21] MEDS: PYRIDOXINE 50 MG TAB PO SCH (13:06)
--- NOTE | 2022-08-21 13:21 | P.PN ---
Subjective Progress Note Date: 08/20/22 Patient was seen for a follow-up. Patient is laying comfortably in the bed. Patient offers no new complaints. Objective - Vital Signs Vital signs: Vital Signs Temp 96.7 F L 08/21/22 08:00 Pulse 76 08/21/22 12:00 Resp 18 08/21/22 12:00 BP 133/84 08/21/22 12:00 Pulse Ox 97 08/21/22 12:00 FiO2 Intake & Output 08/20/22 08/21/22 08/21/22 18:59 06:59 18:59 Intake Total 236 180 Output Total 770 200 Balance -534 -200 180 Intake: Oral 236 180 Output: Urine 770 200 Other: Voiding Method Urinal Urinal Urinal # Voids 1 # Bowel Movements 1 - Exam Examination unchanged. - Labs CBC & Chem 7: 08/19/22 07:27 08/19/22 12:14 Assessment and Plan Assessment: * Syncopal spell, most likely due to arrhythmia. Doubt seizure, as there was no postictal state. * Atrial fibrillation * Previous history of carbon monoxide poisoning in November 2020, but prolonged episode of amnesia. EEG was abnormal with epileptiform activity over the right temporal region at that time. * Coronary artery disease * Hypertension * Mild cognitive impairment. Plan: * Orthostatics were checked and negative. Supine blood pressure 119/60 with pu lse rate 64, sitting 147/73, pulse 71 and standing 132/84 with pulse of 69. Consider tilt table test. * Suggest event monitor or loop recorder placement to evaluate for arrhythmia. * We will perform a prolonged 2.5 hour EEG for further evaluation of any interictal epileptiform activity. * CTA of head and neck showed no significant abnormality. * Telemetry monitoring showing sinus rhythm, sinus bradycardia in the 50s, ectopic, PVCs, couplets, triplets, trigeminy, PACs. Cardiology on board. * Discussed with Dr. Carrera in detail.
--- NOTE | 2022-08-21 15:18 | P.PN ---
Progress Note - Text Progress Note Date: 08/21/22 Chief Complaint: Unconscious This is a pleasant 82-year-old patient who follows with Dr. Bruce Quintanilla. Chronic stable medical conditions include right temporal lobe epilepsy, mild cognitive impairment, CAD with stent, essential hypertension, left ventricular apical thrombus, left nephrectomy, chronic congestive heart failure from systolic dysfunction EF 30-35%. also has been following with Dr. rod from neurology Patient recently in the hospital from August 05 through August 07. Seen by Dr. Castro for neurology. [place] to be seizure disorder. Previous admission had shown temporal lobe epilepsy. Patient was started on Vimpat. Patient also had right shoulder pain. Seen by Dr. James. Patient was to follow outpatient. Patient was discharged to rehab Patient is brought in by the EMS. Patient was found on the floor. Patient only remembers he was standing next thing he knows that looking at the door. Does not remember for how long he had passed out. There is some bruising on the forehead and cheek. Patient has been in rehab. Able to walk a fair distance with a walker. Has not been feeling dizzy or lightheaded. Denies any chest pain and palpitation. No tongue biting. No incontinence. Patient admitted near similar episode in the ER. Very short-lived the patient states. [place] that he is going to pass out. 08/19/2022: Patient initial EKG showed a heart rate of 49. Consult cardiology. Patient today stated that he episode when he tried to turn his head to the right side he felt his to pass out. Ordered a CT angiogram of the head and neck. Rule out any vascular insufficiency in the neck. Oral intake fair. Has pain in the neck. Pending orthopedic evaluation. 08/20/2022: Patient's heart rate is up in the 70s. Lopressor was discontinued. Seen by cardiology. No further episode. Discussed with Dr. Castro from neurolo gy. Possibly the episode was from bradycardia. We will do a prolonged EEG to make sure. Cardiology has also documented sinus rhythm. Not A. fib. CT angiogram of the neck and brain unremarkable. 08/29/2022: Unchanged clinical status. Did work with therapy. Dr. Castro informed be that EEG was positive. Dose of Vimpat increased. Beta redd continues to be held. case managers [facility] contact [id number] review with [facility]. I did call and talk with them. They do not have today's note. They want the notes from today's physical therapy. [facility] sent to [place] for the same. Active Medications Acetaminophen (Acetaminophen Tab 325 Mg Tab) 650 mg PO Q4H PRN PRN Reason: General Discomfort Last Admin: 08/20/22 09:11 Dose: 650 mg Ascorbic Acid (Ascorbic Acid 500 Mg Tab) 1,000 mg PO DAILY@1200 [facility] Last Admin: 08/21/22 13:05 Dose: 1,000 mg Atorvastatin Calcium (Atorvastatin 20 Mg Tab) 20 mg PO HS [facility] Last Admin: 08/20/22 20:20 Dose: 20 mg Bisacodyl (Bisacodyl 10 Mg Supp) 10 mg RECTAL DAILY PRN PRN Reason: Constipation Calcium Carbonate/Glycine (Calcium Carbonate 500 Mg Chewable) 1,000 mg PO Q4HR PRN PRN Reason: Dyspepsia Cyanocobalamin (Cyanocobalamin 500 Mcg Tab) 1,000 mcg PO DAILY@1200 [facility] Last Admin: 08/21/22 13:05 Dose: 1,000 mcg Donepezil HCl (Donepezil 10 Mg Tab) 10 mg PO [facility] Last Admin: 08/20/22 20:20 Dose: 10 mg Famotidine (Famotidine 20 Mg Tab) 20 mg PO BID@0800,1700 [facility] Last Admin: 08/21/22 09:07 Dose: 20 mg Fluticasone Propionate (Fluticasone 50mcg/Cassandra Nasal 16gm) 1 spray EA NOSTRIL BID@0800,1700 [facility] Last Admin: 08/21/22 09:06 Dose: 1 spray Folic Acid (Folic Acid 1 Mg Tab) 1 mg PO DAILY@1200 [facility] Last Admin: 08/21/22 13:06 Dose: 1 mg Sodium Chloride (Saline 0.9%) 1,000 mls @ 50 mls/hr IV .Q20H [facility] Last Admin: 08/21/22 06:28 Dose: Not Given Isosorbide Mononitrate (Isosorbide Mononitrate Er 30 Mg Tab.Er.24h) 30 mg PO DAILY@0800 [facility] Last Admin: 08/21/22 09:06 Dose: 30 mg Lacosamide (Lacosamide 50 Mg Tablet) 100 mg PO BID@0800,2100 [facility] Lorazepam (Lorazepam 0.5 Mg Tab) 0.5 mg PO Q6HR PRN PRN Reason: Anxiety Last Admin: 08/19/22 21:04 Dose: 0.5 mg Losartan Potassium (Losartan 25 Mg Tab) 25 mg PO [facility] Last Admin: 08/20/22 20:20 Dose: 25 mg Melatonin (Melatonin 5 Mg Tablet) 5 mg PO [facility] Last Admin: 08/20/22 20:20 Dose: 5 mg Montelukast Sodium (Montelukast 10 Mg Tab) 10 mg PO DAILY@0800 [facility] Last Admin: 08/21/22 09:07 Dose: 10 mg Naloxone HCl (Naloxone 0.4 Mg/Ml 1 Ml Vial) 0.2 mg IV Q2M PRN PRN Reason: Opioid Reversal Nitroglycerin (Nitroglycerin Sl Tabs 0.4 Mg Tab) 0.4 mg SUBLINGUAL Q5M PRN PRN Reason: Chest Pain Ondansetron HCl (Ondansetron 4 Mg/2 Ml Vial) 4 mg IVP Q8HR PRN PRN Reason: Nausea And Vomiting Pyridoxine HCl (Pyridoxine 50 Mg Tab) 25 mg PO DAILY@1200 [facility] Last Admin: 08/21/22 13:06 Dose: 25 mg Quetiapine Fumarate (Quetiapine 25 Mg Tab) 25 mg PO DAILY@0800 [facility] Last Admin: 08/21/22 09:07 Dose: 25 mg Sodium Biphosphate/Sodium Phosphate (Na Phos,M-B/Na Phos,Di-Ba 133 Ml Enema) 133 ml RECTAL DAILY PRN PRN Reason: Constipation Spironolactone (Spironolactone 25 Mg Tab) 12.5 mg PO DAILY@0800 [facility] Last Admin: 08/21/22 09:07 Dose: 12.5 mg Thiamine HCl (Thiamine 100 Mg Tab) 100 mg PO DAILY@1200 [facility] Last Admin: 08/21/22 13:06 Dose: 100 mg Past medical history to include: Coronary artery disease with stent, hypertension, kidney disease, cardiac left ventricular apical thrombus, left nephrectomy, CHF EF 30-35%, cognitive impairment, temporal lobe epilepsy Social history: Getting rehab at [facility]. Denies any uses cigarettes alcohol or any recreational drugs. Family history: Patient doesn't remember Physical examination: VITAL SIGNS: 96.7, 76, 18, 133/84, 97% room air GENERAL: laying in bed, comfortable EYES: Pupils equal. Conjunctiva normal. HEENT: External appearance of nose and ears normal, oral cavity grossly normal. Bruising on the right forehead, left cheek NECK: JVD not raised; masses not palpable. HEART: First and second heart sounds are normal; no edema. LUNGS: Respiratory rate normal; clear to auscultation. ABDOMEN: Soft, nontender, liver spleen not palpable, no masses palpable. PSYCH: Answering questions appropriately. Mood affect normal NEUROLOGICAL: Cranial nerves grossly intact; no facial asymmetry, power and sensation grossly intact. MUSCULAR skeletal: Right arm in a sling. Evidence of OA INVESTIGATIONS, reviewed in the clinical context: EKG positive for seizure activity and temporal lobe. CT angiogram of the neck and brain: Unremarkable August 19: WBC 7.7 hemoglobin 14.4 platelets 2485.4 bicarb 18 creatinine 0.74 EKG tracing personally reviewed by me-poor baseline. Sinus rhythm heart rate 49 Chest CTA: Unremarkable Abdomen pelvis CT: Diverticulosis. humerus x-ray personally reviewed by me: No fracture seen. Assessment and plan: -Episode of unconsciousness . EEG from today positive. In the temporal lobe. Similar positive previously. follow with neurologist outpatient. Vimpat dose increased.. CT angiogram of the head and neck negative. -Sinus bradycardia from Lopressor Lopressor discontinued -Acute right shoulder limited range of motion secondary to fall. Possibly rotator cuff injury. Seen by Dr. James. Right arm in a sling. Conservative management. -Neck pain. Negative for fracture. Likely muscular skeletal sprain. Orthopedic -conservative management -Mild cognitive impairment Aricept -Coronary artery with stent Aspirin, Lopressor-discontinued, Cozaar, Imdur, -Essential hypertension , Cozaar, -Left ventricular cardiac apical thrombus, in the past.- not on any anticoagulation. Patient does follow with Dr. JOSE JUAN Gates from cardiology. -Left nephrectomy, chronic -Chronic congestive heart failure from systolic dysfunction EF 30-35% Lasix 20 mg a day. Aldactone 12.5 daily -Disposition: Pending [place] authorization Vimpat being increased to 100 mg twice a day. [employer]. 2. Requesting PT notes from today. Informed [facility]. Spoke to be [employer] earlier today. Total time spent today about 40 minutes with over 25 minutes of discussion.
[2022-08-21] MEDS: LOSARTAN 25 MG TAB PO SCH (20:06)
[2022-08-21] MEDS: MELATONIN 5 MG TABLET PO SCH (20:06)
[2022-08-21] MEDS: ATORVASTATIN 20 MG TAB PO SCH (20:06)
[2022-08-21] MEDS: DONEPEZIL 10 MG TAB PO SCH (20:06)
[2022-08-21] MEDS: ACETAMINOPHEN TAB 325 MG TAB PO PRN (21:02)
--- NOTE | 2022-08-21 23:52 | P.PN ---
Subjective Progress Note Date: 08/21/22 Patient was seen for a follow-up. Patient is laying comfortably in the bed. Patient offers no new complaints. Patient's sister was also present. No further seizure like spell. Patient states that yesterday afternoon while he was laying in the bed and tried to turn to the right side, he felt will pass out. Objective - Vital Signs Vital signs: Vital Signs Temp 98.3 F 08/21/22 20:00 Pulse 77 08/21/22 20:00 Resp 16 08/21/22 20:00 BP 161/70 08/21/22 20:00 Pulse Ox 95 08/21/22 20:00 FiO2 Intake & Output 08/21/22 08/21/22 08/22/22 06:59 18:59 06:59 Intake Total 540 Output Total 200 100 Balance -200 440 Intake: Oral 540 Output: Urine 200 100 Other: Voiding Method Urinal Urinal Urinal - Exam Patient is alert and awake. Speech and language functions are normal. Cranial nerves are normal. Muscle strength is normal. The deltoid not checked because of in a sling. Sensations are equal. No ataxia for [id number] on the left. - Labs CBC & Chem 7: 08/19/22 07:27 08/19/22 12:14 Assessment and Plan Assessment: * Syncopal spell, most likely due to arrhythmia. Doubt seizure, as there was no postictal state. * Atrial fibrillation * Previous history of carbon monoxide poisoning in November 2020, but prolonged episode of amnesia. EEG was abnormal with epileptiform activity over the right temporal region at that time. * Coronary artery disease * Hypertension * Mild cognitive impairment. Plan: * Patient had undergone placement of event monitor to rule out arrhythmia. * Patient underwent prolonged 2.5 hour EEG, which preliminary report revealed epileptiform activity over the right frontal temporal region. Discussed with Dr. Henry. Official report is pending at the time of this dictation. We will increase Vimpat to 100 mg twice a day. * Orthostatics were checked and negative. Supine blood pressure 119/60 with pulse rate 64, sitting 147/73, pulse 71 and standing 132/84 with pulse of 69. Consider tilt table test. * CTA of head and neck showed no significant abnormality. * Patient still needs full cardiac workup to rule out arrhythmia. Telemetry showing sinus rhythm, a paced, V paced with some ectopics, PVCs and bundle branch block. Heart rate in the 40s. Cardiology following. * Patient neurologically clear for discharge. Discussed with Dr. Carrera in d etail about above. Patient has an appointment with his neurologist Dr. Sweeney on 09/04/2022.
[2022-08-22] MEDS: ACETAMINOPHEN TAB 325 MG TAB PO PRN ×2 (07:08→10:47)
[2022-08-22] MEDS: LACOSAMIDE 50 MG TABLET PO SCH (09:44)
[2022-08-22] MEDS: SPIRONOLACTONE 25 MG TAB PO SCH (09:44)
[2022-08-22] MEDS: MONTELUKAST 10 MG TAB PO SCH (09:44)
[2022-08-22] MEDS: FLUTICASONE 50MCG/SPRAY NASAL 16GM EA NOSTRIL SCH (09:45)
[2022-08-22] MEDS: ISOSORBIDE MONONITRATE ER 30 MG TAB.ER.24H PO SCH (09:45)
[2022-08-22] MEDS: QUEtiapine 25 MG TAB PO SCH (09:45)
[2022-08-22] MEDS: FAMOTIDINE 20 MG TAB PO SCH (09:45)
[2022-08-22] MEDS: PYRIDOXINE 50 MG TAB PO SCH (10:46)
[2022-08-22] MEDS: ASCORBIC ACID 500 MG TAB PO SCH (10:47)
[2022-08-22] MEDS: THIAMINE 100 MG TAB PO SCH (10:47)
[2022-08-22] MEDS: CYANOCOBALAMIN 500 MCG TAB PO SCH (10:47)
[2022-08-22] MEDS: FOLIC ACID 1 MG TAB PO SCH (10:47)
--- NOTE | 2022-08-22 11:35 | P.PN ---
Subjective Progress Note Date: 08/22/22 HISTORY OF PRESENT ILLNESS: This is a 82-year-old male with a past medical history significant for coronary artery disease with previous PCI to the LAD, hypertension, hyperlipidemia, and dementia. Patient follows in the office with Dr. Gates. We have been asked to see the patient in consultation for bradycardia. Patient examined at the bedside. Patient was recently hospitalized here this month for a single episode. Patient was found to have seizure activity noted on his EEG. He was started on Vimpat and discharged to [facility] in stable condition. Patient presents back to the hospital with another episode of syncope. He states he was getting ready in the bathroom when the next thing he knew he was on the bathroom floor. He denied having any warning signs he was about to fall. He denied any dizziness or lightheadness. He currently denies any chest pain or pressure. He denies any shortness of breath. He denies any dizziness or lightheadedness. Patient's vital signs are stable. Telemetry reveals sinus mechanism with a heart rate in the 40-50s. * EKG reveals sinus bradycardia with a heart rate of 49. * Laboratory data: WBC 7.7. Hemoglobin 14.4. Platelet count 248. Sodium 136. Potassium 5.4. BUN 16. Creatinine 0.74. Magnesium 2.0. Troponin negative 3 * Current home cardiac medications include aspirin 81 mg daily, Lipitor 20 mg at night, amlodipine 2.5 mg daily, Imdur 30 mg daily, losartan 50 mg daily, metoprolol tartrate 12.5 mg daily, Aldactone 12.5 mg daily, Lasix 20 mg daily * Most recent echocardiogram obtained in August 2022 revealed ejection fraction 55-60%, mild mitral regurgitation, mild aortic regurgitation, and mild tricuspid regurgitation * Cardiac catheterization history: August 2018 revealing both the LAD stents are patent, mild irregularities and dominant RCA which is heavily calcified no obstructive CAD. Circumflex nondominant small to small marginal branch has no significant disease. 08/20/2022 Patient examined this morning at the bedside. Patient denies chest pain or pressure. He denies shortness of breath. Telemetry reveals sinus mechanism with a heart rate in the 60s and 70s. No significant bradycardias noted. Patient does report having some dizziness yesterday upon standing. Orthostatics were obtained and were unremarkable. TSH normal at 1.1. 08/21/2022 Patient examined this morning at the bedside. Patient denies chest pain or pressure. He denies shortness of breath. Telemetry reveals sinus mechanism. Patient does report having some dizziness yesterday. However no episodes of s yncope were noted. Patient did receive his event monitor yesterday. 08/22/2022 Patient examined this morning at the bedside. Patient denies chest pain or pressure. He denies shortness of breath. Telemetry reveals sinus mechanism. No further syncope. Vitals are stable. EEG positive for seizure activity. PHYSICAL EXAM: VITAL SIGNS: Reviewed. GENERAL: Well-developed in no acute distress. HEENT: Head is normocephalic. Pupils are equal, round. Sclerae anicteric. Mucous membranes of the mouth are moist. Neck supple. No JVD or thyromegaly LUNGS: Respirations even and unlabored. Lungs essentially clear to auscultation bilaterally. HEART: Regular rate and rhythm. S1 and S2 heard. ABDOMEN: Soft. Nondistended. Nontender. EXTREMITIES: Normal range of motion. No clubbing or cyanosis. Peripheral pulses intact. No lower extremity edema NEUROLOGIC: Awake and alert. Oriented x 1-2. ASSESSMENT: Recurrent syncope versus seizure Recently diagnosed seizure disorder. EEG positive. Sinus bradycardia Coronary artery disease with previous PCI to the LAD Hypertension Hyperlipidemia Dementia Right shoulder pain PLAN: Continue to hold beta blockers at discharge Continue additional cardiac medications Event monitor placed Stable for discharge today from a cardiac standpoint Nurse practitioner note has been reviewed by physician. Signing provider agrees with the documented findings, assessment, and plan of care. Objective - Vital Signs Vital signs: Vital Signs Temp 97.9 F 08/22/22 08:00 Pulse 75 08/22/22 08:00 Resp 16 08/22/22 08:00 BP 117/67 08/22/22 08:00 Pulse Ox 97 08/22/22 08:00 FiO2 Intake & Output 08/21/22 08/22/22 08/22/22 18:59 06:59 18:59 Intake Total 540 118 Output Total 100 Balance 440 118 Intake: Oral 540 118 Output: Urine 100 Other: Voiding Method Urinal Urinal Urinal # Voids 3 - Labs CBC & Chem 7: 08/19/22 07:27 08/19/22 12:14
[2022-08-22 11:41] VITALS: BP 130/72; PULSE 59; RESP 18; TEMP 98.2
--- NOTE | 2022-08-22 15:22 | EEG ---
ELECTROENCEPHALOGRAM REPORT TECHNIQUE: This is a report from a 2-1/2 hour prolonged 18-channel digital video EEG performed using the 10/20 international electrode placement system. HISTORY: Syncope versus seizure. OTHER MEDICAL HISTORY: Includes coronary artery disease, hypertension, and memory impairment. CURRENT MEDICATIONS: 1. Tylenol. 2. Lipitor. 3. Dulcolax. 4. Aricept. 5. Pepcid. 6. Flonase. 7. Folic acid. 8. Imdur. 9. Vimpat. 10.Ativan. 11.Cozaar. 12.Melatonin. 13.Singulair. 14.Zofran. 15.Vitamin B6. 16.Seroquel. 17.Aldactone. FINDINGS: Recording start time: 08/21/2022 at 09:59 a.m. Recording end time: 08/21/2022 at 12:34 p.m. EVENTS: During this 2-1/2 hour inpatient video EEG, no clinical or electrographic seizures were recorded. Please note that numerous and rapid transitions were noted between brief periods of wakefulness and drowsiness and sleep. In fact, the patient was asleep for the majority of this recording. BACKGROUND: The background activity consisted of 9 to 10 Hz rhythmic waveforms symmetrically distributed over both posterior quadrants. ACTIVATION: Hyperventilation: Not performed. Photic stimulation: Symmetric driving seen. Sleep: Stages I and II sleep noted. ABNORMALITIES: Occasional moderate-voltage spike and slow waves were seen with equipotentiality at F8- T4. IMPRESSION: Abnormal prolonged inpatient 2-1/2 hour video EEG. The spike and slow waves seen over the right frontotemporal region are epileptiform in nature. These findings indicate the presence of an epileptiform focus involving the right frontotemporal region. No seizures were recorded. These findings were called to the neurologist taking care of the patient on 08/21/2022, at 1:40 p.m. MMJENNIFER / MINNIEN: [id number] / [facility] HOSPITALValerie
--- NOTE | 2022-08-22 18:15 | P.DS ---
Providers Date of admission: 08/18/22 15:26 Expected date of discharge: 08/22/22 Attending physician: Carlos Enrique Carrera Consults: 08/18/22 15:24 Consult Physician Urgent Consulting Provider: Rosalina Rodriguez Consult Reason/Comments: Syncope versus seizure Do you want consulting provider notified?: Yes 08/18/22 19:53 Consult Physician Routine Consulting Provider: Tam James Consult Reason/Comments: Right shoulder pain/cervical Do you want consulting provider notified?: Yes 08/19/22 10:19 Consult Physician Routine Consulting Provider: Harrison Ramesh Consult Reason/Comments: syncope-bradycardia Do you want consulting provider notified?: Yes Primary care physician: [facility] Course: Chief Complaint: Unconscious This is a pleasant 82-year-old patient who follows with Dr. Bruce Quintanilla. Chronic stable medical conditions include right temporal lobe epilepsy, mild cognitive impairment, CAD with stent, essential hypertension, left ventricular apical thrombus, left nephrectomy, chronic congestive heart failure from systolic dysfunction EF 30-35%. also has been following with Dr. rod from neurology Patient recently in the hospital from August 05 through August 07. Seen by Dr. Castro for neurology. [place] to be seizure disorder. Previous admission had shown temporal lobe epilepsy. Patient was started on Vimpat. Patient also had right shoulder pain. Seen by Dr. James. Patient was to follow outpatient. Patient was discharged to rehab Patient is brought in by the EMS. Patient was found on the floor. Patient only remembers he was standing next thing he knows that looking at the door. Does not remember for how long he had passed out. There is some bruising on the forehead and cheek. Patient has been in rehab. Able to walk a fair distance with a walker. Has not been feeling dizzy or lightheaded. Denies any chest pain and palpitation. No tongue biting. No incontinence. Patient admitted near similar episode in the ER. Very short-lived the patient states. [place] that he is going to pass out. 08/19/2022: Patient initial EKG showed a heart rate of 49. Consult cardiology. Patient today stated that he episode when he tried to turn his head to the right side he felt his to pass out. Ordered a CT angiogram of the head and neck. Rule out any vascular insufficiency in the neck. Oral intake fair. Has pain in the neck. Pending orthopedic evaluation. 08/20/2022: Patient's heart rate is up in the 70s. Lopressor was discontinued. Seen by cardiology. No further episode. Discussed with Dr. Castro from neurology. Possibly the episode was from bradycardia. We will do a prolonged EEG to make sure. Cardiology has also documented sinus rhythm. Not A. fib. CT angiogram of the neck and brain unremarkable. 08/21/2022: Unchanged clinical status. Did work with therapy. Dr. Castro informed be that EEG was positive. Dose of Vimpat increased. Beta redd continues to be held. product introduction manager [facility] contact [id number] review with [facility], [place]. I did call and talk with them. They do not have today's note. They want the notes from today's physical therapy. [facility] sent to [facility] for the same. 08/22/2022: Patient was declined for inpatient rehab. Will be going home. Patient Vimpat is not covered so changed to Keppra by neurology. Spoke to the casework supervisor. Spoke to the patient. Discussion and discharge planning more than 35 minutes Past medical history to include: Coronary artery disease with stent, hypertension, kidney disease, cardiac left ventricular apical thrombus, left nephrectomy, CHF EF 30-35%, cognitive impairment, temporal lobe epilepsy Social history: Getting rehab at [facility]. Denies any uses cigarettes alcohol or any recreational drugs. Family history: Patient doesn't remember Physical examination: VITAL SIGNS: 98.2, 59, 18, 1:30/72, 96% room air GENERAL: laying in bed, comfortable EYES: Pupils equal. Conjunctiva normal. HEENT: External appearance of nose and ears normal, oral cavity grossly normal. Bruising on the right forehead, left cheek NECK: JVD not raised; masses not palpable. HEART: First and second heart sounds are normal; no edema. LUNGS: Respiratory rate normal; clear to auscultation. ABDOMEN: Soft, nontender, liver spleen not palpable, no masses palpable. PSYCH: Answering questions appropriately. Mood affect normal NEUROLOGICAL: Cranial nerves grossly intact; no facial asymmetry, power and sensation grossly intact. MUSCULAR skeletal: Right arm in a sling. Evidence of OA INVESTIGATIONS, reviewed in the clinical context: EKG positive for seizure activity and temporal lobe. CT angiogram of the neck and brain: Unremarkable August 19: WBC 7.7 hemoglobin 14.4 platelets 2485.4 bicarb 18 creatinine 0.74 EKG tracing personally reviewed by me-poor baseline. Sinus rhythm heart rate 49 Chest CTA: Unremarkable Abdomen pelvis CT: Diverticulosis. humerus x-ray personally reviewed by me: No fracture seen. Assessment and plan: -Episode of unconsciousness . EEG from today positive. In the temporal lobe. Similar positive previously. follow with neurologist outpatient. Vimpat discontinued. Keppra 500 mg twice a day.. CT angiogram of the head and neck negative. -Sinus bradycardia from Lopressor Lopressor discontinued -Acute right shoulder limited range of motion secondary to fall. Possibly rotator cuff injury. Seen by Dr. James. Right arm in a sling. Conservative management. -Neck pain. Negative for fracture. Likely muscular skeletal sprain. Orthopedic -conservative management -Mild cognitive impairment Aricept -Coronary artery with stent Aspirin, Lopressor-discontinued, Cozaar, Imdur, -Essential hypertension , Cozaar, -Left ventricular cardiac apical thrombus, in the past.- not on any anticoagulation. Patient does follow with Dr. JOSE JUAN Gates from cardiology. -Left nephrectomy, chronic -Chronic congestive heart failure from systolic dysfunction EF 30-35% Aldactone 12.5 daily Disposition: Home Plan - Discharge Summary Discharge Rx Participant: No New Discharge Prescriptions: New Losartan [Cozaar] 25 mg PO HS #30 tab levETIRAcetam [Keppra] 500 mg PO Q12HR #60 tab Continue Isosorbide Mononitrate ER [Imdur] 30 mg PO DAILY@0800 Fluticasone Nasal [place] [Flonase Nasal [place]] 1 spr EA NOSTRIL BID@0800,1700 Aspirin EC [Ecotrin Low Dose] 81 mg PO DAILY@1700 Famotidine [Pepcid] 20 mg PO BID@0800,1700 Donepezil [Aricept] 10 mg PO HS QUEtiapine [SEROquel] 25 mg PO DAILY@0800 Cyanocobalamin (Vitamin B-12) [Vitamin B-12] 1,000 mcg PO DAILY@1200 Pyridoxine [Vitamin B-6] 25 mg PO DAILY@1200 Ascorbic Acid [Vitamin C] 1,000 mg PO DAILY@1200 Magnesium Hydroxide [Milk of Magnesia Concentrate] 7,200 mg PO Q48H PRN PRN Reason: Constipation Na Phos,M-B/Na Phos,Di-Ba [Fleet Adult] 133 ml RECTAL DAILY PRN PRN Reason: Constipation Acetaminophen [Tylenol 8 Hour] 650 mg PO Q4H PRN PRN Reason: General Discomfort amLODIPine [Norvasc] 2.5 mg PO DAILY@0800 Folic Acid 1 mg PO DAILY@1200 Melatonin 5 mg PO HS Montelukast [Singulair] 10 mg PO DAILY@0800 Atorvastatin [Lipitor] 20 mg PO HS QUEtiapine [SEROquel] 25 mg PO DAILY PRN PRN Reason: Hallucinations/Agitation Nitroglycerin Sl Tabs [Nitrostat] 0.4 mg SL Q5M PRN PRN Reason: Chest Pain bisacodyL [Dulcolax] 10 mg RECTAL DAILY PRN PRN Reason: Constipation Thiamine [Vitamin B-1] 100 mg PO DAILY@1200 Spironolactone [Aldactone] 12.5 mg PO DAILY@0800 Discontinued Furosemide [Lasix] 20 mg PO DAILY@0800 Metoprolol Tartrate [Lopressor] 12.5 mg PO DAILY@0800 Lacosamide [Vimpat] 50 mg PO BID@0800,2100 Loratadine 10 mg PO DAILY PRN PRN Reason: Allergy Symptoms Losartan [Cozaar] 50 mg PO HS No Action Garlic 1,000 mg PO DAILY@1200 Discharge Medication List Isosorbide Mononitrate ER [Imdur] 30 mg PO DAILY@0800 09/16/14 [History] Aspirin EC [Ecotrin Low Dose] 81 mg PO DAILY@1700 08/03/19 [History] Fluticasone Nasal [place] [Flonase Nasal [place]] 1 spr EA NOSTRIL BID@0800,1700 08/03/19 [History] Famotidine [Pepcid] 20 mg PO BID@0800,1700 11/27/20 [History] Donepezil [Aricept] 10 mg PO HS 04/30/21 [History] Melatonin 5 mg PO HS 10/25/21 [History] Ascorbic Acid [Vitamin C] 1,000 mg PO DAILY@1200 08/05/22 [History] Atorvastatin [Lipitor] 20 mg PO HS 08/05/22 [History] Cyanocobalamin (Vitamin B-12) [Vitamin B-12] 1,000 mcg PO DAILY@1200 08/05/22 [History] Montelukast [Singulair] 10 mg PO DAILY@0800 08/05/22 [History] Pyridoxine [Vitamin B-6] 25 mg PO DAILY@1200 08/05/22 [History] QUEtiapine [SEROquel] 25 mg PO DAILY@0800 08/05/22 [History] Acetaminophen [Tylenol 8 Hour] 650 mg PO Q4H PRN 08/18/22 [History] Folic Acid 1 mg PO DAILY@1200 08/18/22 [History] Garlic 1,000 mg PO DAILY@1200 08/18/22 [History] Magnesium Hydroxide [Milk of Magnesia Concentrate] 7,200 mg PO Q48H PRN 08/18/22 [History] Na Phos,M-B/Na Phos,Di-Ba [Fleet Adult] 133 ml RECTAL DAILY PRN 08/18/22 [Hist ory] Nitroglycerin Sl Tabs [Nitrostat] 0.4 mg SL Q5M PRN 08/18/22 [History] QUEtiapine [SEROquel] 25 mg PO DAILY PRN 08/18/22 [History] Spironolactone [Aldactone] 12.5 mg PO DAILY@0800 08/18/22 [History] Thiamine [Vitamin B-1] 100 mg PO DAILY@1200 08/18/22 [History] amLODIPine [Norvasc] 2.5 mg PO DAILY@0800 08/18/22 [History] bisacodyL [Dulcolax] 10 mg RECTAL DAILY PRN 08/18/22 [History] Losartan [Cozaar] 25 mg PO HS #30 tab 08/22/22 [Rx] levETIRAcetam [Keppra] 500 mg PO Q12HR #60 tab 08/22/22 [Rx] Follow up Appointment(s)/Referral(s): own-neurologistdr [Other] - 1 Week Nursing,[place] [NON-STAFF] - Bruce Unger DO [Primary Care Provider] - 1-2 days Tam James DO [Doctor of Osteopathic Medicine] - 1 Week Discharge/Stand Alone Forms: Who Do I Call?, Community Resources, Help In The Home, Personal [employer] Discharge Disposition: HOME SELF-CARE
[2022-08-22] MEDS ORDERED: levETIRAcetam 500 MG TAB PO SCH (21:00)
--- NOTE | 2022-09-06 11:35 | EM ---
EVENT MONITOR FOURTEEN-DAY EVENT MONITOR: INDICATION: Syncope. Underlying rhythm is sinus. There is frequent and complex ventricular ectopy including PVCs, bigeminy, and quadrigeminy. There were rare PACs. There was one 5-beat run of nonsustained VT. CONCLUSION: This 14-day event monitor showed frequent and complex ventricular ectopy including bigeminy, PVCs, quadrigeminy, and a 5-beat run of nonsustained VT. MMODL / IJN: [id number] /
== END 2022-08-22 14:55 | disposition home or self-care (01) | DRG 101 ==
LOC: EC 11:17 → 3SCARD 15:26
PROVIDERS: ADMIT Hospitalist; ATTEND Hospitalist
DX: G40.209 Localization-related (focal) (partial) symptomatic epilepsy and epileptic syndromes with complex partial seizures, not intractable, without status epilepticus (principal); I50.22 Chronic systolic (congestive) heart failure; F02.80 Dementia in other diseases classified elsewhere, unspecified severity, without behavioral disturbance, psychotic disturbance, mood disturbance, and anxiety; I11.0 Hypertensive heart disease with heart failure; G30.0 Alzheimer's disease with early onset; I08.3 Combined rheumatic disorders of mitral, aortic and tricuspid valves; E78.5 Hyperlipidemia, unspecified; T44.7X5A Adverse effect of beta-adrenoreceptor antagonists, initial encounter; I25.10 Atherosclerotic heart disease of native coronary artery without angina pectoris; H91.90 Unspecified hearing loss, unspecified ear; S46.911A Strain of unspecified muscle, fascia and tendon at shoulder and upper arm level, right arm, initial encounter; S00.81XA Abrasion of other part of head, initial encounter; I48.91 Unspecified atrial fibrillation; M19.011 Primary osteoarthritis, right shoulder; M47.812 Spondylosis without myelopathy or radiculopathy, cervical region; I49.3 Ventricular premature depolarization; I49.1 Atrial premature depolarization; R00.8 Other abnormalities of heart beat; K57.90 Diverticulosis of intestine, part unspecified, without perforation or abscess without bleeding; W18.39XA Other fall on same level, initial encounter; M54.9 Dorsalgia, unspecified; Y92.121 Bathroom in nursing home as the place of occurrence of the external cause; Z28.310 Unvaccinated for COVID-19; Z79.82 Long term (current) use of aspirin; Z88.2 Allergy status to sulfonamides; I25.2 Old myocardial infarction; Z95.5 Presence of coronary angioplasty implant and graft; Z86.718 Personal history of other venous thrombosis and embolism; Z90.5 Acquired absence of kidney; Z79.899 Other long term (current) drug therapy
CPT/HCPCS: 36415; 70450; 70496; 70498; 71275; 72125; 74177; 80048; 80053; 81003; 83735; 84443; 84484; 85025; 85610; 85730; 93005; 93270; 94760; 95713; 96361; 96374; 99285

== ENCOUNTER 2023-04-27 15:50 | Observation (INO) | payer MEDICARE ==
[2023-04-27] MEDS ORDERED: SODIUM CHLORIDE 0.9% 1,000 ML IV STA (16:35)
--- NOTE | 2023-04-27 16:39 | ED ---
General Adult HPI - General Chief complaint: Arrhythmia/Palpitations Stated complaint: Chest Pressure/sob Time Seen by Provider: 04/27/23 16:10 Source: patient, RN notes reviewed, old records reviewed Mode of arrival: ambulatory Limitations: no limitations - History of Present Illness Initial comments: This is an 83-year-old male who presents emergency department from Dr. Quintanilla's office. He sent the patient in because at the office the patient had low blood pressure low heart rate was clammy and according to the time was a little altered mentally. Patient himself states for the last 3 days he has increased swelling in his legs his body aches. Where he touches it which includes his legs arms chest and abdomen he denies any fever chills. Patient states he has had some chest pressure today it is associated with a little shortness of br eath. Patient denies any headache patient denies numbness or weakness. Patient denies any history of any trauma. Patient has history of seizures and is on Keppra for and has history of congestive heart failure. - Related Data Home Medications Medication Instructions Recorded Confirmed Isosorbide Mononitrate ER [Imdur] 30 mg PO DAILY 09/16/14 04/27/23 Aspirin EC [Ecotrin Low Dose] 81 mg PO DAILY 08/03/19 04/27/23 Fluticasone Nasal [place] [Flonase 1 spr EA NOSTRIL BID@0800,1700 08/03/19 04/27/23 Nasal [place]] Famotidine [Pepcid] 20 mg PO BID@0800,1700 11/27/20 04/27/23 Donepezil [Aricept] 10 mg PO HS 04/30/21 04/27/23 Ascorbic Acid [Vitamin C] 1,000 mg PO DAILY 08/05/22 04/27/23 Atorvastatin [Lipitor] 20 mg PO HS 08/05/22 04/27/23 Cyanocobalamin (Vitamin B-12) 1,000 mcg PO MOTUWETHFRSA@1200 08/05/22 04/27/23 [Vitamin B-12] Montelukast [Singulair] 10 mg PO DAILY 08/05/22 04/27/23 Pyridoxine [Vitamin B-6] 25 mg PO DAILY@1200 08/05/22 04/27/23 QUEtiapine [SEROquel] 25 mg PO HS 08/05/22 04/27/23 Acetaminophen [Tylenol 8 Hour] 650 mg PO Q4H PRN 08/18/22 04/27/23 Garlic 1,000 mg PO DAILY@1200 08/18/22 04/27/23 Nitroglycerin Sl Tabs [Nitrostat] 0.4 mg SL Q5M PRN 08/18/22 04/27/23 Spironolactone [Aldactone] 12.5 mg PO DAILY 08/18/22 04/27/23 Thiamine [Vitamin B-1] 100 mg PO DAILY@1200 08/18/22 04/27/23 amLODIPine [Norvasc] 2.5 mg PO DAILY 08/18/22 04/27/23 Ergocalciferol [Vitamin D2 (1250 1,250 mcg PO BRADY@1200 04/27/23 04/27/23 Mcg = 90423 Iu)] Folic Acid 0.8 mg PO DAILY@1200 04/27/23 04/27/23 Gabapentin [Neurontin] 100 mg PO TID 04/27/23 04/27/23 [place] 450mg 450 mg PO DAILY@1200 04/27/23 04/27/23 Tamsulosin [Flomax] 0.4 mg PO HS 04/27/23 04/27/23 Previous Rx's Medication Instructions Recorded Losartan [Cozaar] 25 mg PO HS #30 tab 08/22/22 levETIRAcetam [Keppra] 500 mg PO Q12HR #60 tab 08/22/22 Allergies Allergy/AdvReac Type Severity Reaction Status Date / Time Sulfa (Sulfonamide Allergy Unknown Verified 04/27/23 18:02 Antibiotics) Childhood Review of Systems ROS Statement: Those systems with pertinent positive or pertinent negative responses have been documented in the HPI. ROS Other: All systems not noted in ROS Statement are negative. Past Medical History Past Medical History: Coronary Artery Disease (CAD), Chest Pain / Angina, GERD/Reflux, Hearing Disorder / Deafness, Hypertension, Memory Impairment, Myocardial Infarction (CA), Osteoarthritis (OA) Additional Past Medical History / Comment(s): cardiomyopathy, hepatitis (child), chronic constipation, hemorrhoids, abd pain, elevated liver enzymes., has one kidney ., pt was hospitalized nov 2020 for carbon monoxide poisoning & possible hx of seizure seen on eeg . , early alzheimers. 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 Past Anesthesia/Blood Transfusion Reactions: No Reported Reaction Date of Last Stent Placement:: unknown Past Psychological History: Depression Smoking Status: Never smoker Past Alcohol Use History: None Reported Past Drug Use History: None Reported - Past Family History Father History Unknown: Yes Family Medical History: Cancer Additional Family Medical History / Comment(s): colon cancer Mother History Unknown: Yes Family Medical History: Cancer Additional Family Medical History / Comment(s): oral cancer General Exam - General Exam Comments Initial Comments: GENERAL: Patient is well-developed and well-nourished. Patient is nontoxic and well- hydrated and is in mild distress. ENT: Neck is soft and supple. No significant lymphadenopathy is noted. Oropharynx is clear. Moist mucous membranes. Neck has full range of motion without eliciting any pain. EYES: The sclera were anicteric and conjunctiva were pink and moist. Extraocular movements were intact and pupils were equal round and reactive to light. Eyelids were unremarkable. PULMONARY: Unlabored respirations. Good breath sounds bilaterally. No audible rales rhonchi or wheezing was noted. CARDIOVASCULAR: There is a regular rate and rhythm without any murmurs gallops or rubs. ABDOMEN: Patient is diffusely tender when palpating his abdomen and chest. SKIN: Skin is clear with no lesions or rashes and otherwise unremarkable. NEUROLOGIC: Patient is alert and oriented x3. Cranial nerves II through XII are grossly intact. Motor and sensory are also intact. Normal speech, volume and content. Symmetrical smile. MUSCULOSKELETAL: Normal extremities with adequate strength and full range of motion. Patient has 2+ edema bilaterally. Patient is tender on all 4 extremities. LYMPHATICS: No significant lymphadenopathy is noted PSYCHIATRIC: Normal psychiatric evaluation. Limitations: no limitations Course Vital Signs 04/27/23 04/27/23 04/27/23 15:53 16:11 17:05 Temperature 97.8 F Pulse Rate 36 L 62 51 L Respiratory 20 16 18 Rate Blood Pressure 109/59 120/65 127/63 O2 Sat by Pulse 97 99 96 Oximetry 06/26/23 18:57 Temperature Pulse Rate 56 L Respiratory 16 Rate Blood Pressure 125/77 O2 Sat by Pulse 97 Oximetry Medical Decision Making - Medical Decision Making EKG was interpreted by myself EKG shows a sinus rhythm with bigeminy at a rate of 63 bpm W[place] interval is 243 QRS is 106 QT interval 394 QTC is 42. Patient's EKG shows no ST segment elevation or depression Was pt. sent in by a medical professional or institution (, [facility], [facility], urgent care, hospital, or snf...) When possible be specific @ -Dr. Quintanilla sent the patient to the emergency department Did you speak to anyone other than the patient for history (EMS, parent, family, police, friend...)? What history was obtained from this source @ -His gave substantial portion of the patient's history Did you review nursing and triage notes (agree or disagree)? Why? @ -[I reviewed and agree with nursing and triage notes] Were old charts reviewed (outside hosp., previous admission, EMS record, old EKG, old radiological studies, urgent care reports/EKG's, snf records)? Report findings @ -I reviewed prior lab work prior EKGs and prior radiological studies in this patient Differential Diagnosis (chest pain, altered mental status, abdominal pain women, abdominal pain men, vaginal bleeding, weakness, fever, dyspnea, syncope, headache, dizziness, GI bleed, back pain, seizure, CVA, palpatations, mental health, musculoskeletal)? @ -Differential Weakness: Hypoglycemia, shock, sepsis, hyponatremia, anemia, infection, CA, ETOH, adverse medicine reaction, overdose, stroke, this is not meant to be an all-inclusive list. EKG interpreted by me (3pts min.). @ -[As above] X-rays interpreted by me (1pt min.). @ -Chest x-ray shows no acute abnormality CT interpreted by me (1pt min.). @ -[None done] U/S interpreted by me (1pt. min.). @ -[None done] What testing was considered but not performed or refused? (CT, X-rays, U/S, labs)? Why? @ -[None] What meds were considered but not given or refused? Why? @ -[None] Did you discuss the management of the patient with other professionals (professionals i.e. , [facility], [facility], lab, RT, psych nurse, web content & social media manager, site interpreter, teacher, labor relations officer, field nurse case manager)? Give summary @ -I spoke with the hospital she agreed to admit the patient admitted the patient I consult cardiology Was smoking cessation discussed for >3mins.? @ -[No] Was critical care preformed (if so, how long)? @ -[No] Were there social determinants of health that impacted care today? How? (Homelessness, low income, unemployed, alcoholism, drug addiction, trans portation, low edu. Level, literacy, decrease access to med. care, half-way, rehab)? @ -[No] Was there de-escalation of care discussed even if they declined (Discuss DNR or withdrawal of care, Hospice)? DNR status @ -[No] What co-morbidities impacted this encounter? (DM, HTN, Smoking, COPD, CAD, Cancer, CVA, ARF, Chemo, Hep., AIDS, mental health diagnosis, sleep apnea, morbid obesity)? @ -[None] Was patient admitted / discharged? Hospital course, mention meds given and route, prescriptions, significant lab abnormalities, going to OR and other pertinent info. @ -Patient was in bigeminy when he arrived and remained there for quite a while but eventually broke out a bit has been having occasional PVCs. Patient's blood pressure was stable his whole duration emergency department. Undiagnosed new problem with uncertain prognosis? @ -[No] Drug Therapy requiring intensive monitoring for toxicity (Heparin, Nitro, Insulin, Cardizem)? @ -[No] Were any procedures done? @ -[No] Diagnosis/symptom? @ -Bigeminy Acute, or Chronic, or Acute on Chronic? @ -Acute Uncomplicated (without systemic symptoms) or Complicated (systemic symptoms)? @ -Complicated Side effects of treatment? @ -[No] Exacerbation, Progression, or Severe Exacerbation? @ -[No] Poses a threat to life or bodily function? How? (Chest pain, [place], CA, pneumonia, PE, COPD, DKA, ARF, appy, cholecystitis, CVA, Diverticulitis, Homicidal, Suicidal, threat to staff... and all critical care pts) @ -[No] Diagnosis/symptom? @ -Bradycardia Acute, or Chronic, or Acute on Chronic? @ -Acute Uncomplicated (without systemic symptoms) or Complicated (systemic symptoms)? @ -Complicated Side effects of treatment? @ -[none] Exacerbation, Progression, or Severe Exacerbation] @ -[no] Poses a threat to life or bodily function? @ -Yes this could lead to hypoperfusion and end organ dysfunction - Lab Data Result diagrams: 04/27/23 16:11 04/27/23 16:11 Lab Results 04/27/23 04/27/23 04/27/23 Range/Units 16:11 16:11 16:11 WBC 6.6 (3.8-10.6) k/uL RBC 4.07 L (4.30-5.90) m/uL Hgb 14.5 (13.0-17.5) gm/dL Hct 42.5 (39.0-53.0) % MCV 104.5 H (80.0-100.0) fL MCH 35.6 H (25.0-35.0) pg MCHC 34.1 (31.0-37.0) g/dL RDW 11.3 L (11.5-15.5) % Plt Count 175 (150-450) k/uL MPV 8.6 Neutrophils % 60 % Lymphocytes % 28 % Monocytes % 8 % Eosinophils % 2 % Basophils % 0 % Neutrophils # 4.0 (1.3-7.7) k/uL Lymphocytes # 1.9 (1.0-4.8) k/uL Monocytes # 0.6 (0-1.0) k/uL Eosinophils # 0.1 (0-0.7) k/uL Basophils # 0.0 (0-0.2) k/uL Macrocytosis Slight PT 10.5 (9.0-12.0) sec INR 1.0 (<1.2) APTT 22.3 (22.0-30.0) sec Sodium 138 (137-145) mmol/L Potassium 4.2 (3.5-5.1) mmol/L Chloride 108 H (98-107) mmol/L Carbon Dioxide 22 (22-30) mmol/L Anion Gap 8 mmol/L BUN 24 H (9-20) mg/dL Creatinine 1.17 (0.66-1.25) mg/dL Est GFR (CKD-EPI)AfAm 67 (>60 ml/min/1.73 sqM) Est GFR (CKD-EPI)NonAf 58 (>60 ml/min/1.73 sqM) Glucose 130 H (74-99) mg/dL Calcium 9.2 (8.4-10.2) mg/dL Magnesium 1.9 (1.6-2.3) mg/dL Total Bilirubin 1.0 (0.2-1.3) mg/dL AST 29 (17-59) U/L ALT 22 (4-49) U/L Alkaline Phosphatase 75 (38-126) U/L Creatine Kinase 37 L (55-170) U/L Troponin I (0.000-0.034) ng/mL C-Reactive Protein <0.5 (<1.0) mg/dL NT-Pro-B Natriuret Pep pg/mL Total Protein 6.3 (6.3-8.2) g/dL Albumin 3.7 (3.5-5.0) g/dL Lipase 110 (23-300) U/L 04/27/23 04/27/23 Range/Units 16:11 16:11 WBC (3.8-10.6) k/uL RBC (4.30-5.90) m/uL Hgb (13.0-17.5) gm/dL Hct (39.0-53.0) % MCV (80.0-100.0) fL MCH (25.0-35.0) pg MCHC (31.0-37.0) g/dL RDW (11.5-15.5) % Plt Count (150-450) k/uL MPV Neutrophils % % Lymphocytes % % Monocytes % % Eosinophils % % Basophils % % Neutrophils # (1.3-7.7) k/uL Lymphocytes # (1.0-4.8) k/uL Monocytes # (0-1.0) k/uL Eosinophils # (0-0.7) k/uL Basophils # (0-0.2) k/uL Macrocytosis PT (9.0-12.0) sec INR (<1.2) APTT (22.0-30.0) sec Sodium (137-145) mmol/L Potassium (3.5-5.1) mmol/L Chloride (98-107) mmol/L Carbon Dioxide (22-30) mmol/L Anion Gap mmol/L BUN (9-20) mg/dL Creatinine (0.66-1.25) mg/dL Est GFR (CKD-EPI)AfAm (>60 ml/min/1.73 sqM) Est GFR (CKD-EPI)NonAf (>60 ml/min/1.73 sqM) Glucose (74-99) mg/dL Calcium (8.4-10.2) mg/dL Magnesium (1.6-2.3) mg/dL Total Bilirubin (0.2-1.3) mg/dL AST (17-59) U/L ALT (4-49) U/L Alkaline Phosphatase (38-126) U/L Creatine Kinase (55-170) U/L Troponin I <0.012 (0.000-0.034) ng/mL C-Reactive Protein (<1.0) mg/dL NT-Pro-B Natriuret Pep 662 pg/mL Total Protein (6.3-8.2) g/dL Albumin (3.5-5.0) g/dL Lipase (23-300) U/L Disposition Clinical Impression: Bigeminy, Bradycardia Disposition: ADMITTED IP TO THIS HOSP Referrals: Bruce Unger DO [Primary Care Provider] - 1-2 days Time of Disposition: 19:48
[2023-04-27 16:52] LABS: Basophils % (A) 0 %; Eosinophils # (A) 0.1 k/uL (0-0.7); Eosinophils % (A) 2 %; HCT 42.5 % (39.0-53.0); HGB 14.5 gm/dL (13.0-17.5); Lymphocytes # (A) 1.9 k/uL (1.0-4.8); Lymphocytes % (A) 28 %; MCH 35.6 pg (25.0-35.0); MCHC 34.1 g/dL (31.0-37.0); MCV 104.5 fL (80.0-100.0); Macrocytosis Slight; Mean Platelet Volume 8.6; Monocytes # (A) 0.6 k/uL (0-1.0); Monocytes % (A) 8 %; Neutrophils % (A) 60 %; Platelet Count 175 k/uL (150-450); RBC 4.07 m/uL (4.30-5.90); RDW 11.3 % (11.5-15.5); WBC 6.6 k/uL (3.8-10.6)
--- NOTE | 2023-04-27 17:04 | XR ---
EXAMINATION TYPE: XR chest 2V DATE OF EXAM: 04/27/2023 COMPARISON: 08/04/2022 HISTORY: Shortness of breath TECHNIQUE: Frontal and lateral views of the chest are obtained. FINDINGS: Scattered senescent parenchymal changes noted. Hyperinflation compatible with COPD. No evidence for infiltrate. No evidence for atelectasis. Heart size is stable. Mediastinal structures are stable and grossly unremarkable. No evidence for hilar prominence. Degenerative changes dorsal spine. IMPRESSION: 1. No evidence for acute pulmonary disease.
[2023-04-27 17:08] LABS: Partial Thromboplastin Time 22.3 sec (22.0-30.0); Prothrombin Time 10.5 sec (9.0-12.0)
[2023-04-27 17:14] LABS: ALT 22 U/L (4-49); AST 29 U/L (17-59); African American GFR (CKD) 67 (>60 ml/min/1.73 sqM); Albumin 3.7 g/dL (3.5-5.0); Alkaline Phosphatase 75 U/L (38-126); Anion Gap 8 mmol/L; Blood Urea Nitrogen 24 mg/dL (9-20); C Reactive Protein <0.5 mg/dL (<1.0); Calcium 9.2 mg/dL (8.4-10.2); Carbon Dioxide 22 mmol/L (22-30); Chloride 108 mmol/L (98-107); Creatine Kinase 37 U/L (55-170); Glucose 130 mg/dL (74-99); Lipase 110 U/L (23-300); Magnesium 1.9 mg/dL (1.6-2.3); Non-African American GFR(CKD) 58 (>60 ml/min/1.73 sqM); Potassium 4.2 mmol/L (3.5-5.1); Sodium 138 mmol/L (137-145); Total Protein 6.3 g/dL (6.3-8.2)
[2023-04-27] MEDS ORDERED: NITROGLYCERIN SL TABS 0.4 MG TAB SUBLINGUAL PRN (19:48)
[2023-04-27] MEDS: levETIRAcetam 500 MG TAB PO SCH (20:29)
[2023-04-27] MEDS: ATORVASTATIN 20 MG TAB PO SCH (20:29)
[2023-04-28] MEDS ORDERED: NITROGLYCERIN SL TABS 0.4 MG TAB SUBLINGUAL PRN (06:19)
[2023-04-28] MEDS ORDERED: ACETAMINOPHEN TAB 325 MG TAB PO PRN (06:19)
[2023-04-28] MEDS ORDERED: FAMOTIDINE 20 MG TAB PO SCH (09:00)
[2023-04-28] MEDS ORDERED: ASPIRIN 325 MG TAB PO SCH (09:00)
--- NOTE | 2023-04-28 09:39 | CONS ---
CONSULTATION CHIEF COMPLAINT: Bradycardia. HISTORY OF PRESENT ILLNESS: Mr. Rendon is an 83-year-old gentleman with history of dyslipidemia, hypertension, coronary artery disease, who was admitted to hospital apparently because his primary care physician felt that his heart rate is low and as is the blood pressure. The patient also had somewhat altered mental status. The patient, however, states that he is here because he is having body aches all over and has leg edema. At the time of my evaluation, the patient appears comfortable, sleeping, and does not seem to be in respiratory distress and does not seem to be hemodynamically unstable. The patient has three sets of troponins that are all within normal limits. Hemoglobin is normal. Creatinine is 1.1. The patient sees Dr. JOSE JUAN Gates regularly in the office and had a cardiac catheterization in 2018, that revealed a patent stent within the LAD without significant disease in circumflex coronary artery and right coronary artery. He had an echocardiogram in August 2022, that revealed normal LV systolic function with mild aortic and tricuspid regurgitation. His CT scan of the chest was negative for pulmonary embolism. EKG shows sinus bradycardia with frequent PVCs including ventricular bigeminy. PAST MEDICAL HISTORY: Significant for, 1. Coronary artery disease, status post angioplasty. 2. Hypertension. 3. Dyslipidemia. MEDICATIONS: Medications at home included: 1. Norvasc. 2. Aldactone. 3. Seroquel. 4. Cozaar. 5. Singulair. 6. Imdur. 7. Neurontin. 8. Flonase. 9. Pepcid. 10.Aricept. 11.Lipitor. 12.Aspirin. 13.Vitamin C. ALLERGIES: To sulfa. FAMILY HISTORY: Negative for premature coronary artery disease. SOCIAL HISTORY: Negative for current smoking, EtOH abuse, or drug abuse. REVIEW OF SYSTEMS: review of systems has been performed. Pertinents are as documented. PHYSICAL EXAMINATION: GENERAL: Comfortable at rest. VITAL SIGNS: Stable. NECK: There is no jugular venous distention. Carotid upstroke is normal. There is no bruit. CHEST: Reveals good air entry bilaterally. HEART: Reveals first and second heart sounds. No gallop. No murmur. No rub. ABDOMEN: Soft, nontender. EXTREMITIES: Did not reveal any edema. Peripheral pulses are felt. RETURNS CLERK: Did not reveal focal neurological deficits. ASSESSMENT: 1. Ventricular bigeminy. 2. Coronary artery disease, status post prior angioplasty. 3. Body aches. 4. Leg edema. 5. BNP within normal limits for age. PLAN: I will continue current medications. Obtain a 2D echo, ambulate him when he is feeling better. We should be able to discharge him home and arrange outpatient followup with Dr. Gates. I will check a TSH on him because of the bradycardia. MMJADEL / IJN: [id number] /
[2023-04-28] MEDS: HEPARIN SODIUM,PORCINE/PF 5,000 UNIT/0.5 ML SYRINGE SQ SCH ×2 (10:02→20:58)
[2023-04-28] MEDS: SPIRONOLACTONE 25 MG TAB PO SCH (10:03)
[2023-04-28] MEDS: ASPIRIN 81 MG PO SCH (10:03)
[2023-04-28] MEDS: GABAPENTIN 100 MG CAP PO SCH ×2 (10:03→16:49)
[2023-04-28] MEDS: levETIRAcetam 500 MG TAB PO SCH ×2 (10:03→20:57)
[2023-04-28] MEDS: MONTELUKAST 10 MG TAB PO SCH (10:04)
[2023-04-28] MEDS: ISOSORBIDE MONONITRATE ER 30 MG TAB.ER.24H PO SCH (10:05)
--- NOTE | 2023-04-28 13:38 | CA ---
Transthoracic Echo Report Name: Grey Rendon Age: 83 Gender: M : 1940 Exam Date: 04/28/2023 09:43 Exam Location: [place] [facility] Ht (in): 67 Wt (lb): 183 Ordering Physician: Moiz Love MD ([id number]) Attending/Referring Phys: Kate STEPHENS [employer] Sales Representative Radha Falk RDCS Procedure CPT: Indications: chest pressure Cardiac Hx: Technical Quality: Fair Contrast 1: Total Dose (mL): Contrast 2: Total Dose (mL): MEASUREMENTS (Male / Female) Normal Values 2D ECHO LV Diastolic Diameter PLAX 4.5 cm 4.2 - 5.9 / 3.9 - 5.3 cm LV Systolic Diameter PLAX 2.8 cm IVS Diastolic Thickness 1.1 cm 0.6 - 1.0 / 0.6 - 0.9 cm LVPW Diastolic Thickness 1.3 cm 0.6 - 1.0 / 0.6 - 0.9 cm LV Relative Wall Thickness 0.5 RV Internal Dim ED PLAX 3.8 cm LVOT Diameter 2.1 cm LA Volume 53.7 cm??? 18 - 58 / 22 - 52 cm??? M-MODE Aortic Root Diameter MM 3.2 cm LA Systolic Diameter MM 3.7 cm LA Ao Ratio MM 1.2 AV Cusp Separation MM 1.4 cm DOPPLER AV Peak Velocity 141.3 cm/s AV Peak Gradient 8.0 mmHg AV Mean Velocity 103.1 cm/s AV Mean Gradient 6.8 mmHg AV Velocity Time Integral 31.9 cm AI Peak Velocity 495.2 cm/s AI Peak Gradient 98.1 mmHg AI Pressure Half Time 1019.1 ms LVOT Peak Velocity 87.5 cm/s LVOT Peak Gradient 3.1 mmHg LVOT Velocity Time Integral 13.5 cm LVOT Stroke Volume 48.6 cm??? LVOT Stroke Volume Index 25.0 ml/m??? LVOT Cardiac Index 1359.2 cm???/min???m??? AV Area Cont Eq vti 1.5 cm??? AV Area Cont Eq pk 2.2 cm??? MV Area PHT 2.2 cm??? Mitral E Point Velocity 47.1 cm/s Mitral A Point Velocity 71.4 cm/s Mitral E to A Ratio 0.7 MV Deceleration Time 349.9 ms MV E' Velocity 5.5 cm/s Mitral E to MV E' Ratio 8.6 TR Peak Velocity 225.5 cm/s TR Peak Gradient 20.3 mmHg Right Ventricular Systolic Press 24.4 mmHg FINDINGS Left Ventricle Mildly increased left ventricular wall thickness. Normal left ventricular systolic function with no obvious regional wall motion abnormalities. Left ventricular ejection fraction is estimated at 55-60 %. Right Ventricle Mild right ventricular dilatation. Right ventricular systolic pressure within normal limits. Right Atrium Normal right atrial size. Left Atrium Normal left atrial size. Mitral Valve Structurally normal mitral valve. Mild mitral regurgitation. Aortic Valve Diffuse thickening (sclerosis) of the aortic valve cusps without reduced excursion. Mild aortic regurgitation. Tricuspid Valve Structurally normal tricuspid valve. Mild tricuspid regurgitation. Pulmonic Valve Trace pulmonic regurgitation. Pericardium No pericardial effusion. Aorta Normal size aortic root and proximal ascending aorta. CONCLUSIONS Normal LV size and systolic function. There is mild concentric LVH. Ejection fraction is normal there is mild mitral and tricuspid regurgitation no pulmonary hypertension no pericardial effusion Previewed by: Dr. Radames Gates MD (Electronically Signed) Final Date: 28 April 2023 13:37
--- NOTE | 2023-04-28 14:50 | P.HPIM ---
History of Present Illness H&P Date: 04/28/23 History of present illness; patient is 83-year-old gentleman with past medical history significant for right temporal lobe epilepsy, mild cognitive impairment, CAD with stent, essential hypertension, left ventricular apical thrombus, left nephrectomy, chronic congestive heart failure from systolic d ysfunction EF 30-35% who presented from his PCPs office because of low blood pressure and heart rate. According to family patient has been complaining of increased swelling in his legs associated bodyaches for the last 3 days. Patient also stated that he was not feeling well. Patient also complaining of chest pressure associated with any shortness of breath. At PCPs office patient was found to have a low heart rate and blood pressure also was very cold to touch and clammy. Patient was initially sent to the ER Initial lab work in the ER showed WBC 6.6, hemoglobin 14.5, MCV 104.5, sodium 1: 30, potassium 4.2, BUN 24, creatinine 1.17 Chest x-ray showed no evidence of acute pulmonary disease Initial EKG done showed bradycardia with bigeminy. Patient admitted to the medicine service REVIEW OF SYSTEMS: CONSTITUTIONAL: No fever, complaining of lethargy and weakness HEENT: No recent visual problems or hearing problems. Denied any sore throat. CARDIOVASCULAR: As mentioned in HPI PULMONARY: As mentioned in HPI GASTROINTESTINAL: No diarrhea, no nausea, no vomiting, no abdominal pain. NEUROLOGICAL: No headaches, no weakness, no numbness. HEMATOLOGICAL: Denies any bleeding or petechiae. GENITOURINARY: Denies any burning micturition, frequency, or urgency. MUSCULOSKELETAL/RHEUMATOLOGICAL: Complaining of bodyaches and swelling of lower extremities ENDOCRINE: Denies any polyuria or polydipsia. The rest of the 14-point review of systems is negative. PHYSICAL EXAMINATION: GENERAL: The patient is alert and oriented x3, not in any acute distress. Well developed, well nourished. HEENT: Pupils are round and equally reacting to light. EOMI. No scleral icterus. No conjunctival pallor. Normocephalic, atraumatic. No pharyngeal erythema. No thyromegaly. CARDIOVASCULAR: S1 and S2 present. No murmurs, rubs, or gallops. PULMONARY: Chest is clear to auscultation, no wheezing or crackles. ABDOMEN: Soft, nontender, nondistended, normoactive bowel sounds. No palpable organomegaly. MUSCULOSKELETAL: No joint swelling or deformity. EXTREMITIES: No cyanosis, clubbing. 1+ pitting edema lower extremities NEUROLOGICAL: Gross neurological examination did not reveal any focal deficits. SKIN: No rashes. Assessment and plan Bradycardia Bigeminy Mild cognitive impairment Coronary artery disease Essential hypertension Chronic systolic CHF History of Left ventricular apical thrombus Monitor vital signs Monitor CBC Monitor CMP Trend troponins. Avoid AV node blocking agents Continue aspirin, Lipitor Continue losartan, only if systolic blood pressure more than 110 2-D echo ordered Cardiology consulted DVT prophylaxis: Past Medical History Past Medical History: Coronary Artery Disease (CAD), Chest Pain / Angina, GERD/Reflux, Hearing Disorder / Deafness, Hypertension, Memory Impairment, Myocardial Infarction (SD), Osteoarthritis (OA) Additional Past Medical History / Comment(s): cardiomyopathy, hepatitis (child), chronic constipation, hemorrhoids, abd pain, elevated liver enzymes., has one kidney ., pt was hospitalized nov 2020 for carbon monoxide poisoning & possible hx of seizure seen on eeg . , early alzheimers. 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 Past Anesthesia/Blood Transfusion Reactions: No Reported Reaction Date of Last Stent Placement:: unknown Past Psychological History: Depression Smoking Status: Never smoker Past Alcohol Use History: None Reported Past Drug Use History: None Reported - Past Family History Father History Unknown: Yes Family Medical History: Cancer Additional Family Medical History / Comment(s): colon cancer Mother History Unknown: Yes Family Medical History: Cancer Additional Family Medical History / Comment(s): oral cancer Medications and Allergies Home Medications Medication Instructions Recorded Confirmed Type Isosorbide Mononitrate ER [Imdur] 30 mg PO DAILY 09/16/14 04/27/23 History Aspirin EC [Ecotrin Low Dose] 81 mg PO DAILY 08/03/19 04/27/23 History Fluticasone Nasal [place] [Flonase 1 spr EA NOSTRIL BID@0800,1700 08/03/19 06/04/24 History Nasal [place]] Famotidine [Pepcid] 20 mg PO BID@0800,1700 11/27/20 04/27/23 History Donepezil [Aricept] 10 mg PO HS 04/30/21 04/27/23 History Ascorbic Acid [Vitamin C] 1,000 mg PO DAILY 08/05/22 04/27/23 History Atorvastatin [Lipitor] 20 mg PO HS 08/05/22 04/27/23 History Cyanocobalamin (Vitamin B-12) 1,000 mcg PO MOTUWETHFRSA@1200 08/05/22 04/27/23 History [Vitamin B-12] Montelukast [Singulair] 10 mg PO DAILY 08/05/22 04/27/23 History Pyridoxine [Vitamin B-6] 25 mg PO DAILY@1200 08/05/22 04/27/23 History QUEtiapine [SEROquel] 25 mg PO HS 08/05/22 04/27/23 History Acetaminophen [Tylenol 8 Hour] 650 mg PO Q4H PRN 08/18/22 04/27/23 History Garlic 1,000 mg PO DAILY@1200 08/18/22 04/27/23 History Nitroglycerin Sl Tabs [Nitrostat] 0.4 mg SL Q5M PRN 08/18/22 04/27/23 History Spironolactone [Aldactone] 12.5 mg PO DAILY 08/18/22 04/27/23 History Thiamine [Vitamin B-1] 100 mg PO DAILY@1200 08/18/22 04/27/23 History amLODIPine [Norvasc] 2.5 mg PO DAILY 08/18/22 04/27/23 History Losartan [Cozaar] 25 mg PO HS #30 tab 08/22/22 04/27/23 Rx levETIRAcetam [Keppra] 500 mg PO Q12HR #60 tab 08/22/22 04/27/23 Rx Ergocalciferol [Vitamin D2 (1250 1,250 mcg PO BRADY@119904/27/23 04/27/23 History Mcg = 67346 Iu)] Folic Acid 0.8 mg PO DAILY@119904/27/23 04/27/23 History Gabapentin [Neurontin] 100 mg PO TID 04/27/23 04/27/23 History Saw [place] 450mg 450 mg PO DAILY@119904/27/23 04/27/23 History Tamsulosin [Flomax] 0.4 mg PO HS 04/27/23 04/27/23 History Allergies Allergy/AdvReac Type Severity Reaction Status Date / Time Sulfa (Sulfonamide Allergy Unknown Verified 04/27/23 18:02 Antibiotics) Childhood Physical Exam Vitals: Vital Signs Temp Pulse Pulse Resp BP BP Pulse Ox 04/28/23 08:00 50 L 04/28/23 07:36 97.8 F 58 L 18 129/75 98 04/28/23 05:00 72 16 143/61 94 L 04/28/23 00:00 56 L 18 98/60 94 L 04/27/23 20:00 60 18 105/56 98 04/27/23 18:57 56 L 16 125/77 97 04/27/23 17:05 51 L 18 127/63 96 04/27/23 16:11 62 16 120/65 99 04/27/23 15:53 97.8 F 36 L 20 109/59 97 Intake and Output 04/27/23 04/28/23 04/28/23 22:59 06:59 14:59 Other: Weight 83.007 kg Results CBC & Chem 7: 04/27/23 16:11 04/27/23 16:11 Labs: Abnormal Lab Results - Last 24 Hours (Table) 04/27/23 04/27/23 Range/Units 16:11 16:11 RBC 4.07 L (4.30-5.90) m/uL MCV 104.5 H (80.0-100.0) fL MCH 35.6 H (25.0-35.0) pg RDW 11.3 L (11.5-15.5) % Chloride 108 H (98-107) mmol/L BUN 24 H (9-20) mg/dL Glucose 130 H (74-99) mg/dL Creatine Kinase 37 L (55-170) U/L
[2023-04-28] MEDS: FLUTICASONE 50MCG/SPRAY NASAL 16GM EA NOSTRIL SCH ×2 (15:39→23:48)
[2023-04-28] MEDS: FOLIC ACID 1 MG TAB PO SCH (15:40)
[2023-04-28] MEDS: THIAMINE 100 MG TAB PO SCH (15:40)
[2023-04-28 15:52] LABS: LDL Cholesterol,Calculated 41.8 mg/dL (0.0-131.0); VLDL Calculation 11.12 mg/dL (5.00-40.00)
[2023-04-28] MEDS: ATORVASTATIN 20 MG TAB PO SCH (20:57)
[2023-04-28] MEDS ORDERED: DONEPEZIL 10 MG TAB PO SCH (21:00)
[2023-04-28] MEDS ORDERED: GABAPENTIN 100 MG CAP PO SCH (21:00)
[2023-04-28] MEDS ORDERED: TAMSULOSIN 0.4 MG CAP.ER.24H PO SCH (21:00)
[2023-04-28] MEDS ORDERED: LOSARTAN 25 MG TAB PO SCH (21:00)
[2023-04-28] MEDS ORDERED: QUEtiapine 25 MG TAB PO SCH (21:00)
[2023-04-29 07:29] VITALS: TEMP 97.6
[2023-04-29] MEDS ORDERED: FUROSEMIDE 20 MG TAB PO SCH (09:00)
[2023-04-29] MEDS ORDERED: FAMOTIDINE 20 MG TAB PO SCH (09:00)
[2023-04-29] MEDS: HEPARIN SODIUM,PORCINE/PF 5,000 UNIT/0.5 ML SYRINGE SQ SCH (10:06)
[2023-04-29] MEDS: ISOSORBIDE MONONITRATE ER 30 MG TAB.ER.24H PO SCH (10:06)
[2023-04-29] MEDS: SPIRONOLACTONE 25 MG TAB PO SCH (10:06)
[2023-04-29] MEDS: THIAMINE 100 MG TAB PO SCH (10:06)
[2023-04-29] MEDS: MONTELUKAST 10 MG TAB PO SCH (10:06)
[2023-04-29] MEDS: FOLIC ACID 1 MG TAB PO SCH (10:06)
[2023-04-29] MEDS: ASPIRIN 81 MG PO SCH (10:06)
[2023-04-29] MEDS: levETIRAcetam 500 MG TAB PO SCH (10:06)
[2023-04-29] MEDS: FLUTICASONE 50MCG/SPRAY NASAL 16GM EA NOSTRIL SCH (10:07)
--- NOTE | 2023-04-29 10:21 | P.PN ---
Subjective Progress Note Date: 04/29/23 History of present illness: This is an 83-year-old male patient of Dr. JOSE JUAN Gates with history of dyslipidem ia, hypertension, coronary artery disease admitted for low heart rate and low blood pressure. Patient also had some altered mental status. Patient is seen today in follow-up. He is awake alert and oriented 3. He is having episodes of bigeminy this morning. He denies having any chest pain or shortness of breath. Echocardiogram reveals EF of 55-60%, mild concentric left hypertrophy. Mild mitral and tricuspid regurgitation. No pulmonary hypertension. No pericardial effusion. Heart rate is in the 40s with bigeminy. Otherwise heart rate is in the 60s. Blood pressure 146/77, pulse ox 90% on room air. TSH 2.77. Physical examination: Gen: This is an 83-year-old male. He is resting in bed and appears to be comfortable. VS: reviewed HEENT: Head is atraumatic, normocephalic. Pupils equal, round. Sclerae is anicteric. NECK: Supple. No JVD. . LUNGS: Clear to auscultation. No wheezes or rhonchi. No intercostal retractions. HEART: Regular rate and rhythm. No murmur. ABDOMEN: Soft No tenderness. EXTREMITIES: No pedal edema. No calf tenderness. NEUROLOGICAL: Patient is awake, alert and oriented x3. Assessment: Ventricular bigeminy Coronary artery disease status post prior angioplasty Body aches Leg edema resolved, BNP normal limits for age Plan: Continue patient's current medications Start patient on Lasix 20 mg daily. Patient is cleared from cardiology for discharge home and may follow-up in the office with Dr. Gates in one to 2 weeks. Nurse practitioner note has been reviewed, I agree with documented findings and plan of care. Patient was seen and examined. Objective - Vital Signs Vital signs: Vital Signs Temp 97.6 F 04/29/23 07:24 Pulse 47 L 04/29/23 07:24 Resp 18 04/29/23 07:24 BP 146/77 04/29/23 07:24 Pulse Ox 97 04/29/23 02:37 FiO2 Intake & Output 04/28/23 04/29/23 04/29/23 18:59 06:59 18:59 Output Total 150 Balance -150 Weight 83.007 kg 79.5 kg Output: Urine 150 Other: # Voids 0 - Labs CBC & Chem 7: 04/27/23 16:11 04/27/23 16:11
[2023-04-29 14:13] VITALS: BP 123/70; PULSE 77; RESP 17
--- NOTE | 2023-04-30 01:30 | P.DS ---
Providers Date of admission: 04/27/23 19:48 Attending physician: Nicole Pacheco Consults: 04/27/23 19:48 Consult Physician Urgent Consulting Provider: [facility] Consult Reason/Comments: Bradycardia, bigeminy Do you want consulting provider notified?: Yes Primary care physician: Bruce Unger Hospital Course: Final Diagnosis Bradycardia and diaphoresis Ventricular bigeminy with 1 degree AV block Mild cognitive impairment Lower extremity edema improved and normal BNP for age Coronary artery disease with prior stenting Essential hypertension Chronic systolic CHF with improved EF this admission Hx of right temporal lobe epilepsy History of Left ventricular apical thrombus Hx of left nephrectomy Discharge Disposition Patient is stable for discharge home. Cardiology recommending to stop amlodipine and patient to follow up in the office with Dr JOSE JUAN Gates in 1 to 2 weeks. Discussed with family to follow up with cardiology on discharge regarding event monitor. Patient to continue on aldactone and has been started on lasix 20 mg daily by cardiology. Recommending to repeat labs in 2 to 3 days and follow up with PCP. Cleared by PT for discharge home. Hospital Course This is a pleasant 83 year old male with past medical history significant for right temporal lobe epilepsy, mild cognitive impairment, CAD with stent, hypertension, left ventricular apical thrombus, left nephrectomy, chronic congestive heart failure from systolic dysfunction EF 30-35% who presented from his PCPs office because of low blood pressure and heart rate. According to family patient has been complaining of increased swelling in his legs associated bodyaches for the last 3 days. Patient also stated that he was not feeling well. Patient also complaining of chest pressure associated with any shortness of breath. At PCPs office patient was found to have a low heart rate and blood pressure also was very cold to touch and clammy. Patient was initially sent to the ER. Had mildly elevated creatinine 1.17 on admission. White count 6.6 and sodium of 130. Chest xray negative. EKG shows bradycardia 1 degree AV block and bigeminy. Patient admitted to hospital with cardiology consultation. Patient had normal TSH at 2.770 and normal lipid panel. Blood glucose 130. Underwent echocardiogram which reveals normal LV size and systolic function mild MR and mild TR with no pulmonary hypertension or pericardial effusion. Cardiology has started the patient on lasix daily. Amlodipine is decreased and gabapentin has been decreased. Patient has been up ambulating in the hallway no further reports of heart rate in the 30/40s and blood pressure remains stable and patient is currently denying dizziness and lightheadedness. Recommending to hold amlodipine and monitor blood pressure at home. Cardiology has cleared for DC and recommending outpatient follow up. Currently denying chest pain, denying shortness of breath. Alert x 3 with no focal neurological deficits. Lungs are clear S1 S2 auscultated abdomen is soft and nontender. Edema has improved. Patient will be discharged home. Family at bedside all questions answered. Please see medication reconciliation for a list of current medication. Thank you for allowing us to participate in the care of this patient. The impression and plan of care has been dictated by Majo Richmond, Nurse Practitioner as directed. Dr. Natalya MD I have performed a history and physical examination and medical decision making of this patient, discussed the same with the dictator, and agree with the dictators assessment and plan as written, documented as a scribe. Based on total visit time, I have performed more than 50% of this visit. Patient Condition at Discharge: Stable Plan - Discharge Summary Discharge Rx Participant: No New Discharge Prescriptions: New Furosemide [Lasix] 20 mg PO DAILY #30 tab Gabapentin [Neurontin] 100 mg PO HS cap Losartan [Cozaar] 25 mg PO HS #30 tab Continue Isosorbide Mononitrate ER [Imdur] 30 mg PO DAILY Fluticasone Nasal [place] [Flonase Nasal [place]] 1 spr EA NOSTRIL BID@0800,1700 Aspirin EC [Ecotrin Low Dose] 81 mg PO DAILY Famotidine [Pepcid] 20 mg PO BID@0800,1700 QUEtiapine [SEROquel] 25 mg PO HS Cyanocobalamin (Vitamin B-12) [Vitamin B-12] 1,000 mcg PO MOTUWETHFRSA@1200 Pyridoxine [Vitamin B-6] 25 mg PO DAILY@1200 Ascorbic Acid [Vitamin C] 1,000 mg PO DAILY Acetaminophen [Tylenol 8 Hour] 650 mg PO Q4H PRN PRN Reason: General Discomfort Folic Acid 0.8 mg PO DAILY@1200 Montelukast [Singulair] 10 mg PO DAILY Atorvastatin [Lipitor] 20 mg PO HS Nitroglycerin Sl Tabs [Nitrostat] 0.4 mg SL Q5M PRN PRN Reason: Chest Pain Garlic 1,000 mg PO DAILY@1200 Thiamine [Vitamin B-1] 100 mg PO DAILY@1200 Spironolactone [Aldactone] 12.5 mg PO DAILY levETIRAcetam [Keppra] 500 mg PO Q12HR #60 tab Ergocalciferol [Vitamin D2 (1250 Mcg = 77736 Iu)] 1,250 mcg PO BRADY@1200 Tamsulosin [Flomax] 0.4 mg PO HS [place] 450mg 450 mg PO DAILY@1200 Discontinued Donepezil [Aricept] 10 mg PO HS amLODIPine [Norvasc] 2.5 mg PO DAILY Losartan [Cozaar] 25 mg PO HS #30 tab Gabapentin [Neurontin] 100 mg PO TID Discharge Medication List Isosorbide Mononitrate ER [Imdur] 30 mg PO DAILY 09/16/14 [History] Aspirin EC [Ecotrin Low Dose] 81 mg PO DAILY 08/03/19 [History] Fluticasone Nasal [place] [Flonase Nasal [place]] 1 spr EA NOSTRIL BID@0800,1700 08/03/19 [History] Famotidine [Pepcid] 20 mg PO BID@0800,1700 11/27/20 [History] Ascorbic Acid [Vitamin C] 1,000 mg PO DAILY 08/05/22 [History] Atorvastatin [Lipitor] 20 mg PO HS 08/05/22 [History] Cyanocobalamin (Vitamin B-12) [Vitamin B-12] 1,000 mcg PO MOTUWETHFRSA@1200 08/05/22 [History] Montelukast [Singulair] 10 mg PO DAILY 08/05/22 [History] Pyridoxine [Vitamin B-6] 25 mg PO DAILY@1200 08/05/22 [History] QUEtiapine [SEROquel] 25 mg PO HS 08/05/22 [History] Acetaminophen [Tylenol 8 Hour] 650 mg PO Q4H PRN 08/18/22 [History] Garlic 1,000 mg PO DAILY@1200 08/18/22 [History] Nitroglycerin Sl Tabs [Nitrostat] 0.4 mg SL Q5M PRN 08/18/22 [History] Spironolactone [Aldactone] 12.5 mg PO DAILY 08/18/22 [History] Thiamine [Vitamin B-1] 100 mg PO DAILY@1200 08/18/22 [History] levETIRAcetam [Keppra] 500 mg PO Q12HR #60 tab 08/22/22 [Rx] Ergocalciferol [Vitamin D2 (1250 Mcg = 46196 Iu)] 1,250 mcg PO BRADY@1200 04/27/23 [History] Folic Acid 0.8 mg PO DAILY@1200 04/27/23 [History] Saw [place] 450mg 450 mg PO DAILY@1200 04/27/23 [History] Tamsulosin [Flomax] 0.4 mg PO HS 04/27/23 [History] Furosemide [Lasix] 20 mg PO DAILY #30 tab 04/29/23 [Rx] Gabapentin [Neurontin] 100 mg PO HS cap 04/29/23 [Rx] Losartan [Cozaar] 25 mg PO HS #30 tab 04/29/23 [Rx] Follow up Appointment(s)/Referral(s): Radames Gates MD [STAFF PHYSICIAN] - 2 Weeks (Office will call patient with appoinntment ) Bruce Unger DO [Primary Care Provider] - 1-2 days Ambulatory/Diagnostic Orders: Basic Metabolic Panel [LAB.AMB] Time Frame: 3 Days, Location: None Selected Discharge Disposition: HOME SELF-CARE
== END 2023-04-29 16:38 | disposition home or self-care (01) ==
LOC: EC 15:50 → INTOOBSV 19:48 → 3SCARD 19:48 → 6NMEDSUR 04-28 16:08
PROVIDERS: ADMIT Hospitalist; ATTEND Hospitalist
DX: R00.1 Bradycardia, unspecified (principal); R00.8 Other abnormalities of heart beat; G40.909 Epilepsy, unspecified, not intractable, without status epilepticus; I11.0 Hypertensive heart disease with heart failure; I25.10 Atherosclerotic heart disease of native coronary artery without angina pectoris; K21.9 Gastro-esophageal reflux disease without esophagitis; I25.2 Old myocardial infarction; H91.90 Unspecified hearing loss, unspecified ear; I42.9 Cardiomyopathy, unspecified; K59.09 Other constipation; G30.0 Alzheimer's disease with early onset; E78.5 Hyperlipidemia, unspecified; I44.0 Atrioventricular block, first degree; F02.80 Dementia in other diseases classified elsewhere, unspecified severity, without behavioral disturbance, psychotic disturbance, mood disturbance, and anxiety; F32.A Depression, unspecified; F02.83 Dementia in other diseases classified elsewhere, unspecified severity, with mood disturbance; I50.22 Chronic systolic (congestive) heart failure; I08.3 Combined rheumatic disorders of mitral, aortic and tricuspid valves; I37.1 Nonrheumatic pulmonary valve insufficiency; Z79.899 Other long term (current) drug therapy; Z79.82 Long term (current) use of aspirin; Z88.2 Allergy status to sulfonamides; Z95.5 Presence of coronary angioplasty implant and graft; Z80.0 Family history of malignant neoplasm of digestive organs; Z80.8 Family history of malignant neoplasm of other organs or systems; Z90.5 Acquired absence of kidney; Z98.49 Cataract extraction status, unspecified eye
CPT/HCPCS: 96372 ×3; 96360; 99285; 36415; 93005 ×2; 93306; 97162; 97166; 83880; 80061; 80053; 84443; 82550; 83690; 83735; 84484; 85025; 85610; 85730; 86140; 71046; G0378 ×4; J1644 ×2

== ENCOUNTER → 2023-05-04 | Outpatient (CLI) | payer MEDICARE ==
[2023-05-04 17:04] LABS: BUN/Creat Ratio 26.18 Ratio (12.00-20.00); Blood Urea Nitrogen 28.8 mg/dL (9.0-27.0); Chloride 109 mmol/L (96-109); Glucose 92 mg/dL (70-110); Potassium 4.9 mmol/L (3.5-5.5); Sodium 143 mmol/L (135-145)
[2023-05-04 17:05] LABS: Carbon Dioxide 24.4 mmol/L (21.6-31.8)
== END | disposition home or self-care (01) ==
LOC: LABWHC1 08:43
PROVIDERS: ATTEND Nurse Practitioner Family
DX: R00.1 Bradycardia, unspecified (principal); R00.8 Other abnormalities of heart beat
CPT/HCPCS: 36415; 80048

== ENCOUNTER → 2023-11-03 | Outpatient (CLI) | payer MEDICARE ==
[2023-11-03 20:04] LABS: HCT 43.1 % (39.6-50.0); HGB 14.7 g/dL (13.0-17.0); MCHC 34.1 g/dL (32.0-37.0); MCV 102.6 FL (80.0-97.0); Mean Platelet Volume 11.4 FL (9.5-12.2); NRBC Per 100 WBC 0 X 10*3/uL (0.00-0.01); Platelet Count 192 X 10*3/uL (140-440); RDW 11.6 % (11.5-14.5)
[2023-11-03 20:30] LABS: Blood Urea Nitrogen 23.1 mg/dL (9.0-27.0); Carbon Dioxide 24.7 mmol/L (21.6-31.8); Chloride 106 mmol/L (96-109); Potassium 4.8 mmol/L (3.5-5.5); Sodium 140 mmol/L (135-145)
== END | disposition home or self-care (01) ==
LOC: LABPAT 14:18
PROVIDERS: ATTEND Internal Medicine Interventional Cardiology
DX: Z01.812 Encounter for preprocedural laboratory examination (principal); I49.3 Ventricular premature depolarization; I47.29 Other ventricular tachycardia; R07.9 Chest pain, unspecified
CPT/HCPCS: 36415; 80051; 82565; 84520; 85027

== ENCOUNTER 2023-11-26 10:21 | Day surgery (SDC) | payer MEDICARE ==
[~2023-11-26 10:21] MED LIST changes: +ALPRAZolam 0.25 MG TAB PO PRN; +ALPRAZolam 0.5 MG TAB PO PRN; +ASPIRIN 325 MG TAB PO STA; +HEPARIN SODIUM,PORCINE (1 ML) 2,500 UNIT in SODIUM CHLORIDE 0.9% 250 ML IRRIGATION PRN; +HEPARIN SODIUM,PORCINE 10,000 UNIT in SODIUM CHLORIDE 0.9% 1,000 ML IRRIGATION PRN; -LACTATED RINGERS 1,000 ML IV SCH; -LIDOCAINE 1% (10MG/ML) FOR IV START INTRADERMA PRN; +NITROGLYCERIN SL TABS 0.4 MG TAB SUBLINGUAL PRN; +SODIUM CHLORIDE 0.9% 1,000 ML in EMPTY BAG 1 BAG IV SCH
[2023-11-26] MEDS ORDERED: SODIUM CHLORIDE 0.9% 1,000 ML IV ONE (10:30)
[2023-11-26 11:19] VITALS: RESP 16; TEMP 97.9
[2023-11-26] MEDS ORDERED: HEPARIN SODIUM 1,000 UN/ML (10ML VL) ONE (11:43)
[2023-11-26] MEDS ORDERED: LIDOCAINE 1% INJ 10MG/ML (20 ML MDV) ONE (11:43)
[2023-11-26] MEDS ORDERED: VERAPAMIL 2.5 MG/ML 2 ML AMP ONE (11:43)
[2023-11-26] MEDS ORDERED: MIDAZOLAM 2 MG/2 ML VIAL IVP ONE (12:15)
[2023-11-26] MEDS ORDERED: LIDOCAINE 1% INJ 10MG/ML (20 ML MDV) SQ ONE (12:21)
[2023-11-26] MEDS ORDERED: VERAPAMIL SYRINGE (5 MG/10 ML) INTRAARTER ONE (12:23)
[2023-11-26] MEDS ORDERED: HEPARIN SODIUM 1,000 UN/ML (10ML VL) IVP ONE (12:24)
[2023-11-26] MEDS ORDERED: SODIUM CHLORIDE 0.9% 1,000 ML IV SCH (12:30)
[2023-11-26] MEDS ORDERED: IOPAMIDOL-370 100ML BTL IVP ONE (12:38)
--- NOTE | 2023-11-26 13:39 | CC ---
CARDIAC CATHETERIZATION REPORT PROCEDURES PERFORMED: Left heart catheterization and coronary angiography. PERFORMED BY: Dr. Shashank Gates. ANESTHESIA: Moderate conscious sedation time was 14 minutes. Patient was administered Versed. Oxygen saturation, hemodynamics, and EKG were monitored closely. CLINICAL INFORMATION: Mr. Grey Rendon is 83-year-old gentleman with a known history of CAD with PCI of LAD that was performed with a bare metal stent in in 2005. He is also known to have hypertension, hyperlipidemia, some dementia and his sister usually takes care of him. He has been having frequent PVCs, nondescript chest tightness and pressure, and a recent stress test did not reveal any clear-cut ischemia, but patient has symptoms suggestive of angina and frequent PVCs with a burden of no more than 30%. He was therefore advised cardiac cath after due discussion regarding risks, benefits, and options. Under local anesthesia and strict aseptic precautions, a 6-Jordanian introducer was placed in the right radial artery. Using a Glidewire, I was able to gain access to the aorta. A JL 3.5 and JR4 catheters were used to perform coronary angiography and the same right catheter was used to check LV pressures. Following the procedure, the sheath was taken out, and TR band applied as per protocol. The saturation of fingers of the right hand was 97%. Patient tolerated procedure well. There were no complications. CARDIAC CATHETERIZATION FINDINGS: The left ventricular end-diastolic pressure was 5 mmHg without any gradient across aortic valve. Coronary Angiography: Right coronary artery is very calcified vessel, dominant, has about 35% to 40% mid lesion in the midportion in a calcified segment, but flow is excellent distally, bifurcates into PDA, PLV, and another secondary branch. No significant disease. Angiographic appearance is very similar to the one in 2019. Left Main Coronary Artery: Short patent disease-free vessel that bifurcates into LAD and circumflex. Left Anterior Descending Coronary Artery: Good caliber vessel extends along the anterior wall, gives off septal and diagonal branches. Mid LAD which was stented is widely patent with brisk flow, no more than 30% to 35% 35% narrowing. The LAD branches have minor irregularities and the LAD runs all the way to the apex supplying a sizable amount of myocardium. Left Posterior Circumflex Coronary Artery: Nondominant vessel, gives off a good-sized obtuse marginal, has 35% to 40% narrowing in the 1st obtuse marginal, minor irregularities, no significant disease. Left ventriculogram was not performed. FINAL IMPRESSION: This patient has a right-dominant system, normal filling pressures. No gradient. Calcified vessels, 40% RCA disease, 40% circumflex marginal disease. LAD that was stented is widely patent with brisk flow less than 40% narrowing. Angiographic appearance is very similar to the one in 2019. RECOMMENDATIONS: Findings were discussed with the patient and his sister. He will pursue medical therapy including beta blockers. If patient's PVCs are symptomatic, we will consider EP evaluation. I discussed this at length with the patient. For now we will pursue beta blockers and continued medical therapy. He is also on Lasix, which I will discontinue in view of his low end-diastolic pressures. He is also on Aldactone 12.5 mg daily, and I will continue that one. MMODL / IJN: [id number] /
[2023-11-26 17:58] VITALS: BP 134/70; PULSE 52
== END 2023-11-26 17:41 | disposition home or self-care (01) ==
LOC: CATHCVL 10:21
PROVIDERS: ATTEND Internal Medicine Interventional Cardiology
DX: I25.10 Atherosclerotic heart disease of native coronary artery without angina pectoris (principal); I47.29 Other ventricular tachycardia; I10 Essential (primary) hypertension; E78.5 Hyperlipidemia, unspecified; F03.90 Unspecified dementia, unspecified severity, without behavioral disturbance, psychotic disturbance, mood disturbance, and anxiety; I49.3 Ventricular premature depolarization; Z95.5 Presence of coronary angioplasty implant and graft; Z79.01 Long term (current) use of anticoagulants; Z79.899 Other long term (current) drug therapy
CPT/HCPCS: 99152; 93458; C1769 ×2; C1894; J2250; J2001; J1644; Q9967

== ENCOUNTER → 2024-08-09 | Outpatient (CLI) | payer MEDICARE ==
[~2024-08-09] MED LIST changes: -ALPRAZolam 0.25 MG TAB PO PRN; -ALPRAZolam 0.5 MG TAB PO PRN; -ASPIRIN 325 MG TAB PO STA; -HEPARIN SODIUM,PORCINE (1 ML) 2,500 UNIT in SODIUM CHLORIDE 0.9% 250 ML IRRIGATION PRN; -HEPARIN SODIUM,PORCINE 10,000 UNIT in SODIUM CHLORIDE 0.9% 1,000 ML IRRIGATION PRN; +IODINE/POTASSIUM IODIDE 14 ML BOTTLE ONE; -NITROGLYCERIN SL TABS 0.4 MG TAB SUBLINGUAL PRN; -SODIUM CHLORIDE 0.9% 1,000 ML in EMPTY BAG 1 BAG IV SCH
--- NOTE | 2024-08-09 16:38 | NM ---
EXAMINATION TYPE: NM DatScan Brain SPECT DATE OF EXAM: 08/09/2024 COMPARISON: NONE CLINICAL INDICATION: Male, 84 years old with history of R25.1 TREMOR UNSPEC; TECHNIQUE: 10 drops of Lugol's solution was administered 1 hour prior to injection as a thyroid bloc kayleigh agent. After the administration of 4.49 mCi I-123 Ioflupane DaTscan. Images obtained 3 hours p ost injection. SPECT images of the brain were acquired with axial and coronal reconstructions. FINDINGS: There is preserved bilateral striatal activity but very mild increased background activity noted. IMPRESSION: Scintigraphic findings do not clearly indicate Parkinson's disease or a parkinsonian syndrome at this time. However, given the mild increased background activity, short interval follow-up can be conside red if persistent concern. [facility], , 08/09/2024 4:36 PM
== END | disposition home or self-care (01) ==
LOC: RADNMMAIN 10:43
PROVIDERS: ATTEND Psychiatry & Neurology Neurology
DX: R25.1 Tremor, unspecified (principal)
CPT/HCPCS: 78803